=== PATIENT | male | born 1935 | race Caucasian/White ===

== ENCOUNTER 2017-02-05 04:51 | Day surgery (SDC) | payer OTHER, BC ==
[2017-02-04 15:01] VITALS: BMI 31.3
[2017-02-05] MEDS ORDERED: PROPOFOL 20 ML ONE ×2 (08:52)
[2017-02-05 09:59] VITALS: TEMP 98
[2017-02-05 10:57] VITALS: BP 119/70; PULSE 63
--- NOTE | 2017-02-10 11:20 | PATH ---
Surgical Pathology Report Patient Name: INDIGO FISHER [facility]. Rec. #: [id number] /Age/Gender: 1935 (Age: 81) / M Account: [id number] Location: U-ENDOSCOPY Taken: 02/05/2017 Received: 02/05/2017 Reported: 02/08/2017 Physicians: Margarita Burnett M.D. Specimen(s) Received A: BX ILEUM B: BX CECUM Clinical History Altered bowel habits, weight loss, diarrhea Diverticulosis Final Diagnosis A. ILEUM, BIOPSY: ILEAL MUCOSA WITH REACTIVE LYMPHOID AGGREGATE. NO EVIDENCE OF ACTIVE INFLAMMATION, SIGINIFICANT ARCHITECTURAL DISTORTION, GRANULOMATA OR DYSPLASIA; NO INCREASE IN INTRAEPITHELIAL LYMPHOCYTES. B. COLON, CECUM, BIOPSY: COLONIC MUCOSA WITH FOCAL INCREASE IN INTRAEPITHELIAL LYMPHOCYTES AND REACTIVE LYMPHOID AGGREGATE (SEE COMMENT). NO EVIDENCE OF ACTIVE INFLAMMATION, SIGNIFICANT ARCHITECTURAL DISTORTION, GRANULOMATA OR DYSPLASIA. Comment: The histologic findings, while not entirely specific, are suggestive of lymphocytic colitis and proper clinical settings. Trichrome stain does not show thickened collagen fibers that are characteristic of collagenous colitis. Clinical correlations and follow up are suggested. Electronically Signed Tyree Lobo M.D. Gross Description A. Received in formalin, labeled "biopsy ileum" are 2 hutchison, irregular portions of soft tissue measuring 0.4 and 0.6 cm. in greatest dimension. The specimens are submitted in toto in one cassette. B. Received in formalin, labeled "biopsy cecum" are 4 hutchison, irregular portions of soft tissue ranging from 0.1-0.2 cm. in greatest dimension. The specimens are submitted in toto in one cassette. 02/05/2017 saudi02/05/2017
== END 2017-02-05 10:57 | disposition home or self-care (01) ==
LOC: JASU-ENDO 04:51
PROVIDERS: ATTEND Internal Medicine Gastroenterology
PROC: 0DBB8ZX Excision of Ileum, Via Natural or Artificial Opening Endoscopic, Diagnostic (ICD-10-PCS; 2017-02-05)
PROC: 0DBH8ZX Excision of Cecum, Via Natural or Artificial Opening Endoscopic, Diagnostic (ICD-10-PCS; principal; 2017-02-05 09:00)
DX: K57.30 Diverticulosis of large intestine without perforation or abscess without bleeding (principal); K64.8 Other hemorrhoids
CPT/HCPCS: 87045; 87046; 87177; 87186; 87209; 87328; 87329; 88305-TC; 88313-TC

== ENCOUNTER 2019-03-02 19:00 | Inpatient (IN) | payer OTHER, BC ==
[2019-03-02] MEDS ORDERED: ALBUTEROL SO4 2.5/IPRATROPIUM 0.5 INH SOL 3 ML VIAL.NEB. NEB ONE ×2 (19:42→20:01)
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
[2019-03-02] MEDS ORDERED: SODIUM CHLORIDE 0.9% 500 ML INFUS.BAG IV ONE (19:57)
[2019-03-02] MEDS ORDERED: methylPREDNISolone NA SUCC 125 MG/2 ML VIAL IVPB ONE (19:58)
[2019-03-02] MEDS ORDERED: methylPREDNISolone NA SUCC 125 MG/2 ML VIAL ONE (20:02)
[2019-03-02] MEDS: ALBUTEROL SO4 2.5/IPRATROPIUM 0.5 INH SOL 3 ML VIAL.NEB. NEB SCH ×3 (20:13→21:01)
[2019-03-02 20:25] LABS: BASO % 0.1 % (0-2.0); EOS % 1.1 % (0-4.5); HEMATOCRIT 42.6 % (35.4-49); HEMOGLOBIN 13.9 GM/dL (11.7-16.9); LYMPH % 5.3 % (8-40); MCHC 32.7 g/dl (32.0-35.9); MEAN CELL VOLUME 97.9 fl (80-96); MONO % 8.7 % (3.8-10.2); NEUT % 84.8 % (42.8-82.8); PLATELET COUNT 326 K/MM3 (134-434); RBC 4.35 M/mm3 (4.00-5.60); RDW 14.7 % (11.9-15.9); WHITE BLOOD COUNT 12.6 K/mm3 (4.0-10.0)
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
[2019-03-02] MEDS ORDERED: dilTIAZem HCL 50 MG/10 ML - 10 ML VIAL IVPUSH ONE ×2 (20:52→21:16)
[2019-03-02] MEDS ORDERED: dilTIAZem HCL 125 MG/25 ML - 25 ML VIAL ONE ×2 (20:55→21:26)
[2019-03-02 20:57] LABS: ALBUMIN 2.1 g/dl (3.4-5.0); ALK PHOS 101 U/L (45-117); BILIRUBIN,TOTAL 1.9 mg/dL (0.2-1); BLOOD UREA NITROGEN 60.7 mg/dL (7-18); CALCIUM 9.1 mg/dL (8.5-10.1); CHLORIDE 103 mmol/L (98-107); CO2 24 mmol/L (21-32); CREATININE 1.7 mg/dL (0.55-1.3); SGPT/ALT 28 U/L (13-61); SODIUM 139 mmol/L (136-145)
[2019-03-02] MEDS ORDERED: FUROSEMIDE 40 MG/4 ML INJECTABLE VIAL IVPUSH ONE (21:06)
[2019-03-02 21:11] LABS: INR > 15.00 (0.83-1.09)
[2019-03-02] MEDS ORDERED: FUROSEMIDE 40 MG/4 ML INJECTABLE VIAL ONE (21:29)
[2019-03-02] MEDS ORDERED: dilTIAZem HCL 60 MG TABLET (FP) PO ONE (21:33)
[2019-03-02 21:49] LABS: ANION GAP 11 MMOL/L (8-16); POTASSIUM 4.2 mmol/L (3.5-5.1); SGOT/AST 56 U/L (15-37)
[2019-03-02] MEDS ORDERED: dilTIAZem HCL 60 MG TABLET (FP) ONE (22:00)
[2019-03-02 22:08] LABS: GLUCOSE,RANDOM 315 mg/dL (74-106)
[2019-03-02 22:09] LABS: MACROCYTOSIS 1+; PLATELET ESTIMATE ADEQUATE
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
[2019-03-02] MEDS ORDERED: PHYTONADIONE 5 MG TABLET PO ONE (22:11)
[2019-03-02] MEDS ORDERED: INSULIN (NOVOLOG) ASPART 100 UNITS/ML 10ML VIAL SQ ONE (22:14)
[2019-03-02] MEDS ORDERED: PHYTONADIONE 5 MG TABLET ONE (22:17)
[2019-03-03 00:22] LABS: ARTERIAL BLD GAS O2 SATURATION 91.9 % (95-98); ARTERIAL BLOOD GAS BASE EXCESS -0.3 meq/l (-2-2); ARTERIAL BLOOD GAS PCO2 36.4 mmHg (35-45); ARTERIAL BLOOD GAS PO2 66.6 mmHg (80-105); ARTERIAL BLOOD GAS pH 7.42 (7.35-7.45)
[2019-03-03 00:28] LABS: ALLENS TEST POSITIVE
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
[2019-03-03 00:38] LABS: BILIRUBIN,DIRECT 0.9 mg/dL (0.0-0.2)
[2019-03-03] MEDS ORDERED: dilTIAZem HCL 60 MG TABLET (FP) ONE ×2 (01:02→05:39)
[2019-03-03] MEDS: dilTIAZem HCL 60 MG TABLET (FP) PO SCH ×2 (01:09→09:02)
[2019-03-03 02:13] LABS: N-TERMINAL BNP 3756.4 pg/ml (5-450)
[2019-03-03] MEDS ORDERED: ACETAMINOPHEN 325 MG TABLET (FP) PO PRN ×2 (03:33→03:53)
[2019-03-03] MEDS ORDERED: INSULIN (NOVOLOG) ASPART 100 UNITS/ML 10ML VIAL SQ ONE (04:27)
[2019-03-03] MEDS ORDERED: LEVOTHYROXINE NA 25 MCG TABLET (FP) ONE (05:40)
[2019-03-03] MEDS ORDERED: LEVOTHYROXINE NA 25 MCG TABLET (FP) PO SCH (07:00)
[2019-03-03] MEDS ORDERED: INSULIN SLIDING SCALE (NOVOLOG) 1 VIAL SQ SCH (07:00)
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
[2019-03-03] MEDS: INSULIN SLIDING SCALE (NOVOLOG) 1 VIAL SQ SCH ×4 (09:00→21:32)
[2019-03-03] MEDS: ISOSORBIDE MONONITRATE 30 MG TAB.SR.24H (FP) PO SCH (09:49)
[2019-03-03] MEDS: DUTASTERIDE 0.5 MG CAP (FP) PO SCH (09:49)
[2019-03-03] MEDS ORDERED: [UNRECOGNIZED DRUG - OTHER] PO SCH (10:00)
[2019-03-03] MEDS ORDERED: VIT B12 PO SCH (10:00)
[2019-03-03] MEDS ORDERED: INTRINSIC FACT PO SCH (10:00)
[2019-03-03] MEDS ORDERED: FOLATE PO SCH (10:00)
[2019-03-03] MEDS ORDERED: FUROSEMIDE 40 MG/4 ML INJECTABLE VIAL IVPUSH SCH (10:00)
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
[2019-03-03 10:24] LABS: BASO % 0.1 % (0-2.0); HEMOGLOBIN 13.6 GM/dL (11.7-16.9); LYMPH % 6.7 % (8-40); MCH 32.4 pg (25.7-33.7); MCHC 33.2 g/dl (32.0-35.9); MEAN CELL VOLUME 97.6 fl (80-96); MONO % 5.6 % (3.8-10.2); NEUT % 87.6 % (42.8-82.8); PLATELET COUNT 265 K/MM3 (134-434); RDW 14.2 % (11.9-15.9); WHITE BLOOD COUNT 10.8 K/mm3 (4.0-10.0)
[2019-03-03 10:34] LABS: PROTHROMBIN TIME (PATIENT) 88.2 SEC (9.7-13.0)
[2019-03-03 10:57] LABS: INR 7.33 (0.83-1.09)
[2019-03-03 11:23] LABS: BILIRUBIN,TOTAL 1.6 mg/dL (0.2-1); BLOOD UREA NITROGEN 66.7 mg/dL (7-18); CREATININE 1.6 mg/dL (0.55-1.3); POTASSIUM 3.6 mmol/L (3.5-5.1); TOT PROT 5.7 g/dl (6.4-8.2)
[2019-03-03 11:27] LABS: MAGNESIUM 2.2 mg/dL (1.8-2.4); PHOSPHOROUS 2.6 mg/dL (2.5-4.9)
--- NOTE | 2019-03-03 11:45 | EKG ---
Test Reason : Blood Pressure : / mmHG Vent. Rate : 132 BPM Atrial Rate : 138 BPM P-R Int : 000 ms QRS Dur : 076 ms QT Int : 286 ms P-R-T Axes : 000 270 -39 degrees QTc Int : 423 ms ATRIAL FIBRILLATION WITH RAPID VENTRICULAR RESPONSE RIGHT SUPERIOR AXIS DEVIATION PULMONARY DISEASE PATTERN NONSPECIFIC ST AND T WAVE ABNORMALITY ABNORMAL ECG WHEN COMPARED WITH ECG OF 23-JAN-2003 11:54, SIGNIFICANT CHANGES HAVE OCCURRED Confirmed by FERNANDO GILLIAM MD ([id number]) on 03/03/2019 11:44:38 AM Referred By: Confirmed By:FERNANDO GILLIAM MD
--- NOTE | 2019-03-03 12:40 | PN ---
Teaching Attending Note Name of Resident: Fred Schafer ATTENDING PHYSICIAN STATEMENT I saw and evaluated the patient. I reviewed the resident's note and discussed the case with the resident. I agree with the resident's findings and plan as documented. SUBJECTIVE: denies any Cp, denies SOB, has no palpitations, feels better . reports being compliant with his meds OBJECTIVE: NAD, awake, alert. coopertive HEENT: MMM, no JVD, no facial droop CV: irreg irreg , no MRG , no JVD , neg hepatojugular reflux Lungs: course crackles b/l half way down on both lung ledesma Ext : No edema . some bruising . No fungal infection among toes. Abd: soft, NT, ND , NL BS . Neg hepatojugular reflux ASSESSMENT AND PLAN: 84 y/o man with h/o HTN, A fib on coumadin, HLP, DM, CAD, No stents, CKD, diverticulosis, GERD, and hypothyroidism, who presented with [facility] [place] [facility]. he was found to have acute hypoxic resp failure, CHf, and Afib with RVR 1- Acute hypoxic resp failure 2/2 Acute heart failure, type to be determined with Echo, but suspect some systolic dysfunction - on 15 L of O2 but sat O2 still barely 88 %. - will increase diuresis to BID ( 40 mg IV) - add BIPAP PRN and HS. - Echo pending 2- A fib with RVR: suspect due to induced hyperthyroidism. - decrease synthroid dose - hold coumadin - DC cardizem started last night due to heart failure, and dc atenolol and add lopressor 50 BID - tele 3- Coumadin coagulopathy : - hold coumadin . received Vit K - follow INR ( improved ) 4- Possible CKD: monitor Cr with diuresis 5- H/o Hypothyroidism: with low TSH - decrease dose of synthroid since in Afib with RVR 6- elevated indirect Bili, US with stones but no CBD dilation or cholecystitis. cold be due to some degree of liver congestin - monitor 7- H/o Dm withhyperglycemia: received steorids in ER. A1c 6.9. - cont SSI . resume sitagliptin at dc 8- Dispo : HLOC
--- NOTE | 2019-03-03 12:46 | ECHO ---
Name: INDIGO FISHER Exam:Adult Echocardiogram Study Date: 03/03/2019 11:03 AM Age: 84 yrs Reason For Study: R/O REDUCED EF, AF W/RVR AND OVERLOAD Height: 69 in Weight: 180 lb BSA: 2.0 m2 MMode/2D Measurements & Calculations IVSd: 0.78 cm Ao root diam: 2.9 cm LVIDd: 4.7 cm LA dimension: 5.3 cm LVIDs: 3.2 cm LVPWd: 0.69 cm EDV(Teich): 103.0 ml LVOT diam: 2.2 cm ESV(Teich): 41.2 ml Doppler Measurements & Calculations MV E max jie: 57.8 cm/sec Ao V2 max: 162.1 cm/sec MV A max jie: 29.6 cm/sec Ao max P.5 mmHg MV E/A: 2.0 Ao V2 mean: 102.1 cm/sec MV dec time: 0.25 sec Ao mean P.2 mmHg Ao V2 VTI: 25.9 cm SIMON(I,D): 1.8 cm2 SIMON(V,D): 2.3 cm2 LV V1 max P.8 mmHg MR max jie: 281.0 cm/sec LV V1 mean P.7 mmHg MR max P.6 mmHg LV V1 max: 97.7 cm/sec LV V1 mean: 60.5 cm/sec LV V1 VTI: 12.1 cm SV(LVOT): 46.6 ml TR max jie: 199.4 cm/sec TR max P.3 mmHg Left Ventricle Ejection Fraction = 50-55%. Right Ventricle The right ventricle is normal size. The right ventricular systolic function is grossly normal. Atria The left atrium is moderately dilated. The right atrium is moderately dilated. Mitral Valve The mitral valve is grossly normal. There is no mitral valve stenosis. There is mild mitral regurgita tion. Tricuspid Valve The tricuspid valve is normal in structure and function. There is mild tricuspid regurgitation. Right ventricular systolic pressure is normal. Aortic Valve The aortic valve is trileaflet. The aortic valve opens well. No hemodynamically significant valvular aortic stenosis. Pericardium/Pleura There is no pericardial effusion. Interpretation Summary The left atrium is moderately dilated. Ejection Fraction = 50-55%. The right atrium is moderately dilated. There is mild tricuspid regurgitation. Right ventricular systolic pressure is normal. The right ventricular systolic function is grossly normal. There is mild mitral regurgitation. There is no pericardial effusion. MD Zamudio *Lucía 03/03/2019 12:45 PM
[2019-03-03] MEDS: FUROSEMIDE 40 MG/4 ML INJECTABLE VIAL IVPUSH SCH (16:59)
[2019-03-03] MEDS: ROSUVASTATIN CA 5 MG TABLET (FP) PO SCH (21:28)
[2019-03-03] MEDS: METOPROLOL TARTRATE 50 MG TABLET (FP) PO SCH (21:29)
[2019-03-03] MEDS ORDERED: ATENOLOL 50 MG TABLET (FP) PO SCH (22:00)
[2019-03-03] MEDS ORDERED: METOPROLOL TARTRATE 50 MG TABLET (FP) PO SCH (22:00)
[2019-03-04] MEDS: LEVOTHYROXINE NA 25 MCG TABLET (FP) PO SCH (06:01)
[2019-03-04] MEDS: FUROSEMIDE 40 MG/4 ML INJECTABLE VIAL IVPUSH SCH ×2 (06:01→17:12)
[2019-03-04] MEDS: INSULIN SLIDING SCALE (NOVOLOG) 1 VIAL SQ SCH ×4 (06:02→21:29)
[2019-03-04 07:32] LABS: INR 3.3 (0.83-1.09); PROTHROMBIN TIME (PATIENT) 39.4 SEC (9.7-13.0)
[2019-03-04 07:38] LABS: ALBUMIN 1.9 g/dl (3.4-5.0); BILIRUBIN,TOTAL 1.2 mg/dL (0.2-1); BLOOD UREA NITROGEN 73.6 mg/dL (7-18); CALCIUM 8.8 mg/dL (8.5-10.1); CREATININE 1.8 mg/dL (0.55-1.3); PHOSPHOROUS 3.8 mg/dL (2.5-4.9); POTASSIUM 3.7 mmol/L (3.5-5.1); TOT PROT 5.5 g/dl (6.4-8.2)
[2019-03-04 08:06] LABS: BASO % 0.2 % (0-2.0); HEMATOCRIT 39.3 % (35.4-49); LYMPH % 5.7 % (8-40); MCH 32.3 pg (25.7-33.7); MCHC 33.1 g/dl (32.0-35.9); MEAN CELL VOLUME 97.6 fl (80-96); MEAN PLT VOLUME 10.2 fl (7.5-11.1); MONO % 4.3 % (3.8-10.2); NEUT % 89.8 % (42.8-82.8); PLATELET COUNT 274 K/MM3 (134-434); RBC 4.03 M/mm3 (4.00-5.60); RDW 14.4 % (11.9-15.9)
[2019-03-04] MEDS: ALBUTEROL SO4 2.5/IPRATROPIUM 0.5 INH SOL 3 ML VIAL.NEB. NEB PRN ×2 (08:10→13:57)
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
[2019-03-04] MEDS: METOPROLOL TARTRATE 50 MG TABLET (FP) PO SCH ×2 (10:07→21:28)
[2019-03-04] MEDS: DUTASTERIDE 0.5 MG CAP (FP) PO SCH (10:08)
[2019-03-04] MEDS: ISOSORBIDE MONONITRATE 30 MG TAB.SR.24H (FP) PO SCH (10:08)
[2019-03-04 12:13] LABS: ANISOCYTOSIS 0; MACROCYTOSIS 1+; PLATELET ESTIMATE NORMAL
--- NOTE | 2019-03-04 12:40 | PN ---
Teaching Attending Note Name of Resident: Viral Siegel ATTENDING PHYSICIAN STATEMENT I saw and evaluated the patient. I reviewed the resident's note and discussed the case with the resident. I agree with the resident's findings and plan as documented. SUBJECTIVE: no fever or chills. No ZULETA , did not sleep last night. used BIPAP al night , SOB is better . NO PC . OBJECTIVE: NAD, awake, alert. cooperative HEENT: MMM, no JVD, no facial droop CV: irreg irreg, no MRG , no JVD , neg hepatojugular reflux Lungs: course crackles b/l bases Ext: No edema. some bruising . No fungal infection among toes. ASSESSMENT AND PLAN: 84 y/o man with h/o HTN, A fib on coumadin, HLP, DM, CAD, No stents, CKD, diverticulosis, GERD, and hypothyroidism, [facility] he was found to have acute hypoxic resp failure, CHf, and Afib with RVR 1- Acute hypoxic resp failure 2/2 Acute diastolic heart failure - try venti mask instead of the BIPAP during the day - cont BID lasix, if renal function worsens further , then will decrease dose - add BIPAP PRN and HS. - Echo reviewed - leukocytosis is probably due to steroids received in ER. will repeat, and check cxray in am 2- A fib with RVR: suspect due to induced hyperthyroidism. - tele with improvement in heart rate - cont to hold coumadin - cont lopressor 50 BID - tele 3- Coumadin coagulopathy : - hold coumadin. received Vit K - follow INR 4- Possible CKD: monitor Cr with diuresis 5- H/o Hypothyroidism: with low TSH - cont decreaed dose of synthroid 6- Transaminitis : due to congestion . improved with diuresis 7- H/o Dm with hyperglycemia: received steorids in ER. A1c 6.9. - cont SSI. resume sitagliptin at dc 8- Dispo : OC
[2019-03-04 13:49] LABS: INR 3.27 (0.83-1.09); PROTHROMBIN TIME (PATIENT) 39.1 SEC (9.7-13.0)
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
[2019-03-04] MEDS: ROSUVASTATIN CA 5 MG TABLET (FP) PO SCH (21:28)
[2019-03-05] MEDS: LEVOTHYROXINE NA 25 MCG TABLET (FP) PO SCH (06:32)
[2019-03-05] MEDS: INSULIN SLIDING SCALE (NOVOLOG) 1 VIAL SQ SCH ×4 (06:32→21:39)
[2019-03-05] MEDS: FUROSEMIDE 40 MG/4 ML INJECTABLE VIAL IVPUSH SCH ×2 (06:32→17:02)
[2019-03-05 07:22] LABS: BLOOD UREA NITROGEN 66.8 mg/dL (7-18); CALCIUM 8.9 mg/dL (8.5-10.1); CREATININE 1.4 mg/dL (0.55-1.3); POTASSIUM 3.8 mmol/L (3.5-5.1)
[2019-03-05 07:43] LABS: BASO % 0.1 % (0-2.0); HEMOGLOBIN 14.5 GM/dL (11.7-16.9); LYMPH % 3.3 % (8-40); MCH 31.9 pg (25.7-33.7); MEAN CELL VOLUME 96.8 fl (80-96); MEAN PLT VOLUME 10.2 fl (7.5-11.1); NEUT % 94.6 % (42.8-82.8); RBC 4.55 M/mm3 (4.00-5.60); RDW 14.4 % (11.9-15.9); WHITE BLOOD COUNT 16.7 K/mm3 (4.0-10.0)
[2019-03-05 08:07] LABS: INR 3.57 (0.83-1.09); PROTHROMBIN TIME (PATIENT) 42.7 SEC (9.7-13.0)
[2019-03-05 08:43] LABS: PLATELET COUNT 274 K/MM3 (134-434)
[2019-03-05] MEDS: METOPROLOL TARTRATE 50 MG TABLET (FP) PO SCH ×2 (08:59→21:39)
[2019-03-05] MEDS: ISOSORBIDE MONONITRATE 30 MG TAB.SR.24H (FP) PO SCH (08:59)
[2019-03-05] MEDS: DUTASTERIDE 0.5 MG CAP (FP) PO SCH (08:59)
[2019-03-05] MEDS ORDERED: INSULIN (NOVOLOG) ASPART 100 UNITS/ML 10ML VIAL ONE ×4 (11:06→21:31)
[2019-03-05 12:37] LABS: MACROCYTOSIS 0; PLATELET ESTIMATE NORMAL
--- NOTE | 2019-03-05 13:27 | PN ---
Progress Note (short form) - Note Progress Note: Subjective: No fever or chills. feels his breathing is better. No ZULETA . no diarrhea. Objective: Vital Signs: Last Vital Signs Temp Pulse Resp BP Pulse Ox 97.6 F 92 H 24 H 127/71 90 L 03/05/19 08:48 03/05/19 08:48 03/05/19 08:50 03/05/19 08:48 03/05/19 09:33 Laboratory Results - last 24 hr 03/04/19 03/04/19 03/04/19 06:17 13:05 16:46 WBC RBC Hgb Hct MCV MCH MCHC RDW Plt Count MPV Absolute Neuts (auto) Neutrophils % Neutrophils % (Manual) 92.9 H Band Neutrophils % 2.0 Lymphocytes % Lymphocytes % (Manual) 3.1 L Monocytes % Monocytes % (Manual) 0 L D Eosinophils % Eosinophils % (Manual) 0.0 Basophils % Basophils % (Manual) 0.0 Myelocytes % (Man) 2 Promyelocytes % (Man) 0 Blast Cells % (Manual) 0 Nucleated RBC % Metamyelocytes 0 Hypochromia 0 Platelet Estimate Normal Polychromasia 0 Poikilocytosis 0 Anisocytosis 0 Microcytosis 0 Macrocytosis 1+ PT with INR 39.10 H INR 3.27 H Sodium Potassium Chloride Carbon Dioxide Anion Gap BUN Creatinine Est GFR (CKD-EPI)AfAm Est GFR (CKD-EPI)NonAf POC Glucometer 187 Random Glucose Calcium 03/04/19 03/05/19 03/05/19 21:26 05:52 06:15 WBC 16.7 H RBC 4.55 Hgb 14.5 Hct 44.0 MCV 96.8 H MCH 31.9 MCHC 33.0 RDW 14.4 Plt Count 274 MPV 10.2 Absolute Neuts (auto) 15.8 H Neutrophils % 94.6 H Neutrophils % (Manual) Band Neutrophils % Lymphocytes % 3.3 L D Lymphocytes % (Manual) Monocytes % 2.0 L Monocytes % (Manual) Eosinophils % 0.0 Eosinophils % (Manual) Basophils % 0.1 Basophils % (Manual) Myelocytes % (Man) Promyelocytes % (Man) Blast Cells % (Manual) Nucleated RBC % 0 Metamyelocytes Hypochromia Platelet Estimate Polychromasia Poikilocytosis Anisocytosis Microcytosis Macrocytosis PT with INR INR Sodium Potassium Chloride Carbon Dioxide Anion Gap BUN Creatinine Est GFR (CKD-EPI)AfAm Est GFR (CKD-EPI)NonAf POC Glucometer 220 221 Random Glucose Calcium 03/05/19 03/05/19 03/05/19 06:15 06:15 11:11 WBC RBC Hgb Hct MCV MCH MCHC RDW Plt Count MPV Absolute Neuts (auto) Neutrophils % Neutrophils % (Manual) Band Neutrophils % Lymphocytes % Lymphocytes % (Manual) Monocytes % Monocytes % (Manual) Eosinophils % Eosinophils % (Manual) Basophils % Basophils % (Manual) Myelocytes % (Man) Promyelocytes % (Man) Blast Cells % (Manual) Nucleated RBC % Metamyelocytes Hypochromia Platelet Estimate Polychromasia Poikilocytosis Anisocytosis Microcytosis Macrocytosis PT with INR 42.70 H INR 3.57 H Sodium 142 Potassium 3.8 Chloride 103 Carbon Dioxide 29 Anion Gap 10 BUN 66.8 H Creatinine 1.4 H Est GFR (CKD-EPI)AfAm 53.47 Est GFR (CKD-EPI)NonAf 46.13 POC Glucometer 338 Random Glucose 205 H Calcium 8.9 Physical Exam: NAD, awake, alert. cooperative. BIPPA ask on HEENT: MMM, no JVD, no facial droop CV: irreg irreg, no MRG, no JVD Lungs: course crackles b/l bases ( improved ) Ext: No edema. some bruising . ASSESSMENT AND PLAN: 84 y/o man with h/o HTN, A fib on coumadin, HLP, DM, CAD, No stents, CKD, diverticulosis, GERD, and hypothyroidism, who [facility]. he was found to have acute hypoxic resp failure, CHf, and Afib with RVR 1- Acute hypoxic resp failure 2/2 Acute diastolic heart failure - Cont BIPAP - cont lasix - will get CT of chest to r/o any infiltrates as hypoxia persists and white count is increasing. - if there is no PNA ot explain the hypoxia , will start steroids as he has h/o smoking - PE is not suspected as he is on coumadin 2- A fib with RVR: - tele reviewed - cont to hold coumadin . repeat INR - cont lopressor 50 BID - tele 3- Coumadin coagulopathy : - hold coumadin. received Vit K - follow INR 4- Possible CKD: monitor Cr with diuresis 5- H/o Hypothyroidism: with low TSH - cont decreased dose of synthroid 6- Transaminitis: due to congestion. improved with diuresis 7- H/o DM with hyperglycemia: - increase SSI. Resume sitagliptin at dc 8- Dispo : HLOC Visit type - Emergency Visit Emergency Visit: Yes ED Registration Date: 03/02/19 Care time: The patient presented to the Emergency Department on the above date and was hospitalized for further evaluation of their emergent condition. - New Patient This patient is new to me today: No - Critical Care Critical Care patient: No
[2019-03-05 13:49] LABS: ANISOCYTOSIS 1+
[2019-03-05] MEDS ORDERED: cefTRIAXone SODIUM 1 GM VIAL ONE (14:03)
[2019-03-05] MEDS ORDERED: DEXTROSE 5%-WATER - 50 ML IVPB ONE (14:03)
[2019-03-05] MEDS: methylPREDNISolone NA SUCC 40 MG/1 ML VIAL IVPB SCH ×2 (14:09→21:40)
[2019-03-05] MEDS: CEFTRIAXONE 1 GM in DEXTROSE 5%-WATER - 50 ML IVPB SCH (15:43)
[2019-03-05] MEDS: AZITHROMYCIN IVPB 500 MG/250 ML BAG IVPB SCH (15:43)
[2019-03-05] MEDS: ROSUVASTATIN CA 5 MG TABLET (FP) PO SCH (21:39)
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
[2019-03-06] MEDS: FUROSEMIDE 40 MG/4 ML INJECTABLE VIAL IVPUSH SCH ×2 (06:40→17:35)
[2019-03-06] MEDS: INSULIN SLIDING SCALE (NOVOLOG) 1 VIAL SQ SCH ×4 (06:40→23:32)
[2019-03-06] MEDS: LEVOTHYROXINE NA 25 MCG TABLET (FP) PO SCH (06:41)
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
[2019-03-06 08:00] LABS: BASO % 0.1 % (0-2.0); HEMATOCRIT 45.1 % (35.4-49); HEMOGLOBIN 15.1 GM/dL (11.7-16.9); MCH 32.3 pg (25.7-33.7); MCHC 33.4 g/dl (32.0-35.9); MEAN CELL VOLUME 96.7 fl (80-96); MEAN PLT VOLUME 10.6 fl (7.5-11.1); MONO % 2.4 % (3.8-10.2); NEUT % 93.5 % (42.8-82.8); RBC 4.66 M/mm3 (4.00-5.60); RDW 14.1 % (11.9-15.9); WHITE BLOOD COUNT 19.2 K/mm3 (4.0-10.0)
[2019-03-06 08:25] LABS: BLOOD UREA NITROGEN 66.7 mg/dL (7-18); CALCIUM 8.7 mg/dL (8.5-10.1); CREATININE 1.4 mg/dL (0.55-1.3); MAGNESIUM 2.3 mg/dL (1.8-2.4); PHOSPHOROUS 4.3 mg/dL (2.5-4.9); POTASSIUM 3.4 mmol/L (3.5-5.1)
[2019-03-06 09:06] LABS: INR 3.83 (0.83-1.09); PROTHROMBIN TIME (PATIENT) 45.8 SEC (9.7-13.0)
[2019-03-06 09:09] LABS: PLATELET COUNT 284 K/MM3 (134-434)
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
[2019-03-06] MEDS: DUTASTERIDE 0.5 MG CAP (FP) PO SCH (11:16)
[2019-03-06] MEDS: METOPROLOL TARTRATE 50 MG TABLET (FP) PO SCH ×2 (11:17→21:46)
[2019-03-06] MEDS: ISOSORBIDE MONONITRATE 30 MG TAB.SR.24H (FP) PO SCH (11:17)
[2019-03-06] MEDS ORDERED: POTASSIUM CHLORIDE TABS 20 MEQ TABLET.ER (FP) PO ONE (11:23)
--- NOTE | 2019-03-06 12:59 | PN ---
Teaching Attending Note Name of Resident: Fred Schafer ATTENDING PHYSICIAN STATEMENT I saw and evaluated the patient. I reviewed the resident's note and discussed the case with the resident. I agree with the resident's findings and plan as documented. SUBJECTIVE: No fever or chills. He denies SOB, no PC . no ocugh. has no abd pain or diarrhea OBJECTIVE: NAD, awake, alert. cooperative. BIPPA mask on. HEENT: MMM, no JVD, no facial droop. CV: irreg irreg, no MRG, no JVD. Lungs: bibasilar crackles have improved. Ext: No edema. ASSESSMENT AND PLAN: 84 y/o man with h/o HTN, A fib on coumadin, HLP, DM, CAD, No stents, CKD, diverticulosis, GERD, and hypothyroidism, who presented with [facility]oxia [facility]. He was found to have acute hypoxic resp failure, CHf, and Afib with RVR . 1- Acute hypoxic resp failure 2/2 Acute diastolic heart failure and b/l PNA - Cont BIPAP - cont lasix at current dose - day 2 of Ab, ceftriaxone and azithro. Legionella neg - No need for steroids at this point - Start standing nebs - Pulm eval pending 2- A fib with RVR: - tele reviewed . rate controlled - cont to hold coumadin . repeat INR - cont lopressor 50 BID 3- Coumadin coagulopathy: s/p Vit K - hold coumadin. - follow INR 4- Possible CKD: monitor Cr with diuresis. 5- H/o Hypothyroidism: with low TSH - cont decreased dose of synthroid. 6- Transaminitis: due to congestion. improved with diuresis 7- H/o DM with hyperglycemia: - SSI. can resume sitagliptin in house 8- Dispo : HLOC
[2019-03-06 13:01] LABS: ANISOCYTOSIS 0; MACROCYTOSIS 0; PLATELET ESTIMATE NORMAL
[2019-03-06] MEDS ORDERED: methylPREDNISolone NA SUCC 125 MG/2 ML VIAL ONE (13:10)
[2019-03-06] MEDS ORDERED: methylPREDNISolone NA SUCC 125 MG/2 ML VIAL IVPUSH ONE (13:12)
[2019-03-06] MEDS: CEFTRIAXONE 1 GM in DEXTROSE 5%-WATER - 50 ML IVPB SCH (13:12)
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
[2019-03-06] MEDS: AZITHROMYCIN IVPB 500 MG/250 ML BAG IVPB SCH (13:13)
[2019-03-06] MEDS ORDERED: ALBUTEROL SO4 0.083% IH SOL 2.5 MG/3 ML VIAL.NEB. NEB PRN (13:20)
[2019-03-06] MEDS ORDERED: ALBUTEROL SO4 2.5/IPRATROPIUM 0.5 INH SOL 3 ML VIAL.NEB. NEB ONE (13:39)
[2019-03-06] MEDS ORDERED: VANCOMYCIN HCL 1,250 MG in DEXTROSE 5%-WATER - 250 ML IVPB ONE ×2 (14:00→16:45)
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
[2019-03-06 14:56] LABS: ARTERIAL BLD GAS O2 SATURATION 95.1 % (95-98); ARTERIAL BLOOD GAS PCO2 36.3 mmHg (35-45); ARTERIAL BLOOD GAS PO2 76.3 mmHg (80-105)
[2019-03-06 14:58] LABS: ALLENS TEST POSITIVE
[2019-03-06] MEDS: ALBUTEROL SO4 2.5/IPRATROPIUM 0.5 INH SOL 3 ML VIAL.NEB. NEB SCH ×2 (15:33→21:15)
[2019-03-06] MEDS ORDERED: PIPERACILLIN/TAZOBACTAM 3.375 GM VIAL IVPB ONE ×2 (16:21→21:09)
[2019-03-06] MEDS ORDERED: PT OWN MED DRAWER 7, Y5N ONE ×2 (16:21→21:31)
[2019-03-06] MEDS ORDERED: DEXTROSE 5%-WATER - 50 ML IVPB ONE ×2 (16:21→21:10)
[2019-03-06] MEDS: PIPERACILLIN/TAZOB 3.375 GM 3.375 GM in DEXTROSE 5%-WATER - 50 ML IVPB SCH ×2 (16:24→21:44)
[2019-03-06] MEDS ORDERED: INSULIN (NOVOLOG) ASPART 100 UNITS/ML 10ML VIAL ONE ×2 (16:53→19:02)
[2019-03-06 16:57] LABS: EPI CELLS 1.5 /HPF (0-5/HPF); HYALINE CASTS 24 /lpf (0-8); URINE APPEARANCE CLOUDY; URINE BACTERIA 6.4 /hpf (NEGATIVE); URINE BILIRUBIN NEGATIVE (NEGATIVE); URINE COLOR YELLOW; URINE GLUCOSE (UA) NEGATIVE (NEGATIVE); URINE KETONE NEGATIVE (NEGATIVE); URINE LEUK ESTERASE NEGATIVE (NEGATIVE); URINE NITRITE NEGATIVE (NEGATIVE); URINE PROTEIN NEGATIVE (NEGATIVE); URINE UROBILINOGEN 0.2 mg/dL (0.2-1.0); URINE WBC 3 /hpf (0-5)
[2019-03-06] MEDS: methylPREDNISolone NA SUCC 40 MG/1 ML VIAL IVPUSH SCH (17:35)
[2019-03-06 18:00] LABS: URINE RBC 67.5 /hpf (0-4); YEAST NONE SEEN (NEGATIVE)
--- NOTE | 2019-03-06 20:17 | PN ---
Progress Note (short form) - Note Progress Note: Spoke with Nephew over the phone after getting consent from pt. Nephew reports pt's has memory deficits and that he has HCP forms. Updated nephew on pt's condition and instructed nephew to bring or fax over HCP forms so we can scan into our system.
[2019-03-06] MEDS: ROSUVASTATIN CA 5 MG TABLET (FP) PO SCH (22:24)
[2019-03-07] MEDS ORDERED: DEXTROSE 5%-WATER - 50 ML IVPB ONE ×4 (03:20→20:42)
[2019-03-07] MEDS ORDERED: PIPERACILLIN/TAZOBACTAM 3.375 GM VIAL IVPB ONE ×4 (03:20→20:42)
[2019-03-07] MEDS: methylPREDNISolone NA SUCC 40 MG/1 ML VIAL IVPUSH SCH ×3 (03:22→18:56)
[2019-03-07] MEDS: PIPERACILLIN/TAZOB 3.375 GM 3.375 GM in DEXTROSE 5%-WATER - 50 ML IVPB SCH ×4 (03:23→21:36)
[2019-03-07] MEDS: FUROSEMIDE 40 MG/4 ML INJECTABLE VIAL IVPUSH SCH (05:56)
[2019-03-07 06:14] LABS: EOS % 0.1 % (0-4.5); RDW 13.9 % (11.9-15.9); WHITE BLOOD COUNT 18.2 K/mm3 (4.0-10.0)
[2019-03-07] MEDS: sitaGLIPtin PHOSPHATE 50 MG TABLET PO SCH (06:17)
[2019-03-07] MEDS: LEVOTHYROXINE NA 25 MCG TABLET (FP) PO SCH (06:18)
[2019-03-07 06:25] LABS: BASO % 0.2 % (0-2.0); HEMATOCRIT 41.7 % (35.4-49); HEMOGLOBIN 13.9 GM/dL (11.7-16.9); LYMPH % 4.6 % (8-40); MCH 32.6 pg (25.7-33.7); MCHC 33.4 g/dl (32.0-35.9); MEAN CELL VOLUME 97.6 fl (80-96); MEAN PLT VOLUME 10.6 fl (7.5-11.1); MONO % 0.7 % (3.8-10.2); NEUT % 94.4 % (42.8-82.8); PLATELET COUNT 294 K/MM3 (134-434); RBC 4.28 M/mm3 (4.00-5.60)
[2019-03-07 06:26] LABS: ARTERIAL BLD GAS O2 SATURATION 85.2 % (95-98); ARTERIAL BLOOD GAS BASE EXCESS 8.7 meq/l (-2-2); ARTERIAL BLOOD GAS PO2 50.9 mmHg (80-105); ARTERIAL BLOOD GAS pH 7.52 (7.35-7.45)
[2019-03-07 06:26] LABS: INR 3.17 (0.83-1.09); PROTHROMBIN TIME (PATIENT) 37.9 SEC (9.7-13.0)
[2019-03-07 06:28] LABS: ALLENS TEST POSITIVE
[2019-03-07] MEDS: INSULIN SLIDING SCALE (NOVOLOG) 1 VIAL SQ SCH ×4 (06:31→22:22)
[2019-03-07 06:44] LABS: ALBUMIN 1.6 g/dl (3.4-5.0); BILIRUBIN,TOTAL 0.7 mg/dL (0.2-1); CALCIUM 8.6 mg/dL (8.5-10.1); CREATININE 1.8 mg/dL (0.55-1.3); MAGNESIUM 2.4 mg/dL (1.8-2.4); PHOSPHOROUS 5.4 mg/dL (2.5-4.9); POTASSIUM 3.8 mmol/L (3.5-5.1); TOT PROT 5.6 g/dl (6.4-8.2)
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
[2019-03-07] MEDS: ALBUTEROL SO4 2.5/IPRATROPIUM 0.5 INH SOL 3 ML VIAL.NEB. NEB SCH ×4 (08:10→19:50)
[2019-03-07] MEDS: METOPROLOL TARTRATE 50 MG TABLET (FP) PO SCH ×2 (09:07→21:37)
[2019-03-07] MEDS: ISOSORBIDE MONONITRATE 30 MG TAB.SR.24H (FP) PO SCH (09:07)
[2019-03-07] MEDS ORDERED: PT OWN MED DRAWER 7, Y5N ONE ×3 (09:13→20:42)
[2019-03-07] MEDS: DUTASTERIDE 0.5 MG CAP (FP) PO SCH (09:14)
--- NOTE | 2019-03-07 11:20 | PN ---
Teaching Attending Note Name of Resident: Jaiden Rogers ATTENDING PHYSICIAN STATEMENT I saw and evaluated the patient. I reviewed the resident's note and discussed the case with the resident. I agree with the resident's findings and plan as documented. SUBJECTIVE: Patient seen and examined in the ICU. Awake and alert. Currently on HFOT. WOB appears improved. Awake and responsive. ABG noted. No pressors. Denies CP and SOB is better. Intake & Output 03/04/19 03/05/19 03/06/19 03/07/19 23:59 23:59 23:59 23:59 Intake Total 1300 1430 570 170 Output Total 3400 3000 700 Balance -2100 -1570 -130 170 Weight 186 lb 182 lb 3.2 oz 179 lb 6 oz 183 lb 3.2 oz Last Vital Signs Temp Pulse Resp BP Pulse Ox 97.6 F 80 21 H 123/75 96 03/07/19 08:00 03/07/19 08:00 03/07/19 08:00 03/07/19 08:00 03/07/19 09:00 Active Medications Acetaminophen (Tylenol -) 650 mg PO Q6H PRN PRN Reason: PAIN OR FEVER Last Admin: 03/06/19 11:17 Dose: 650 mg Albuterol Sulfate (Ventolin 0.083% Nebulizer Soln -) 1 amp NEB Q4H PRN PRN Reason: SHORT OF BREATH/WHEEZING Last Admin: 03/06/19 23:51 Dose: 1 amp Albuterol/Ipratropium (Duoneb -) 1 amp NEB RQID [facility] Last Admin: 03/06/19 21:15 Dose: 1 amp Dutasteride (Avodart -) 0.5 mg PO DAILY [facility] Last Admin: 03/07/19 09:14 Dose: 0.5 mg Azithromycin (Zithromax 500mg Ivpb (Pre-Docked)) 500 mg in 250 mls @ 250 mls/ hr IVPB Q24H [facility] Last Admin: 03/06/19 13:13 Dose: 250 mls/hr Piperacillin Sod/Tazobactam (Sod 3.375 gm/ Dextrose) 50 mls @ 100 mls/hr IVPB Q6H-IV EDMUND; Protocol Last Admin: 03/07/19 09:06 Dose: 100 mls/hr Insulin Aspart (Novolog Vial Sliding Scale -) 1 vial SQ ACHS EDMUND; Protocol Last Admin: 03/07/19 06:31 Dose: 6 units Isosorbide Mononitrate (Imdur -) 30 mg PO DAILY [facility] Last Admin: 03/07/19 09:07 Dose: 30 mg Levothyroxine Sodium (Synthroid -) 12.5 mcg PO AM [facility] Last Admin: 03/07/19 06:18 Dose: 12.5 mcg Methylprednisolone Sodium Succinate (Solu-Medrol -) 60 mg IVPUSH Q8H-IV [facility] Last Admin: 03/07/19 09:06 Dose: 60 mg Metoprolol Tartrate (Lopressor -) 50 mg PO BID [facility] Last Admin: 03/07/19 09:07 Dose: 50 mg Rosuvastatin Calcium (Crestor -) 5 mg PO HS [facility] Last Admin: 03/06/19 22:24 Dose: 5 mg Sitagliptin Phosphate (Januvia -) 50 mg PO DAILY@0700 [facility] Last Admin: 03/07/19 06:17 Dose: 50 mg Constitutional: Yes: Awake and responsive on HFOT, mildly tachypneic at rest Eyes: Yes: Conjunctiva Clear, EOM Intact HENT: Yes: Atraumatic, Normocephalic Neck: Yes: Supple, Trachea Midline Cardiovascular: Yes: Irregular Respiratory: Yes: Bibasilar rhonchi and scattered minimal expiratory wheeze ...Clubbing: No Gastrointestinal: Yes: Normal Bowel Sounds, Soft. No: Tenderness Extremities: Yes: Improved cyanosis Edema: No Neurological: Yes: Alert, Oriented Labs: Laboratory Results - last 24 hr 03/06/19 03/06/19 03/06/19 06:59 12:18 14:35 WBC RBC Hgb Hct MCV MCH MCHC RDW Plt Count MPV Absolute Neuts (auto) Neutrophils % Neutrophils % (Manual) 91.0 H Band Neutrophils % 2.0 Lymphocytes % Lymphocytes % (Manual) 2.0 L D Monocytes % Monocytes % (Manual) 0 L D Eosinophils % Eosinophils % (Manual) 0.0 Basophils % Basophils % (Manual) 0.0 Myelocytes % (Man) 0 Promyelocytes % (Man) 0 Blast Cells % (Manual) 0 Nucleated RBC % Metamyelocytes 1 D Hypochromia 0 Platelet Estimate Normal Platelet Comment Present Polychromasia 0 Poikilocytosis 0 Anisocytosis 0 Microcytosis 0 Macrocytosis 0 PT with INR INR Anticoagulation Therapy Puncture Site ABG pH ABG pCO2 at Pt Temp ABG pO2 at Pt Temp ABG HCO3 ABG O2 Sat (Measured) ABG O2 Content ABG Base Excess [place]osta Test O2 Delivery Device Oxygen Flow Rate Vent Mode Vent Rate Mechanical Rate Pressure Support Vent Sodium Potassium Chloride Carbon Dioxide Anion Gap BUN Creatinine Est GFR (CKD-EPI)AfAm Est GFR (CKD-EPI)NonAf POC Glucometer 363 Random Glucose Calcium Phosphorus Magnesium Total Bilirubin AST ALT Alkaline Phosphatase Total Protein Albumin Urine Color Yellow Urine Appearance Cloudy Urine pH 5.0 Ur Specific [place] 1.014 Urine Protein Negative Urine Glucose (UA) Negative Urine Ketones Negative Urine Blood 2+ H Urine Nitrite Negative Urine Bilirubin Negative Urine Urobilinogen 0.2 Ur Leukocyte Esterase Negative Urine WBC (Auto) 3 Urine RBC (Auto) 67.5 Urine Casts (Auto) 24 U Pathogenic Cast Auto None seen U Epithel Cells (Auto) 1.5 U Sm Round Cell (Auto) None seen Urine Crystals (Auto) No Result Required. Urine Bacteria (Auto) 6.4 Urine Yeast (Auto) None seen Random Vancomycin 03/06/19 03/06/19 03/06/19 14:44 16:49 22:35 WBC RBC Hgb Hct MCV MCH MCHC RDW Plt Count MPV Absolute Neuts (auto) Neutrophils % Neutrophils % (Manual) Band Neutrophils % Lymphocytes % Lymphocytes % (Manual) Monocytes % Monocytes % (Manual) Eosinophils % Eosinophils % (Manual) Basophils % Basophils % (Manual) Myelocytes % (Man) Promyelocytes % (Man) Blast Cells % (Manual) Nucleated RBC % Metamyelocytes Hypochromia Platelet Estimate Platelet Comment Polychromasia Poikilocytosis Anisocytosis Microcytosis Macrocytosis PT with INR INR Anticoagulation Therapy No Result Required. Puncture Site Left radial ABG pH 7.50 H ABG pCO2 at Pt Temp 36.3 ABG pO2 at Pt Temp 76.3 L ABG HCO3 27.9 H ABG O2 Sat (Measured) 95.1 ABG O2 Content 19.8 ABG Base Excess 5.0 H Acosta Test Positive O2 Delivery Device No Result Required. Oxygen Flow Rate Yes Vent Mode No Result Required. Vent Rate No Result Required. Mechanical Rate No Result Required. Pressure Support Vent No Result Required. Sodium Potassium Chloride Carbon Dioxide Anion Gap BUN Creatinine Est GFR (CKD-EPI)AfAm Est GFR (CKD-EPI)NonAf POC Glucometer 248 390 Random Glucose Calcium Phosphorus Magnesium Total Bilirubin AST ALT Alkaline Phosphatase Total Protein Albumin Urine Color Urine Appearance Urine pH Ur Specific [place] Urine Protein Urine Glucose (UA) Urine Ketones Urine Blood Urine Nitrite Urine Bilirubin Urine Urobilinogen Ur Leukocyte Esterase Urine WBC (Auto) Urine RBC (Auto) Urine Casts (Auto) U Pathogenic Cast Auto U Epithel Cells (Auto) U Sm Round Cell (Auto) Urine Crystals (Auto) Urine Bacteria (Auto) Urine Yeast (Auto) Random Vancomycin 03/07/19 03/07/19 03/07/19 05:30 05:30 05:30 WBC 18.2 H RBC 4.28 Hgb 13.9 Hct 41.7 MCV 97.6 H MCH 32.6 MCHC 33.4 RDW 13.9 Plt Count 294 MPV 10.6 Absolute Neuts (auto) 17.1 H Neutrophils % 94.4 H Neutrophils % (Manual) Band Neutrophils % Lymphocytes % 4.6 L Lymphocytes % (Manual) Monocytes % 0.7 L Monocytes % (Manual) Eosinophils % 0.1 D Eosinophils % (Manual) Basophils % 0.2 Basophils % (Manual) Myelocytes % (Man) Promyelocytes % (Man) Blast Cells % (Manual) Nucleated RBC % 0 Metamyelocytes Hypochromia Platelet Estimate Platelet Comment Polychromasia Poikilocytosis Anisocytosis Microcytosis Macrocytosis PT with INR 37.90 H INR 3.17 H Anticoagulation Therapy Puncture Site ABG pH ABG pCO2 at Pt Temp ABG pO2 at Pt Temp ABG HCO3 ABG O2 Sat (Measured) ABG O2 Content ABG Base Excess Acosta Test O2 Delivery Device Oxygen Flow Rate Vent Mode Vent Rate Mechanical Rate Pressure Support Vent Sodium Potassium Chloride Carbon Dioxide Anion Gap BUN Creatinine Est GFR (CKD-EPI)AfAm Est GFR (CKD-EPI)NonAf POC Glucometer Random Glucose Calcium Phosphorus Magnesium Total Bilirubin AST ALT Alkaline Phosphatase Total Protein Albumin Urine Color Urine Appearance Urine pH Ur Specific [place] Urine Protein Urine Glucose (UA) Urine Ketones Urine Blood Urine Nitrite Urine Bilirubin Urine Urobilinogen Ur Leukocyte Esterase Urine WBC (Auto) Urine RBC (Auto) Urine Casts (Auto) U Pathogenic Cast Auto U Epithel Cells (Auto) U Sm Round Cell (Auto) Urine Crystals (Auto) Urine Bacteria (Auto) Urine Yeast (Auto) Random Vancomycin 14.0 L 0603/07/19 03/07/19 05:30 05:40 06:10 WBC RBC Hgb Hct MCV MCH MCHC RDW Plt Count MPV Absolute Neuts (auto) Neutrophils % Neutrophils % (Manual) Band Neutrophils % Lymphocytes % Lymphocytes % (Manual) Monocytes % Monocytes % (Manual) Eosinophils % Eosinophils % (Manual) Basophils % Basophils % (Manual) Myelocytes % (Man) Promyelocytes % (Man) Blast Cells % (Manual) Nucleated RBC % Metamyelocytes Hypochromia Platelet Estimate Platelet Comment Polychromasia Poikilocytosis Anisocytosis Microcytosis Macrocytosis PT with INR INR Anticoagulation Therapy Puncture Site Left radial ABG pH 7.52 H ABG pCO2 at Pt Temp 40.0 ABG pO2 at Pt Temp 50.9 L ABG HCO3 32.2 H ABG O2 Sat (Measured) 85.2 L ABG O2 Content 19.0 ABG Base Excess 8.7 H Acosta Test Positive O2 Delivery Device High flow Oxygen Flow Rate 60l/90% Vent Mode Vent Rate Mechanical Rate Pressure Support Vent Sodium 141 Potassium 3.8 Chloride 97 L Carbon Dioxide 35 H Anion Gap 9 BUN 82.0 H Creatinine 1.8 H Est GFR (CKD-EPI)AfAm 39.46 Est GFR (CKD-EPI)NonAf 34.05 POC Glucometer 276 Random Glucose 284 H Calcium 8.6 Phosphorus 5.4 H Magnesium 2.4 Total Bilirubin 0.7 AST 55 H ALT 38 Alkaline Phosphatase 150 H Total Protein 5.6 L Albumin 1.6 L Urine Color Urine Appearance Urine pH Ur Specific [place] Urine Protein Urine Glucose (UA) Urine Ketones Urine Blood Urine Nitrite Urine Bilirubin Urine Urobilinogen Ur Leukocyte Esterase Urine WBC (Auto) Urine RBC (Auto) Urine Casts (Auto) U Pathogenic Cast Auto U Epithel Cells (Auto) U Sm Round Cell (Auto) Urine Crystals (Auto) Urine Bacteria (Auto) Urine Yeast (Auto) Random Vancomycin Problem List - Problems (1) Acute respiratory failure with hypoxia Code(s): J96.01 - ACUTE RESPIRATORY FAILURE WITH HYPOXIA (2) Pneumonia Code(s): J18.9 - PNEUMONIA, UNSPECIFIED ORGANISM Qualifiers: Pneumonia type: due to unspecified organism Laterality: bilateral Lung location: lower lobe of lung Qualified Code(s): J18.1 - Lobar pneumonia, unspecified organism Assessment/Plan Acute Hypoxic Respiratory Failure Multilobar Pneumonia Sepsis Acute on Chronic Diastolic Heart Failure Atrial Fibrillation with RVR Supratherapeutic INR CAD HTN DM Hypercholesterolemia CKD h/o Primary Biliary Cirrhosis - Antibiotic coverage per ID - send cultures - Wean HFOT as tolerated to keep SpO2 88% to 92% - Wean medrol - inhaled bronchodilators - rate control - continue anticoagulation - monitor H/H - Hold further diuretics - Requires ICU monitoring for use of HFOT and tenuous respiratory status Dr Arellano Critical care time spent in reviewing chart, evaluating patient and formulating plan 36 min
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
--- NOTE | 2019-03-07 13:33 | PN ---
Teaching Attending Note Name of Resident: Fred Schafer ATTENDING PHYSICIAN STATEMENT I saw and evaluated the patient. I reviewed the resident's note and discussed the case with the resident. I agree with the resident's findings and plan as documented. SUBJECTIVE: No fever or chills. denies SOB. No ZULETA. N oAbd pain , no diarrhea OBJECTIVE: NAD, awake, alert. cooperative. high flow O [place] on HEENT: MMM, no JVD, no facial droop. CV: irreg irreg, no MRG, no JVD. Lungs: minimal bibasilar crackles. goo dair entry Ext: No edema. ASSESSMENT AND PLAN: 84 y/o man with h/o HTN, A fib on coumadin, HLP, DM, CAD, No stents, CKD, diverticulosis, GERD, and hypothyroidism, who presented with Hypoxia form [facility] facility. He was found to have acute hypoxic resp failure, CHf, and Afib with RVR . 1- Acute hypoxic resp failure 2/2 Acute diastolic heart failure and b/l PNA - on HFOT - hold lasix due to contraction alkalosis - day 3 of Abx : now on Azithro and zosyn - started on steroids per pulm. taper quickly if possible - Nebs 2- A fib with RVR: rate have improved - cont to hold coumadin . repeat INR in am . start coumadin when INR 2-3 - cont lopressor 50 BID 3- Coumadin coagulopathy: s/p Vit K . as above 4- Possible CKD: monitor Cr . hold lasix. 5- H/o Hypothyroidism: with low TSH - cont decreased dose of synthroid. 6- Transaminitis: improved 7- H/o DM with hyperglycemia: - SSI. -sitagliptin ICU monitoring Critical Care Total Critical Care Time (in minutes): 30 Critical Care Statement: The care of this patient involved high complexity decision making to prevent further life threatening deterioration of the patient 's condition and/or to evaluate & treat vital organ system(s) failure or risk of failure.
[2019-03-07] MEDS: AZITHROMYCIN IVPB 500 MG/250 ML BAG IVPB SCH (14:05)
[2019-03-07 14:38] LABS: ANISOCYTOSIS 0; MACROCYTOSIS 0; PLATELET ESTIMATE NORMAL
[2019-03-07] MEDS: ROSUVASTATIN CA 5 MG TABLET (FP) PO SCH (21:37)
[2019-03-08] MEDS ORDERED: DEXTROSE 5%-WATER - 50 ML IVPB ONE ×4 (03:09→21:28)
[2019-03-08] MEDS ORDERED: PIPERACILLIN/TAZOBACTAM 3.375 GM VIAL IVPB ONE ×4 (03:09→21:28)
[2019-03-08] MEDS: PIPERACILLIN/TAZOB 3.375 GM 3.375 GM in DEXTROSE 5%-WATER - 50 ML IVPB SCH ×4 (03:18→21:42)
[2019-03-08] MEDS: methylPREDNISolone NA SUCC 40 MG/1 ML VIAL IVPUSH SCH ×3 (03:19→17:22)
[2019-03-08] MEDS: INSULIN SLIDING SCALE (NOVOLOG) 1 VIAL SQ SCH ×4 (06:01→21:42)
[2019-03-08] MEDS: LEVOTHYROXINE NA 25 MCG TABLET (FP) PO SCH (06:02)
[2019-03-08] MEDS: sitaGLIPtin PHOSPHATE 50 MG TABLET PO SCH (06:03)
[2019-03-08 06:10] LABS: BASO % 0.2 % (0-2.0); EOS % 0.6 % (0-4.5); HEMATOCRIT 42.5 % (35.4-49); HEMOGLOBIN 14.2 GM/dL (11.7-16.9); LYMPH % 3.6 % (8-40); MCH 32.5 pg (25.7-33.7); MCHC 33.4 g/dl (32.0-35.9); MEAN CELL VOLUME 97.1 fl (80-96); MEAN PLT VOLUME 10.5 fl (7.5-11.1); MONO % 1.7 % (3.8-10.2); NEUT % 93.9 % (42.8-82.8); PLATELET COUNT 302 K/MM3 (134-434); RBC 4.37 M/mm3 (4.00-5.60); RDW 14.1 % (11.9-15.9)
[2019-03-08 06:18] LABS: INR 2.63 (0.83-1.09); PROTHROMBIN TIME (PATIENT) 31.3 SEC (9.7-13.0)
[2019-03-08 06:46] LABS: ALBUMIN 1.6 g/dl (3.4-5.0); BILIRUBIN,TOTAL 0.9 mg/dL (0.2-1); BLOOD UREA NITROGEN 84.4 mg/dL (7-18); CALCIUM 8.4 mg/dL (8.5-10.1); CREATININE 1.9 mg/dL (0.55-1.3); MAGNESIUM 2.4 mg/dL (1.8-2.4); PHOSPHOROUS 5.1 mg/dL (2.5-4.9); POTASSIUM 3.9 mmol/L (3.5-5.1); TOT PROT 5.8 g/dl (6.4-8.2)
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
[2019-03-08] MEDS: ALBUTEROL SO4 2.5/IPRATROPIUM 0.5 INH SOL 3 ML VIAL.NEB. NEB SCH ×4 (08:05→20:40)
--- NOTE | 2019-03-08 08:09 | PN ---
Teaching Attending Note Name of Resident: Fred Schafer ATTENDING PHYSICIAN STATEMENT I saw and evaluated the patient. I reviewed the resident's note and discussed the case with the resident. I agree with the resident's findings and plan as documented. SUBJECTIVE: Patient is comfortable, feels better OBJECTIVE: Vital Signs Temperature 97.2 F L 03/08/19 02:00 Pulse Rate 72 03/08/19 07:03 Respiratory Rate 18 03/08/19 06:00 Blood Pressure 104/73 03/08/19 06:00 O2 Sat by Pulse Oximetry (%) 93 L 03/08/19 07:03 Initial Vital Signs Temp Pulse Resp BP Pulse Ox 98.7 F 121 H 22 H 135/73 88 L 03/02/19 19:17 03/02/19 19:17 03/02/19 19:17 03/02/19 19:17 03/02/19 19:17 GENERAL: The patient is awake, alert, and fully oriented, in no acute distress. HEAD: Normal with no signs of trauma. EYES: PERRL, extraocular movements intact, sclera anicteric, conjunctiva clear. ENT: Ears normal, oropharynx clear without exudates, moist mucous membranes. NECK: Trachea midline, full range of motion, supple. LUNGS: Breath sounds equal, clear to auscultation bilaterally, no wheezes, no crackles, no accessory muscle use. HEART: afib with rate controlled , S1, S2 without murmur, rub or gallop. ABDOMEN: Soft, nontender, nondistended, normoactive bowel sounds, no guarding, no rebound, no hepatosplenomegaly, no masses. EXTREMITIES: 2+ pulses, warm, well-perfused, no edema. NEUROLOGICAL: Cranial nerves II through XII grossly intact. Normal speech, gait not observed. PSYCH: Normal mood, normal affect. SKIN: Warm, dry, normal turgor, no rashes or lesions noted CBCD WBC 19.0 K/mm3 (4.0-10.0) H 03/08/19 05:30 RBC 4.37 M/mm3 (4.00-5.60) 03/08/19 05:30 Hgb 14.2 GM/dL (11.7-16.9) 03/08/19 05:30 Hct 42.5 % (35.4-49) 03/08/19 05:30 MCV 97.1 fl (80-96) H 03/08/19 05:30 MCHC 33.4 g/dl (32.0-35.9) 03/08/19 05:30 RDW 14.1 % (11.9-15.9) 03/08/19 05:30 Plt Count 302 K/MM3 (134-434) 03/08/19 05:30 MPV 10.5 fl (7.5-11.1) 03/08/19 05:30 CMP Sodium 140 mmol/L (136-145) 03/08/19 05:30 Potassium 3.9 mmol/L (3.5-5.1) 03/08/19 05:30 Chloride 95 mmol/L (98-107) L 03/08/19 05:30 Carbon Dioxide 35 mmol/L (21-32) H 03/08/19 05:30 Anion Gap 10 MMOL/L (8-16) 03/08/19 05:30 BUN 84.4 mg/dL (7-18) H 03/08/19 05:30 Creatinine 1.9 mg/dL (0.55-1.3) H 03/08/19 05:30 Random Glucose 237 mg/dL (74-106) H 03/08/19 05:30 Calcium 8.4 mg/dL (8.5-10.1) L 03/08/19 05:30 Total Bilirubin 0.9 mg/dL (0.2-1) 03/08/19 05:30 AST 87 U/L (15-37) H 03/08/19 05:30 ALT 60 U/L (13-61) 03/08/19 05:30 Alkaline Phosphatase 162 U/L (45-117) H 03/08/19 05:30 Total Protein 5.8 g/dl (6.4-8.2) L 03/08/19 05:30 Albumin 1.6 g/dl (3.4-5.0) L 03/08/19 05:30 CARDIAC ENZYMES Troponin I < 0.02 ng/ml (0.00-0.05) 03/02/19 20:15 Home Medications Medication Instructions Recorded Isosorbide Mononitrate [Imdur] 30 mg PO DAILY 08/21/14 Levothyroxine [Synthroid -] 25 mcg PO DAILY 08/21/14 Sitagliptin Phosphate [Januvia] 50 mg PO DAILY 08/21/14 Acetaminophen [Tylenol] 650 mg PO PRN PRN 02/27/15 Atenolol [Tenormin -] 1 tab PO HS 02/27/15 Cholecalciferol (Vitamin D3) 1,000 unit PO DAILY 02/27/15 [Vitamin D3] Dutasteride [Avodart] 0.5 mg PO DAILY 02/04/17 Warfarin Sodium [Coumadin] 2.5 mg PO DAILY 02/04/17 Rosuvastatin [Crestor -] 5 mg PO HS 03/02/19 Vit B12/Intrinsic Fact/Folate 1 each PO DAILY 03/02/19 [Intrinsi [id number] Tablet] ASSESSMENT AND PLAN: Patient is a 84 y/o man with h/o HTN, A fib on coumadin, HLP, DM, CAD, No stents , CKD, diverticulosis, GERD, and hypothyroidism, who presented with Hypoxia from [place] facility. He was found to have acute hypoxic resp failure, CHf, and Afib with RVR . # BL PNA : day 3 of Abx : now on Azithro and zosyn , on steroids per pulm. taper when possible , continue Nebs # Acute hypoxic respiratory failure: on high flow oxygen # A fib with RVR: rate is controlled contine coumadin . repeat INR in am . start coumadin when INR 2-3, cont lopressor 50 BID # Acute diastolic heart failure : off lasix now # Coumadin coagulopathy: s/p Vit K . # Possible CKD: monitor Cr . hold lasix. # H/o Hypothyroidism: with low TSH : cont decreased dose of synthroid. # Transaminitis: improved # H/o DM with hyperglycemia: SSI, sitagliptin ICU monitoring
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
[2019-03-08] MEDS: DUTASTERIDE 0.5 MG CAP (FP) PO SCH (09:39)
[2019-03-08] MEDS: ISOSORBIDE MONONITRATE 30 MG TAB.SR.24H (FP) PO SCH (09:39)
[2019-03-08] MEDS: METOPROLOL TARTRATE 50 MG TABLET (FP) PO SCH ×2 (09:47→21:43)
[2019-03-08 11:04] LABS: ANISOCYTOSIS 0; MACROCYTOSIS 0; PLATELET ESTIMATE NORMAL
--- NOTE | 2019-03-08 12:02 | PN ---
Teaching Attending Note Name of Resident: Jaiden Rogers ATTENDING PHYSICIAN STATEMENT I saw and evaluated the patient. I reviewed the resident's note and discussed the case with the resident. I agree with the resident's findings and plan as documented. SUBJECTIVE: Pt seen and examined in the ICU. Remains on HFOT 50L/min, 80% FiO2. States breathing about the same. Minimal cough. No wheezing. OBJECTIVE: Vital Signs Period Temp Pulse Resp BP Sys/Braga Pulse Ox Last 24 Hr 97.2 F-97.8 F 61-117 14-27 86-118/54-87 92-96 Intake & Output 03/05/19 03/06/19 03/07/19 03/08/19 23:59 23:59 23:59 23:59 Intake Total 4159 611 7313 170 Output Total 3000 700 Balance -1570 -130 1330 170 Weight 82.645 kg 81.363 kg 83.098 kg 84.051 kg Gen: mildly tachypneic on HFOT Heart: RRR Lung: bibasilar rales Abd: soft, nontender Ext: no edema CBC, BMP 03/08/19 05:30 03/08/19 05:30 Active Medications Acetaminophen (Tylenol -) 650 mg PO Q6H PRN PRN Reason: PAIN OR FEVER Last Admin: 03/06/19 11:17 Dose: 650 mg Albuterol Sulfate (Ventolin 0.083% Nebulizer Soln -) 1 amp NEB Q4H PRN PRN Reason: SHORT OF BREATH/WHEEZING Last Admin: 03/06/19 23:51 Dose: 1 amp Albuterol/Ipratropium (Duoneb -) 1 amp NEB RQID EDMUND Last Admin: 03/08/19 08:05 Dose: 1 amp Dutasteride (Avodart -) 0.5 mg PO DAILY EDMUND Last Admin: 03/08/19 09:39 Dose: 0.5 mg Azithromycin (Zithromax 500mg Ivpb (Pre-Docked)) 500 mg in 250 mls @ 250 mls/ hr IVPB Q24H EDMUND Last Admin: 03/07/19 14:05 Dose: 250 mls/hr Piperacillin Sod/Tazobactam (Sod 3.375 gm/ Dextrose) 50 mls @ 100 mls/hr IVPB Q6H-IV [facility]; Protocol Last Admin: 03/08/19 09:38 Dose: 100 mls/hr Insulin Aspart (Novolog Vial Sliding Scale -) 1 vial SQ ACHS [facility]; Protocol Last Admin: 03/08/19 06:01 Dose: 6 units Isosorbide Mononitrate (Imdur -) 30 mg PO DAILY [facility] Last Admin: 03/08/19 09:39 Dose: 30 mg Levothyroxine Sodium (Synthroid -) 12.5 mcg PO AM [facility] Last Admin: 03/08/19 06:02 Dose: 25 mcg Methylprednisolone Sodium Succinate (Solu-Medrol -) 60 mg IVPUSH Q8H-IV [facility] Last Admin: 03/08/19 09:38 Dose: 60 mg Metoprolol Tartrate (Lopressor -) 50 mg PO BID [facility] Last Admin: 03/08/19 09:47 Dose: 50 mg Rosuvastatin Calcium (Crestor -) 5 mg PO HS [facility] Last Admin: 03/07/19 21:37 Dose: 5 mg Sitagliptin Phosphate (Januvia -) 50 mg PO DAILY@0700 [facility] Last Admin: 03/08/19 06:03 Dose: 50 mg Warfarin Sodium (Coumadin -) 2 mg PO DAILY@1800 [facility] ASSESSMENT AND PLAN: Acute Hypoxic Respiratory Failure Multilobar Pneumonia Sepsis Acute on Chronic Diastolic Heart Failure Atrial Fibrillation with RVR Supratherapeutic INR CAD HTN DM Hypercholesterolemia CKD h/o Primary Biliary Cirrhosis - continue antibiotics - f/u cultures - taper FiO2 to keep SpO2 >90% - continue medrol at current dose - inhaled bronchodilators - rate control - continue anticoagulation - monitor H/H - continue ICU monitoring critical care time spent in reviewing chart, evaluating patient and formulating plan 35 min Problem List - Problems (1) Acute respiratory failure with hypoxia Code(s): J96.01 - ACUTE RESPIRATORY FAILURE WITH HYPOXIA (2) Pneumonia Code(s): J18.9 - PNEUMONIA, UNSPECIFIED ORGANISM Qualifiers: Pneumonia type: due to unspecified organism Laterality: bilateral Lung location: lower lobe of lung Qualified Code(s): J18.1 - Lobar pneumonia, unspecified organism
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
[2019-03-08] MEDS: AZITHROMYCIN IVPB 500 MG/250 ML BAG IVPB SCH (13:06)
[2019-03-08 16:47] LABS: ARTERIAL BLD GAS O2 SATURATION 92.2 % (95-98); ARTERIAL BLOOD GAS BASE EXCESS 7.4 meq/l (-2-2); ARTERIAL BLOOD GAS PCO2 41.7 mmHg (35-45); ARTERIAL BLOOD GAS PO2 66.5 mmHg (80-105); ARTERIAL BLOOD GAS pH 7.49 (7.35-7.45)
[2019-03-08 16:52] LABS: ALLENS TEST POSITIVE
[2019-03-08] MEDS ORDERED: WARFARIN NA 2 MG TABLET (UD) PO SCH (18:00)
[2019-03-08] MEDS ORDERED: PT OWN MED DRAWER 7, Y5N ONE (21:28)
[2019-03-08] MEDS: ROSUVASTATIN CA 5 MG TABLET (FP) PO SCH (21:42)
[2019-03-09] MEDS ORDERED: PIPERACILLIN/TAZOBACTAM 3.375 GM VIAL IVPB ONE ×4 (02:38→20:01)
[2019-03-09] MEDS ORDERED: DEXTROSE 5%-WATER - 50 ML IVPB ONE ×4 (02:39→20:01)
[2019-03-09] MEDS: PIPERACILLIN/TAZOB 3.375 GM 3.375 GM in DEXTROSE 5%-WATER - 50 ML IVPB SCH ×4 (02:59→20:27)
[2019-03-09] MEDS: methylPREDNISolone NA SUCC 40 MG/1 ML VIAL IVPUSH SCH ×3 (02:59→17:09)
[2019-03-09 06:04] LABS: BASO % 0.3 % (0-2.0); EOS % 0.2 % (0-4.5); HEMATOCRIT 45.3 % (35.4-49); MCH 31.9 pg (25.7-33.7); MEAN CELL VOLUME 96.7 fl (80-96); MEAN PLT VOLUME 10.7 fl (7.5-11.1); MONO % 0.2 % (3.8-10.2); NEUT % 94.3 % (42.8-82.8); PLATELET COUNT 336 K/MM3 (134-434); RBC 4.68 M/mm3 (4.00-5.60); RDW 13.9 % (11.9-15.9)
[2019-03-09] MEDS: INSULIN SLIDING SCALE (NOVOLOG) 1 VIAL SQ SCH ×4 (06:11→21:46)
[2019-03-09 06:22] LABS: INR 2.22 (0.83-1.09); PROTHROMBIN TIME (PATIENT) 26.4 SEC (9.7-13.0)
[2019-03-09] MEDS: sitaGLIPtin PHOSPHATE 50 MG TABLET PO SCH (06:27)
[2019-03-09] MEDS: LEVOTHYROXINE NA 25 MCG TABLET (FP) PO SCH (06:27)
[2019-03-09 06:32] LABS: ALBUMIN 1.7 g/dl (3.4-5.0); BILIRUBIN,TOTAL 0.9 mg/dL (0.2-1); BLOOD UREA NITROGEN 97.1 mg/dL (7-18); CALCIUM 8.4 mg/dL (8.5-10.1); CREATININE 2.2 mg/dL (0.55-1.3); MAGNESIUM 2.7 mg/dL (1.8-2.4); PHOSPHOROUS 5.2 mg/dL (2.5-4.9); POTASSIUM 3.7 mmol/L (3.5-5.1); TOT PROT 5.8 g/dl (6.4-8.2)
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
[2019-03-09] MEDS: ALBUTEROL SO4 2.5/IPRATROPIUM 0.5 INH SOL 3 ML VIAL.NEB. NEB SCH ×4 (07:15→20:50)
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
[2019-03-09] MEDS: ISOSORBIDE MONONITRATE 30 MG TAB.SR.24H (FP) PO SCH (09:29)
[2019-03-09] MEDS ORDERED: PT OWN MED DRAWER 7, Y5N ONE ×2 (09:31→20:01)
[2019-03-09] MEDS: DUTASTERIDE 0.5 MG CAP (FP) PO SCH (09:32)
[2019-03-09] MEDS: METOPROLOL TARTRATE 50 MG TABLET (FP) PO SCH ×2 (09:36→22:04)
[2019-03-09 10:31] LABS: ANISOCYTOSIS 0; MACROCYTOSIS 0; PLATELET ESTIMATE NORMAL
[2019-03-09] MEDS ORDERED: SODIUM CHLORIDE 250 ML IV STA (11:09)
--- NOTE | 2019-03-09 11:21 | PN ---
Progress Note (short form) - Note Progress Note: ID CONSULT DICTATED BIBASILAR PNEUMONIA RESP FAILURE ? COPD EXACERBATION LEUKOCYTOSIS MULTIFACTORIAL AFIB ELEVATED LFTS + URINE C/S = CONTAMINANT CONTINUE EMPIRIC ZOSYN
--- NOTE | 2019-03-09 11:29 | PN ---
Teaching Attending Note Name of Resident: Jaiden Rogers ATTENDING PHYSICIAN STATEMENT I saw and evaluated the patient. I reviewed the resident's note and discussed the case with the resident. I agree with the resident's findings and plan as documented. SUBJECTIVE: Patient seen and examined in the ICU. Remains on HFOT 60L/min, 75% FiO2. States breathing is about the same. Some minimal dry cough. No wheezing. OBJECTIVE: Intake & Output 03/06/19 03/07/19 03/08/19 03/09/19 23:59 23:59 23:59 23:59 Intake Total 570 1330 960 100 Output Total 700 650 Balance -130 1330 310 100 Weight 179 lb 6 oz 183 lb 3.2 oz 185 lb 4.8 oz 190 lb 9.6 oz Last Vital Signs Temp Pulse Resp BP Pulse Ox 97.6 F 74 22 H 85/57 L 93 L 03/09/19 10:00 03/09/19 11:09 03/09/19 10:00 03/09/19 10:00 03/09/19 11:09 Active Medications Acetaminophen (Tylenol -) 650 mg PO Q6H PRN PRN Reason: PAIN OR FEVER Last Admin: 03/06/19 11:17 Dose: 650 mg Albuterol Sulfate (Ventolin 0.083% Nebulizer Soln -) 1 amp NEB Q4H PRN PRN Reason: SHORT OF BREATH/WHEEZING Last Admin: 03/06/19 23:51 Dose: 1 amp Albuterol/Ipratropium (Duoneb -) 1 amp NEB RQID [facility] Last Admin: 03/09/19 11:08 Dose: 1 amp Dutasteride (Avodart -) 0.5 mg PO DAILY [facility] Last Admin: 03/09/19 09:32 Dose: 0.5 mg Azithromycin (Zithromax 500mg Ivpb (Pre-Docked)) 500 mg in 250 mls @ 250 mls/ hr IVPB Q24H [facility] Last Admin: 03/08/19 13:06 Dose: 250 mls/hr Piperacillin Sod/Tazobactam (Sod 3.375 gm/ Dextrose) 50 mls @ 100 mls/hr IVPB Q6H-IV [facility]; Protocol Last Admin: 03/09/19 08:30 Dose: 100 mls/hr Sodium Chloride (Normal Saline -) 250 mls @ 250 mls/hr IV ASDIR STA Stop: 03/09/19 12:08 Last Admin: 03/09/19 11:17 Dose: 250 mls/hr Insulin Aspart (Novolog Vial Sliding Scale -) 1 vial SQ ACHS [facility]; Protocol Last Admin: 03/09/19 11:17 Dose: 6 units Isosorbide Mononitrate (Imdur -) 30 mg PO DAILY [facility] Last Admin: 03/09/19 09:29 Dose: 30 mg Levothyroxine Sodium (Synthroid -) 12.5 mcg PO AM [facility] Last Admin: 03/09/19 06:27 Dose: 12.5 mcg Methylprednisolone Sodium Succinate (Solu-Medrol -) 60 mg IVPUSH Q8H-IV [facility] Last Admin: 03/09/19 09:29 Dose: 60 mg Metoprolol Tartrate (Lopressor -) 50 mg PO BID [facility] Last Admin: 03/09/19 09:36 Dose: 50 mg Rosuvastatin Calcium (Crestor -) 5 mg PO HS [facility] Last Admin: 03/08/19 21:42 Dose: 5 mg Sitagliptin Phosphate (Januvia -) 50 mg PO DAILY@0700 [facility] Last Admin: 03/09/19 06:27 Dose: 50 mg Warfarin Sodium (Coumadin -) 2.5 mg PO DAILY@1800 [facility] Gen: mildly tachypneic on HFOT Heart: RRR Lung: bibasilar rales Abd: soft, nontender Ext: no edema Laboratory Results - last 24 hr 03/08/19 03/08/19 03/08/19 16:35 16:46 21:20 WBC RBC Hgb Hct MCV MCH MCHC RDW Plt Count MPV Absolute Neuts (auto) Neutrophils % Neutrophils % (Manual) Band Neutrophils % Lymphocytes % Lymphocytes % (Manual) Monocytes % Monocytes % (Manual) Eosinophils % Eosinophils % (Manual) Basophils % Basophils % (Manual) Myelocytes % (Man) Promyelocytes % (Man) Blast Cells % (Manual) Nucleated RBC % Metamyelocytes Hypochromia Platelet Estimate Polychromasia Poikilocytosis Anisocytosis Microcytosis Macrocytosis PT with INR INR Anticoagulation Therapy No Result Required. Puncture Site Right radial ABG pH 7.49 H ABG pCO2 at Pt Temp 41.7 ABG pO2 at Pt Temp 66.5 L ABG HCO3 31.3 H ABG O2 Sat (Measured) 92.2 L ABG O2 Content 18.8 ABG Base Excess 7.4 H Acosta Test Positive O2 Delivery Device Hf Oxygen Flow Rate 70% Vent Mode No Result Required. Vent Rate No Result Required. Mechanical Rate No Result Required. Pressure Support Vent No Result Required. Sodium Potassium Chloride Carbon Dioxide Anion Gap BUN Creatinine Est GFR (CKD-EPI)AfAm Est GFR (CKD-EPI)NonAf POC Glucometer 336 234 Random Glucose Calcium Phosphorus Magnesium Total Bilirubin AST ALT Alkaline Phosphatase Total Protein Albumin 03/09/19 03/09/19 03/09/19 05:25 05:25 05:25 WBC 21.0 H RBC 4.68 Hgb 15.0 Hct 45.3 MCV 96.7 H MCH 31.9 MCHC 33.0 RDW 13.9 Plt Count 336 MPV 10.7 Absolute Neuts (auto) 19.9 H Neutrophils % 94.3 H Neutrophils % (Manual) 89.3 H Band Neutrophils % 0.0 Lymphocytes % 5.0 L D Lymphocytes % (Manual) 3.9 L Monocytes % 0.2 L D Monocytes % (Manual) 5 D Eosinophils % 0.2 Eosinophils % (Manual) 0.0 Basophils % 0.3 Basophils % (Manual) 0.0 Myelocytes % (Man) 0 Promyelocytes % (Man) 1 D Blast Cells % (Manual) 0 Nucleated RBC % 0 Metamyelocytes 0 D Hypochromia 0 Platelet Estimate Normal Polychromasia 0 Poikilocytosis 0 Anisocytosis 0 Microcytosis 0 Macrocytosis 0 PT with INR 26.40 H INR 2.22 H Anticoagulation Therapy Puncture Site ABG pH ABG pCO2 at Pt Temp ABG pO2 at Pt Temp ABG HCO3 ABG O2 Sat (Measured) ABG O2 Content ABG Base Excess Acosta Test O2 Delivery Device Oxygen Flow Rate Vent Mode Vent Rate Mechanical Rate Pressure Support Vent Sodium 140 Potassium 3.7 Chloride 97 L Carbon Dioxide 36 H Anion Gap 8 BUN 97.1 H Creatinine 2.2 H Est GFR (CKD-EPI)AfAm 30.96 Est GFR (CKD-EPI)NonAf 26.71 POC Glucometer Random Glucose 103 Calcium 8.4 L Phosphorus 5.2 H Magnesium 2.7 H Total Bilirubin 0.9 AST 74 H ALT 68 H Alkaline Phosphatase 166 H Total Protein 5.8 L Albumin 1.7 L 03/09/19 03/09/19 05:29 11:03 WBC RBC Hgb Hct MCV MCH MCHC RDW Plt Count MPV Absolute Neuts (auto) Neutrophils % Neutrophils % (Manual) Band Neutrophils % Lymphocytes % Lymphocytes % (Manual) Monocytes % Monocytes % (Manual) Eosinophils % Eosinophils % (Manual) Basophils % Basophils % (Manual) Myelocytes % (Man) Promyelocytes % (Man) Blast Cells % (Manual) Nucleated RBC % Metamyelocytes Hypochromia Platelet Estimate Polychromasia Poikilocytosis Anisocytosis Microcytosis Macrocytosis PT with INR INR Anticoagulation Therapy Puncture Site ABG pH ABG pCO2 at Pt Temp ABG pO2 at Pt Temp ABG HCO3 ABG O2 Sat (Measured) ABG O2 Content ABG Base Excess Acosta Test O2 Delivery Device Oxygen Flow Rate Vent Mode Vent Rate Mechanical Rate Pressure Support Vent Sodium Potassium Chloride Carbon Dioxide Anion Gap BUN Creatinine Est GFR (CKD-EPI)AfAm Est GFR (CKD-EPI)NonAf POC Glucometer 99 274 Random Glucose Calcium Phosphorus Magnesium Total Bilirubin AST ALT Alkaline Phosphatase Total Protein Albumin Problem List - Problems (1) Acute respiratory failure with hypoxia Code(s): J96.01 - ACUTE RESPIRATORY FAILURE WITH HYPOXIA (2) Pneumonia Code(s): J18.9 - PNEUMONIA, UNSPECIFIED ORGANISM Qualifiers: Pneumonia type: due to unspecified organism Laterality: bilateral Lung location: lower lobe of lung Qualified Code(s): J18.1 - Lobar pneumonia, unspecified organism ASSESSMENT AND PLAN: Acute Hypoxic Respiratory Failure Multilobar Pneumonia Sepsis Acute on Chronic Diastolic Heart Failure Atrial Fibrillation with RVR Supratherapeutic INR CAD HTN DM Hypercholesterolemia CKD h/o Primary Biliary Cirrhosis - Wean HFOT support as tolerated - continue antibiotics - f/u cultures - Taper Medrol - inhaled bronchodilators - rate control - continue anticoagulation - monitor H/H - Requires ICU monitoring for HFOT anf tenuous respiratory status Dr Arellano Critical care time spent in reviewing chart, evaluating patient and formulating plan 36 min
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
[2019-03-09] MEDS: AZITHROMYCIN IVPB 500 MG/250 ML BAG IVPB SCH (13:31)
[2019-03-09] MEDS: SODIUM CHLORIDE 1,000 ML IV SCH (13:34)
[2019-03-09] MEDS: WARFARIN NA 2.5 MG TABLET (FP) PO SCH (17:09)
--- NOTE | 2019-03-09 19:03 | PN ---
Teaching Attending Note Name of Resident: Fred Schafer ATTENDING PHYSICIAN STATEMENT I saw and evaluated the patient. I reviewed the resident's note and discussed the case with the resident. I agree with the resident's findings and plan as documented. SUBJECTIVE: Patient is feeling better continues to be on high flow oxygen OBJECTIVE: Vital Signs Temperature 98.0 F 03/09/19 14:00 Pulse Rate 62 03/09/19 18:00 Respiratory Rate 17 03/09/19 18:00 Blood Pressure 102/61 03/09/19 18:00 O2 Sat by Pulse Oximetry (%) 93 L 03/09/19 11:09 GENERAL: The patient is awake, alert, and fully oriented, hard of hearing , in NAD. HEAD: Normal with no signs of trauma. EYES: PERRL, extraocular movements intact, sclera anicteric, conjunctiva clear. ENT: Ears normal, oropharynx clear without exudates, moist mucous membranes. On high flow oxygen NECK: Trachea midline, full range of motion, supple. LUNGS: decreased Breath sounds BL , bl crackles, on high flow oxygen, no accessory muscle use. HEART: afib with rate controlled , S1, S2 without murmur, rub or gallop. ABDOMEN: Soft, NT,ND, normoactive bowel sounds, no guarding, no rebound, no hepatosplenomegaly, no masses. EXTREMITIES: 2+ pulses, warm, well-perfused, no edema. NEUROLOGICAL: Cranial nerves II through XII grossly intact. Normal speech, gait not observed. PSYCH: Normal mood, normal affect. SKIN: Warm, dry, normal turgor, no rashes or lesions noted CBCD WBC 21.0 K/mm3 (4.0-10.0) H 03/09/19 05:25 RBC 4.68 M/mm3 (4.00-5.60) 03/09/19 05:25 Hgb 15.0 GM/dL (11.7-16.9) 03/09/19 05:25 Hct 45.3 % (35.4-49) 03/09/19 05:25 MCV 96.7 fl (80-96) H 03/09/19 05:25 MCHC 33.0 g/dl (32.0-35.9) 03/09/19 05:25 RDW 13.9 % (11.9-15.9) 03/09/19 05:25 Plt Count 336 K/MM3 (134-434) 03/09/19 05:25 MPV 10.7 fl (7.5-11.1) 03/09/19 05:25 CMP Sodium 140 mmol/L (136-145) 03/09/19 05:25 Potassium 3.7 mmol/L (3.5-5.1) 03/09/19 05:25 Chloride 97 mmol/L (98-107) L 03/09/19 05:25 Carbon Dioxide 36 mmol/L (21-32) H 03/09/19 05:25 Anion Gap 8 MMOL/L (8-16) 03/09/19 05:25 BUN 97.1 mg/dL (7-18) H 03/09/19 05:25 Creatinine 2.2 mg/dL (0.55-1.3) H 03/09/19 05:25 Random Glucose 103 mg/dL (74-106) 03/09/19 05:25 Calcium 8.4 mg/dL (8.5-10.1) L 03/09/19 05:25 Total Bilirubin 0.9 mg/dL (0.2-1) 03/09/19 05:25 AST 74 U/L (15-37) H 03/09/19 05:25 ALT 68 U/L (13-61) H 03/09/19 05:25 Alkaline Phosphatase 166 U/L (45-117) H 03/09/19 05:25 Total Protein 5.8 g/dl (6.4-8.2) L 03/09/19 05:25 Albumin 1.7 g/dl (3.4-5.0) L 03/09/19 05:25 CARDIAC ENZYMES Troponin I < 0.02 ng/ml (0.00-0.05) 03/02/19 20:15 Current Medications Generic Name Dose Route Start Last Admin Trade Name Freq PRN Reason Stop Dose Admin Acetaminophen 650 mg 03/03/19 03:53 03/06/19 11:17 Tylenol - PO 650 mg Q6H PRN Administration PAIN OR FEVER Albuterol Sulfate 1 amp 03/06/19 13:20 03/06/19 23:51 Ventolin 0.083% Nebulizer Soln - NEB 1 amp Q4H PRN Administration SHORT OF BREATH/WHEEZING Albuterol/Ipratropium 1 amp 03/06/19 16:00 03/09/19 16:02 Duoneb - NEB 1 amp RQID [facility] Administration Dutasteride 0.5 mg 03/03/19 10:00 03/09/19 09:32 Avodart - PO 0.5 mg DAILY [facility] Administration Piperacillin Sod/Tazobactam 50 mls @ 100 mls/hr 03/06/19 13:30 03/09/19 14:28 Sod 3.375 gm/ Dextrose IVPB 100 mls/hr Q6H-IV [facility] Administration Protocol Sodium Chloride 1,000 mls @ 42 mls/hr 03/09/19 12:45 03/09/19 13:34 Normal Saline - IV 42 mls/hr ASDIR [facility] Administration Insulin Aspart 1 vial 03/05/19 13:28 03/09/19 16:12 Novolog Vial Sliding Scale - SQ 4 units ACHS [facility] Administration Protocol Isosorbide Mononitrate 30 mg 03/03/19 10:00 03/09/19 09:29 Imdur - PO 30 mg DAILY [facility] Administration Levothyroxine Sodium 12.5 mcg 03/03/19 10:46 03/09/19 06:27 Synthroid - PO 12.5 mcg AM [facility] Administration Methylprednisolone Sodium Succinate 40 mg 03/09/19 18:00 03/09/19 17:09 Solu-Medrol - IVPUSH 40 mg Q8H-IV [facility] Administration Metoprolol Tartrate 50 mg 03/03/19 10:54 03/09/19 09:36 Lopressor - PO 50 mg BID [facility] Administration Rosuvastatin Calcium 5 mg 03/03/19 22:00 03/08/19 21:42 Crestor - PO 5 mg HS [facility] Administration Sitagliptin Phosphate 50 mg 03/07/19 07:00 03/09/19 06:27 Januvia - PO 50 mg DAILY@0700 [facility] Administration Warfarin Sodium 2.5 mg 03/09/19 18:00 03/09/19 17:09 Coumadin - PO 2.5 mg DAILY@1800 [facility] Administration Home Medications Medication Instructions Recorded Isosorbide Mononitrate [Imdur] 30 mg PO DAILY 08/21/14 Levothyroxine [Synthroid -] 25 mcg PO DAILY 08/21/14 Sitagliptin Phosphate [Januvia] 50 mg PO DAILY 08/21/14 Acetaminophen [Tylenol] 650 mg PO PRN PRN 02/27/15 Atenolol [Tenormin -] 1 tab PO HS 02/27/15 Cholecalciferol (Vitamin D3) 1,000 unit PO DAILY 02/27/15 [Vitamin D3] Dutasteride [Avodart] 0.5 mg PO DAILY 02/04/17 Warfarin Sodium [Coumadin] 2.5 mg PO DAILY 02/04/17 Rosuvastatin [Crestor -] 5 mg PO HS 03/02/19 Vit B12/Intrinsic Fact/Folate 1 each PO DAILY 03/02/19 [Intrinsi [id number] Tablet] Laboratory Tests 03/07/19 03/08/19 03/09/19 05:30 05:30 05:25 INR 3.17 H 2.63 H 2.22 H ASSESSMENT AND PLAN: Patient is a 84 y/o man with h/o HTN, A fib on coumadin, HLP, DM, CAD, No stents , CKD, diverticulosis, GERD, and hypothyroidism, who presented with Hypoxia from [place] [facility]. He was found to have acute hypoxic resp failure, CHf, and Afib with RVR . # BL PNA : day 4 of Abx : zosyn s/p zithromax , on steroids per pulm. taper when possible , continue Nebs # Acute hypoxic respiratory failure: on high flow oxygen continue further care per ICU team # A fib with RVR: rate is controlled continue coumadin . daily INR . continue coumadin 2.5mg today INR 2.2 today , cont lopressor 50 BID # Acute diastolic heart failure : off lasix now, on Imdur/metoprolol # Coumadin coagulopathy: s/p Vit K . # Possible CKD: monitor Cr . hold lasix. # H/o Hypothyroidism: with low TSH : cont decreased dose of synthroid. # Transaminitis: improved # H/o DM with hyperglycemia: SSI, sitagliptin ICU monitoring
[2019-03-09] MEDS: ROSUVASTATIN CA 5 MG TABLET (FP) PO SCH (21:46)
[2019-03-10] MEDS ORDERED: PIPERACILLIN/TAZOBACTAM 3.375 GM VIAL IVPB ONE ×3 (02:45→21:00)
[2019-03-10] MEDS ORDERED: DEXTROSE 5%-WATER - 50 ML IVPB ONE ×3 (02:46→21:00)
[2019-03-10] MEDS: methylPREDNISolone NA SUCC 40 MG/1 ML VIAL IVPUSH SCH ×3 (02:51→17:45)
[2019-03-10] MEDS: PIPERACILLIN/TAZOB 3.375 GM 3.375 GM in DEXTROSE 5%-WATER - 50 ML IVPB SCH ×4 (02:52→21:04)
[2019-03-10 06:27] LABS: EOS % 0.1 % (0-4.5); HEMATOCRIT 41.6 % (35.4-49); HEMOGLOBIN 13.7 GM/dL (11.7-16.9); LYMPH % 4.5 % (8-40); MCH 31.6 pg (25.7-33.7); MEAN CELL VOLUME 95.7 fl (80-96); MEAN PLT VOLUME 10.1 fl (7.5-11.1); MONO % 2.5 % (3.8-10.2); NEUT % 92.9 % (42.8-82.8); PLATELET COUNT 295 K/MM3 (134-434); RBC 4.35 M/mm3 (4.00-5.60); RDW 13.9 % (11.9-15.9); WHITE BLOOD COUNT 13.9 K/mm3 (4.0-10.0)
[2019-03-10] MEDS: INSULIN SLIDING SCALE (NOVOLOG) 1 VIAL SQ SCH ×4 (06:34→21:05)
[2019-03-10] MEDS: LEVOTHYROXINE NA 25 MCG TABLET (FP) PO SCH (06:34)
[2019-03-10] MEDS: sitaGLIPtin PHOSPHATE 50 MG TABLET PO SCH (06:34)
[2019-03-10 06:38] LABS: INR 2.24 (0.83-1.09); PROTHROMBIN TIME (PATIENT) 26.7 SEC (9.7-13.0)
[2019-03-10 06:57] LABS: ALBUMIN 1.7 g/dl (3.4-5.0); BILIRUBIN,TOTAL 1.3 mg/dL (0.2-1); BLOOD UREA NITROGEN 79.4 mg/dL (7-18); CALCIUM 8.2 mg/dL (8.5-10.1); CREATININE 1.8 mg/dL (0.55-1.3); MAGNESIUM 2.5 mg/dL (1.8-2.4); PHOSPHOROUS 4.7 mg/dL (2.5-4.9); POTASSIUM 4.1 mmol/L (3.5-5.1); TOT PROT 5.3 g/dl (6.4-8.2)
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
[2019-03-10] MEDS: ALBUTEROL SO4 2.5/IPRATROPIUM 0.5 INH SOL 3 ML VIAL.NEB. NEB SCH ×4 (07:40→20:55)
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
[2019-03-10] MEDS ORDERED: PT OWN MED DRAWER 7, Y5N ONE (08:50)
[2019-03-10] MEDS: DUTASTERIDE 0.5 MG CAP (FP) PO SCH (09:31)
[2019-03-10] MEDS: ISOSORBIDE MONONITRATE 30 MG TAB.SR.24H (FP) PO SCH (09:31)
[2019-03-10 10:20] LABS: ANISOCYTOSIS 0; MACROCYTOSIS 0; PLATELET ESTIMATE NORMAL
--- NOTE | 2019-03-10 10:53 | PN ---
Teaching Attending Note Name of Resident: Jaiden Rogers ATTENDING PHYSICIAN STATEMENT I saw and evaluated the patient. I reviewed the resident's note and discussed the case with the resident. I agree with the resident's findings and plan as documented. SUBJECTIVE: Patient seen and examined in the ICU. Remains on HFOT 50L/min, 60% FiO2. States breathing is a little. Some dry cough. No wheezing. OBJECTIVE: Intake & Output 03/07/19 03/08/19 03/09/19 03/10/19 23:59 23:59 23:59 23:59 Intake Total 5871 394 5494 520 Output Total 650 Balance 6950 292 5192 520 Weight 183 lb 3.2 oz 185 lb 4.8 oz 190 lb 9.6 oz 192 lb 11.2 oz Last Vital Signs Temp Pulse Resp BP Pulse Ox 98.1 F 64 17 108/74 94 L 03/10/19 06:00 03/10/19 08:23 03/10/19 08:23 03/10/19 08:23 03/10/19 08:23 Active Medications Acetaminophen (Tylenol -) 650 mg PO Q6H PRN PRN Reason: PAIN OR FEVER Last Admin: 03/06/19 11:17 Dose: 650 mg Albuterol Sulfate (Ventolin 0.083% Nebulizer Soln -) 1 amp NEB Q4H PRN PRN Reason: SHORT OF BREATH/WHEEZING Last Admin: 03/06/19 23:51 Dose: 1 amp Albuterol/Ipratropium (Duoneb -) 1 amp NEB RQID [facility] Last Admin: 03/09/19 20:50 Dose: 1 amp Dutasteride (Avodart -) 0.5 mg PO DAILY [facility] Last Admin: 03/10/19 09:31 Dose: 0.5 mg Piperacillin Sod/Tazobactam (Sod 3.375 gm/ Dextrose) 50 mls @ 100 mls/hr IVPB Q6H-IV [facility]; Protocol Last Admin: 03/10/19 08:51 Dose: 100 mls/hr Sodium Chloride (Normal Saline -) 1,000 mls @ 42 mls/hr IV ASDIR [facility] Last Admin: 03/09/19 13:34 Dose: 42 mls/hr Insulin Aspart (Novolog Vial Sliding Scale -) 1 vial SQ ACHS [facility]; Protocol Last Admin: 03/10/19 06:34 Dose: 2 units Isosorbide Mononitrate (Imdur -) 30 mg PO DAILY [facility] Last Admin: 03/10/19 09:31 Dose: 30 mg Levothyroxine Sodium (Synthroid -) 12.5 mcg PO AM [facility] Last Admin: 03/10/19 06:34 Dose: 12.5 mcg Methylprednisolone Sodium Succinate (Solu-Medrol -) 40 mg IVPUSH Q8H-IV [facility] Last Admin: 03/10/19 09:31 Dose: 40 mg Metoprolol Tartrate (Lopressor -) 50 mg PO BID [facility] Last Admin: 03/09/19 22:04 Dose: Not Given Rosuvastatin Calcium (Crestor -) 5 mg PO HS [facility] Last Admin: 03/09/19 21:46 Dose: 5 mg Sitagliptin Phosphate (Januvia -) 50 mg PO DAILY@0700 [facility] Last Admin: 03/10/19 06:34 Dose: 50 mg Warfarin Sodium (Coumadin -) 2.5 mg PO DAILY@1800 [facility] Last Admin: 03/09/19 17:09 Dose: 2.5 mg Gen: mildly tachypneic on HFOT Heart: RRR Lung: bibasilar rales Abd: soft, nontender Ext: no edema Laboratory Results - last 24 hr 03/09/19 03/09/19 03/09/19 05:25 11:03 16:11 WBC RBC Hgb Hct MCV MCH MCHC RDW Plt Count MPV Absolute Neuts (auto) Neutrophils % Neutrophils % (Manual) 89.3 H Band Neutrophils % 0.0 Lymphocytes % Lymphocytes % (Manual) 3.9 L Monocytes % Monocytes % (Manual) 5 D Eosinophils % Eosinophils % (Manual) 0.0 Basophils % Basophils % (Manual) 0.0 Myelocytes % (Man) 0 Promyelocytes % (Man) 1 D Blast Cells % (Manual) 0 Nucleated RBC % Metamyelocytes 0 D Hypochromia 0 Platelet Estimate Normal Polychromasia 0 Poikilocytosis 0 Anisocytosis 0 Microcytosis 0 Macrocytosis 0 PT with INR INR Sodium Potassium Chloride Carbon Dioxide Anion Gap BUN Creatinine Est GFR (CKD-EPI)AfAm Est GFR (CKD-EPI)NonAf POC Glucometer 274 237 Random Glucose Calcium Phosphorus Magnesium Total Bilirubin AST ALT Alkaline Phosphatase Total Protein Albumin 03/09/19 03/10/19 03/10/19 21:45 05:40 05:40 WBC 13.9 H RBC 4.35 Hgb 13.7 Hct 41.6 MCV 95.7 MCH 31.6 MCHC 33.0 RDW 13.9 Plt Count 295 MPV 10.1 Absolute Neuts (auto) 13.0 H Neutrophils % 92.9 H Neutrophils % (Manual) 91.8 H Band Neutrophils % 0.0 Lymphocytes % 4.5 L Lymphocytes % (Manual) 2.1 L D Monocytes % 2.5 L D Monocytes % (Manual) 5 Eosinophils % 0.1 Eosinophils % (Manual) 0.0 Basophils % 0.0 Basophils % (Manual) 1.0 D Myelocytes % (Man) 0 Promyelocytes % (Man) 0 D Blast Cells % (Manual) 0 Nucleated RBC % 0 Metamyelocytes 0 Hypochromia 0 Platelet Estimate Normal Polychromasia 0 Poikilocytosis 0 Anisocytosis 0 Microcytosis 0 Macrocytosis 0 PT with INR 26.70 H INR 2.24 H Sodium Potassium Chloride Carbon Dioxide Anion Gap BUN Creatinine Est GFR (CKD-EPI)AfAm Est GFR (CKD-EPI)NonAf POC Glucometer 282 Random Glucose Calcium Phosphorus Magnesium Total Bilirubin AST ALT Alkaline Phosphatase Total Protein Albumin 03/10/19 03/10/19 05:40 06:05 WBC RBC Hgb Hct MCV MCH MCHC RDW Plt Count MPV Absolute Neuts (auto) Neutrophils % Neutrophils % (Manual) Band Neutrophils % Lymphocytes % Lymphocytes % (Manual) Monocytes % Monocytes % (Manual) Eosinophils % Eosinophils % (Manual) Basophils % Basophils % (Manual) Myelocytes % (Man) Promyelocytes % (Man) Blast Cells % (Manual) Nucleated RBC % Metamyelocytes Hypochromia Platelet Estimate Polychromasia Poikilocytosis Anisocytosis Microcytosis Macrocytosis PT with INR INR Sodium 139 Potassium 4.1 Chloride 100 Carbon Dioxide 31 Anion Gap 9 BUN 79.4 H Creatinine 1.8 H Est GFR (CKD-EPI)AfAm 39.46 Est GFR (CKD-EPI)NonAf 34.05 POC Glucometer 157 Random Glucose 201 H Calcium 8.2 L Phosphorus 4.7 Magnesium 2.5 H Total Bilirubin 1.3 H AST 48 H ALT 56 Alkaline Phosphatase 143 H Total Protein 5.3 L Albumin 1.7 L Problem List - Problems (1) Acute respiratory failure with hypoxia Code(s): J96.01 - ACUTE RESPIRATORY FAILURE WITH HYPOXIA (2) Pneumonia Code(s): J18.9 - PNEUMONIA, UNSPECIFIED ORGANISM Qualifiers: Pneumonia type: due to unspecified organism Laterality: bilateral Lung location: lower lobe of lung Qualified Code(s): J18.1 - Lobar pneumonia, unspecified organism ASSESSMENT AND PLAN: Acute Hypoxic Respiratory Failure Multilobar Pneumonia Sepsis Acute on Chronic Diastolic Heart Failure Atrial Fibrillation with RVR Supratherapeutic INR CAD HTN DM Hypercholesterolemia CKD h/o Primary Biliary Cirrhosis - Wean HFOT support as tolerated - continue antibiotics - f/u cultures - Medrol - inhaled bronchodilators - rate control - continue anticoagulation - monitor H/H - Requires ICU monitoring for HFOT and tenuous respiratory status Dr Arellano Critical care time spent in reviewing chart, evaluating patient and formulating plan 36 min
[2019-03-10] MEDS: METOPROLOL TARTRATE 50 MG TABLET (FP) PO SCH ×2 (11:00→21:04)
--- NOTE | 2019-03-10 11:00 | PN ---
Progress Note, Physician History of Present Illness: AWAKE, ALERT BREATHING NON LABORED ON HIGH FLOW O2 + COUGH NOTED C/O LOOSE BM X 1 - Current Medication List Current Medications: Active Medications Acetaminophen (Tylenol -) 650 mg PO Q6H PRN PRN Reason: PAIN OR FEVER Last Admin: 03/06/19 11:17 Dose: 650 mg Albuterol Sulfate (Ventolin 0.083% Nebulizer Soln -) 1 amp NEB Q4H PRN PRN Reason: SHORT OF BREATH/WHEEZING Last Admin: 03/06/19 23:51 Dose: 1 amp Albuterol/Ipratropium (Duoneb -) 1 amp NEB RQID [facility] Last Admin: 03/09/19 20:50 Dose: 1 amp Dutasteride (Avodart -) 0.5 mg PO DAILY [facility] Last Admin: 03/10/19 09:31 Dose: 0.5 mg Piperacillin Sod/Tazobactam (Sod 3.375 gm/ Dextrose) 50 mls @ 100 mls/hr IVPB Q6H-IV [facility]; Protocol Last Admin: 03/10/19 08:51 Dose: 100 mls/hr Sodium Chloride (Normal Saline -) 1,000 mls @ 42 mls/hr IV ASDIR [facility] Last Admin: 03/09/19 13:34 Dose: 42 mls/hr Insulin Aspart (Novolog Vial Sliding Scale -) 1 vial SQ ACHS [facility]; Protocol Last Admin: 03/10/19 06:34 Dose: 2 units Isosorbide Mononitrate (Imdur -) 30 mg PO DAILY [facility] Last Admin: 03/10/19 09:31 Dose: 30 mg Levothyroxine Sodium (Synthroid -) 12.5 mcg PO AM [facility] Last Admin: 03/10/19 06:34 Dose: 12.5 mcg Methylprednisolone Sodium Succinate (Solu-Medrol -) 40 mg IVPUSH Q8H-IV [facility] Last Admin: 03/10/19 09:31 Dose: 40 mg Metoprolol Tartrate (Lopressor -) 50 mg PO BID [facility] Last Admin: 03/09/19 22:04 Dose: Not Given Rosuvastatin Calcium (Crestor -) 5 mg PO HS [facility] Last Admin: 03/09/19 21:46 Dose: 5 mg Sitagliptin Phosphate (Januvia -) 50 mg PO DAILY@0700 [facility] Last Admin: 03/10/19 06:34 Dose: 50 mg Warfarin Sodium (Coumadin -) 2.5 mg PO DAILY@1800 [facility] Last Admin: 03/09/19 17:09 Dose: 2.5 mg - Objective Vital Signs: Vital Signs Temperature 98.1 F 03/10/19 06:00 Pulse Rate 64 03/10/19 08:23 Respiratory Rate 17 03/10/19 08:23 Blood Pressure 108/74 03/10/19 08:23 O2 Sat by Pulse Oximetry (%) 94 L 03/10/19 08:23 Constitutional: Yes: No Distress Eyes: Yes: Conjunctiva Clear Cardiovascular: Yes: Regular Rate and Rhythm, S1, S2 Respiratory: Yes: Diminished Gastrointestinal: Yes: Normal Bowel Sounds, Soft. No: Tenderness Edema: No Labs: CBC, BMP 03/10/19 05:40 03/10/19 05:40 INR, PTT INR 2.24 (0.83-1.09) H 03/10/19 05:40 Assessment/Plan BIBASILAR PNEUMONIA RESP INSUFFICIENCY EXACERBATION COPD LEUKOCYTOSIS IMPROVED ELEVATED LFTS +URINE C/S= CONTAMINANT CONTINUE EMPIRIC ZOSYN
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
--- NOTE | 2019-03-10 14:59 | PN ---
Teaching Attending Note Name of Resident: Fred Schafer ATTENDING PHYSICIAN STATEMENT I saw and evaluated the patient. I reviewed the resident's note and discussed the case with the resident. I agree with the resident's findings and plan as documented. SUBJECTIVE: patient is comfortable with no acute distress. continues to be in ICU, on High flow oxygen. OBJECTIVE: Vital Signs Temperature 98.0 F 03/10/19 12:10 Pulse Rate 59 L 03/10/19 12:10 Respiratory Rate 18 03/10/19 12:10 Blood Pressure 106/68 03/10/19 12:10 O2 Sat by Pulse Oximetry (%) 88 L 03/10/19 14:00 GENERAL: The patient is awake, alert, and fully oriented, hard of hearing , in NAD. HEAD: Normal with no signs of trauma. EYES: PERRL, extraocular movements intact, sclera anicteric, conjunctiva clear. ENT: Ears normal, oropharynx clear without exudates, moist mucous membranes. On high flow oxygen NECK: Trachea midline, full range of motion, supple. LUNGS: decreased Breath sounds BL , no wheezing , on high flow oxygen, no accessory muscle use. HEART: afib with rate controlled , S1, S2 positive, no rub or gallop. ABDOMEN: Soft, NT,ND, normoactive bowel sounds, no guarding, no rebound, no hepatosplenomegaly, no masses. EXTREMITIES: 2+ pulses, warm, well-perfused, no edema. NEUROLOGICAL: Cranial nerves II through XII grossly intact. Normal speech, gait not observed. PSYCH: Normal mood, normal affect. SKIN: Warm, dry, normal turgor, no rashes or lesions noted CBCD WBC 13.9 K/mm3 (4.0-10.0) H 03/10/19 05:40 RBC 4.35 M/mm3 (4.00-5.60) 03/10/19 05:40 Hgb 13.7 GM/dL (11.7-16.9) 03/10/19 05:40 Hct 41.6 % (35.4-49) 03/10/19 05:40 MCV 95.7 fl (80-96) 03/10/19 05:40 MCHC 33.0 g/dl (32.0-35.9) 03/10/19 05:40 RDW 13.9 % (11.9-15.9) 03/10/19 05:40 Plt Count 295 K/MM3 (134-434) 03/10/19 05:40 MPV 10.1 fl (7.5-11.1) 03/10/19 05:40 CMP Sodium 139 mmol/L (136-145) 03/10/19 05:40 Potassium 4.1 mmol/L (3.5-5.1) 03/10/19 05:40 Chloride 100 mmol/L (98-107) 03/10/19 05:40 Carbon Dioxide 31 mmol/L (21-32) 03/10/19 05:40 Anion Gap 9 MMOL/L (8-16) 03/10/19 05:40 BUN 79.4 mg/dL (7-18) H 03/10/19 05:40 Creatinine 1.8 mg/dL (0.55-1.3) H 03/10/19 05:40 Random Glucose 201 mg/dL (74-106) H 03/10/19 05:40 Calcium 8.2 mg/dL (8.5-10.1) L 03/10/19 05:40 Total Bilirubin 1.3 mg/dL (0.2-1) H 03/10/19 05:40 AST 48 U/L (15-37) H 03/10/19 05:40 ALT 56 U/L (13-61) 03/10/19 05:40 Alkaline Phosphatase 143 U/L (45-117) H 03/10/19 05:40 Total Protein 5.3 g/dl (6.4-8.2) L 03/10/19 05:40 Albumin 1.7 g/dl (3.4-5.0) L 03/10/19 05:40 CARDIAC ENZYMES Troponin I < 0.02 ng/ml (0.00-0.05) 03/02/19 20:15 Current Medications Generic Name Dose Route Start Last Admin Trade Name Freq PRN Reason Stop Dose Admin Acetaminophen 650 mg 03/03/19 03:53 03/06/19 11:17 Tylenol - PO 650 mg Q6H PRN Administration PAIN OR FEVER Albuterol Sulfate 1 amp 03/06/19 13:20 03/06/19 23:51 Ventolin 0.083% Nebulizer Soln - NEB 1 amp Q4H PRN Administration SHORT OF BREATH/WHEEZING Albuterol/Ipratropium 1 amp 03/06/19 16:00 03/10/19 11:45 Duoneb - NEB 1 amp RQID [facility] Administration Dutasteride 0.5 mg 03/03/19 10:00 03/10/19 09:31 Avodart - PO 0.5 mg DAILY [facility] Administration Piperacillin Sod/Tazobactam 50 mls @ 100 mls/hr 03/06/19 13:30 03/10/19 08:51 Sod 3.375 gm/ Dextrose IVPB 100 mls/hr Q6H-IV [facility] Administration Protocol Sodium Chloride 1,000 mls @ 42 mls/hr 03/09/19 12:45 03/09/19 13:34 Normal Saline - IV 42 mls/hr ASDIR [facility] Administration Insulin Aspart 1 vial 03/05/19 13:28 03/10/19 11:14 Novolog Vial Sliding Scale - SQ 4 units ACHS [facility] Administration Protocol Isosorbide Mononitrate 30 mg 03/03/19 10:00 03/10/19 09:31 Imdur - PO 30 mg DAILY [facility] Administration Levothyroxine Sodium 12.5 mcg 03/03/19 10:46 03/10/19 06:34 Synthroid - PO 12.5 mcg AM [facility] Administration Methylprednisolone Sodium Succinate 40 mg 03/09/19 18:00 03/10/19 09:31 Solu-Medrol - IVPUSH 40 mg Q8H-IV [facility] Administration Metoprolol Tartrate 50 mg 03/03/19 10:54 03/10/19 11:00 Lopressor - PO 50 mg BID [facility] Administration Rosuvastatin Calcium 5 mg 03/03/19 22:00 03/09/19 21:46 Crestor - PO 5 mg HS [facility] Administration Sitagliptin Phosphate 50 mg 03/07/19 07:00 03/10/19 06:34 Januvia - PO 50 mg DAILY@0700 [facility] Administration Warfarin Sodium 2.5 mg 03/09/19 18:00 03/09/19 17:09 Coumadin - PO 2.5 mg DAILY@1800 [facility] Administration Home Medications Medication Instructions Recorded Isosorbide Mononitrate [Imdur] 30 mg PO DAILY 08/21/14 Levothyroxine [Synthroid -] 25 mcg PO DAILY 08/21/14 Sitagliptin Phosphate [Januvia] 50 mg PO DAILY 08/21/14 Acetaminophen [Tylenol] 650 mg PO PRN PRN 02/27/15 Atenolol [Tenormin -] 1 tab PO HS 02/27/15 Cholecalciferol (Vitamin D3) 1,000 unit PO DAILY 02/27/15 [Vitamin D3] Dutasteride [Avodart] 0.5 mg PO DAILY 02/04/17 Warfarin Sodium [Coumadin] 2.5 mg PO DAILY 02/04/17 Rosuvastatin [Crestor -] 5 mg PO HS 03/02/19 Vit B12/Intrinsic Fact/Folate 1 each PO DAILY 03/02/19 [Intrinsi [id number] Tablet] Laboratory Tests 03/07/19 03/08/19 03/09/19 05:30 05:30 05:25 INR 3.17 H 2.63 H 2.22 H 03/10/19 05:40 INR 2.24 H Laboratory Tests 03/05/19 03/06/19 03/07/19 06:15 06:59 05:30 INR 3.17 H Creatinine 1.4 H 1.4 H 03/07/19 03/08/19 03/08/19 05:30 05:30 05:30 INR 2.63 H Creatinine 1.8 H 1.9 H 03/09/19 03/09/19 03/10/19 05:25 05:25 05:40 INR 2.22 H 2.24 H Creatinine 2.2 H 03/10/19 05:40 INR Creatinine 1.8 H ASSESSMENT AND PLAN: Patient is a 84 y/o man with h/o HTN, A fib on coumadin, HLP, DM, CAD, No stents , CKD, diverticulosis, GERD, and hypothyroidism, who presented with Hypoxia from [place] [facility]. He was found to have acute hypoxic resp failure, CHf, and Afib with RVR . # BL PNA : day 5 of Abx : zosyn s/p zithromax , on steroids per pulm. taper when possible , continue Nebs # Acute hypoxic respiratory failure: on high flow oxygen continue further care per ICU team # A fib rate is controlled now, continue coumadin . daily INR . continue coumadin 2.5mg today INR 2.24 today , cont lopressor 50 BID # Acute diastolic heart failure : off lasix now, on Imdur/metoprolol # Coumadin coagulopathy: s/p Vit K . # ARF over CKD: will continue to monitor . hold lasix. # H/o Hypothyroidism: with low TSH : cont. synthroid. # Transaminitis: improved # H/o DM with hyperglycemia: SSI, sitagliptin ICU monitoring
[2019-03-10] MEDS: SODIUM CHLORIDE 1,000 ML IV SCH (15:39)
[2019-03-10] MEDS: WARFARIN NA 2.5 MG TABLET (FP) PO SCH (17:44)
[2019-03-10] MEDS: ROSUVASTATIN CA 5 MG TABLET (FP) PO SCH (22:31)
[2019-03-11] MEDS ORDERED: PIPERACILLIN/TAZOBACTAM 3.375 GM VIAL IVPB ONE ×4 (03:01→21:14)
[2019-03-11] MEDS ORDERED: DEXTROSE 5%-WATER - 50 ML IVPB ONE ×4 (03:01→21:15)
[2019-03-11] MEDS: PIPERACILLIN/TAZOB 3.375 GM 3.375 GM in DEXTROSE 5%-WATER - 50 ML IVPB SCH ×4 (03:06→21:37)
[2019-03-11] MEDS: methylPREDNISolone NA SUCC 40 MG/1 ML VIAL IVPUSH SCH ×3 (03:06→17:12)
[2019-03-11] MEDS: LEVOTHYROXINE NA 25 MCG TABLET (FP) PO SCH (06:27)
[2019-03-11] MEDS: INSULIN SLIDING SCALE (NOVOLOG) 1 VIAL SQ SCH ×4 (06:27→21:38)
[2019-03-11] MEDS: sitaGLIPtin PHOSPHATE 50 MG TABLET PO SCH (06:27)
[2019-03-11 06:32] LABS: BASO % 0.4 % (0-2.0); HEMATOCRIT 42.9 % (35.4-49); HEMOGLOBIN 14.3 GM/dL (11.7-16.9); LYMPH % 7.5 % (8-40); MCH 32.2 pg (25.7-33.7); MCHC 33.4 g/dl (32.0-35.9); MEAN CELL VOLUME 96.7 fl (80-96); MEAN PLT VOLUME 10.5 fl (7.5-11.1); MONO % 5.8 % (3.8-10.2); NEUT % 85.3 % (42.8-82.8); PLATELET COUNT 293 K/MM3 (134-434); RBC 4.43 M/mm3 (4.00-5.60); RDW 13.8 % (11.9-15.9); WHITE BLOOD COUNT 13.3 K/mm3 (4.0-10.0)
[2019-03-11 06:40] LABS: INR 2.78 (0.83-1.09); PROTHROMBIN TIME (PATIENT) 33.1 SEC (9.7-13.0)
[2019-03-11 06:57] LABS: ALBUMIN 1.7 g/dl (3.4-5.0); BILIRUBIN,TOTAL 1.2 mg/dL (0.2-1); BLOOD UREA NITROGEN 74.8 mg/dL (7-18); CALCIUM 8.5 mg/dL (8.5-10.1); CREATININE 1.8 mg/dL (0.55-1.3); MAGNESIUM 2.4 mg/dL (1.8-2.4); POTASSIUM 4.2 mmol/L (3.5-5.1); TOT PROT 5.4 g/dl (6.4-8.2)
--- NOTE | 2019-03-11 08:46 | PN ---
Progress Note, Physician History of Present Illness: AWAKE, ALERT SEATED IN BED EATING BREAKFAST BREATHING NON LABORED ON HIGH FLOW O2 OCCASIONAL COUGH AFEBRILE WBC IMPROVED BC (-) - Current Medication List Current Medications: Active Medications Acetaminophen (Tylenol -) 650 mg PO Q6H PRN PRN Reason: PAIN OR FEVER Last Admin: 03/06/19 11:17 Dose: 650 mg Albuterol Sulfate (Ventolin 0.083% Nebulizer Soln -) 1 amp NEB Q4H PRN PRN Reason: SHORT OF BREATH/WHEEZING Last Admin: 03/06/19 23:51 Dose: 1 amp Albuterol/Ipratropium (Duoneb -) 1 amp NEB RQID [facility] Last Admin: 03/10/19 20:55 Dose: 1 amp Dutasteride (Avodart -) 0.5 mg PO DAILY [facility] Last Admin: 03/10/19 09:31 Dose: 0.5 mg Piperacillin Sod/Tazobactam (Sod 3.375 gm/ Dextrose) 50 mls @ 100 mls/hr IVPB Q6H-IV [facility]; Protocol Last Admin: 03/11/19 03:06 Dose: 100 mls/hr Sodium Chloride (Normal Saline -) 1,000 mls @ 42 mls/hr IV ASDIR [facility] Last Admin: 03/10/19 15:39 Dose: 42 mls/hr Insulin Aspart (Novolog Vial Sliding Scale -) 1 vial SQ ACHS [facility]; Protocol Last Admin: 03/11/19 06:27 Dose: 2 units Isosorbide Mononitrate (Imdur -) 30 mg PO DAILY [facility] Last Admin: 03/10/19 09:31 Dose: 30 mg Levothyroxine Sodium (Synthroid -) 12.5 mcg PO AM [facility] Last Admin: 03/11/19 06:27 Dose: 12.5 mcg Methylprednisolone Sodium Succinate (Solu-Medrol -) 40 mg IVPUSH Q8H-IV [facility] Last Admin: 03/11/19 03:06 Dose: 40 mg Metoprolol Tartrate (Lopressor -) 50 mg PO BID [facility] Last Admin: 03/10/19 21:04 Dose: 50 mg Rosuvastatin Calcium (Crestor -) 5 mg PO HS [facility] Last Admin: 03/10/19 22:31 Dose: 5 mg Sitagliptin Phosphate (Januvia -) 50 mg PO DAILY@0700 [facility] Last Admin: 03/11/19 06:27 Dose: 50 mg Warfarin Sodium (Coumadin -) 2.5 mg PO DAILY@1800 [facility] Last Admin: 03/10/19 17:44 Dose: 2.5 mg - Objective Vital Signs: Vital Signs Temperature 99.0 F 03/11/19 06:00 Pulse Rate 71 03/11/19 06:00 Respiratory Rate 03/11/19 06:00 Blood Pressure 125/68 03/11/19 06:00 O2 Sat by Pulse Oximetry (%) 96 03/10/19 20:22 Constitutional: Yes: No Distress Eyes: Yes: Conjunctiva Clear Cardiovascular: Yes: Regular Rate and Rhythm, S1, S2 Respiratory: Yes: Diminished Gastrointestinal: Yes: Normal Bowel Sounds, Soft. No: Tenderness Labs: CBC, BMP 03/11/19 05:45 03/11/19 05:45 INR, PTT INR 2.78 (0.83-1.09) H 03/11/19 05:45 Assessment/Plan BIBASILAR PNEUMONIA RESP INSUFFICIENCY EXACERBATION COPD LEUKOCYTOSIS IMPROVING ELEVATED LFTS +URINE C/S= CONTAMINANT CONTINUE EMPIRIC ZOSYN
[2019-03-11] MEDS: ALBUTEROL SO4 2.5/IPRATROPIUM 0.5 INH SOL 3 ML VIAL.NEB. NEB SCH ×2 (09:00→12:22)
[2019-03-11] MEDS: ISOSORBIDE MONONITRATE 30 MG TAB.SR.24H (FP) PO SCH (09:40)
[2019-03-11] MEDS: METOPROLOL TARTRATE 50 MG TABLET (FP) PO SCH ×2 (09:40→21:37)
[2019-03-11] MEDS: DUTASTERIDE 0.5 MG CAP (FP) PO SCH (09:40)
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
--- NOTE | 2019-03-11 10:16 | PN ---
Teaching Attending Note Name of Resident: Steve Alberto ATTENDING PHYSICIAN STATEMENT I saw and evaluated the patient. I reviewed the resident's note and discussed the case with the resident. I agree with the resident's findings and plan as documented. SUBJECTIVE: Patient seen and examined in the ICU. Remains on HFOT 50L/min, 60% FiO2. States breathing is about the same. Some dry cough. No wheezing. OBJECTIVE: Intake & Output 03/08/19 03/09/19 03/10/19 03/11/19 23:59 23:59 23:59 23:59 Intake Total 960 1252 1081 754 Output Total 650 Balance 310 1252 1081 754 Weight 185 lb 4.8 oz 190 lb 9.6 oz 192 lb 11.2 oz 187 lb 8 oz Last Vital Signs Temp Pulse Resp BP Pulse Ox 97.3 F L 72 18 117/78 96 03/11/19 09:47 03/11/19 08:00 03/11/19 08:00 03/11/19 08:00 03/10/19 20:22 Active Medications Acetaminophen (Tylenol -) 650 mg PO Q6H PRN PRN Reason: PAIN OR FEVER Last Admin: 03/06/19 11:17 Dose: 650 mg Albuterol Sulfate (Ventolin 0.083% Nebulizer Soln -) 1 amp NEB Q4H PRN PRN Reason: SHORT OF BREATH/WHEEZING Last Admin: 03/06/19 23:51 Dose: 1 amp Albuterol/Ipratropium (Duoneb -) 1 amp NEB RQID EDMUND Last Admin: 03/11/19 09:00 Dose: 1 amp Dutasteride (Avodart -) 0.5 mg PO DAILY EDMUND Last Admin: 03/11/19 09:40 Dose: 0.5 mg Piperacillin Sod/Tazobactam (Sod 3.375 gm/ Dextrose) 50 mls @ 100 mls/hr IVPB Q6H-IV EDMUND; Protocol Last Admin: 03/11/19 09:40 Dose: 100 mls/hr Sodium Chloride (Normal Saline -) 1,000 mls @ 42 mls/hr IV ASDIR EDMUND Last Admin: 03/10/19 15:39 Dose: 42 mls/hr Insulin Aspart (Novolog Vial Sliding Scale -) 1 vial SQ ACHS EDMUND; Protocol Last Admin: 03/11/19 06:27 Dose: 2 units Isosorbide Mononitrate (Imdur -) 30 mg PO DAILY [facility] Last Admin: 03/11/19 09:40 Dose: 30 mg Levothyroxine Sodium (Synthroid -) 12.5 mcg PO AM [facility] Last Admin: 03/11/19 06:27 Dose: 12.5 mcg Methylprednisolone Sodium Succinate (Solu-Medrol -) 40 mg IVPUSH Q8H-IV [facility] Last Admin: 03/11/19 09:40 Dose: 40 mg Metoprolol Tartrate (Lopressor -) 50 mg PO BID [facility] Last Admin: 03/11/19 09:40 Dose: 50 mg Rosuvastatin Calcium (Crestor -) 5 mg PO HS [facility] Last Admin: 03/10/19 22:31 Dose: 5 mg Sitagliptin Phosphate (Januvia -) 50 mg PO DAILY@0700 [facility] Last Admin: 03/11/19 06:27 Dose: 50 mg Warfarin Sodium (Coumadin -) 2.5 mg PO DAILY@1800 [facility] Last Admin: 03/10/19 17:44 Dose: 2.5 mg Gen: mildly tachypneic on HFOT Heart: RRR Lung: bibasilar rales Abd: soft, nontender Ext: no edema Laboratory Results - last 24 hr 03/10/19 03/10/19 03/10/19 05:40 11:09 16:17 WBC RBC Hgb Hct MCV MCH MCHC RDW Plt Count MPV Absolute Neuts (auto) Neutrophils % Neutrophils % (Manual) 91.8 H Band Neutrophils % 0.0 Lymphocytes % Lymphocytes % (Manual) 2.1 L D Monocytes % Monocytes % (Manual) 5 Eosinophils % Eosinophils % (Manual) 0.0 Basophils % Basophils % (Manual) 1.0 D Myelocytes % (Man) 0 Promyelocytes % (Man) 0 D Blast Cells % (Manual) 0 Nucleated RBC % 0 Metamyelocytes 0 Hypochromia 0 Platelet Estimate Normal Polychromasia 0 Poikilocytosis 0 Anisocytosis 0 Microcytosis 0 Macrocytosis 0 PT with INR INR Sodium Potassium Chloride Carbon Dioxide Anion Gap BUN Creatinine Est GFR (CKD-EPI)AfAm Est GFR (CKD-EPI)NonAf POC Glucometer 218 324 Random Glucose Calcium Phosphorus Magnesium Total Bilirubin AST ALT Alkaline Phosphatase Total Protein Albumin 03/10/19 03/11/19 03/11/19 20:56 05:45 05:45 WBC 13.3 H RBC 4.43 Hgb 14.3 Hct 42.9 MCV 96.7 H MCH 32.2 MCHC 33.4 RDW 13.8 Plt Count 293 MPV 10.5 Absolute Neuts (auto) 11.4 H Neutrophils % 85.3 H Neutrophils % (Manual) Band Neutrophils % Lymphocytes % 7.5 L D Lymphocytes % (Manual) Monocytes % 5.8 D Monocytes % (Manual) Eosinophils % 1.0 D Eosinophils % (Manual) Basophils % 0.4 D Basophils % (Manual) Myelocytes % (Man) Promyelocytes % (Man) Blast Cells % (Manual) Nucleated RBC % 0 Metamyelocytes Hypochromia Platelet Estimate Polychromasia Poikilocytosis Anisocytosis Microcytosis Macrocytosis PT with INR 33.10 H INR 2.78 H Sodium Potassium Chloride Carbon Dioxide Anion Gap BUN Creatinine Est GFR (CKD-EPI)AfAm Est GFR (CKD-EPI)NonAf POC Glucometer 290 Random Glucose Calcium Phosphorus Magnesium Total Bilirubin AST ALT Alkaline Phosphatase Total Protein Albumin 03/11/19 03/11/19 05:45 05:48 WBC RBC Hgb Hct MCV MCH MCHC RDW Plt Count MPV Absolute Neuts (auto) Neutrophils % Neutrophils % (Manual) Band Neutrophils % Lymphocytes % Lymphocytes % (Manual) Monocytes % Monocytes % (Manual) Eosinophils % Eosinophils % (Manual) Basophils % Basophils % (Manual) Myelocytes % (Man) Promyelocytes % (Man) Blast Cells % (Manual) Nucleated RBC % Metamyelocytes Hypochromia Platelet Estimate Polychromasia Poikilocytosis Anisocytosis Microcytosis Macrocytosis PT with INR INR Sodium 142 Potassium 4.2 Chloride 104 Carbon Dioxide 32 Anion Gap 6 L BUN 74.8 H Creatinine 1.8 H Est GFR (CKD-EPI)AfAm 39.46 Est GFR (CKD-EPI)NonAf 34.05 POC Glucometer 181 Random Glucose 195 H Calcium 8.5 Phosphorus 4.0 Magnesium 2.4 Total Bilirubin 1.2 H AST 40 H ALT 52 Alkaline Phosphatase 155 H Total Protein 5.4 L Albumin 1.7 L Problem List - Problems (1) Acute respiratory failure with hypoxia Code(s): J96.01 - ACUTE RESPIRATORY FAILURE WITH HYPOXIA (2) Pneumonia Code(s): J18.9 - PNEUMONIA, UNSPECIFIED ORGANISM Qualifiers: Pneumonia type: due to unspecified organism Laterality: bilateral Lung location: lower lobe of lung Qualified Code(s): J18.1 - Lobar pneumonia, unspecified organism ASSESSMENT AND PLAN: Acute Hypoxic Respiratory Failure Multilobar Pneumonia Sepsis Acute on Chronic Diastolic Heart Failure Atrial Fibrillation with RVR Supratherapeutic INR CAD HTN DM Hypercholesterolemia CKD h/o Primary Biliary Cirrhosis - Wean HFOT support as tolerated - continue antibiotics - f/u cultures - Medrol - inhaled bronchodilators - rate control - continue anticoagulation - monitor H/H - Requires ICU monitoring for HFOT and tenuous respiratory status Dr Arellano Critical care time spent in reviewing chart, evaluating patient and formulating plan 36 min
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
--- NOTE | 2019-03-11 11:16 | PN ---
Physical Exam: SUBJECTIVE: Patient seen and examined OBJECTIVE: Vital Signs Period Temp Pulse Resp BP Sys/Braga Pulse Ox Last 24 Hr 97.3 F-99.0 F 59-73 14-24 96-147/61-78 88-96 GENERAL: The patient is awake, alert, and fully oriented, in no acute distress. HEAD: Normal with no signs of trauma. EYES: PERRL, extraocular movements intact, sclera anicteric, conjunctiva clear. No ptosis. ENT: Ears normal, nares patent, oropharynx clear without exudates, moist mucous membranes. NECK: Trachea midline, full range of motion, supple. LUNGS: Breath sounds equal, clear to auscultation bilaterally, no wheezes, no crackles, no accessory muscle use. HEART: Regular rate and rhythm, S1, S2 without murmur, rub or gallop. ABDOMEN: Soft, nontender, nondistended, normoactive bowel sounds, no guarding, no rebound, no hepatosplenomegaly, no masses. EXTREMITIES: 2+ pulses, warm, well-perfused, no edema. NEUROLOGICAL: Cranial nerves II through XII grossly intact. Normal speech, gait not observed. PSYCH: Normal mood, normal affect. SKIN: Warm, dry, normal turgor, no rashes or lesions noted Laboratory Results - last 24 hr 03/10/19 03/10/19 03/11/19 16:17 20:56 05:45 WBC 13.3 H RBC 4.43 Hgb 14.3 Hct 42.9 MCV 96.7 H MCH 32.2 MCHC 33.4 RDW 13.8 Plt Count 293 MPV 10.5 Absolute Neuts (auto) 11.4 H Neutrophils % 85.3 H Lymphocytes % 7.5 L D Monocytes % 5.8 D Eosinophils % 1.0 D Basophils % 0.4 D Nucleated RBC % 0 PT with INR INR Sodium Potassium Chloride Carbon Dioxide Anion Gap BUN Creatinine Est GFR (CKD-EPI)AfAm Est GFR (CKD-EPI)NonAf POC Glucometer 324 290 Random Glucose Calcium Phosphorus Magnesium Total Bilirubin AST ALT Alkaline Phosphatase Total Protein Albumin 03/11/19 03/11/19 03/11/19 05:45 05:45 05:48 WBC RBC Hgb Hct MCV MCH MCHC RDW Plt Count MPV Absolute Neuts (auto) Neutrophils % Lymphocytes % Monocytes % Eosinophils % Basophils % Nucleated RBC % PT with INR 33.10 H INR 2.78 H Sodium 142 Potassium 4.2 Chloride 104 Carbon Dioxide 32 Anion Gap 6 L BUN 74.8 H Creatinine 1.8 H Est GFR (CKD-EPI)AfAm 39.46 Est GFR (CKD-EPI)NonAf 34.05 POC Glucometer 181 Random Glucose 195 H Calcium 8.5 Phosphorus 4.0 Magnesium 2.4 Total Bilirubin 1.2 H AST 40 H ALT 52 Alkaline Phosphatase 155 H Total Protein 5.4 L Albumin 1.7 L Active Medications Generic Name Dose Route Start Last Admin Trade Name Freq PRN Reason Stop Dose Admin Acetaminophen 650 mg 03/03/19 03:53 03/06/19 11:17 Tylenol - PO 650 mg Q6H PRN Administration PAIN OR FEVER Albuterol Sulfate 1 amp 03/06/19 13:20 03/06/19 23:51 Ventolin 0.083% Nebulizer Soln - NEB 1 amp Q4H PRN Administration SHORT OF BREATH/WHEEZING Albuterol/Ipratropium 1 amp 03/06/19 16:00 03/11/19 09:00 Duoneb - NEB 1 amp RQID EDMUND Administration Dutasteride 0.5 mg 03/03/19 10:00 03/11/19 09:40 Avodart - PO 0.5 mg DAILY EDMUND Administration Piperacillin Sod/Tazobactam 50 mls @ 100 mls/hr 03/06/19 13:30 03/11/19 09:40 Sod 3.375 gm/ Dextrose IVPB 100 mls/hr Q6H-IV EDMUND Administration Protocol Sodium Chloride 1,000 mls @ 42 mls/hr 03/09/19 12:45 03/10/19 15:39 Normal Saline - IV 42 mls/hr ASDIR EDMUND Administration Insulin Aspart 1 vial 03/05/19 13:28 03/11/19 06:27 Novolog Vial Sliding Scale - SQ 2 units ACHS EDMUND Administration Protocol Isosorbide Mononitrate 30 mg 03/03/19 10:00 03/11/19 09:40 Imdur - PO 30 mg DAILY EDMUND Administration Levothyroxine Sodium 12.5 mcg 03/03/19 10:46 03/11/19 06:27 Synthroid - PO 12.5 mcg AM EDMUND Administration Methylprednisolone Sodium Succinate 40 mg 03/09/19 18:00 03/11/19 09:40 Solu-Medrol - IVPUSH 40 mg Q8H-IV EDMUND Administration Metoprolol Tartrate 50 mg 03/03/19 10:54 03/11/19 09:40 Lopressor - PO 50 mg BID EDMUND Administration Rosuvastatin Calcium 5 mg 03/03/19 22:00 03/10/19 22:31 Crestor - PO 5 mg HS EDMUND Administration Sitagliptin Phosphate 50 mg 03/07/19 07:00 03/11/19 06:27 Januvia - PO 50 mg DAILY@0700 EDMUND Administration Warfarin Sodium 2.5 mg 03/09/19 18:00 03/10/19 17:44 Coumadin - PO 2.5 mg DAILY@1800 EDMUND Administration ASSESSMENT/PLAN:
[2019-03-11] MEDS ORDERED: INSULIN (NOVOLOG) ASPART 100 UNITS/ML 10ML VIAL ONE (11:37)
[2019-03-11] MEDS: SODIUM CHLORIDE 1,000 ML IV SCH (14:31)
[2019-03-11 15:37] LABS: PLATELET ESTIMATE ADEQUATE
[2019-03-11] MEDS: WARFARIN NA 2.5 MG TABLET (FP) PO SCH (17:12)
--- NOTE | 2019-03-11 17:22 | PN ---
Progress Note (short form) - Note Progress Note: Patient seen and examined in the ICU. Remains on High flow oxygen on 50L/min, 60 % FiO2. positive for dry cough. No wheezing. Vital Signs Temperature 98.0 F 03/11/19 14:00 Pulse Rate 66 03/11/19 16:00 Respiratory Rate 18 03/11/19 16:00 Blood Pressure 101/66 03/11/19 16:00 O2 Sat by Pulse Oximetry (%) 90 L 03/11/19 09:00 GENERAL: The patient is awake, alert, and fully oriented, hard of hearing , in NAD. HEAD: Normal with no signs of trauma. EYES: PERRL, extraocular movements intact, sclera anicteric, conjunctiva clear. ENT: Ears normal, oropharynx clear without exudates, moist mucous membranes. On high flow oxygen NECK: Trachea midline, full range of motion, supple. LUNGS: decreased Breath sounds BL , no wheezing , on high flow oxygen . HEART: afib with rate controlled , S1, S2 positive, no rub or gallop. ABDOMEN: Soft, NT,ND, normoactive bowel sounds, no guarding, no rebound, no hepatosplenomegaly, no masses. EXTREMITIES: 2+ pulses, warm, well-perfused, no edema. NEUROLOGICAL: Cranial nerves II through XII grossly intact. Normal speech, gait not observed. PSYCH: Normal mood, normal affect. SKIN: Warm, dry, normal turgor, no rashes or lesions noted CBCD WBC 13.3 K/mm3 (4.0-10.0) H 03/11/19 05:45 RBC 4.43 M/mm3 (4.00-5.60) 03/11/19 05:45 Hgb 14.3 GM/dL (11.7-16.9) 03/11/19 05:45 Hct 42.9 % (35.4-49) 03/11/19 05:45 MCV 96.7 fl (80-96) H 03/11/19 05:45 MCHC 33.4 g/dl (32.0-35.9) 03/11/19 05:45 RDW 13.8 % (11.9-15.9) 03/11/19 05:45 Plt Count 293 K/MM3 (134-434) 03/11/19 05:45 MPV 10.5 fl (7.5-11.1) 03/11/19 05:45 CMP Sodium 142 mmol/L (136-145) 03/11/19 05:45 Potassium 4.2 mmol/L (3.5-5.1) 03/11/19 05:45 Chloride 104 mmol/L (98-107) 03/11/19 05:45 Carbon Dioxide 32 mmol/L (21-32) 03/11/19 05:45 Anion Gap 6 MMOL/L (8-16) L 03/11/19 05:45 BUN 74.8 mg/dL (7-18) H 03/11/19 05:45 Creatinine 1.8 mg/dL (0.55-1.3) H 03/11/19 05:45 Random Glucose 195 mg/dL (74-106) H 03/11/19 05:45 Calcium 8.5 mg/dL (8.5-10.1) 03/11/19 05:45 Total Bilirubin 1.2 mg/dL (0.2-1) H 03/11/19 05:45 AST 40 U/L (15-37) H 03/11/19 05:45 ALT 52 U/L (13-61) 03/11/19 05:45 Alkaline Phosphatase 155 U/L (45-117) H 03/11/19 05:45 Total Protein 5.4 g/dl (6.4-8.2) L 03/11/19 05:45 Albumin 1.7 g/dl (3.4-5.0) L 03/11/19 05:45 CARDIAC ENZYMES Troponin I < 0.02 ng/ml (0.00-0.05) 03/02/19 20:15 Current Medications Generic Name Dose Route Start Last Admin Trade Name Freq PRN Reason Stop Dose Admin Acetaminophen 650 mg 03/03/19 03:53 03/06/19 11:17 Tylenol - PO 650 mg Q6H PRN Administration PAIN OR FEVER Dutasteride 0.5 mg 03/03/19 10:00 03/11/19 09:40 Avodart - PO 0.5 mg DAILY EDMUND Administration Piperacillin Sod/Tazobactam 50 mls @ 100 mls/hr 03/06/19 13:30 03/11/19 14:31 Sod 3.375 gm/ Dextrose IVPB 100 mls/hr Q6H-IV EDMUND Administration Protocol Sodium Chloride 1,000 mls @ 42 mls/hr 03/09/19 12:45 03/11/19 14:31 Normal Saline - IV 42 mls/hr ASDIR EDMUND Administration Insulin Aspart 1 vial 03/05/19 13:28 03/11/19 16:36 Novolog Vial Sliding Scale - SQ 6 units ACHS EDMUND Administration Protocol Isosorbide Mononitrate 30 mg 03/03/19 10:00 03/11/19 09:40 Imdur - PO 30 mg DAILY EDMUND Administration Levothyroxine Sodium 12.5 mcg 03/03/19 10:46 03/11/19 06:27 Synthroid - PO 12.5 mcg AM EDMUND Administration Methylprednisolone Sodium Succinate 40 mg 03/09/19 18:00 03/11/19 17:12 Solu-Medrol - IVPUSH 40 mg Q8H-IV EDMUND Administration Metoprolol Tartrate 50 mg 03/03/19 10:54 03/11/19 09:40 Lopressor - PO 50 mg BID EDMUND Administration Rosuvastatin Calcium 5 mg 03/03/19 22:00 03/10/19 22:31 Crestor - PO 5 mg HS [facility] Administration Sitagliptin Phosphate 50 mg 03/07/19 07:00 03/11/19 06:27 Januvia - PO 50 mg DAILY@0700 [facility] Administration Warfarin Sodium 2.5 mg 03/09/19 18:00 03/11/19 17:12 Coumadin - PO 2.5 mg DAILY@1800 [facility] Administration Home Medications Medication Instructions Recorded Isosorbide Mononitrate [Imdur] 30 mg PO DAILY 08/21/14 Levothyroxine [Synthroid -] 25 mcg PO DAILY 08/21/14 Sitagliptin Phosphate [Januvia] 50 mg PO DAILY 08/21/14 Acetaminophen [Tylenol] 650 mg PO PRN PRN 02/27/15 Atenolol [Tenormin -] 1 tab PO HS 02/27/15 Cholecalciferol (Vitamin D3) 1,000 unit PO DAILY 02/27/15 [Vitamin D3] Dutasteride [Avodart] 0.5 mg PO DAILY 02/04/17 Warfarin Sodium [Coumadin] 2.5 mg PO DAILY 02/04/17 Rosuvastatin [Crestor -] 5 mg PO HS 03/02/19 Vit B12/Intrinsic Fact/Folate 1 each PO DAILY 03/02/19 [Intrinsi Z81-Cnwyde Tablet] Assessment and plan: Patient is a 84 y/o man with h/o HTN, A fib on coumadin, HLP, DM, CAD, No stents , CKD, diverticulosis, GERD, and hypothyroidism, who presented with Hypoxia from [facility]. He was found to have acute hypoxic resp failure, CHf, and Afib with RVR . # BL PNA : day 6 of Abx : zosyn s/p zithromax , on steroids per pulm. taper when possible , continue Nebs # Acute hypoxic respiratory failure: on high flow oxygen continue further care per ICU team # A fib rate is controlled now, continue coumadin . daily INR . continue coumadin 2.5mg today INR 2.78 today , cont lopressor 50 BID # Acute diastolic heart failure : off lasix now, on Imdur/metoprolol # Coumadin coagulopathy: s/p Vit K . # ARF over CKD: will continue to monitor . hold lasix. creatinine 1.8 # H/o Hypothyroidism: with low TSH : cont. synthroid. # Transaminitis: improved # H/o DM with hyperglycemia: SSI, sitagliptin ICU monitoring Visit type - Emergency Visit Emergency Visit: Yes ED Registration Date: 03/02/19 Care time: The patient presented to the Emergency Department on the above date and was hospitalized for further evaluation of their emergent condition. - New Patient This patient is new to me today: No - Critical Care Critical Care patient: No - Discharge Referral Referred to [facility] No
[2019-03-11] MEDS: ROSUVASTATIN CA 5 MG TABLET (FP) PO SCH (21:37)
[2019-03-12] MEDS ORDERED: PIPERACILLIN/TAZOBACTAM 3.375 GM VIAL IVPB ONE ×4 (02:14→21:09)
[2019-03-12] MEDS ORDERED: DEXTROSE 5%-WATER - 50 ML IVPB ONE ×4 (02:14→21:09)
[2019-03-12] MEDS: PIPERACILLIN/TAZOB 3.375 GM 3.375 GM in DEXTROSE 5%-WATER - 50 ML IVPB SCH ×4 (02:17→21:15)
[2019-03-12] MEDS: methylPREDNISolone NA SUCC 40 MG/1 ML VIAL IVPUSH SCH ×3 (02:17→17:43)
[2019-03-12] MEDS: sitaGLIPtin PHOSPHATE 50 MG TABLET PO SCH (06:17)
[2019-03-12] MEDS: LEVOTHYROXINE NA 25 MCG TABLET (FP) PO SCH (06:17)
[2019-03-12] MEDS: INSULIN SLIDING SCALE (NOVOLOG) 1 VIAL SQ SCH ×4 (06:19→21:29)
[2019-03-12 06:25] LABS: BASO % 0.2 % (0-2.0); EOS % 0.2 % (0-4.5); HEMATOCRIT 41.3 % (35.4-49); HEMOGLOBIN 13.5 GM/dL (11.7-16.9); LYMPH % 8.5 % (8-40); MCH 31.8 pg (25.7-33.7); MCHC 32.7 g/dl (32.0-35.9); MEAN CELL VOLUME 97.4 fl (80-96); MEAN PLT VOLUME 10.1 fl (7.5-11.1); MONO % 4.7 % (3.8-10.2); NEUT % 86.4 % (42.8-82.8); PLATELET COUNT 286 K/MM3 (134-434); RBC 4.24 M/mm3 (4.00-5.60); WHITE BLOOD COUNT 12.7 K/mm3 (4.0-10.0)
[2019-03-12 06:51] LABS: ALBUMIN 1.7 g/dl (3.4-5.0); BILIRUBIN,TOTAL 1.3 mg/dL (0.2-1); BLOOD UREA NITROGEN 64.3 mg/dL (7-18); CALCIUM 7.9 mg/dL (8.5-10.1); CREATININE 1.7 mg/dL (0.55-1.3); MAGNESIUM 2.3 mg/dL (1.8-2.4); POTASSIUM 4.4 mmol/L (3.5-5.1); TOT PROT 5.1 g/dl (6.4-8.2)
[2019-03-12 07:02] LABS: INR 2.79 (0.83-1.09); PROTHROMBIN TIME (PATIENT) 33.3 SEC (9.7-13.0)
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
[2019-03-12] MEDS ORDERED: PT OWN MED DRAWER 7, Y5N ONE ×4 (09:13→23:33)
[2019-03-12] MEDS: METOPROLOL TARTRATE 50 MG TABLET (FP) PO SCH ×2 (09:16→21:15)
[2019-03-12] MEDS: ISOSORBIDE MONONITRATE 30 MG TAB.SR.24H (FP) PO SCH (09:16)
[2019-03-12] MEDS: DUTASTERIDE 0.5 MG CAP (FP) PO SCH (09:17)
--- NOTE | 2019-03-12 09:50 | PN ---
Teaching Attending Note Name of Resident: Luis Alberto Gabriel ATTENDING PHYSICIAN STATEMENT I saw and evaluated the patient. I reviewed the resident's note and discussed the case with the resident. I agree with the resident's findings and plan as documented. SUBJECTIVE: Patient seen and examined in the ICU. Currently off HFOT and on NC O2. States breathing is improved. Some dry cough. OBJECTIVE: Intake & Output 03/09/19 03/10/19 03/11/19 03/12/19 23:59 23:59 23:59 23:59 Intake Total 1252 1081 2258 754 Balance 1252 1081 2258 754 Weight 190 lb 9.6 oz 192 lb 11.2 oz 187 lb 8 oz 188 lb 9 oz Last Vital Signs Temp Pulse Resp BP Pulse Ox 98.6 F 59 L 18 134/73 90 L 03/12/19 06:00 03/12/19 07:56 03/12/19 07:56 03/12/19 07:56 03/12/19 07:58 Active Medications Acetaminophen (Tylenol -) 650 mg PO Q6H PRN PRN Reason: PAIN OR FEVER Last Admin: 03/06/19 11:17 Dose: 650 mg Dutasteride (Avodart -) 0.5 mg PO DAILY [facility] Last Admin: 03/12/19 09:17 Dose: 0.5 mg Piperacillin Sod/Tazobactam (Sod 3.375 gm/ Dextrose) 50 mls @ 100 mls/hr IVPB Q6H-IV [facility]MUN[facility]; Protocol Last Admin: 03/12/19 08:06 Dose: 100 mls/hr Insulin Aspart (Novolog Vial Sliding Scale -) 1 vial SQ ACHS [facility]; Protocol Last Admin: 03/12/19 06:19 Dose: 4 units Isosorbide Mononitrate (Imdur -) 30 mg PO DAILY [facility]UN[facility] Last Admin: 03/12/19 09:16 Dose: 30 mg Levothyroxine Sodium (Synthroid -) 12.5 mcg PO AM [facility] Last Admin: 03/12/19 06:17 Dose: 12.5 mcg Methylprednisolone Sodium Succinate (Solu-Medrol -) 40 mg IVPUSH Q8H-IV [facility]UN[facility] Last Admin: 03/12/19 09:17 Dose: 40 mg Metoprolol Tartrate (Lopressor -) 50 mg PO BID [facility]UN[facility] Last Admin: 03/12/19 09:16 Dose: 50 mg Rosuvastatin Calcium (Crestor -) 5 mg PO HS [facility] Last Admin: 03/11/19 21:37 Dose: 5 mg Sitagliptin Phosphate (Januvia -) 50 mg PO DAILY@0700 [facility] Last Admin: 03/12/19 06:17 Dose: 50 mg Warfarin Sodium (Coumadin -) 2 mg PO DAILY@1800 [facility] Gen: Awake and alert, NAD on NC O2 Heart: RRR Lung: Scattered rhonchi, no wheeze Abd: soft, nontender Ext: no edema Laboratory Results - last 24 hr 03/11/19 03/11/19 03/11/19 05:45 11:33 16:33 WBC RBC Hgb Hct MCV MCH MCHC RDW Plt Count MPV Absolute Neuts (auto) Total Counted 100 Neutrophils % Neutrophils % (Manual) 86.0 H Lymphocytes % Lymphocytes % (Manual) 9.0 D Monocytes % Monocytes % (Manual) 5 Eosinophils % Basophils % Nucleated RBC % Platelet Estimate Adequate PT with INR INR Sodium Potassium Chloride Carbon Dioxide Anion Gap BUN Creatinine Est GFR (CKD-EPI)AfAm Est GFR (CKD-EPI)NonAf POC Glucometer 275 286 Random Glucose Calcium Magnesium Total Bilirubin AST ALT Alkaline Phosphatase Total Protein Albumin 03/11/19 03/12/19 03/12/19 21:03 05:30 05:30 WBC 12.7 H RBC 4.24 Hgb 13.5 Hct 41.3 MCV 97.4 H MCH 31.8 MCHC 32.7 RDW 14.0 Plt Count 286 MPV 10.1 Absolute Neuts (auto) 10.9 H Total Counted Neutrophils % 86.4 H Neutrophils % (Manual) Lymphocytes % 8.5 Lymphocytes % (Manual) Monocytes % 4.7 Monocytes % (Manual) Eosinophils % 0.2 Basophils % 0.2 Nucleated RBC % 0 Platelet Estimate PT with INR 33.30 H INR 2.79 H Sodium Potassium Chloride Carbon Dioxide Anion Gap BUN Creatinine Est GFR (CKD-EPI)AfAm Est GFR (CKD-EPI)NonAf POC Glucometer 250 Random Glucose Calcium Magnesium Total Bilirubin AST ALT Alkaline Phosphatase Total Protein Albumin 03/12/19 03/12/19 05:30 05:47 WBC RBC Hgb Hct MCV MCH MCHC RDW Plt Count MPV Absolute Neuts (auto) Total Counted Neutrophils % Neutrophils % (Manual) Lymphocytes % Lymphocytes % (Manual) Monocytes % Monocytes % (Manual) Eosinophils % Basophils % Nucleated RBC % Platelet Estimate PT with INR INR Sodium 142 Potassium 4.4 Chloride 105 Carbon Dioxide 30 Anion Gap 7 L BUN 64.3 H Creatinine 1.7 H Est GFR (CKD-EPI)AfAm 42.28 Est GFR (CKD-EPI)NonAf 36.48 POC Glucometer 215 Random Glucose 221 H Calcium 7.9 L Magnesium 2.3 Total Bilirubin 1.3 H AST 49 H ALT 62 H Alkaline Phosphatase 154 H Total Protein 5.1 L Albumin 1.7 L Problem List - Problems (1) Acute respiratory failure with hypoxia Code(s): J96.01 - ACUTE RESPIRATORY FAILURE WITH HYPOXIA (2) Pneumonia Code(s): J18.9 - PNEUMONIA, UNSPECIFIED ORGANISM Qualifiers: Pneumonia type: due to unspecified organism Laterality: bilateral Lung location: lower lobe of lung Qualified Code(s): J18.1 - Lobar pneumonia, unspecified organism ASSESSMENT AND PLAN: Acute Hypoxic Respiratory Failure Multilobar Pneumonia Sepsis Acute on Chronic Diastolic Heart Failure Atrial Fibrillation with RVR Supratherapeutic INR CAD HTN DM Hypercholesterolemia CKD h/o Primary Biliary Cirrhosis - NC O2 as tolerated - ABX per ID - Wean Medrol - inhaled bronchodilators - rate control - continue anticoagulation - monitor H/H - 4W / 4S monitoring Dr Arellano
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
--- NOTE | 2019-03-12 12:00 | PN ---
Progress Note, Physician History of Present Illness: AWAKE, ALERT SUPINE IN BED BREATHING NON LABORED ON NASAL CANNULA OCCASIONAL COUGH AFEBRILE WBC IMPROVED BC (-) - Current Medication List Current Medications: Active Medications Acetaminophen (Tylenol -) 650 mg PO Q6H PRN PRN Reason: PAIN OR FEVER Last Admin: 03/06/19 11:17 Dose: 650 mg Dutasteride (Avodart -) 0.5 mg PO DAILY [facility] Last Admin: 03/12/19 09:17 Dose: 0.5 mg Piperacillin Sod/Tazobactam (Sod 3.375 gm/ Dextrose) 50 mls @ 100 mls/hr IVPB Q6H-IV [facility]; Protocol Last Admin: 03/12/19 08:06 Dose: 100 mls/hr Insulin Aspart (Novolog Vial Sliding Scale -) 1 vial SQ ACHS [facility]; Protocol Last Admin: 03/12/19 06:19 Dose: 4 units Isosorbide Mononitrate (Imdur -) 30 mg PO DAILY [facility] Last Admin: 03/12/19 09:16 Dose: 30 mg Levothyroxine Sodium (Synthroid -) 12.5 mcg PO AM [facility] Last Admin: 03/12/19 06:17 Dose: 12.5 mcg Methylprednisolone Sodium Succinate (Solu-Medrol -) 40 mg IVPUSH Q8H-IV [facility] Last Admin: 03/12/19 09:17 Dose: 40 mg Metoprolol Tartrate (Lopressor -) 50 mg PO BID [facility] Last Admin: 03/12/19 09:16 Dose: 50 mg Rosuvastatin Calcium (Crestor -) 5 mg PO HS [facility] Last Admin: 03/11/19 21:37 Dose: 5 mg Sitagliptin Phosphate (Januvia -) 50 mg PO DAILY@0700 [facility] Last Admin: 03/12/19 06:17 Dose: 50 mg Warfarin Sodium (Coumadin -) 2 mg PO DAILY@1800 [facility] - Objective Vital Signs: Vital Signs Temperature 98.6 F 03/12/19 06:00 Pulse Rate 59 L 03/12/19 07:56 Respiratory Rate 18 03/12/19 07:56 Blood Pressure 134/73 03/12/19 07:56 O2 Sat by Pulse Oximetry (%) 90 L 03/12/19 07:58 Constitutional: Yes: No Distress Eyes: Yes: Conjunctiva Clear Cardiovascular: Yes: Regular Rate and Rhythm, S1, S2 Respiratory: Yes: Diminished Gastrointestinal: Yes: Normal Bowel Sounds, Soft. No: Tenderness Edema: No Labs: CBC, BMP 03/12/19 05:30 03/12/19 05:30 INR, PTT INR 2.79 (0.83-1.09) H 03/12/19 05:30 Assessment/Plan BIBASILAR PNEUMONIA RESP INSUFFICIENCY EXACERBATION COPD LEUKOCYTOSIS IMPROVING ELEVATED LFTS +URINE C/S= CONTAMINANT CONTINUE EMPIRIC ZOSYN
[2019-03-12] MEDS ORDERED: WARFARIN NA 2 MG TABLET (UD) PO SCH (18:00)
--- NOTE | 2019-03-12 19:52 | PN ---
Teaching Attending Note Name of Resident: Fred Schafer ATTENDING PHYSICIAN STATEMENT I saw and evaluated the patient. I reviewed the resident's note and discussed the case with the resident. I agree with the resident's findings and plan as documented. SUBJECTIVE: Patient is doing better with no acute distress, patient is off high flow oxygen on 2L NC now OBJECTIVE: Vital Signs Temperature 98 F 03/12/19 18:13 Pulse Rate 61 03/12/19 18:13 Respiratory Rate 18 03/12/19 18:13 Blood Pressure 128/70 03/12/19 18:13 O2 Sat by Pulse Oximetry (%) 90 L 03/12/19 07:58 GENERAL: The patient is awake, alert, and fully oriented, hard of hearing , in NAD. HEAD: Normal with no signs of trauma. EYES: PERRL, extraocular movements intact, sclera anicteric, conjunctiva clear. ENT: Ears normal, oropharynx clear without exudates, moist mucous membranes. On NC now NECK: Trachea midline, full range of motion, supple. LUNGS: decreased Breath sounds BL , no wheezing , on high flow oxygen, no accessory muscle use. HEART: afib with rate controlled , S1, S2 positive, no rub or gallop. ABDOMEN: Soft, NT,ND, normoactive bowel sounds, no guarding, no rebound, no hepatosplenomegaly, no masses. EXTREMITIES: 2+ pulses, warm, well-perfused, no edema. NEUROLOGICAL: Cranial nerves II through XII grossly intact. Normal speech, gait not observed. PSYCH: Normal mood, normal affect. SKIN: Warm, dry, normal turgor, no rashes or lesions noted CBCD WBC 12.7 K/mm3 (4.0-10.0) H 03/12/19 05:30 RBC 4.24 M/mm3 (4.00-5.60) 03/12/19 05:30 Hgb 13.5 GM/dL (11.7-16.9) 03/12/19 05:30 Hct 41.3 % (35.4-49) 03/12/19 05:30 MCV 97.4 fl (80-96) H 03/12/19 05:30 MCHC 32.7 g/dl (32.0-35.9) 03/12/19 05:30 RDW 14.0 % (11.9-15.9) 03/12/19 05:30 Plt Count 286 K/MM3 (134-434) 03/12/19 05:30 MPV 10.1 fl (7.5-11.1) 03/12/19 05:30 CMP Sodium 142 mmol/L (136-145) 03/12/19 05:30 Potassium 4.4 mmol/L (3.5-5.1) 03/12/19 05:30 Chloride 105 mmol/L (98-107) 03/12/19 05:30 Carbon Dioxide 30 mmol/L (21-32) 03/12/19 05:30 Anion Gap 7 MMOL/L (8-16) L 03/12/19 05:30 BUN 64.3 mg/dL (7-18) H 03/12/19 05:30 Creatinine 1.7 mg/dL (0.55-1.3) H 03/12/19 05:30 Random Glucose 221 mg/dL (74-106) H 03/12/19 05:30 Calcium 7.9 mg/dL (8.5-10.1) L 03/12/19 05:30 Total Bilirubin 1.3 mg/dL (0.2-1) H 03/12/19 05:30 AST 49 U/L (15-37) H 03/12/19 05:30 ALT 62 U/L (13-61) H 03/12/19 05:30 Alkaline Phosphatase 154 U/L (45-117) H 03/12/19 05:30 Total Protein 5.1 g/dl (6.4-8.2) L 03/12/19 05:30 Albumin 1.7 g/dl (3.4-5.0) L 03/12/19 05:30 CARDIAC ENZYMES Troponin I < 0.02 ng/ml (0.00-0.05) 03/02/19 20:15 Current Medications Generic Name Dose Route Start Last Admin Trade Name Freq PRN Reason Stop Dose Admin Acetaminophen 650 mg 03/03/19 03:53 03/06/19 11:17 Tylenol - PO 650 mg Q6H PRN Administration PAIN OR FEVER Dutasteride 0.5 mg 03/03/19 10:00 03/12/19 09:17 Avodart - PO 0.5 mg DAILY [facility] Administration Piperacillin Sod/Tazobactam 50 mls @ 100 mls/hr 03/06/19 13:30 03/12/19 14:09 Sod 3.375 gm/ Dextrose IVPB 100 mls/hr Q6H-IV ED[facility]UND Administration Protocol Insulin Aspart 1 vial 03/05/19 13:28 03/12/19 16:25 Novolog Vial Sliding Scale - SQ 2 units ACHS EDMUND Administration Protocol Isosorbide Mononitrate 30 mg 03/03/19 10:00 03/12/19 09:16 Imdur - PO 30 mg DAILY [facility]UND Administration Levothyroxine Sodium 12.5 mcg 03/03/19 10:46 03/12/19 06:17 Synthroid - PO 12.5 mcg AM [facility]UND Administration Methylprednisolone Sodium Succinate 40 mg 03/09/19 18:00 03/12/19 17:43 Solu-Medrol - IVPUSH 40 mg Q8H-IV EDMUND Administration Metoprolol Tartrate 50 mg 03/03/19 10:54 03/12/19 09:16 Lopressor - PO 50 mg BID EDMUND Administration Rosuvastatin Calcium 5 mg 03/03/19 22:00 03/11/19 21:37 Crestor - PO 5 mg HS [facility] Administration Sitagliptin Phosphate 50 mg 03/07/19 07:00 03/12/19 06:17 Januvia - PO 50 mg DAILY@0700 [facility] Administration Warfarin Sodium 2 mg 03/12/19 18:00 03/12/19 17:43 Coumadin - PO 2 mg DAILY@1800 [facility] Administration Home Medications Medication Instructions Recorded Isosorbide Mononitrate [Imdur] 30 mg PO DAILY 08/21/14 Levothyroxine [Synthroid -] 25 mcg PO DAILY 08/21/14 Sitagliptin Phosphate [Januvia] 50 mg PO DAILY 08/21/14 Acetaminophen [Tylenol] 650 mg PO PRN PRN 02/27/15 Atenolol [Tenormin -] 1 tab PO HS 02/27/15 Cholecalciferol (Vitamin D3) 1,000 unit PO DAILY 02/27/15 [Vitamin D3] Dutasteride [Avodart] 0.5 mg PO DAILY 02/04/17 Warfarin Sodium [Coumadin] 2.5 mg PO DAILY 02/04/17 Rosuvastatin [Crestor -] 5 mg PO HS 03/02/19 Vit B12/Intrinsic Fact/Folate 1 each PO DAILY 03/02/19 [Intrinsi O06-[id number] Tablet] ASSESSMENT AND PLAN: Patient is a 84 y/o man with h/o HTN, A fib on coumadin, HLP, DM, CAD, No stents , CKD, diverticulosis, GERD, and hypothyroidism, who presented with [facility]oxia from [facility]. He was found to have acute hypoxic resp failure, CHf, and Afib with RVR . Patient is a 84 y/o man with h/o HTN, A fib on coumadin, HLP, DM, CAD, No stents , CKD, diverticulosis, GERD, and hypothyroidism, who presented with Hypoxia from [facility] facility. He was found to have acute hypoxic resp failure, CHf, and Afib with RVR . # BL PNA : day 7 of Abx : zosyn s/p zithromax , on steroids per pulm. taper when possible , continue Nebs # Acute hypoxic respiratory failure: on high flow oxygen continue further care per ICU team # A fib rate is controlled now, continue coumadin . daily INR . continue coumadin 2.5mg today INR 2.78--2.79 today , cont lopressor 50 BID # Acute diastolic heart failure : off lasix now, on Imdur/metoprolol # Coumadin coagulopathy: s/p Vit K . # ARF over CKD: will continue to monitor . hold lasix. creatinine 1.8-->1.7 today # H/o Hypothyroidism: with low TSH : cont. synthroid. # Transaminitis: improved # H/o DM with hyperglycemia: SSI, sitagliptin ICU monitoring will tx to tele.
[2019-03-13] MEDS ORDERED: PIPERACILLIN/TAZOBACTAM 3.375 GM VIAL IVPB ONE ×4 (01:30→21:37)
[2019-03-13] MEDS ORDERED: DEXTROSE 5%-WATER - 50 ML IVPB ONE ×4 (01:31→21:37)
[2019-03-13] MEDS: PIPERACILLIN/TAZOB 3.375 GM 3.375 GM in DEXTROSE 5%-WATER - 50 ML IVPB SCH ×4 (02:16→22:23)
[2019-03-13] MEDS: ROSUVASTATIN CA 5 MG TABLET (FP) PO SCH (02:16)
[2019-03-13] MEDS: methylPREDNISolone NA SUCC 40 MG/1 ML VIAL IVPUSH SCH ×3 (02:16→18:58)
[2019-03-13] MEDS: LEVOTHYROXINE NA 25 MCG TABLET (FP) PO SCH (06:32)
[2019-03-13] MEDS: sitaGLIPtin PHOSPHATE 50 MG TABLET PO SCH (06:32)
[2019-03-13] MEDS: INSULIN SLIDING SCALE (NOVOLOG) 1 VIAL SQ SCH ×4 (06:33→22:23)
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
[2019-03-13 07:14] LABS: BASO % 0.1 % (0-2.0); HEMATOCRIT 43.6 % (35.4-49); HEMOGLOBIN 14.5 GM/dL (11.7-16.9); LYMPH % 4.5 % (8-40); MCH 32.1 pg (25.7-33.7); MCHC 33.2 g/dl (32.0-35.9); MEAN CELL VOLUME 96.6 fl (80-96); MONO % 2.2 % (3.8-10.2); NEUT % 93.2 % (42.8-82.8); PLATELET COUNT 292 K/MM3 (134-434); RBC 4.52 M/mm3 (4.00-5.60); RDW 14.1 % (11.9-15.9); WHITE BLOOD COUNT 13.9 K/mm3 (4.0-10.0)
[2019-03-13 07:18] LABS: INR 2.98 (0.83-1.09); PROTHROMBIN TIME (PATIENT) 35.5 SEC (9.7-13.0)
[2019-03-13 07:48] LABS: ALBUMIN 1.8 g/dl (3.4-5.0); BILIRUBIN,TOTAL 1.4 mg/dL (0.2-1); BLOOD UREA NITROGEN 55.4 mg/dL (7-18); CALCIUM 8.1 mg/dL (8.5-10.1); CREATININE 1.6 mg/dL (0.55-1.3); MAGNESIUM 2.2 mg/dL (1.8-2.4); PHOSPHOROUS 3.5 mg/dL (2.5-4.9); POTASSIUM 4.7 mmol/L (3.5-5.1); TOT PROT 5.3 g/dl (6.4-8.2)
[2019-03-13] MEDS ORDERED: ACETAMINOPHEN 325 MG TABLET (FP) PO PRN (08:19)
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
[2019-03-13 10:21] LABS: ANISOCYTOSIS 1+; MACROCYTOSIS 1+; PLATELET ESTIMATE NORMAL
--- NOTE | 2019-03-13 10:35 | PN ---
Progress Note, Physician History of Present Illness: pulmonary alert,feeling better,less dyspneic,min cough - Current Medication List Current Medications: Active Medications Acetaminophen (Tylenol -) 650 mg PO Q6H PRN PRN Reason: FEVER Dutasteride (Avodart -) 0.5 mg PO DAILY [facility] Piperacillin Sod/Tazobactam (Sod 3.375 gm/ Dextrose) 50 mls @ 100 mls/hr IVPB Q6H-IV EDMUND; Protocol Insulin Aspart (Novolog Vial Sliding Scale -) 1 vial SQ ACHS EDMUND; Protocol Isosorbide Mononitrate (Imdur -) 30 mg PO DAILY EDMUND Levothyroxine Sodium (Synthroid -) 12.5 mcg PO AM EDMUND Methylprednisolone Sodium Succinate (Solu-Medrol -) 40 mg IVPUSH Q8H-IV EDMUND Metoprolol Tartrate (Lopressor -) 50 mg PO BID EDMUND Rosuvastatin Calcium (Crestor -) 5 mg PO HS [facility] Sitagliptin Phosphate (Januvia -) 50 mg PO DAILY@0700 [facility] Warfarin Sodium (Coumadin -) 1.5 mg PO DAILY@1800 [facility] - Objective Vital Signs: Vital Signs Temperature 97.4 F L 03/13/19 06:00 Pulse Rate 62 03/13/19 06:00 Respiratory Rate 20 03/13/19 06:00 Blood Pressure 121/82 03/13/19 06:00 O2 Sat by Pulse Oximetry (%) 90 L 03/12/19 21:30 Constitutional: Yes: Well Nourished, Calm Eyes: Yes: WNL HENT: Yes: WNL Neck: Yes: WNL Cardiovascular: Yes: Pulse Irregular, S1, S2 Respiratory: Yes: Wheezes (bibasilar crackles) Gastrointestinal: Yes: Normal Bowel Sounds, Soft Extremities: Yes: WNL Edema: No Labs: CBC, BMP 03/13/19 06:20 03/13/19 06:20 INR, PTT INR 2.98 (0.83-1.09) H 03/13/19 06:20 Assessment/Plan Problem List - Problems (1) Acute respiratory failure with hypoxia Code(s): J96.01 - ACUTE RESPIRATORY FAILURE WITH HYPOXIA (2) Pneumonia Code(s): J18.9 - PNEUMONIA, UNSPECIFIED ORGANISM Qualifiers: Pneumonia type: due to unspecified organism Laterality: bilateral Lung location: lower lobe of lung Qualified Code(s): J18.1 - Lobar pneumonia, unspecified organism ASSESSMENT AND PLAN: Acute Hypoxic Respiratory Failure improving Multilobar Pneumonia Sepsis imroved Acute on Chronic Diastolic Heart Failure Atrial Fibrillation with RVR Supratherapeutic INR CAD HTN DM Hypercholesterolemia CKD h/o Primary Biliary Cirrhosis - nasal o2 as tolerated - continue antibiotics - Medrol - inhaled bronchodilators - rate control - continue anticoagulation - monitor H/H - f/u chest x-ray DR BAXTER
[2019-03-13] MEDS: METOPROLOL TARTRATE 50 MG TABLET (FP) PO SCH ×2 (10:53→22:23)
[2019-03-13] MEDS: DUTASTERIDE 0.5 MG CAP (FP) PO SCH (10:53)
[2019-03-13] MEDS: ISOSORBIDE MONONITRATE 30 MG TAB.SR.24H (FP) PO SCH (10:53)
[2019-03-13] MEDS ORDERED: WARFARIN NA 1 MG TABLET (FP) PO SCH (18:00)
[2019-03-13] MEDS ORDERED: WARFARIN NA 2 MG TABLET (UD) PO SCH (18:00)
[2019-03-13] MEDS ORDERED: ROSUVASTATIN CA 5 MG TABLET (FP) PO SCH (22:00)
--- NOTE | 2019-03-13 22:02 | PN ---
Teaching Attending Note Name of Resident: Fred Schafer ATTENDING PHYSICIAN STATEMENT I saw and evaluated the patient. I reviewed the resident's note and discussed the case with the resident. I agree with the resident's findings and plan as documented. SUBJECTIVE: Patient is feeling better , on NC now OBJECTIVE: Vital Signs Temperature 97.7 F 03/13/19 17:00 Pulse Rate 63 03/13/19 21:00 Respiratory Rate 20 03/13/19 21:00 Blood Pressure 103/69 03/13/19 21:00 O2 Sat by Pulse Oximetry (%) 91 L 03/13/19 21:00 GENERAL: The patient is awake, alert, and fully oriented, hard of hearing , in NAD. HEAD: Normal with no signs of trauma. EYES: PERRL, extraocular movements intact, sclera anicteric, conjunctiva clear. ENT: Ears normal, oropharynx clear without exudates, moist mucous membranes. On NC now NECK: Trachea midline, full range of motion, supple. LUNGS: decreased Breath sounds BL , no wheezing , on NC now , no accessory muscle use. HEART: afib with rate controlled , S1, S2 positive, no rub or gallop. ABDOMEN: Soft, NT,ND, normoactive bowel sounds, no guarding, no rebound, no hepatosplenomegaly, no masses. EXTREMITIES: 2+ pulses, warm, well-perfused, no edema. NEUROLOGICAL: Cranial nerves II through XII grossly intact. Normal speech, gait not observed. PSYCH: Normal mood, normal affect. SKIN: Warm, dry, normal turgor, no rashes or lesions noted CBCD WBC 13.9 K/mm3 (4.0-10.0) H 03/13/19 06:20 RBC 4.52 M/mm3 (4.00-5.60) 03/13/19 06:20 Hgb 14.5 GM/dL (11.7-16.9) 03/13/19 06:20 Hct 43.6 % (35.4-49) 03/13/19 06:20 MCV 96.6 fl (80-96) H 03/13/19 06:20 MCHC 33.2 g/dl (32.0-35.9) 03/13/19 06:20 RDW 14.1 % (11.9-15.9) 03/13/19 06:20 Plt Count 292 K/MM3 (134-434) 03/13/19 06:20 MPV 10.0 fl (7.5-11.1) 03/13/19 06:20 CMP Sodium 142 mmol/L (136-145) 03/13/19 06:20 Potassium 4.7 mmol/L (3.5-5.1) 03/13/19 06:20 Chloride 106 mmol/L (98-107) 03/13/19 06:20 Carbon Dioxide 30 mmol/L (21-32) 03/13/19 06:20 Anion Gap 6 MMOL/L (8-16) L 03/13/19 06:20 BUN 55.4 mg/dL (7-18) H 03/13/19 06:20 Creatinine 1.6 mg/dL (0.55-1.3) H 03/13/19 06:20 Random Glucose 172 mg/dL (74-106) H 03/13/19 06:20 Calcium 8.1 mg/dL (8.5-10.1) L 03/13/19 06:20 Total Bilirubin 1.4 mg/dL (0.2-1) H 03/13/19 06:20 AST 54 U/L (15-37) H 03/13/19 06:20 ALT 68 U/L (13-61) H 03/13/19 06:20 Alkaline Phosphatase 163 U/L (45-117) H 03/13/19 06:20 Total Protein 5.3 g/dl (6.4-8.2) L 03/13/19 06:20 Albumin 1.8 g/dl (3.4-5.0) L 03/13/19 06:20 CARDIAC ENZYMES Troponin I < 0.02 ng/ml (0.00-0.05) 03/02/19 20:15 Current Medications Generic Name Dose Route Start Last Admin Trade Name Freq PRN Reason Stop Dose Admin Acetaminophen 650 mg 03/13/19 08:19 Tylenol - PO Q6H PRN FEVER Dutasteride 0.5 mg 03/13/19 10:00 03/13/19 10:53 Avodart - PO 0.5 mg DAILY EDMUND Administration Piperacillin Sod/Tazobactam 50 mls @ 100 mls/hr 03/13/19 09:00 03/13/19 15:17 Sod 3.375 gm/ Dextrose IVPB 100 mls/hr Q6H-IV EDMUND Administration Protocol Insulin Aspart 1 vial 03/13/19 11:00 03/13/19 18:59 Novolog Vial Sliding Scale - SQ 4 units ACHS [facility] Administration Protocol Isosorbide Mononitrate 30 mg 03/13/19 10:00 03/13/19 10:53 Imdur - PO 30 mg DAILY EDMUND Administration Levothyroxine Sodium 12.5 mcg 03/14/19 07:00 Synthroid - PO AM EDMUND Methylprednisolone Sodium Succinate 40 mg 03/13/19 10:00 03/13/19 18:58 Solu-Medrol - IVPUSH 40 mg Q8H-IV EDMUND Administration Metoprolol Tartrate 50 mg 03/13/19 10:00 03/13/19 10:53 Lopressor - PO 50 mg BID [facility] Administration Rosuvastatin Calcium 5 mg 03/13/19 22:00 Crestor - PO HS [facility] Sitagliptin Phosphate 50 mg 03/14/19 07:00 Januvia - PO DAILY@0700 [facility] Warfarin Sodium 1.5 mg 03/13/19 18:00 03/13/19 18:59 Coumadin - PO 1.5 mg DAILY@1800 [facility] Administration Home Medications Medication Instructions Recorded Isosorbide Mononitrate [Imdur] 30 mg PO DAILY 08/21/14 Levothyroxine [Synthroid -] 25 mcg PO DAILY 08/21/14 Sitagliptin Phosphate [Januvia] 50 mg PO DAILY 08/21/14 Acetaminophen [Tylenol] 650 mg PO PRN PRN 02/27/15 Atenolol [Tenormin -] 1 tab PO HS 02/27/15 Cholecalciferol (Vitamin D3) 1,000 unit PO DAILY 02/27/15 [Vitamin D3] Dutasteride [Avodart] 0.5 mg PO DAILY 02/04/17 Warfarin Sodium [Coumadin] 2.5 mg PO DAILY 02/04/17 Rosuvastatin [Crestor -] 5 mg PO HS 03/02/19 Vit B12/Intrinsic Fact/Folate 1 each PO DAILY 03/02/19 [Intrinsi [id number] Tablet] ASSESSMENT AND PLAN: Patient is a 84 y/o man with h/o HTN, A fib on coumadin, HLP, DM, CAD, No stents , CKD, diverticulosis, GERD, and hypothyroidism, who presented with [facility] from [facility]. He was found to have acute hypoxic resp failure, CHf, and Afib with RVR . # BL PNA : day 8 of Abx : zosyn s/p zithromax , on steroids per pulm. taper when possible , continue Nebs # Acute hypoxic respiratory failure: on high flow oxygen continue further care per ICU team # A fib rate is controlled now, continue coumadin . daily INR . continue coumadin 2.5mg today INR 2.78--2.79--> 2.98 today reduced coumadin to 1.5mg , cont lopressor 50 BID # Acute diastolic heart failure : off lasix now, on Imdur/metoprolol # Coumadin coagulopathy: s/p Vit K . # ARF over CKD: will continue to monitor . hold lasix. creatinine 1.8-->1.7--> 1.6 today # H/o Hypothyroidism: with low TSH : cont. synthroid. # Transaminitis: improved # H/o DM with hyperglycemia: SSI, sitagliptin ICU monitoring will tx to tele.
[2019-03-14] MEDS ORDERED: DEXTROSE 5%-WATER - 50 ML IVPB ONE ×4 (02:02→21:25)
[2019-03-14] MEDS ORDERED: PIPERACILLIN/TAZOBACTAM 3.375 GM VIAL IVPB ONE ×4 (02:02→21:24)
[2019-03-14] MEDS: methylPREDNISolone NA SUCC 40 MG/1 ML VIAL IVPUSH SCH ×3 (03:25→21:49)
[2019-03-14] MEDS: PIPERACILLIN/TAZOB 3.375 GM 3.375 GM in DEXTROSE 5%-WATER - 50 ML IVPB SCH ×4 (03:30→21:48)
[2019-03-14] MEDS: sitaGLIPtin PHOSPHATE 50 MG TABLET PO SCH (06:45)
[2019-03-14] MEDS: LEVOTHYROXINE NA 25 MCG TABLET (FP) PO SCH (06:46)
[2019-03-14] MEDS: INSULIN SLIDING SCALE (NOVOLOG) 1 VIAL SQ SCH ×4 (06:46→21:49)
[2019-03-14 06:52] LABS: BASO % 0.1 % (0-2.0); EOS % 0.1 % (0-4.5); HEMATOCRIT 46.7 % (35.4-49); HEMOGLOBIN 15.5 GM/dL (11.7-16.9); LYMPH % 5.3 % (8-40); MCH 31.9 pg (25.7-33.7); MCHC 33.1 g/dl (32.0-35.9); MEAN CELL VOLUME 96.3 fl (80-96); MONO % 3.9 % (3.8-10.2); NEUT % 90.6 % (42.8-82.8); PLATELET COUNT 306 K/MM3 (134-434); RBC 4.85 M/mm3 (4.00-5.60); RDW 13.9 % (11.9-15.9); WHITE BLOOD COUNT 12.6 K/mm3 (4.0-10.0)
[2019-03-14 07:06] LABS: BILIRUBIN,TOTAL 1.6 mg/dL (0.2-1); BLOOD UREA NITROGEN 54.4 mg/dL (7-18); CALCIUM 8.7 mg/dL (8.5-10.1); CREATININE 1.6 mg/dL (0.55-1.3); MAGNESIUM 2.4 mg/dL (1.8-2.4); POTASSIUM 4.6 mmol/L (3.5-5.1); TOT PROT 5.7 g/dl (6.4-8.2)
[2019-03-14 07:07] LABS: INR 2.93 (0.83-1.09)
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
[2019-03-14] MEDS: ISOSORBIDE MONONITRATE 30 MG TAB.SR.24H (FP) PO SCH (09:53)
[2019-03-14] MEDS: METOPROLOL TARTRATE 50 MG TABLET (FP) PO SCH ×2 (09:53→21:48)
[2019-03-14] MEDS: DUTASTERIDE 0.5 MG CAP (FP) PO SCH (09:53)
--- NOTE | 2019-03-14 12:26 | PN ---
Progress Note, Physician History of Present Illness: pulmonary alert,feeling better,less dyspneic - Current Medication List Current Medications: Active Medications Acetaminophen (Tylenol -) 650 mg PO Q6H PRN PRN Reason: FEVER Dutasteride (Avodart -) 0.5 mg PO DAILY [facility] Last Admin: 03/14/19 09:53 Dose: 0.5 mg Piperacillin Sod/Tazobactam (Sod 3.375 gm/ Dextrose) 50 mls @ 100 mls/hr IVPB Q6H-IV [facility]; Protocol Last Admin: 03/14/19 09:52 Dose: 100 mls/hr Insulin Aspart (Novolog Vial Sliding Scale -) 1 vial SQ ACHS [facility]; Protocol Last Admin: 03/14/19 06:46 Dose: 4 units Isosorbide Mononitrate (Imdur -) 30 mg PO DAILY [facility] Last Admin: 03/14/19 09:53 Dose: 30 mg Levothyroxine Sodium (Synthroid -) 12.5 mcg PO AM [facility] Last Admin: 03/14/19 06:46 Dose: 12.5 mcg Methylprednisolone Sodium Succinate (Solu-Medrol -) 40 mg IVPUSH Q8H-IV [facility] Last Admin: 03/14/19 09:52 Dose: 40 mg Metoprolol Tartrate (Lopressor -) 50 mg PO BID [facility] Last Admin: 03/14/19 09:53 Dose: 50 mg Rosuvastatin Calcium (Crestor -) 5 mg PO HS [facility] Last Admin: 03/13/19 22:23 Dose: 5 mg Sitagliptin Phosphate (Januvia -) 50 mg PO DAILY@0700 [facility] Last Admin: 03/14/19 06:45 Dose: 50 mg Warfarin Sodium (Coumadin -) 1.5 mg PO DAILY@1800 [facility] Last Admin: 03/13/19 18:59 Dose: 1.5 mg - Objective Vital Signs: Vital Signs Temperature 97.3 F L 03/14/19 09:00 Pulse Rate 69 03/14/19 09:00 Respiratory Rate 20 03/14/19 09:00 Blood Pressure 100/69 03/14/19 09:00 O2 Sat by Pulse Oximetry (%) 91 L 03/14/19 09:00 Constitutional: Yes: Well Nourished, Calm Eyes: Yes: WNL HENT: Yes: WNL Neck: Yes: WNL Cardiovascular: Yes: Pulse Irregular, S1, S2 Respiratory: Yes: Rhonchi (few scattered rhonchi) Gastrointestinal: Yes: Normal Bowel Sounds, Soft Extremities: Yes: WNL Edema: No Labs: CBC, BMP 03/14/19 06:15 03/14/19 06:15 INR, PTT INR 2.93 (0.83-1.09) H 03/14/19 06:15 Assessment/Plan Problem List - Problems (1) Acute respiratory failure with hypoxia Code(s): J96.01 - ACUTE RESPIRATORY FAILURE WITH HYPOXIA (2) Pneumonia Code(s): J18.9 - PNEUMONIA, UNSPECIFIED ORGANISM Qualifiers: Pneumonia type: due to unspecified organism Laterality: bilateral Lung location: lower lobe of lung Qualified Code(s): J18.1 - Lobar pneumonia, unspecified organism ASSESSMENT AND PLAN: Acute Hypoxic Respiratory Failure improving Multilobar Pneumonia Sepsis imroved Acute on Chronic Diastolic Heart Failure Atrial Fibrillation with RVR Supratherapeutic INR CAD HTN DM Hypercholesterolemia CKD h/o Primary Biliary Cirrhosis - nasal o2 as tolerated - antibiotics - Medrol taper - inhaled bronchodilators - rate control - continue anticoagulation - monitor H/H - f/u chest x-ray DR BAXTER
--- NOTE | 2019-03-14 13:04 | PN ---
Teaching Attending Note Name of Resident: Demetrius Dapk ATTENDING PHYSICIAN STATEMENT I saw and evaluated the patient. I reviewed the resident's note and discussed the case with the resident. I agree with the resident's findings and plan as documented. SUBJECTIVE: Patient is lying in bed comfortably with no acute distress. OBJECTIVE: Vital Signs Temperature 97.3 F L 03/14/19 09:00 Pulse Rate 69 03/14/19 09:00 Respiratory Rate 20 03/14/19 09:00 Blood Pressure 100/69 03/14/19 09:00 O2 Sat by Pulse Oximetry (%) 91 L 03/14/19 09:00 GENERAL: The patient is awake, alert, and fully oriented, hard of hearing , in NAD. HEAD: Normal with no signs of trauma. EYES: PERRL, extraocular movements intact, sclera anicteric, conjunctiva clear. ENT: Ears normal, oropharynx clear without exudates, moist mucous membranes. On NC now NECK: Trachea midline, full range of motion, supple. LUNGS: decreased Breath sounds BL , no wheezing , on NC now , no accessory muscle use. HEART: afib with rate controlled , S1, S2 positive, no rub or gallop. ABDOMEN: Soft, NT,ND, normoactive bowel sounds, no guarding, no rebound, no hepatosplenomegaly, no masses. EXTREMITIES: 2+ pulses, warm, well-perfused, no edema. NEUROLOGICAL: Cranial nerves II through XII grossly intact. Normal speech, gait not observed. PSYCH: Normal mood, normal affect. SKIN: Warm, dry, normal turgor, no rashes or lesions noted CBCD WBC 12.6 K/mm3 (4.0-10.0) H 03/14/19 06:15 RBC 4.85 M/mm3 (4.00-5.60) 03/14/19 06:15 Hgb 15.5 GM/dL (11.7-16.9) 03/14/19 06:15 Hct 46.7 % (35.4-49) 03/14/19 06:15 MCV 96.3 fl (80-96) H 03/14/19 06:15 MCHC 33.1 g/dl (32.0-35.9) 03/14/19 06:15 RDW 13.9 % (11.9-15.9) 03/14/19 06:15 Plt Count 306 K/MM3 (134-434) 03/14/19 06:15 MPV 10.0 fl (7.5-11.1) 03/14/19 06:15 CMP Sodium 141 mmol/L (136-145) 03/14/19 06:15 Potassium 4.6 mmol/L (3.5-5.1) 03/14/19 06:15 Chloride 106 mmol/L (98-107) 03/14/19 06:15 Carbon Dioxide 31 mmol/L (21-32) 03/14/19 06:15 Anion Gap 5 MMOL/L (8-16) L 03/14/19 06:15 BUN 54.4 mg/dL (7-18) H 03/14/19 06:15 Creatinine 1.6 mg/dL (0.55-1.3) H 03/14/19 06:15 Random Glucose 191 mg/dL (74-106) H 03/14/19 06:15 Calcium 8.7 mg/dL (8.5-10.1) 03/14/19 06:15 Total Bilirubin 1.6 mg/dL (0.2-1) H 03/14/19 06:15 AST 42 U/L (15-37) H 03/14/19 06:15 ALT 69 U/L (13-61) H 03/14/19 06:15 Alkaline Phosphatase 179 U/L (45-117) H 03/14/19 06:15 Total Protein 5.7 g/dl (6.4-8.2) L 03/14/19 06:15 Albumin 2.0 g/dl (3.4-5.0) L 03/14/19 06:15 CARDIAC ENZYMES Troponin I < 0.02 ng/ml (0.00-0.05) 03/02/19 20:15 Current Medications Generic Name Dose Route Start Last Admin Trade Name Freq PRN Reason Stop Dose Admin Acetaminophen 650 mg 03/13/19 08:19 Tylenol - PO Q6H PRN FEVER Dutasteride 0.5 mg 03/13/19 10:00 03/14/19 09:53 Avodart - PO 0.5 mg DAILY [facility] Administration Piperacillin Sod/Tazobactam 50 mls @ 100 mls/hr 03/13/19 09:00 03/14/19 09:52 Sod 3.375 gm/ Dextrose IVPB 100 mls/hr Q6H-IV [facility] Administration Protocol Insulin Aspart 1 vial 03/13/19 11:00 03/14/19 06:46 Novolog Vial Sliding Scale - SQ 4 units ACHS [facility] Administration Protocol Isosorbide Mononitrate 30 mg 03/13/19 10:00 03/14/19 09:53 Imdur - PO 30 mg DAILY [facility] Administration Levothyroxine Sodium 12.5 mcg 03/14/19 07:00 03/14/19 06:46 Synthroid - PO 12.5 mcg AM [facility] Administration Methylprednisolone Sodium Succinate 40 mg 03/14/19 22:00 Solu-Medrol - IVPUSH Q12H [facility] Metoprolol Tartrate 50 mg 03/13/19 10:00 03/14/19 09:53 Lopressor - PO 50 mg BID [facility] Administration Rosuvastatin Calcium 5 mg 03/13/19 22:00 03/13/19 22:23 Crestor - PO 5 mg HS [facility] Administration Sitagliptin Phosphate 50 mg 03/14/19 07:00 03/14/19 06:45 Januvia - PO 50 mg DAILY@0700 [facility] Administration Warfarin Sodium 1.5 mg 03/13/19 18:00 03/13/19 18:59 Coumadin - PO 1.5 mg DAILY@1800 [facility] Administration Home Medications Medication Instructions Recorded Isosorbide Mononitrate [Imdur] 30 mg PO DAILY 08/21/14 Levothyroxine [Synthroid -] 25 mcg PO DAILY 08/21/14 Sitagliptin Phosphate [Januvia] 50 mg PO DAILY 08/21/14 Acetaminophen [Tylenol] 650 mg PO PRN PRN 02/27/15 Atenolol [Tenormin -] 1 tab PO HS 02/27/15 Cholecalciferol (Vitamin D3) 1,000 unit PO DAILY 02/27/15 [Vitamin D3] Dutasteride [Avodart] 0.5 mg PO DAILY 02/04/17 Warfarin Sodium [Coumadin] 2.5 mg PO DAILY 02/04/17 Rosuvastatin [Crestor -] 5 mg PO HS 03/02/19 Vit B12/Intrinsic Fact/Folate 1 each PO DAILY 03/02/19 [Intrinsi [id number] Tablet] ASSESSMENT AND PLAN: Patient is a 84 y/o man with h/o HTN, A fib on coumadin, HLP, DM, CAD, No stents , CKD, diverticulosis, GERD, and hypothyroidism, who presented with [facility]oxia from [facility]. He was found to have acute hypoxic resp failure, CHf, and Afib with RVR . # BL PNA : day 9 of Abx : zosyn s/p zithromax , on steroids per pulm. taper when possible , continue Nebs # Acute hypoxic respiratory failure: on high flow oxygen continue further care per ICU team # A fib rate is controlled now, continue coumadin . daily INR . continue coumadin 2.5mg today INR 2.78--2.79--> 2.98--> 2.93 today will reduce coumadin to 1.0mg today, cont lopressor 50 BID # Acute diastolic heart failure : off lasix now, on Imdur/metoprolol # Coumadin coagulopathy: s/p Vit K . # ARF over CKD: will continue to monitor . hold lasix. creatinine 1.8-->1.7--> 1.6 today # H/o Hypothyroidism: with low TSH : cont. synthroid. # Transaminitis: improved # H/o DM with hyperglycemia: SSI, sitagliptin in tele monitoring rehab evaluation
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
[2019-03-14] MEDS: URSODIOL 300 MG CAPSULE PO SCH ×2 (16:14→21:48)
--- NOTE | 2019-03-14 16:27 | PN ---
Progress Note, Physician History of Present Illness: AWAKE, ALERT SUPINE IN BED BREATHING NON LABORED ON NASAL CANNULA REPORTS LESS COUGH AFEBRILE WBC IMPROVED BC (-) - Current Medication List Current Medications: Active Medications Acetaminophen (Tylenol -) 650 mg PO Q6H PRN PRN Reason: FEVER Dutasteride (Avodart -) 0.5 mg PO DAILY [facility] Last Admin: 03/14/19 09:53 Dose: 0.5 mg Piperacillin Sod/Tazobactam (Sod 3.375 gm/ Dextrose) 50 mls @ 100 mls/hr IVPB Q6H-IV [facility]; Protocol Last Admin: 03/14/19 16:14 Dose: 100 mls/hr Insulin Aspart (Novolog Vial Sliding Scale -) 1 vial SQ ACHS [facility]; Protocol Last Admin: 03/14/19 15:23 Dose: Not Given Isosorbide Mononitrate (Imdur -) 30 mg PO DAILY [facility] Last Admin: 03/14/19 09:53 Dose: 30 mg Levothyroxine Sodium (Synthroid -) 12.5 mcg PO AM [facility] Last Admin: 03/14/19 06:46 Dose: 12.5 mcg Methylprednisolone Sodium Succinate (Solu-Medrol -) 40 mg IVPUSH Q12H [facility] Metoprolol Tartrate (Lopressor -) 50 mg PO BID [facility] Last Admin: 03/14/19 09:53 Dose: 50 mg Sitagliptin Phosphate (Januvia -) 50 mg PO DAILY@0700 [facility] Last Admin: 03/14/19 06:45 Dose: 50 mg Ursodiol (Actigal -) 300 mg PO BID [facility] Last Admin: 03/14/19 16:14 Dose: 300 mg Warfarin Sodium (Coumadin -) 1 mg PO DAILY@1800 [facility] - Objective Vital Signs: Vital Signs Temperature 97.6 F 03/14/19 14:00 Pulse Rate 61 03/14/19 14:00 Respiratory Rate 18 03/14/19 14:00 Blood Pressure 101/64 03/14/19 14:00 O2 Sat by Pulse Oximetry (%) 91 L 03/14/19 09:00 Constitutional: Yes: No Distress Cardiovascular: Yes: Regular Rate and Rhythm, S1, S2 Respiratory: Yes: Diminished Gastrointestinal: Yes: Normal Bowel Sounds, Soft. No: Tenderness Labs: CBC, BMP 03/14/19 06:15 03/14/19 06:15 INR, PTT INR 2.93 (0.83-1.09) H 03/14/19 06:15 Assessment/Plan BIBASILAR PNEUMONIA RESP INSUFFICIENCY EXACERBATION COPD LEUKOCYTOSIS IMPROVING ELEVATED LFTS +URINE C/S= CONTAMINANT CONTINUE EMPIRIC ZOSYN ADDITIONAL 24HR
[2019-03-14] MEDS: WARFARIN NA 1 MG TABLET (FP) PO SCH (17:58)
[2019-03-15] MEDS ORDERED: PIPERACILLIN/TAZOBACTAM 3.375 GM VIAL IVPB ONE ×3 (02:35→21:56)
[2019-03-15] MEDS ORDERED: DEXTROSE 5%-WATER - 50 ML IVPB ONE ×3 (02:36→21:56)
[2019-03-15] MEDS: PIPERACILLIN/TAZOB 3.375 GM 3.375 GM in DEXTROSE 5%-WATER - 50 ML IVPB SCH ×4 (03:15→21:59)
[2019-03-15] MEDS: LEVOTHYROXINE NA 25 MCG TABLET (FP) PO SCH (06:16)
[2019-03-15] MEDS: sitaGLIPtin PHOSPHATE 50 MG TABLET PO SCH (06:16)
[2019-03-15] MEDS: INSULIN SLIDING SCALE (NOVOLOG) 1 VIAL SQ SCH ×4 (06:16→21:50)
[2019-03-15] MEDS: URSODIOL 300 MG CAPSULE PO SCH ×2 (09:44→21:59)
[2019-03-15] MEDS: METOPROLOL TARTRATE 50 MG TABLET (FP) PO SCH ×2 (09:44→21:58)
[2019-03-15] MEDS: ISOSORBIDE MONONITRATE 30 MG TAB.SR.24H (FP) PO SCH (09:44)
[2019-03-15] MEDS: DUTASTERIDE 0.5 MG CAP (FP) PO SCH (09:44)
[2019-03-15] MEDS: methylPREDNISolone NA SUCC 40 MG/1 ML VIAL IVPUSH SCH (09:44)
[2019-03-15 10:04] LABS: BASO % 0.1 % (0-2.0); EOS % 0.2 % (0-4.5); HEMATOCRIT 44.8 % (35.4-49); HEMOGLOBIN 14.6 GM/dL (11.7-16.9); LYMPH % 8.2 % (8-40); MCH 31.9 pg (25.7-33.7); MCHC 32.7 g/dl (32.0-35.9); MEAN CELL VOLUME 97.6 fl (80-96); MEAN PLT VOLUME 9.3 fl (7.5-11.1); MONO % 6.6 % (3.8-10.2); NEUT % 84.9 % (42.8-82.8); PLATELET COUNT 307 K/MM3 (134-434); RBC 4.59 M/mm3 (4.00-5.60); WHITE BLOOD COUNT 11.3 K/mm3 (4.0-10.0)
[2019-03-15 10:13] LABS: INR 3.08 (0.83-1.09); PROTHROMBIN TIME (PATIENT) 36.7 SEC (9.7-13.0)
[2019-03-15 10:22] LABS: ALBUMIN 1.9 g/dl (3.4-5.0); BILIRUBIN,DIRECT 0.3 mg/dL (0.0-0.2); BILIRUBIN,TOTAL 1.1 mg/dL (0.2-1); BLOOD UREA NITROGEN 47.1 mg/dL (7-18); CALCIUM 8.3 mg/dL (8.5-10.1); CREATININE 1.6 mg/dL (0.55-1.3); POTASSIUM 4.2 mmol/L (3.5-5.1); TOT PROT 5.2 g/dl (6.4-8.2)
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
--- NOTE | 2019-03-15 11:05 | PN ---
Progress Note, Physician History of Present Illness: PULMONARY ALERT,LAYING IN BED,STILL CONGESTED ,MOIST COUGH - Current Medication List Current Medications: Active Medications Acetaminophen (Tylenol -) 650 mg PO Q6H PRN PRN Reason: FEVER Dutasteride (Avodart -) 0.5 mg PO DAILY [facility] Last Admin: 03/15/19 09:44 Dose: 0.5 mg Piperacillin Sod/Tazobactam (Sod 3.375 gm/ Dextrose) 50 mls @ 100 mls/hr IVPB Q6H-IV [facility]; Protocol Last Admin: 03/15/19 09:45 Dose: Not Given Insulin Aspart (Novolog Vial Sliding Scale -) 1 vial SQ ACHS [facility]; Protocol Last Admin: 03/15/19 06:16 Dose: 4 units Isosorbide Mononitrate (Imdur -) 30 mg PO DAILY [facility] Last Admin: 03/15/19 09:44 Dose: 30 mg Levothyroxine Sodium (Synthroid -) 12.5 mcg PO AM [facility] Last Admin: 03/15/19 06:16 Dose: 12.5 mcg Methylprednisolone Sodium Succinate (Solu-Medrol -) 40 mg IVPUSH Q12H [facility] Last Admin: 03/15/19 09:44 Dose: 40 mg Metoprolol Tartrate (Lopressor -) 50 mg PO BID [facility] Last Admin: 03/15/19 09:44 Dose: 50 mg Sitagliptin Phosphate (Januvia -) 50 mg PO DAILY@0700 [facility] Last Admin: 03/15/19 06:16 Dose: 50 mg Ursodiol (Actigal -) 300 mg PO BID [facility] Last Admin: 03/15/19 09:44 Dose: 300 mg Warfarin Sodium (Coumadin -) 1 mg PO DAILY@1800 [facility] Last Admin: 03/14/19 17:58 Dose: 1 mg - Objective Vital Signs: Vital Signs Temperature 98 F 03/15/19 05:00 Pulse Rate 68 03/15/19 08:38 Respiratory Rate 18 03/15/19 08:38 Blood Pressure 110/51 L 03/15/19 08:38 O2 Sat by Pulse Oximetry (%) 91 L 03/15/19 08:38 Constitutional: Yes: Well Nourished, Calm Eyes: Yes: WNL HENT: Yes: WNL Neck: Yes: WNL Cardiovascular: Yes: Pulse Irregular, S1, S2 Respiratory: Yes: Rhonchi (BILATERAL RHONCHI) Gastrointestinal: Yes: Normal Bowel Sounds, Soft Extremities: Yes: WNL Edema: No Labs: CBC, BMP 03/15/19 09:45 03/15/19 09:45 INR, PTT INR 3.08 (0.83-1.09) H 03/15/19 09:45 - ....Imaging Cat Scan: Report Reviewed, Image Reviewed (INCREASED RLL CONSOLIDATION, CONGESTION) Assessment/Plan Problem List - Problems (1) Acute respiratory failure with hypoxia Code(s): J96.01 - ACUTE RESPIRATORY FAILURE WITH HYPOXIA (2) Pneumonia Code(s): J18.9 - PNEUMONIA, UNSPECIFIED ORGANISM Qualifiers: Pneumonia type: due to unspecified organism Laterality: bilateral Lung location: lower lobe of lung Qualified Code(s): J18.1 - Lobar pneumonia, unspecified organism ASSESSMENT AND PLAN: Acute Hypoxic Respiratory Failure improving Multilobar Pneumonia Sepsis improved Acute on Chronic Diastolic Heart Failure Atrial Fibrillation with RVR Supratherapeutic INR CAD HTN DM Hypercholesterolemia CKD h/o Primary Biliary Cirrhosis - nasal o2 as tolerated - antibiotics as per ID - Medrol taper - inhaled bronchodilators - rate control - continue anticoagulation - monitor H/H - chest ct DR BAXTER
[2019-03-15] MEDS ORDERED: FUROSEMIDE 40 MG/4 ML INJECTABLE VIAL IVPUSH ONE (11:30)
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
--- NOTE | 2019-03-15 13:58 | PN ---
Physical Exam: SUBJECTIVE: Patient seen and examined at bedside. Reports no overnight events or complaints. Breathing on 50% venturi mask at time of encounter. OBJECTIVE: Vital Signs Period Temp Pulse Resp BP Sys/Braga Pulse Ox Last 24 Hr 97.6 F-98 F 61-68 18-20 101-128/51-77 91-91 GENERAL: A&Ox3, NAD HEENT: NC/AT, PERRLA, EOMI NECK: Trachea midline, full range of motion, supple. LUNGS: diffusely rhoncorous, scattered wheezes, scant bibasilar rales HEART: irregularly irregular, no m/r/g ABDOMEN: +bs, soft, NT, ND EXTREMITIES: 2+ pulses, warm, well-perfused, no edema. NEUROLOGICAL: manager contracting, motor, sensory systems w/o focal deficit PSYCH: Normal mood, normal affect. SKIN: Warm, dry, normal turgor, no rashes or lesions noted Laboratory Results - last 24 hr 03/14/19 03/14/19 03/15/19 18:01 21:04 05:37 WBC RBC Hgb Hct MCV MCH MCHC RDW Plt Count MPV Absolute Neuts (auto) Neutrophils % Lymphocytes % Monocytes % Eosinophils % Basophils % Nucleated RBC % PT with INR INR Sodium Potassium Chloride Carbon Dioxide Anion Gap BUN Creatinine Est GFR (CKD-EPI)AfAm Est GFR (CKD-EPI)NonAf POC Glucometer 239 228 202 Random Glucose Calcium Total Bilirubin Direct Bilirubin AST ALT Alkaline Phosphatase Total Protein Albumin 03/15/19 03/15/19 03/15/19 09:45 09:45 09:45 WBC 11.3 H RBC 4.59 Hgb 14.6 Hct 44.8 MCV 97.6 H MCH 31.9 MCHC 32.7 RDW 14.0 Plt Count 307 MPV 9.3 Absolute Neuts (auto) 9.6 H Neutrophils % 84.9 H Lymphocytes % 8.2 D Monocytes % 6.6 Eosinophils % 0.2 D Basophils % 0.1 Nucleated RBC % 0 PT with INR 36.70 H INR 3.08 H Sodium 141 Potassium 4.2 Chloride 106 Carbon Dioxide 29 Anion Gap 6 L BUN 47.1 H Creatinine 1.6 H Est GFR (CKD-EPI)AfAm 45.50 Est GFR (CKD-EPI)NonAf 39.26 POC Glucometer Random Glucose 187 H Calcium 8.3 L Total Bilirubin 1.1 H Direct Bilirubin 0.3 H AST 30 ALT 57 Alkaline Phosphatase 164 H Total Protein 5.2 L Albumin 1.9 L 03/15/19 12:41 WBC RBC Hgb Hct MCV MCH MCHC RDW Plt Count MPV Absolute Neuts (auto) Neutrophils % Lymphocytes % Monocytes % Eosinophils % Basophils % Nucleated RBC % PT with INR INR Sodium Potassium Chloride Carbon Dioxide Anion Gap BUN Creatinine Est GFR (CKD-EPI)AfAm Est GFR (CKD-EPI)NonAf POC Glucometer 228 Random Glucose Calcium Total Bilirubin Direct Bilirubin AST ALT Alkaline Phosphatase Total Protein Albumin Active Medications Generic Name Dose Route Start Last Admin Trade Name Freq PRN Reason Stop Dose Admin Acetaminophen 650 mg 03/13/19 08:19 Tylenol - PO Q6H PRN FEVER Dutasteride 0.5 mg 03/13/19 10:00 03/15/19 09:44 Avodart - PO 0.5 mg DAILY EDMUND Administration Piperacillin Sod/Tazobactam 50 mls @ 100 mls/hr 03/13/19 09:00 03/15/19 09:45 Sod 3.375 gm/ Dextrose IVPB Not Given Q6H-IV [facility]S INCLUDE 234 BEDS AT THE [facility] Protocol Insulin Aspart 1 vial 03/13/19 11:00 03/15/19 12:53 Novolog Vial Sliding Scale - SQ Not Given ACHS COUNTS INCLUDE 234 BEDS AT THE [facility] Protocol Isosorbide Mononitrate 30 mg 03/13/19 10:00 03/15/19 09:44 Imdur - PO 30 mg DAILY EDMUND Administration Levothyroxine Sodium 12.5 mcg 03/14/19 07:00 03/15/19 06:16 Synthroid - PO 12.5 mcg AM EDMUND Administration Methylprednisolone Sodium Succinate 40 mg 03/16/19 10:00 Solu-Medrol - IVPUSH DAILY COUNTS INCLUDE 234 BEDS AT THE [facility] Metoprolol Tartrate 50 mg 03/13/19 10:00 03/15/19 09:44 Lopressor - PO 50 mg BID EDMUND Administration Sitagliptin Phosphate 50 mg 03/14/19 07:00 03/15/19 06:16 Januvia - PO 50 mg DAILY@0700 EDMUND Administration Ursodiol 300 mg 03/14/19 13:45 03/15/19 09:44 Actigal - PO 300 mg BID EDMUND Administration Warfarin Sodium 1 mg 03/14/19 18:00 03/14/19 17:58 Coumadin - PO 1 mg DAILY@1800 EDMUND Administration ASSESSMENT/PLAN: 84 y/o M w/ PMHx of A Fib (on Coumadin), HTN, HLD, NIDDM, CAD(s/p angioplasty, no stents), diverticulosis, GERD, and hypothyroidism [place] in acute hypoxic respiratory failure, found to be in Afib/RVR and w/ supratherapeutic INR >15 #Acute Hypoxic Respiratory Failure 2/2 Multilobar Pneumonia, improving, o2 2l NC , solumedrol tapered to 40 daily, dry CT chest as per pulm #Sepsis imroved, cont abx zosyn Q6hr #Acute on Chronic Diastolic Heart Failure, daily weight , I&O, no further diuretics at this time #transaminitis 2/2 suspected PBC per PMD, cont ursodiol and monitor LFTs #Atrial Fibrillation with RVR cont Coumadin 1.5 po daily, DC crestor , lopressor 50 BID , #Supratherapeutic INR on coumadin , monitor INR daily #CAD cont home meds, dc crestor #HTN cont imdur 30 #DM on Sepuvia and ISS #no IVF # Full code # DVT PPx Visit type - Emergency Visit Emergency Visit: No - New Patient This patient is new to me today: Yes Date on this admission: 03/15/19 - Critical Care Critical Care patient: No
[2019-03-15] MEDS ORDERED: ALBUTEROL SO4 0.083% IH SOL 2.5 MG/3 ML VIAL.NEB. NEB PRN (15:44)
[2019-03-15] MEDS: WARFARIN NA 1 MG TABLET (FP) PO SCH (17:12)
[2019-03-16] MEDS ORDERED: PIPERACILLIN/TAZOBACTAM 3.375 GM VIAL IVPB ONE ×3 (02:28→14:10)
[2019-03-16] MEDS ORDERED: DEXTROSE 5%-WATER - 50 ML IVPB ONE ×3 (02:28→14:11)
[2019-03-16] MEDS: PIPERACILLIN/TAZOB 3.375 GM 3.375 GM in DEXTROSE 5%-WATER - 50 ML IVPB SCH ×3 (02:48→14:15)
[2019-03-16] MEDS: INSULIN SLIDING SCALE (NOVOLOG) 1 VIAL SQ SCH ×3 (06:28→17:16)
[2019-03-16] MEDS: LEVOTHYROXINE NA 25 MCG TABLET (FP) PO SCH (06:31)
[2019-03-16] MEDS: sitaGLIPtin PHOSPHATE 50 MG TABLET PO SCH (06:31)
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
[2019-03-16 07:59] LABS: BASO % 0.6 % (0-2.0); EOS % 0.8 % (0-4.5); HEMATOCRIT 44.4 % (35.4-49); HEMOGLOBIN 14.7 GM/dL (11.7-16.9); MCH 32.1 pg (25.7-33.7); MCHC 33.1 g/dl (32.0-35.9); MEAN CELL VOLUME 97.1 fl (80-96); MEAN PLT VOLUME 9.6 fl (7.5-11.1); MONO % 4.9 % (3.8-10.2); NEUT % 85.7 % (42.8-82.8); PLATELET COUNT 288 K/MM3 (134-434); RBC 4.57 M/mm3 (4.00-5.60); RDW 14.3 % (11.9-15.9); WHITE BLOOD COUNT 14.3 K/mm3 (4.0-10.0)
[2019-03-16 08:25] LABS: ALBUMIN 1.9 g/dl (3.4-5.0); BILIRUBIN,TOTAL 1.5 mg/dL (0.2-1); BLOOD UREA NITROGEN 41.7 mg/dL (7-18); CREATININE 1.4 mg/dL (0.55-1.3); MAGNESIUM 2.3 mg/dL (1.8-2.4); PHOSPHOROUS 3.2 mg/dL (2.5-4.9); POTASSIUM 4.3 mmol/L (3.5-5.1); TOT PROT 5.1 g/dl (6.4-8.2)
[2019-03-16 08:26] LABS: INR 2.64 (0.83-1.09); PROTHROMBIN TIME (PATIENT) 31.4 SEC (9.7-13.0)
[2019-03-16] MEDS: METOPROLOL TARTRATE 50 MG TABLET (FP) PO SCH (09:27)
[2019-03-16] MEDS: DUTASTERIDE 0.5 MG CAP (FP) PO SCH (09:28)
[2019-03-16] MEDS: ISOSORBIDE MONONITRATE 30 MG TAB.SR.24H (FP) PO SCH (09:28)
[2019-03-16] MEDS: URSODIOL 300 MG CAPSULE PO SCH (09:31)
[2019-03-16] MEDS ORDERED: methylPREDNISolone NA SUCC 40 MG/1 ML VIAL IVPUSH SCH (10:00)
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
--- NOTE | 2019-03-16 13:32 | PN ---
Progress Note (short form) - Note Progress Note: Overall better. Some residual cough. Intake & Output 03/13/19 03/14/19 03/15/19 03/16/19 23:59 23:59 23:59 23:59 Intake Total 210 700 600 360 Output Total 550 200 Balance 210 150 600 160 Weight 197 lb 12.8 oz 186 lb 6.4 oz 187 lb 9.6 oz Last Vital Signs Temp Pulse Resp BP Pulse Ox 98 F 60 20 111/76 95 03/16/19 09:00 03/16/19 09:00 03/16/19 09:00 03/16/19 09:00 03/16/19 09:00 Active Medications Acetaminophen (Tylenol -) 650 mg PO Q6H PRN PRN Reason: FEVER Albuterol Sulfate (Ventolin 0.083% Nebulizer Soln -) 1 amp NEB Q4H PRN PRN Reason: SHORT OF BREATH/WHEEZING Dutasteride (Avodart -) 0.5 mg PO DAILY [facility] Last Admin: 03/16/19 09:28 Dose: 0.5 mg Piperacillin Sod/Tazobactam (Sod 3.375 gm/ Dextrose) 50 mls @ 100 mls/hr IVPB Q6H-IV [facility]; Protocol Last Admin: 03/16/19 08:46 Dose: 100 mls/hr Insulin Aspart (Novolog Vial Sliding Scale -) 1 vial SQ ACHS [facility]; Protocol Last Admin: 03/16/19 12:11 Dose: 2 units Isosorbide Mononitrate (Imdur -) 30 mg PO DAILY [facility] Last Admin: 03/16/19 09:28 Dose: 30 mg Levothyroxine Sodium (Synthroid -) 12.5 mcg PO AM EDMUND Last Admin: 03/16/19 06:31 Dose: 12.5 mcg Methylprednisolone Sodium Succinate (Solu-Medrol -) 40 mg IVPUSH DAILY [facility] Last Admin: 03/16/19 09:29 Dose: 40 mg Metoprolol Tartrate (Lopressor -) 50 mg PO BID [facility] Last Admin: 03/16/19 09:27 Dose: 50 mg Sitagliptin Phosphate (Januvia -) 50 mg PO DAILY@0700 [facility] Last Admin: 03/16/19 06:31 Dose: 50 mg Ursodiol (Actigal -) 300 mg PO BID [facility] Last Admin: 03/16/19 09:31 Dose: 300 mg Warfarin Sodium (Coumadin -) 1 mg PO DAILY@1800 EDMUND Last Admin: 03/15/19 17:12 Dose: 1 mg Constitutional: Yes: NAD Eyes: Yes: WNL HENT: Yes: WNL Neck: Yes: WNL Cardiovascular: Yes: Pulse Irregular, S1, S2 Respiratory: Yes: Scattered Rhonchi, no wheeze Gastrointestinal: Yes: Normal Bowel Sounds, Soft Extremities: Yes: WNL Edema: No Labs: Laboratory Results - last 24 hr 03/15/19 03/15/19 03/16/19 16:53 21:50 05:46 WBC RBC Hgb Hct MCV MCH MCHC RDW Plt Count MPV Absolute Neuts (auto) Neutrophils % Lymphocytes % Monocytes % Eosinophils % Basophils % Nucleated RBC % PT with INR INR Sodium Potassium Chloride Carbon Dioxide Anion Gap BUN Creatinine Est GFR (CKD-EPI)AfAm Est GFR (CKD-EPI)NonAf POC Glucometer 285 211 159 Random Glucose Calcium Phosphorus Magnesium Total Bilirubin AST ALT Alkaline Phosphatase Total Protein Albumin 03/16/19 03/16/19 03/16/19 05:48 05:48 05:48 WBC 14.3 H RBC 4.57 Hgb 14.7 Hct 44.4 MCV 97.1 H MCH 32.1 MCHC 33.1 RDW 14.3 Plt Count 288 MPV 9.6 Absolute Neuts (auto) 12.2 H Neutrophils % 85.7 H Lymphocytes % 8.0 Monocytes % 4.9 Eosinophils % 0.8 D Basophils % 0.6 D Nucleated RBC % 0 PT with INR 31.40 H INR 2.64 H Sodium 143 Potassium 4.3 Chloride 109 H Carbon Dioxide 29 Anion Gap 5 L BUN 41.7 H Creatinine 1.4 H Est GFR (CKD-EPI)AfAm 53.47 Est GFR (CKD-EPI)NonAf 46.13 POC Glucometer Random Glucose 134 H Calcium 8.0 L Phosphorus 3.2 Magnesium 2.3 Total Bilirubin 1.5 H AST 25 ALT 48 Alkaline Phosphatase 151 H Total Protein 5.1 L Albumin 1.9 L 03/16/19 12:09 WBC RBC Hgb Hct MCV MCH MCHC RDW Plt Count MPV Absolute Neuts (auto) Neutrophils % Lymphocytes % Monocytes % Eosinophils % Basophils % Nucleated RBC % PT with INR INR Sodium Potassium Chloride Carbon Dioxide Anion Gap BUN Creatinine Est GFR (CKD-EPI)AfAm Est GFR (CKD-EPI)NonAf POC Glucometer 184 Random Glucose Calcium Phosphorus Magnesium Total Bilirubin AST ALT Alkaline Phosphatase Total Protein Albumin Assessment/Plan Problem List - Problems (1) Acute respiratory failure with hypoxia Code(s): J96.01 - ACUTE RESPIRATORY FAILURE WITH HYPOXIA (2) Pneumonia Code(s): J18.9 - PNEUMONIA, UNSPECIFIED ORGANISM Qualifiers: Pneumonia type: due to unspecified organism Laterality: bilateral Lung location: lower lobe of lung Qualified Code(s): J18.1 - Lobar pneumonia, unspecified organism ASSESSMENT AND PLAN: Acute Hypoxic Respiratory Failure improving Multilobar Pneumonia Sepsis improved Acute on Chronic Diastolic Heart Failure Atrial Fibrillation with RVR Supratherapeutic INR CAD HTN DM Hypercholesterolemia CKD h/o Primary Biliary Cirrhosis - Prednisone taper - O2 as needed - Completed ABX - inhaled bronchodilators PRN - D/C to SNF Dr Arellano
[2019-03-16 14:48] VITALS: BP 108/74; PULSE 90; TEMP 98.6
[2019-03-19 13:13] VITALS: BMI 27.6
== END 2019-03-16 17:05 | DRG 871 ==
LOC: JER 19:00 → JERBED 21:05 → J4W 03-03 07:40 → JICU 03-06 13:57 → J4W 03-12 23:07
PROVIDERS: ADMIT Internal Medicine; ATTEND Internal Medicine
PROC: 3E0F7GC Introduction of Other Therapeutic Substance into Respiratory Tract, Via Natural or Artificial Opening (ICD-10-PCS; 2019-03-02)
PROC: 5A09457 Assistance with Respiratory Ventilation, 24-96 Consecutive Hours, Continuous Positive Airway Pressure (ICD-10-PCS; principal; 2019-03-03)
DX: A41.9 Sepsis, unspecified organism (principal); J18.1 Lobar pneumonia, unspecified organism; J96.01 Acute respiratory failure with hypoxia; I50.33 Acute on chronic diastolic (congestive) heart failure; N17.9 Acute kidney failure, unspecified; D68.9 Coagulation defect, unspecified; I48.1 Persistent atrial fibrillation; D68.32 Hemorrhagic disorder due to extrinsic circulating anticoagulants; E87.3 Alkalosis; J44.1 Chronic obstructive pulmonary disease with (acute) exacerbation; E11.22 Type 2 diabetes mellitus with diabetic chronic kidney disease; I13.10 Hypertensive heart and chronic kidney disease without heart failure, with stage 1 through stage 4 chronic kidney disease, or unspecified chronic kidney disease; N18.9 Chronic kidney disease, unspecified; K74.3 Primary biliary cirrhosis; V89.2XXA Person injured in unspecified motor-vehicle accident, traffic, initial encounter; E78.5 Hyperlipidemia, unspecified; Z79.84 Long term (current) use of oral hypoglycemic drugs; I25.10 Atherosclerotic heart disease of native coronary artery without angina pectoris; I48.2 Chronic atrial fibrillation; K21.9 Gastro-esophageal reflux disease without esophagitis; Z86.010 Personal history of colon polyps; K57.30 Diverticulosis of large intestine without perforation or abscess without bleeding; K76.0 Fatty (change of) liver, not elsewhere classified; Z98.61 Coronary angioplasty status; Z85.828 Personal history of other malignant neoplasm of skin; E11.65 Type 2 diabetes mellitus with hyperglycemia; Z87.891 Personal history of nicotine dependence; D22.22 Melanocytic nevi of left ear and external auricular canal; G89.29 Other chronic pain; M54.5 Low back pain; M51.37 Other intervertebral disc degeneration, lumbosacral region; Z79.01 Long term (current) use of anticoagulants; I36.1 Nonrheumatic tricuspid (valve) insufficiency; I34.0 Nonrheumatic mitral (valve) insufficiency; E66.9 Obesity, unspecified; T45.515A Adverse effect of anticoagulants, initial encounter; Y92.89 Other specified places as the place of occurrence of the external cause; R74.0 Nonspecific elevation of levels of transaminase and lactic acid dehydrogenase [LDH]; Z79.4 Long term (current) use of insulin
CPT/HCPCS: 36415; 36600; 70450-TC; 71045-TC-FY; 71250-TC; 72125-TC; 76705-TC; 80048; 80053; 80061; 80076; 81003; 82248; 82607; 82803; 82962; 83036; 83721; 83735; 83880; 84100; 84439; 84443; 84484; 85025; 85027; 85610; 87040; 87070; 87086; 87186; 87205; 87899; 93005; 93010; 93306-TC; 94640; 94660; 97116-GP; 97162-GP; 99285-25; G0480; J7030

== ENCOUNTER 2019-07-10 12:46 | Inpatient (IN) | payer OTHER, BC ==
--- NOTE | 2019-07-10 13:42 | PDOC ---
History of Present Illness - General Chief Complaint: Shortness of Breath Stated Complaint: SOB Time Seen by Provider: 07/10/19 13:15 - History of Present Illness Initial Comments: 07/10/19 20:27 Pt appears to be poor historian. Information obtained from Dr Marquez (pts PCP ) and previous medical records. Pt is an 84 y/o M (resident of [facility]) with a significant past medical history of a-fib (on coumadin), HTN, HLD, NIDDM, CAD, Diverticulosis who presented to [facility] at the behest of his PCP due to signs/symptoms of CHF exacerbation. Per phone conversation w/ Dr Marquez, pt has been rather altered for the past 1 week duration and not behaving as himself. Urine was sent by [address] [place] [address] which was negative. Furthermore, pt has been more dyspneic on exertion and not able to carry out his usual daily activities. Pt was treated in our ICU in February of this year for acute hypoxic respiratory failure likely 2/2 acute Diastolic HF 2/2 Afib w/ RVR. Past History - Past Medical History Allergies/Adverse Reactions: Allergies Allergy/AdvReac Type Severity Reaction Status Date / Time No Known Drug Allergies Allergy Verified 08/22/14 08:49 Home Medications: Ambulatory Orders Isosorbide Mononitrate [Imdur] 30 mg PO DAILY 08/21/14 Sitagliptin Phosphate [Januvia] 50 mg PO DAILY 08/21/14 Acetaminophen [Tylenol] 650 mg PO PRN PRN 02/27/15 Cholecalciferol (Vitamin D3) [Vitamin D3] 1,000 unit PO DAILY 02/27/15 Dutasteride [Avodart] 0.5 mg PO DAILY 02/04/17 Vit B12/Intrinsic Fact/Folate [Intrinsi S12-Rlqpvl Tablet] 1 each PO DAILY 03/02 Levothyroxine [Synthroid -] 12.5 mcg PO AM tablet 03/16/19 Metoprolol Tartrate [Lopressor -] 50 mg PO BID tablet 03/16/19 Prednisone See Taper PO DAILY 8 Days #20 tablet 03/16/19 Ursodiol [Actigal -] 300 mg PO BID capsule 03/16/19 Warfarin Na [Coumadin -] 2 mg PO DAILY@1800 30 Days #30 tablet 03/16/19 Albuterol 2.5/Ipratropium 0.5 [Duoneb -] 1 amp NEB QID PRN 07/11/19 Famotidine 20 mg PO DAILY 07/11/19 Fluticasone/Vilanterol [Breo Ellipta 100-25 Mcg INH] 1 each IH DAILY 07/11/19 Folic Acid 1 mg PO DAILY 07/11/19 Furosemide [Lasix] 20 mg PO ASDIR 07/11/19 Anemia: No Asthma: No Cancer: Yes (SKIN CANCERS) Cardiac Disorders: Yes (CHRONIC ATRIAL FIB,ASHD) CVA: No COPD: No CHF: No Dementia: No Diabetes: Yes (NIDDM) GI Disorders: Yes (GERD,HIATAL HERNIA,COLON POLYP,DIVERTICULOSIS, GASTRITIS) Disorders: Yes HTN: Yes Hypercholesterolemia: Yes Liver Disease: Yes (NAFLD) Seizures: No Thyroid Disease: Yes - Surgical History Abdominal Surgery: Yes (RIH,LIH,UMBICAL HERNIORRHAPHIES) Appendectomy: No Cardiac Surgery: Yes (ANGIOPLASTY) Cholecystectomy: No Lung Surgery: No Neurologic Surgery: No Orthopedic Surgery: Yes (LEFT KNEE ARTHROSCOPY) - Immunization History Td Vaccination: Yes TDAP Vaccination: Yes Immunization Up to Date: Yes - Psycho Social/Smoking Cessation Hx Smoking History: Never smoked Have you smoked in the past 12 months: No Number of Cigarettes Smoked Daily: 1 Cigars Per Day: 1 Information on smoking cessation initiated: No 'Breaking Loose' booklet given: 02/27/15 Hx Alcohol Use: No Drug/Substance Use Hx: No Substance Use Type: None Hx Substance Use Treatment: No Review of Systems - Review of Systems Constitutional: No: Chills, Fever, Unintentional Wgt. Loss Respiratory: Yes: Cough, Shortness of Breath, SOB with Exertion, Wheezing Cardiac (ROS): No: Chest Pain *Physical Exam - Vital Signs Last Vital Signs Temp Pulse Resp BP Pulse Ox 98.8 F 52 L 22 H 125/79 100 07/10/19 12:54 07/10/19 12:54 07/10/19 12:54 07/10/19 12:54 07/10/19 12:54 - Physical Exam Comments: 07/10/19 14:14 NAD, AAOx3 Irregular S1S2, no JVD appreciated Expiratory wheezes at bases Obese, NDNT 1+ lower extremity edema b/l Heart Score/ECG Review - History History: Slightly suspicious - Electrocardiogram EKG: Normal - Age Age: >/= 65 - Risk Factors Risk Factors Heart Score: Yes Hx Hypertension, Yes Hx Diabetes Based on the list above the patient has:: 1-2 risk factors - Troponin Troponin: </= normal limit - Score Heart Score - Total: 3 - ECG Intrepretation Comment:: 07/10/19 14:18 Left anterior fascicular block, small QRS pattern(may be 2/2 possible pericardial effusion) Rate 53 bpm , QTc 418 ED Treatment Course - LABORATORY CBC & Chemistry Diagram: 07/11/19 08:25 07/11/19 08:25 - RADIOLOGY Radiology Studies Ordered: Category Date Time Status CHEST X-RAY PORTABLE* [RAD] Stat Radiology 07/10/19 13:35 Ordered Medical Decision Making - Medical Decision Making 07/10/19 13:59 CBC w/ diff, CMP, BNP, Cardiac profile, CXR DDX includes but not limited to CHF exacerbation. Less likely pneumonia given absence of fever, WBC pending. 07/10/19 14:12 Bedside Echo performed by Dr Greenberg. Unofficial read reveals b/l pleural effusions. No pericardial effusions appreciated. Official Echo pending. 07/10/19 14:17 WBC 7.0, CMP pending 07/10/19 15:14 CXR reveals large effusion R lung. Admit for further workup. 07/10/19 15:19 07/10/19 20:26 Discharge - Discharge Information Problems reviewed: Yes Clinical Impression/Diagnosis: Pleural effusion, Acute on chronic diastolic (congestive) heart failure - Follow up/Referral - Patient Discharge Instructions - Post Discharge Activity
--- NOTE | 2019-07-10 13:50 | PDOC ---
Attending Attestation - Resident Resident Name: Luis Alberto Dowd - ED Attending Attestation I have performed the following: I have examined & evaluated the patient, The case was reviewed & discussed with the resident, I agree w/resident's findings & plan, Exceptions are as noted - HPI HPI: 07/10/19 13:48 84y M hx of afib, cad, htn, hl, diverticulitis, presents for complaint of SOB - for the past week, pt has been having increased CHAUDHARI, and incrreased confusion. Dr. Marquez had referred pt to the ER for evaluation. Pt notes he has had some sob and cough for 'a few months'. pt denies any fever/chills, n/v, cp, abd pain, back pain, headche, dizziness, leg swelling. ROS Constitutional - no reported Fever, Chills, HEENT: no reported vision changes, sore throat Respiratory: +sob, cough, no reported hemoptysis Cardiac: no reported chest pain, palpitations, light headedness, leg swelling Abd/GI: no reported abd pain, nausea, vomiting, blood per rectum, melena, diarrhea : no reported dysuria, frequency, discharge Musculskelatal - no reported back pain, joint swelling skin - no reported bruising, erythema, rash neurological: no reported headache, numbness, focal weakness, tingling, ataxia, hematologic: no reported easy bruising, easy bleeding exam: GENERAL: The patient is awake, alert, and oriented x 2, mildly tachypneic HEAD: Normocephalic, atraumatic. EYES: extraocular movements intact, sclera anicteric, conjunctiva clear. ENT: Normal voice, Moist mucous membranes. NECK: Normal range of motion, supple LUNGS: rhonchi on R upper lung, deminished breath sounds at r base, mildly tachpneic HEART: irregularly irregular ABDOMEN: Soft, nontender, No guarding, no rebound. No CVA tenderness EXTREMITIES: Normal range of motion, trace edema. NEUROLOGICAL: No facial assymetry, Normal speech, moving all 4 extremities spontaneously and symmetrically PSYCH: Normal mood, normal affect. SKIN: Warm, Dry, normal turgor, ddx = chf, pericardial effusion, pna, anemia, acs will obtain cxr, labs, bnp, will obtain bedsid echo to eval for effusion as pt has small qrs - Physicial Exam PE: 07/18/19 07:26 see above - Medical Decision Making 07/10/19 14:48 Patient chest x-ray noted for effusion in the right lung No signs of large pericardial effusion on bedside echocardiography Anticipate admission for further management Heart Score/ECG Review - ECG Impressions Comment:: 07/10/19 14:06 Twelve-lead EKG was performed and reviewed by me. Irregularly irregular Rate of 65 Left axis deviation low voltage qrs noted
[2019-07-10] MEDS ORDERED: ALBUTEROL SO4 2.5/IPRATROPIUM 0.5 INH SOL 3 ML VIAL.NEB. NEB ONE ×2 (13:55→20:01)
[2019-07-10 13:58] LABS: BASO % 0.8 % (0-2.0); EOS % 1.5 % (0-4.5); HEMATOCRIT 41.4 % (35.4-49); HEMOGLOBIN 13.5 GM/dL (11.7-16.9); LYMPH % 18.9 % (8-40); MCH 32.6 pg (25.7-33.7); MCHC 32.6 g/dl (32.0-35.9); MEAN CELL VOLUME 100.1 fl (80-96); MEAN PLT VOLUME 9.6 fl (7.5-11.1); MONO % 16.2 % (3.8-10.2); NEUT % 62.6 % (42.8-82.8); PLATELET COUNT 177 K/MM3 (134-434); RBC 4.14 M/mm3 (4.00-5.60); RDW 16.5 % (11.9-15.9)
[2019-07-10 14:23] LABS: ALBUMIN 3.1 g/dl (3.4-5.0); BILIRUBIN,TOTAL 1.7 mg/dL (0.2-1); BLOOD UREA NITROGEN 28.6 mg/dL (7-18); CALCIUM 8.8 mg/dL (8.5-10.1); CREATININE 1.7 mg/dL (0.55-1.3); N-TERMINAL BNP 5340.5 pg/ml (5-450); POTASSIUM 4.4 mmol/L (3.5-5.1); TOT PROT 6.6 g/dl (6.4-8.2)
--- NOTE | 2019-07-10 15:17 | ECHO ---
Name: INDIGO FISHER Exam:Adult Echocardiogram Study Date: 07/10/2019 02:13 PM Age: 84 yrs Reason For Study: CHF Height: 70 in Weight: 164 lb BSA: 1.9 m2 Procedure A complete two-dimensional transthoracic echocardiogram was performed (2D, M-mode, Doppler and color flow Doppler). Technically limited study. Left Ventricle The left ventricle is normal in size. Left ventricular systolic function is low normal. Ejection Frac tion = 50-55%. Right Ventricle The right ventricle is not well visualized. The right ventricular systolic function is grossly normal . Atria The left atrium is severely dilated. The right atrium is severely dilated. Mitral Valve The mitral valve is normal in structure and function. There is moderate mitral regurgitation. Tricuspid Valve The tricuspid valve is normal in structure and function. There is moderate to severe tricuspid regurg itation. Pulmonary artery systolic pressure is at least 45 mmHg if RA pressure is assumed 3 mmHg. Aortic Valve There is mild aortic sclerosis.;. No aortic regurgitation is present. Pulmonic Valve The pulmonic valve is not well visualized. Great Vessels The aortic root is normal size. Pericardium/Pleura There is no pericardial effusion. Interpretation Summary Technically limited study The left ventricle is normal in size. Left ventricular systolic function is low normal. The right ventricle is not well visualized. The right ventricular systolic function is grossly normal. The left atrium is severely dilated. The right atrium is severely dilated. There is moderate mitral regurgitation. There is moderate to severe tricuspid regurgitation. Pulmonary artery systolic pressure is at least 45 mmHg if RA pressure is assumed 3 mmHg There is mild aortic sclerosis. There is no pericardial effusion. Michael Crawford MD 07/10/2019 03:17 PM
[2019-07-10] MEDS ORDERED: ACETAMINOPHEN 325 MG TABLET (FP) PO PRN (19:32)
--- NOTE | 2019-07-10 19:58 | HP ---
Admitting History and Physical - Admission Chief Complaint: SOB History of Present Illness: Pt is an 84 y/o M (resident of [facility]) with a significant past medical history of a-fib (on coumadin), HTN, HLD, NIDDM, CAD, Diverticulosis who presented to [facility] at the behest of his PCP due to signs/symptoms of CHF exacerbation. Per phone conversation w/ Dr Marquez, pt has been rather altered for the past 1 week duration at not behaving as himself. Urine was sent by [address] [place] [address] which was negative. Furthermore, pt has been more dyspneic on exertion and not able to carry out his usual daily activities. Pt was treated in our ICU in February of this year for acute hypoxic respiratory failure likely 2/2 acute Diastolic HF 2/2 Afib w/ RVR. History Source: Patient, Medical Record Limitations to Obtaining History: Poor Historian - Past Medical History Cardiovascular: Yes: AFIB, HTN, Hyperlipdemia Endocrine: Yes: Hypothyroidism - Smoking History Smoking history: Never smoked Have you smoked in the past 12 months: No Aproximately how many cigarettes per day: 1 - Alcohol/Substance Use Hx Alcohol Use: No Home Medications - Allergies Allergies/Adverse Reactions: Allergies Allergy/AdvReac Type Severity Reaction Status Date / Time No Known Drug Allergies Allergy Verified 08/22/14 08:49 - Home Medications Home Medications: Ambulatory Orders Isosorbide Mononitrate [Imdur] 30 mg PO DAILY 08/21/14 Sitagliptin Phosphate [Januvia] 50 mg PO DAILY 08/21/14 Acetaminophen [Tylenol] 650 mg PO PRN PRN 02/27/15 Cholecalciferol (Vitamin D3) [Vitamin D3] 1,000 unit PO DAILY 02/27/15 Dutasteride [Avodart] 0.5 mg PO DAILY 02/04/17 Vit B12/Intrinsic Fact/Folate [Intrinsi D80-Oalxgi Tablet] 1 each PO DAILY 03/02 Levothyroxine [Synthroid -] 12.5 mcg PO AM tablet 03/16/19 Metoprolol Tartrate [Lopressor -] 50 mg PO BID tablet 03/16/19 Prednisone See Taper PO DAILY 8 Days #20 tablet 03/16/19 Ursodiol [Actigal -] 300 mg PO BID capsule 03/16/19 Warfarin Na [Coumadin -] 2 mg PO DAILY@1800 30 Days #30 tablet 03/16/19 Albuterol 2.5/Ipratropium 0.5 [Duoneb -] 1 amp NEB QID PRN 07/11/19 Famotidine 20 mg PO DAILY 07/11/19 Fluticasone/Vilanterol [Breo Ellipta 100-25 Mcg INH] 1 each IH DAILY 07/11/19 Folic Acid 1 mg PO DAILY 07/11/19 Furosemide [Lasix] 20 mg PO ASDIR 07/11/19 Physical Examination Vital Signs: Vital Signs Temperature 98.8 F 07/10/19 12:54 Pulse Rate 52 L 07/10/19 12:54 Respiratory Rate 22 H 07/10/19 12:54 Blood Pressure 125/79 07/10/19 12:54 O2 Sat by Pulse Oximetry (%) 100 07/10/19 12:54 Constitutional: Yes: Well Nourished, Moderate Distress, Obese Eyes: Yes: Conjunctiva Clear, EOM Intact HENT: Yes: Atraumatic, Normocephalic Cardiovascular: Yes: Bradycardia, Pulse Irregular Respiratory: Yes: Diminished, On Nasal O2, Rhonchi Gastrointestinal: Yes: Soft, Abdomen, Obese ...Rectal Exam: Yes: Deferred Renal/: Yes: WNL Breast(s): Yes: WNL Musculoskeletal: Yes: Joint Stiffness, Muscle Weakness Extremities: No: Deformity Edema: No Peripheral Pulses WNL: Yes Integumentary: Yes: WNL Neurological: Yes: Alert (x2), Oriented (X2), Confusion, Pre-Existing Deficit Psychiatric: Yes: Alert Labs: CBC, BMP 07/10/19 13:39 07/10/19 13:39 Problem List - Problems (1) Acute on chronic diastolic (congestive) heart failure Code(s): I50.33 - ACUTE ON CHRONIC DIASTOLIC (CONGESTIVE) HEART FAILURE (2) Pleural effusion Code(s): J90 - PLEURAL EFFUSION, NOT ELSEWHERE CLASSIFIED (3) Acute respiratory failure with hypoxia Code(s): J96.01 - ACUTE RESPIRATORY FAILURE WITH HYPOXIA (4) Atrial fibrillation Code(s): I48.91 - UNSPECIFIED ATRIAL FIBRILLATION (5) Chronic kidney disease (CKD) Code(s): N18.9 - CHRONIC KIDNEY DISEASE, UNSPECIFIED Qualifiers: Chronic kidney disease stage: stage 3 (moderate) Qualified Code(s): N18.3 - Chronic kidney disease, stage 3 (moderate) (6) HTN (hypertension) Code(s): I10 - ESSENTIAL (PRIMARY) HYPERTENSION Qualifiers: Hypertension type: essential hypertension Qualified Code(s): I10 - Essential (primary) hypertension (7) Hyperlipidemia Code(s): E78.5 - HYPERLIPIDEMIA, UNSPECIFIED Qualifiers: Hyperlipidemia type: pure hypercholesterolemia Qualified Code(s): E78.00 - Pure hypercholesterolemia, unspecified; E78.0 - Pure hypercholesterolemia (8) Hypertensive heart disease with acute on chronic diastolic congestive heart failure Code(s): I11.0 - HYPERTENSIVE HEART DISEASE WITH HEART FAILURE; I50.33 - ACUTE ON CHRONIC DIASTOLIC (CONGESTIVE) HEART FAILURE (9) Hypothyroid Code(s): E03.9 - HYPOTHYROIDISM, UNSPECIFIED Qualifiers: Hypothyroidism type: unspecified Qualified Code(s): E03.9 - Hypothyroidism , unspecified Assessment/Plan Assmt / Plan # acute on chronic dHF Iv lasix / daily weights / I&Os / follow CXR trend renal function Followed by Cardio Dr Isaac consult ordered # atrial Fib on coumadin with therapeutic INR continue 2 mg q day discusss change to NOAC with cardio rate control -- continue telemetry # pleural effusion likely all HF no inc in wbc / no fever or chills - less likey PNA continue lasix / consider pleural tap if unsuccessful with diuretics Pulm consult - # Hypothyroid check TSH / T4 continue synthroid # CKD close to baseline Cr will trend with inc in lasix # HTN continue meds - currently well controlled # DM continue Januvia A1C -- # HLD fasting lipids
[2019-07-10] MEDS: ALBUTEROL SO4 2.5/IPRATROPIUM 0.5 INH SOL 3 ML VIAL.NEB. NEB SCH (20:00)
[2019-07-10] MEDS ORDERED: METOPROLOL TARTRATE 50 MG TABLET (FP) ONE (21:27)
[2019-07-10] MEDS: METOPROLOL TARTRATE 50 MG TABLET (FP) PO SCH (21:28)
[2019-07-10] MEDS: URSODIOL 300 MG CAPSULE PO SCH (22:10)
[2019-07-11] MEDS ORDERED: FUROSEMIDE 40 MG/4 ML INJECTABLE VIAL ONE (06:21)
[2019-07-11] MEDS ORDERED: sitaGLIPtin PHOSPHATE 50 MG TABLET ONE (06:21)
[2019-07-11] MEDS: FUROSEMIDE 40 MG/4 ML INJECTABLE VIAL IVPUSH SCH ×2 (07:03→14:54)
[2019-07-11] MEDS: sitaGLIPtin PHOSPHATE 50 MG TABLET PO SCH (07:03)
[2019-07-11] MEDS: LEVOTHYROXINE NA 25 MCG TABLET (FP) PO SCH (07:03)
[2019-07-11] MEDS ORDERED: ALBUTEROL SO4 2.5/IPRATROPIUM 0.5 INH SOL 3 ML VIAL.NEB. NEB ONE ×2 (08:24→12:22)
[2019-07-11] MEDS: ALBUTEROL SO4 2.5/IPRATROPIUM 0.5 INH SOL 3 ML VIAL.NEB. NEB SCH ×3 (08:25→20:05)
[2019-07-11 09:07] LABS: BASO % 0.7 % (0-2.0); EOS % 1.8 % (0-4.5); HEMATOCRIT 43.8 % (35.4-49); LYMPH % 21.6 % (8-40); MCH 32.4 pg (25.7-33.7); MCHC 31.9 g/dl (32.0-35.9); MEAN CELL VOLUME 101.4 fl (80-96); MONO % 15.5 % (3.8-10.2); NEUT % 60.4 % (42.8-82.8); PLATELET COUNT 154 K/MM3 (134-434); RBC 4.32 M/mm3 (4.00-5.60); RDW 16.1 % (11.9-15.9); WHITE BLOOD COUNT 6.4 K/mm3 (4.0-10.0)
[2019-07-11] MEDS: URSODIOL 300 MG CAPSULE PO SCH ×2 (09:10→22:26)
[2019-07-11] MEDS: DUTASTERIDE 0.5 MG CAP (FP) PO SCH (09:10)
[2019-07-11] MEDS: ISOSORBIDE MONONITRATE 30 MG TAB.SR.24H (FP) PO SCH (09:10)
[2019-07-11] MEDS: CHOLECALCIFEROL (VIT D3) 1,000 UNIT (25 MCG) TABLET PO SCH (09:10)
[2019-07-11] MEDS: METOPROLOL TARTRATE 50 MG TABLET (FP) PO SCH ×2 (09:10→22:26)
[2019-07-11] MEDS ORDERED: INTRINSIC FACT PO SCH (10:00)
[2019-07-11] MEDS ORDERED: VIT B12 PO SCH (10:00)
[2019-07-11] MEDS ORDERED: FOLATE PO SCH (10:00)
[2019-07-11] MEDS ORDERED: [UNRECOGNIZED DRUG - OTHER] PO SCH (10:00)
[2019-07-11 10:16] LABS: BLOOD UREA NITROGEN 30.1 mg/dL (7-18); CREATININE 1.7 mg/dL (0.55-1.3); MAGNESIUM 2.2 mg/dL (1.8-2.4); POTASSIUM 4.4 mmol/L (3.5-5.1)
[2019-07-11 10:24] LABS: INR 1.89 (0.83-1.09); PROTHROMBIN TIME (PATIENT) 22.4 SEC (9.7-13.0)
--- NOTE | 2019-07-11 12:09 | EKG ---
Test Reason : Blood Pressure : / mmHG Vent. Rate : 062 BPM Atrial Rate : 060 BPM P-R Int : 000 ms QRS Dur : 092 ms QT Int : 444 ms P-R-T Axes : 000 -76 -58 degrees QTc Int : 450 ms ATRIAL FIBRILLATION WITH PREMATURE VENTRICULAR OR ABERRANTLY CONDUCTED COMPLEXES LEFT AXIS DEVIATION PULMONARY DISEASE PATTERN INFERIOR-POSTERIOR INFARCT , AGE UNDETERMINED ABNORMAL ECG WHEN COMPARED WITH ECG OF 10-JUL-2019 13:12, NO SIGNIFICANT CHANGE WAS FOUND Confirmed by Dejan Rinaldi MD ([id number]) on 07/11/2019 12:08:49 PM Referred By: Confirmed By:Dejan Rinaldi MD
--- NOTE | 2019-07-11 12:57 | CON.PULM ---
Consult Consult Specialty:: PULMONARY Referred by:: Dr Friedman Reason for Consultation:: shortness of breath - History of Present Illness Chief Complaint: altered mental status History of Present Illness: 84yo male with h/o HTN, DM, hyperlipidemia, CAD, atrial fibrillation, LV diastolic dysfunction, diverticulosis who was sent from his PMD at his assisted living center for altered mental status and shortness of breath. Denies chest pain or discomfort. Reports a nonproductive cough without wheezing. No fevers, chills or sweats. States that he has not been able to sleep for the past 3 days. - History Source History Provided By: Patient, Medical Record Limitations to Obtaining History: Poor Historian - Past Medical History Cardio/Vascular: Yes: AFIB, HTN, Hyperlipdemia Endocrine: Yes: Hypothyroidism - Alcohol/Substance Use Hx Alcohol Use: No - Smoking History Smoking history: Never smoked Have you smoked in the past 12 months: No Aproximately how many cigarettes per day: 1 Home Medications - Allergies Allergies/Adverse Reactions: Allergies Allergy/AdvReac Type Severity Reaction Status Date / Time No Known Drug Allergies Allergy Verified 08/22/14 08:49 - Home Medications Home Medications: Ambulatory Orders Isosorbide Mononitrate [Imdur] 30 mg PO DAILY 08/21/14 Sitagliptin Phosphate [Januvia] 50 mg PO DAILY 08/21/14 Acetaminophen [Tylenol] 650 mg PO PRN PRN 02/27/15 Cholecalciferol (Vitamin D3) [Vitamin D3] 1,000 unit PO DAILY 02/27/15 Dutasteride [Avodart] 0.5 mg PO DAILY 02/04/17 Vit B12/Intrinsic Fact/Folate [Intrinsi F34-Dzxwvy Tablet] 1 each PO DAILY 03/02 Levothyroxine [Synthroid -] 12.5 mcg PO AM tablet 03/16/19 Metoprolol Tartrate [Lopressor -] 50 mg PO BID tablet 03/16/19 Prednisone See Taper PO DAILY 8 Days #20 tablet 03/16/19 Ursodiol [Actigal -] 300 mg PO BID capsule 03/16/19 Warfarin Na [Coumadin -] 2 mg PO DAILY@1800 30 Days #30 tablet 03/16/19 Albuterol 2.5/Ipratropium 0.5 [Duoneb -] 1 amp NEB QID PRN 07/11/19 Famotidine 20 mg PO DAILY 07/11/19 Fluticasone/Vilanterol [Breo Ellipta 100-25 Mcg INH] 1 each IH DAILY 07/11/19 Folic Acid 1 mg PO DAILY 07/11/19 Furosemide [Lasix] 20 mg PO ASDIR 07/11/19 Review of Systems - Review of Systems Constitutional: reports: Weakness. denies: Chills, Fever Eyes: denies: Recent Change in Vision HENT: denies: Nasal Congestion, Throat Pain Neck: denies: Stiffness, Tenderness Cardiovascular: reports: Edema, Shortness of Breath. denies: Chest Pain, Palpitations Respiratory: reports: Cough, SOB on Exertion. denies: Hemoptysis, Wheezing Gastrointestinal: denies: Abdominal Pain, Nausea, Vomiting Genitourinary: denies: Dysuria, Hematuria Neurological: denies: Dizziness, Headache Endocrine: denies: Unexplained Weight Loss Physical Exam Vital Sings: Vital Signs Temperature 97.4 F L 07/11/19 11:24 Pulse Rate 64 07/11/19 11:24 Respiratory Rate 22 H 07/11/19 11:24 Blood Pressure 110/67 07/11/19 11:24 O2 Sat by Pulse Oximetry (%) 96 07/11/19 11:24 Constitutional: Yes: Calm Eyes: Yes: Conjunctiva Clear, EOM Intact HENT: Yes: Atraumatic, Normocephalic Neck: Yes: Supple, Trachea Midline Cardiovascular: Yes: Pulse Irregular Respiratory: Yes: Diminished (decreased breath sounds at the bases) ...Clubbing: No Gastrointestinal: Yes: Normal Bowel Sounds, Soft. No: Tenderness Edema: Yes Neurological: Yes: Alert Labs: CBC, BMP 07/11/19 08:25 07/11/19 08:25 Imaging - Results Chest X-ray: Report Reviewed, Image Reviewed Cat Scan: Report Reviewed, Image Reviewed (bilateral effusions R>L with compressive atelectasis) Problem List - Problems (1) Acute on chronic diastolic (congestive) heart failure Code(s): I50.33 - ACUTE ON CHRONIC DIASTOLIC (CONGESTIVE) HEART FAILURE (2) Pleural effusion Code(s): J90 - PLEURAL EFFUSION, NOT ELSEWHERE CLASSIFIED (3) Atrial fibrillation Code(s): I48.91 - UNSPECIFIED ATRIAL FIBRILLATION Assessment/Plan Acute on Chronic Diastolic Heart Failure Atrial Fibrillation Pleural Effusions from above CAD CKD HTN DM Hyperlipidemia - IV lasix - monitor urine output, creatinine - daily weights - O2 to keep SpO2 >90% - rate control - continue anticoagulation - monitor CXR with diuresis - can consider thoracentesis if not responding to diuresis or if pt with worsening symptoms Thank you for this consult Julien Van MD
[2019-07-11] MEDS ORDERED: FLU VACCINE QUAD 60 MCG/0.5 ML (MDV 19-20) IM ONE (13:45)
[2019-07-11] MEDS ORDERED: HALOPERIDOL LACTATE 5 MG/ML IM PRN (23:39)
--- NOTE | 2019-07-11 23:47 | PN ---
Progress Note (short form) - Note Progress Note: patient seen and examined in room sitting up in chair + sob rosacea O2 in place Vital Signs Period Temp Pulse Resp BP Sys/Braga Pulse Ox Last 24 Hr 97.4 F-98.2 F 62-84 19-24 110-136/65-88 96-100 Intake & Output 07/08/19 07/09/19 07/10/19 07/11/19 23:59 23:59 23:59 23:59 Intake Total 620 Output Total 900 Balance -280 Weight 164 lb 164 lb telemetry a fib 64-78 speaks in short sentences / Short of breath heart S1/S2 irreg kristina lungs decreased at bases and laterally rhonchi to left base > right abd obese ext no edema CBC, BMP 07/11/19 08:25 07/11/19 08:25 INR, PTT INR 1.89 (0.83-1.09) H 07/11/19 08:25 Active Medications Acetaminophen (Tylenol -) 650 mg PO Q4H PRN PRN Reason: PAIN LEVEL 1-5 Albuterol/Ipratropium (Duoneb -) 1 amp NEB RQID [facility] Last Admin: 07/11/19 20:05 Dose: 1 amp Cholecalciferol (Vitamin D3 -) 1,000 unit PO DAILY [facility] Last Admin: 07/11/19 09:10 Dose: 1,000 unit Dutasteride (Avodart -) 0.5 mg PO DAILY [facility] Last Admin: 07/11/19 09:10 Dose: 0.5 mg Furosemide (Lasix Injection -) 40 mg IVPUSH BID@0600,1400 [facility] Last Admin: 07/11/19 14:54 Dose: 40 mg Haloperidol (Haldol Injection (Fast Acting) -) 2 mg IM Q6H PRN PRN Reason: AGITATION Isosorbide Mononitrate (Imdur -) 30 mg PO DAILY [facility] Last Admin: 07/11/19 09:10 Dose: 30 mg Levothyroxine Sodium (Synthroid -) 12.5 mcg PO AM [facility] Last Admin: 07/11/19 07:03 Dose: 12.5 mcg Metoprolol Tartrate (Lopressor -) 50 mg PO BID [facility] Last Admin: 07/11/19 22:26 Dose: 50 mg Non-Formulary Medication (Vit B12/Intrinsic Fact/Folate [Intrinsi G71-Hbnctd Tablet]) 1 each PO DAILY [facility] Sitagliptin Phosphate (Januvia -) 50 mg PO DAILY@0700 [facility] Last Admin: 07/11/19 07:03 Dose: 50 mg Ursodiol (Actigal -) 300 mg PO BID [facility] Last Admin: 07/11/19 22:26 Dose: 300 mg Warfarin Sodium (Coumadin -) 2 mg PO DAILY@1800 [facility] Assmt / Plan # acute on chronic dHF Iv lasix / daily weights / I&Os / follow CXR trend renal function Followed by Cardio Dr Isaac consult ordered # atrial Fib on coumadin with therapeutic INR continue 2 mg q day discusss change to NOAC with cardio rate control -- continue telemetry # pleural effusion likely all HF no inc in wbc / no fever or chills - less likey PNA continue lasix appreciate Pulm consult - agree with Tap if unsuccessful with diuretic # CKD close to baseline Cr will trend with inc in lasix # HTN continue meds - currently well controlled # DM continue Januvia A1C 6.9 -- well controlled # HLD fasting lipids reviewed
[2019-07-12] MEDS: FUROSEMIDE 40 MG/4 ML INJECTABLE VIAL IVPUSH SCH ×2 (05:57→13:46)
[2019-07-12] MEDS: sitaGLIPtin PHOSPHATE 50 MG TABLET PO SCH (05:59)
[2019-07-12] MEDS: LEVOTHYROXINE NA 25 MCG TABLET (FP) PO SCH (05:59)
[2019-07-12 07:01] LABS: BASO % 0.7 % (0-2.0); EOS % 1.8 % (0-4.5); HEMATOCRIT 41.4 % (35.4-49); HEMOGLOBIN 13.3 GM/dL (11.7-16.9); LYMPH % 19.6 % (8-40); MCH 31.7 pg (25.7-33.7); MEAN CELL VOLUME 99.2 fl (80-96); MEAN PLT VOLUME 8.5 fl (7.5-11.1); MONO % 15.3 % (3.8-10.2); NEUT % 62.6 % (42.8-82.8); PLATELET COUNT 155 K/MM3 (134-434); RBC 4.18 M/mm3 (4.00-5.60); RDW 15.8 % (11.9-15.9); WHITE BLOOD COUNT 7.4 K/mm3 (4.0-10.0)
[2019-07-12 07:11] LABS: BLOOD UREA NITROGEN 30.7 mg/dL (7-18); CREATININE 1.7 mg/dL (0.55-1.3); MAGNESIUM 2.1 mg/dL (1.8-2.4); POTASSIUM 3.8 mmol/L (3.5-5.1)
[2019-07-12] MEDS: ALBUTEROL SO4 2.5/IPRATROPIUM 0.5 INH SOL 3 ML VIAL.NEB. NEB SCH ×4 (07:45→20:00)
[2019-07-12 08:01] LABS: INR 1.79 (0.83-1.09); PROTHROMBIN TIME (PATIENT) 21.2 SEC (9.7-13.0)
[2019-07-12] MEDS ORDERED: PT OWN MED DRAWER 7, Y5N ONE (10:20)
[2019-07-12] MEDS: ISOSORBIDE MONONITRATE 30 MG TAB.SR.24H (FP) PO SCH (10:37)
[2019-07-12] MEDS: METOPROLOL TARTRATE 50 MG TABLET (FP) PO SCH ×2 (10:37→21:41)
[2019-07-12] MEDS: DUTASTERIDE 0.5 MG CAP (FP) PO SCH (10:37)
[2019-07-12] MEDS: URSODIOL 300 MG CAPSULE PO SCH ×2 (10:37→21:41)
[2019-07-12] MEDS: CHOLECALCIFEROL (VIT D3) 1,000 UNIT (25 MCG) TABLET PO SCH (10:37)
--- NOTE | 2019-07-12 10:52 | PN ---
Progress Note, Physician History of Present Illness: PULMONARY AWAKE,LESS DYSPNEIC,LESS CONGESTED - Current Medication List Current Medications: Active Medications Acetaminophen (Tylenol -) 650 mg PO Q4H PRN PRN Reason: PAIN LEVEL 1-5 Albuterol/Ipratropium (Duoneb -) 1 amp NEB RQID [facility] Last Admin: 07/12/19 07:45 Dose: 1 amp Cholecalciferol (Vitamin D3 -) 1,000 unit PO DAILY [facility] Last Admin: 07/12/19 10:37 Dose: 1,000 unit Dutasteride (Avodart -) 0.5 mg PO DAILY [facility] Last Admin: 07/12/19 10:37 Dose: 0.5 mg Furosemide (Lasix Injection -) 40 mg IVPUSH BID@0600,1400 [facility] Last Admin: 07/12/19 05:57 Dose: 40 mg Haloperidol (Haldol Injection (Fast Acting) -) 2 mg IM Q6H PRN PRN Reason: AGITATION Last Admin: 07/12/19 01:20 Dose: 2 mg Isosorbide Mononitrate (Imdur -) 30 mg PO DAILY [facility] Last Admin: 07/12/19 10:37 Dose: 30 mg Levothyroxine Sodium (Synthroid -) 12.5 mcg PO AM [facility] Last Admin: 07/12/19 05:59 Dose: 12.5 mcg Metoprolol Tartrate (Lopressor -) 50 mg PO BID [facility] Last Admin: 07/12/19 10:37 Dose: 50 mg Non-Formulary Medication (Vit B12/Intrinsic Fact/Folate [Intrinsi Z92-Yixyzl Tablet]) 1 each PO DAILY [facility] Sitagliptin Phosphate (Januvia -) 50 mg PO DAILY@0700 [facility] Last Admin: 07/12/19 05:59 Dose: 50 mg Ursodiol (Actigal -) 300 mg PO BID [facility] Last Admin: 07/12/19 10:37 Dose: 300 mg Warfarin Sodium (Coumadin -) 2 mg PO DAILY@1800 [facility] - Objective Vital Signs: Vital Signs Temperature 97.8 F 07/12/19 06:00 Pulse Rate 92 H 07/12/19 09:00 Respiratory Rate 24 H 07/12/19 09:00 Blood Pressure 149/82 07/12/19 09:00 O2 Sat by Pulse Oximetry (%) 96 07/11/19 21:00 Constitutional: Yes: Well Nourished, Calm Eyes: Yes: WNL HENT: Yes: WNL Neck: Yes: WNL Cardiovascular: Yes: Pulse Irregular, S1, S2 Respiratory: Yes: Rales (DURGA RALES) Gastrointestinal: Yes: Normal Bowel Sounds, Soft Extremities: Yes: WNL Edema: Yes Labs: CBC, BMP 07/12/19 06:05 07/12/19 06:05 INR, PTT INR 1.79 (0.83-1.09) H 07/12/19 06:05 Assessment/Plan Problem List - Problems (1) Acute on chronic diastolic (congestive) heart failure Code(s): I50.33 - ACUTE ON CHRONIC DIASTOLIC (CONGESTIVE) HEART FAILURE (2) Pleural effusion Code(s): J90 - PLEURAL EFFUSION, NOT ELSEWHERE CLASSIFIED (3) Atrial fibrillation Code(s): I48.91 - UNSPECIFIED ATRIAL FIBRILLATION Assessment/Plan Acute on Chronic Diastolic Heart Failure Atrial Fibrillation Pleural Effusions from above CAD CKD HTN DM Hyperlipidemia - IV lasix - monitor urine output, creatinine - daily weights - O2 to keep SpO2 >90% - rate control - anticoagulation - monitor CXR with diuresis - consider thoracentesis if not responding to diuresis or if pt with worsening symptoms DR BAXTER
--- NOTE | 2019-07-12 12:21 | PN ---
Progress Note (short form) - Note Progress Note: patient seen and examined in room appears more comfortable rosacea O2 in place Vital Signs Period Temp Pulse Resp BP Sys/Braga Pulse Ox Last 24 Hr 97.5 F-98.2 F 65-92 20-24 125-149/65-88 96-98 Intake & Output 07/09/19 07/10/19 07/11/19 07/12/19 23:59 23:59 23:59 23:59 Intake Total 1030 460 Output Total 2700 300 Balance -1670 160 Weight 164 lb 164 lb telemetry a fib 64-78 alert / no distress / moist cough heart S1/S2 irreg kristina lungs decreased at bases and laterally rhonchi to left base > right dullness to right base abd obese ext no edema CBC, BMP 07/12/19 06:05 07/12/19 06:05 CBC, BMP 07/11/19 08:25 07/11/19 08:25 INR, PTT INR 1.79 (0.83-1.09) H 07/12/19 06:05 CXR --ordered Active Medications Acetaminophen (Tylenol -) 650 mg PO Q4H PRN PRN Reason: PAIN LEVEL 1-5 Albuterol/Ipratropium (Duoneb -) 1 amp NEB RQID [facility] Last Admin: 07/12/19 11:50 Dose: 1 amp Cholecalciferol (Vitamin D3 -) 1,000 unit PO DAILY [facility] Last Admin: 07/12/19 10:37 Dose: 1,000 unit Dutasteride (Avodart -) 0.5 mg PO DAILY [facility] Last Admin: 07/12/19 10:37 Dose: 0.5 mg Furosemide (Lasix Injection -) 40 mg IVPUSH BID@0600,1400 [facility] Last Admin: 07/12/19 05:57 Dose: 40 mg Haloperidol (Haldol Injection (Fast Acting) -) 2 mg IM Q6H PRN PRN Reason: AGITATION Last Admin: 07/12/19 01:20 Dose: 2 mg Isosorbide Mononitrate (Imdur -) 30 mg PO DAILY [facility] Last Admin: 07/12/19 10:37 Dose: 30 mg Levothyroxine Sodium (Synthroid -) 12.5 mcg PO AM [facility] Last Admin: 07/12/19 05:59 Dose: 12.5 mcg Metoprolol Tartrate (Lopressor -) 50 mg PO BID [facility] Last Admin: 07/12/19 10:37 Dose: 50 mg Non-Formulary Medication (Vit B12/Intrinsic Fact/Folate [Intrinsi L91-Aczxcp Tablet]) 1 each PO DAILY [facility] Sitagliptin Phosphate (Januvia -) 50 mg PO DAILY@0700 [facility] Last Admin: 07/12/19 05:59 Dose: 50 mg Ursodiol (Actigal -) 300 mg PO BID [facility] Last Admin: 07/12/19 10:37 Dose: 300 mg Warfarin Sodium (Coumadin -) 2 mg PO DAILY@1800 [facility] Assmt / Plan # acute on chronic dHF Iv lasix / daily weights / I&Os / follow CXR trend renal function Followed by Cardio Dr Isaac consult ordered # atrial Fib on coumadin with therapeutic INR continue 2 mg q day discusss change to NOAC with cardio rate control -- continue telemetry # pleural effusion likely all HF no inc in wbc / no fever or chills - less likey PNA continue lasix appreciate Pulm consult - agree with Tap if unsuccessful with diuretic # CKD close to baseline Cr will trend with inc in lasix # HTN continue meds - currently well controlled # DM continue Januvia A1C 6.9 -- well controlled # HLD fasting lipids reviewed
--- NOTE | 2019-07-12 14:25 | CON.CARD ---
Consult Consult Specialty:: Cardiology Referred by:: Dr. Friedman Reason for Consultation:: Cardiac evaluation - History of Present Illness Chief Complaint: Shortness of breath History of Present Illness: Patient is an 84 year old male (known to Dr. Terell Welsh) with underlying history of persistent AF [id number] score of 6, HTN, hypercholesterolemia, type 2 DM, CKD, hypothyroidism and CAD s/p WI and PCI (balloon angioplasty to RCA) who presented to [facility] with altered mental status and increased shortness of breath. Earlier this year, he was admitted with acute hypoxic respiratory failure related to heart failure and with AF with RVR. He is currently a poor historian. History was obtained from prior medical record. - History Source History Provided By: Medical Record Limitations to Obtaining History: Clinical Condition - Past Medical History Cardio/Vascular: Yes: AFIB, CAD, HTN, Hyperlipdemia Renal/: Yes: Renal Inusuff Endocrine: Yes: Diabetes Mellitus, Hypothyroidism - Alcohol/Substance Use Hx Alcohol Use: No - Smoking History Smoking history: Never smoked Have you smoked in the past 12 months: No Aproximately how many cigarettes per day: 1 Home Medications - Allergies Allergies/Adverse Reactions: Allergies Allergy/AdvReac Type Severity Reaction Status Date / Time No Known Drug Allergies Allergy Verified 08/22/14 08:49 - Home Medications Home Medications: Ambulatory Orders Isosorbide Mononitrate [Imdur] 30 mg PO DAILY 08/21/14 Sitagliptin Phosphate [Januvia] 50 mg PO DAILY 08/21/14 Acetaminophen [Tylenol] 650 mg PO PRN PRN 02/27/15 Cholecalciferol (Vitamin D3) [Vitamin D3] 1,000 unit PO DAILY 02/27/15 Dutasteride [Avodart] 0.5 mg PO DAILY 02/04/17 Vit B12/Intrinsic Fact/Folate [Intrinsi B06-Lvfciw Tablet] 1 each PO DAILY 03/02 Levothyroxine [Synthroid -] 12.5 mcg PO AM tablet 03/16/19 Metoprolol Tartrate [Lopressor -] 50 mg PO BID tablet 03/16/19 Prednisone See Taper PO DAILY 8 Days #20 tablet 03/16/19 Ursodiol [Actigal -] 300 mg PO BID capsule 03/16/19 Warfarin Na [Coumadin -] 2 mg PO DAILY@1800 30 Days #30 tablet 03/16/19 Albuterol 2.5/Ipratropium 0.5 [Duoneb -] 1 amp NEB QID PRN 07/11/19 Famotidine 20 mg PO DAILY 07/11/19 Fluticasone/Vilanterol [Breo Ellipta 100-25 Mcg INH] 1 each IH DAILY 07/11/19 Folic Acid 1 mg PO DAILY 07/11/19 Furosemide [Lasix] 20 mg PO ASDIR 07/11/19 Family Medical History Family History: Unable to Obtain Review of Systems Unable to obtain ROS, reason: Difficult to obtain Vital Signs: Vital Signs Temperature 97.8 F 07/12/19 06:00 Pulse Rate 92 H 07/12/19 09:00 Respiratory Rate 24 H 07/12/19 09:00 Blood Pressure 149/82 07/12/19 09:00 O2 Sat by Pulse Oximetry (%) 96 07/11/19 21:00 HENT: Yes: Atraumatic Neck: Yes: Supple Respiratory: Yes: Diminished Gastrointestinal: Yes: Normal Bowel Sounds, Soft. No: Tenderness Cardiovascular: Yes: Pulse Irregular JVD: No PMI: Non-Displaced Heart Sounds: Yes: S1, S2. No: Gallop Edema: No - Other Data Labs, Other Data: CBC, BMP 07/12/19 06:05 07/12/19 06:05 INR, PTT INR 1.79 (0.83-1.09) H 07/12/19 06:05 Atrial fibrillation, inferior-posterior infarct Echo: Report Reviewed Imaging - Results Chest X-ray: Report Reviewed (Cardiomegaly, pleural effusion) Cat Scan: Report Reviewed (Chest CT noted result) EKG: Report Reviewed Problem List - Problems (1) Acute on chronic diastolic (congestive) heart failure Code(s): I50.33 - ACUTE ON CHRONIC DIASTOLIC (CONGESTIVE) HEART FAILURE (2) Pleural effusion Code(s): J90 - PLEURAL EFFUSION, NOT ELSEWHERE CLASSIFIED (3) Acute respiratory failure with hypoxia Code(s): J96.01 - ACUTE RESPIRATORY FAILURE WITH HYPOXIA (4) Atrial fibrillation Code(s): I48.91 - UNSPECIFIED ATRIAL FIBRILLATION (5) Chronic kidney disease (CKD) Code(s): N18.9 - CHRONIC KIDNEY DISEASE, UNSPECIFIED Qualifiers: Chronic kidney disease stage: stage 3 (moderate) Qualified Code(s): N18.3 - Chronic kidney disease, stage 3 (moderate) (6) HTN (hypertension) Code(s): I10 - ESSENTIAL (PRIMARY) HYPERTENSION Qualifiers: Hypertension type: essential hypertension Qualified Code(s): I10 - Essential (primary) hypertension (7) Hyperlipidemia Code(s): E78.5 - HYPERLIPIDEMIA, UNSPECIFIED Qualifiers: Hyperlipidemia type: pure hypercholesterolemia Qualified Code(s): E78.00 - Pure hypercholesterolemia, unspecified; E78.0 - Pure hypercholesterolemia (8) Hypothyroid Code(s): E03.9 - HYPOTHYROIDISM, UNSPECIFIED Qualifiers: Hypothyroidism type: unspecified Qualified Code(s): E03.9 - Hypothyroidism , unspecified Assessment/Plan 1. Shortness of breath with pleural effusion c/w acute on chronic LV diastolic failure 2. HTN/HCVD 3. Hypercholesterolemia 4. Type 2 DM 5. Persistent AF with [id number] score of 6 6. Hypothyroidism 7. CAD s/p PCI (balloon angioplasty) 8. Altered mental status 9. CKD PLAN: 1. Continue Metoprolol as tolerated 2. Diuretics - Lasix IV and monitor renal function and electrolytes 3. Echocardiography noted 4. Monitor mental status 5. Continue Imdur as tolerated 6. Warfarin with close follow up of INR Further plans are to follow Michael Crawford MD
[2019-07-12] MEDS: WARFARIN NA 2 MG TABLET (UD) PO SCH (21:40)
[2019-07-13] MEDS: sitaGLIPtin PHOSPHATE 50 MG TABLET PO SCH (06:47)
[2019-07-13] MEDS: FUROSEMIDE 40 MG/4 ML INJECTABLE VIAL IVPUSH SCH ×2 (06:47→16:23)
[2019-07-13] MEDS: LEVOTHYROXINE NA 25 MCG TABLET (FP) PO SCH (06:47)
[2019-07-13 07:07] LABS: BASO % 0.8 % (0-2.0); EOS % 1.8 % (0-4.5); HEMATOCRIT 41.1 % (35.4-49); HEMOGLOBIN 13.3 GM/dL (11.7-16.9); MCH 32.5 pg (25.7-33.7); MCHC 32.5 g/dl (32.0-35.9); MEAN PLT VOLUME 8.5 fl (7.5-11.1); MONO % 18.1 % (3.8-10.2); NEUT % 58.3 % (42.8-82.8); PLATELET COUNT 149 K/MM3 (134-434); RBC 4.11 M/mm3 (4.00-5.60); WHITE BLOOD COUNT 6.5 K/mm3 (4.0-10.0)
[2019-07-13] MEDS: ALBUTEROL SO4 2.5/IPRATROPIUM 0.5 INH SOL 3 ML VIAL.NEB. NEB SCH ×4 (07:15→20:50)
[2019-07-13 07:48] LABS: BLOOD UREA NITROGEN 26.5 mg/dL (7-18); CALCIUM 8.8 mg/dL (8.5-10.1); CREATININE 1.6 mg/dL (0.55-1.3); MAGNESIUM 2.2 mg/dL (1.8-2.4); POTASSIUM 3.5 mmol/L (3.5-5.1)
[2019-07-13 08:00] LABS: INR 1.59 (0.83-1.09); PROTHROMBIN TIME (PATIENT) 18.8 SEC (9.7-13.0)
--- NOTE | 2019-07-13 11:11 | PN ---
Progress Note (short form) - Note Progress Note: patient seen and examined in room appears more comfortable rosacea O2 in place hacking moist cough -yet non productive Vital Signs Period Temp Pulse Resp BP Sys/Braga Pulse Ox Last 24 Hr 97.7 F-98.2 F 76-104 20-20 102-134/65-82 96 Intake & Output 07/10/19 07/11/19 07/12/19 07/13/19 23:59 23:59 23:59 23:59 Intake Total 1030 1210 260 Output Total 2700 1600 Balance -1670 -390 260 Weight 164 lb 164 lb daily weights NOT DONE telemetry a fib 64-78 alert / no distress / moist cough heart S1/S2 irreg kristina lungs decreased at bases and laterally rhonchi to left base > right dullness to right base abd obese ext no edema await am CXR CBC, BMP 07/13/19 06:00 07/13/19 06:00 CBC, BMP 07/12/19 06:05 07/12/19 06:05 INR, PTT INR 1.59 (0.83-1.09) H 07/13/19 06:00 INR, PTT INR 1.79 (0.83-1.09) H 07/12/19 06:05 CXR --ordered Active Medications Acetaminophen (Tylenol -) 650 mg PO Q4H PRN PRN Reason: PAIN LEVEL 1-5 Albuterol/Ipratropium (Duoneb -) 1 amp NEB RQID [facility] Last Admin: 07/13/19 07:15 Dose: 1 amp Cholecalciferol (Vitamin D3 -) 1,000 unit PO DAILY [facility] Last Admin: 07/12/19 10:37 Dose: 1,000 unit Dutasteride (Avodart -) 0.5 mg PO DAILY [facility] Last Admin: 07/12/19 10:37 Dose: 0.5 mg Furosemide (Lasix Injection -) 40 mg IVPUSH BID@0600,1400 [facility] Last Admin: 07/13/19 06:47 Dose: 40 mg Haloperidol (Haldol Injection (Fast Acting) -) 2 mg IM Q6H PRN PRN Reason: AGITATION Last Admin: 07/12/19 01:20 Dose: 2 mg Isosorbide Mononitrate (Imdur -) 30 mg PO DAILY [facility] Last Admin: 07/12/19 10:37 Dose: 30 mg Levothyroxine Sodium (Synthroid -) 12.5 mcg PO AM [facility] Last Admin: 07/13/19 06:47 Dose: 12.5 mcg Metoprolol Tartrate (Lopressor -) 50 mg PO BID [facility] Last Admin: 07/12/19 21:41 Dose: 50 mg Sitagliptin Phosphate (Januvia -) 50 mg PO DAILY@0700 [facility] Last Admin: 07/13/19 06:47 Dose: 50 mg Ursodiol (Actigal -) 300 mg PO BID [facility] Last Admin: 07/12/19 21:41 Dose: 300 mg Warfarin Sodium (Coumadin -) 2 mg PO DAILY@1800 [facility] Last Admin: 07/12/19 21:40 Dose: 2 mg Assmt / Plan # acute on chronic dHF Iv lasix / daily weights / I&Os / follow CXR trend renal function Followed by Cardio Dr Isaac consult appreciated # atrial Fib on coumadin with therapeutic INR continue 2 mg q day discusss change to NOAC with cardio rate control -- continue telemetry # pleural effusion likely all HF no inc in wbc / no fever or chills - less likey PNA continue lasix appreciate Pulm consult - agree with Tap if unsuccessful with diuretic # CKD close to baseline Cr will trend with inc in lasix # HTN continue meds - currently well controlled # DM continue Januvia A1C 6.9 -- well controlled # HLD fasting lipids reviewed
[2019-07-13] MEDS: ISOSORBIDE MONONITRATE 30 MG TAB.SR.24H (FP) PO SCH (11:52)
[2019-07-13] MEDS: CHOLECALCIFEROL (VIT D3) 1,000 UNIT (25 MCG) TABLET PO SCH (11:52)
[2019-07-13] MEDS ORDERED: PT OWN MED DRAWER 7, Y5N ONE (11:52)
[2019-07-13] MEDS: METOPROLOL TARTRATE 50 MG TABLET (FP) PO SCH ×2 (11:52→22:11)
[2019-07-13] MEDS: URSODIOL 300 MG CAPSULE PO SCH ×2 (11:52→22:11)
[2019-07-13] MEDS: DUTASTERIDE 0.5 MG CAP (FP) PO SCH (11:53)
--- NOTE | 2019-07-13 12:24 | PN ---
Progress Note (short form) - Note Progress Note: PULMONARY States breathing better. No cough or wheezing. Vital Signs Period Temp Pulse Resp BP Sys/Braga Pulse Ox Last 24 Hr 97.7 F-98.2 F 76-104 20-20 102-134/65-82 96 Intake & Output 07/10/19 07/11/19 07/12/19 07/13/19 23:59 23:59 23:59 23:59 Intake Total 1030 1210 260 Output Total 2700 1600 Balance -1670 -390 260 Weight 74.389 kg 74.389 kg Gen: more alert, awake Heart: RRR Lung: decreased breath sounds right base Abd: soft, nontender Ext: no edema CBC, BMP 07/13/19 06:00 07/13/19 06:00 Active Medications Acetaminophen (Tylenol -) 650 mg PO Q4H PRN PRN Reason: PAIN LEVEL 1-5 Albuterol/Ipratropium (Duoneb -) 1 amp NEB RQID [facility] Last Admin: 07/13/19 11:23 Dose: 1 amp Cholecalciferol (Vitamin D3 -) 1,000 unit PO DAILY [facility] Last Admin: 07/13/19 11:52 Dose: 1,000 unit Dutasteride (Avodart -) 0.5 mg PO DAILY [facility] Last Admin: 07/13/19 11:53 Dose: 0.5 mg Furosemide (Lasix Injection -) 40 mg IVPUSH BID@0600,1400 [facility] Last Admin: 07/13/19 06:47 Dose: 40 mg Haloperidol (Haldol Injection (Fast Acting) -) 2 mg IM Q6H PRN PRN Reason: AGITATION Last Admin: 07/12/19 01:20 Dose: 2 mg Isosorbide Mononitrate (Imdur -) 30 mg PO DAILY [facility] Last Admin: 07/13/19 11:52 Dose: 30 mg Levothyroxine Sodium (Synthroid -) 12.5 mcg PO AM [facility] Last Admin: 07/13/19 06:47 Dose: 12.5 mcg Metoprolol Tartrate (Lopressor -) 50 mg PO BID [facility] Last Admin: 07/13/19 11:52 Dose: 50 mg Sitagliptin Phosphate (Januvia -) 50 mg PO DAILY@0700 [facility] Last Admin: 07/13/19 06:47 Dose: 50 mg Ursodiol (Actigal -) 300 mg PO BID [facility] Last Admin: 07/13/19 11:52 Dose: 300 mg Warfarin Sodium (Coumadin -) 2 mg PO DAILY@1800 [facility] Last Admin: 07/12/19 21:40 Dose: 2 mg A/P Acute on Chronic Diastolic Heart Failure Atrial Fibrillation Pleural Effusions from above CAD CKD HTN DM Hyperlipidemia - continue lasix - monitor urine output, creatinine - daily weights - O2 to keep SpO2 >90% - rate control - continue anticoagulation - monitor CXR with diuresis Problem List - Problems (1) Acute on chronic diastolic (congestive) heart failure Code(s): I50.33 - ACUTE ON CHRONIC DIASTOLIC (CONGESTIVE) HEART FAILURE (2) Pleural effusion Code(s): J90 - PLEURAL EFFUSION, NOT ELSEWHERE CLASSIFIED (3) Atrial fibrillation Code(s): I48.91 - UNSPECIFIED ATRIAL FIBRILLATION
--- NOTE | 2019-07-13 12:30 | PN ---
Progress Note, Physician Chief Complaint: Awake and denies chest pain or shortness of breath History of Present Illness: Patient was seen and examined. Awake and alert. Chart was reviewed - Current Medication List Current Medications: Active Medications Acetaminophen (Tylenol -) 650 mg PO Q4H PRN PRN Reason: PAIN LEVEL 1-5 Albuterol/Ipratropium (Duoneb -) 1 amp NEB RQID [facility] Last Admin: 07/13/19 11:23 Dose: 1 amp Cholecalciferol (Vitamin D3 -) 1,000 unit PO DAILY [facility] Last Admin: 07/13/19 11:52 Dose: 1,000 unit Dutasteride (Avodart -) 0.5 mg PO DAILY [facility] Last Admin: 07/13/19 11:53 Dose: 0.5 mg Furosemide (Lasix Injection -) 40 mg IVPUSH BID@0600,1400 [facility] Last Admin: 07/13/19 06:47 Dose: 40 mg Haloperidol (Haldol Injection (Fast Acting) -) 2 mg IM Q6H PRN PRN Reason: AGITATION Last Admin: 07/12/19 01:20 Dose: 2 mg Isosorbide Mononitrate (Imdur -) 30 mg PO DAILY [facility] Last Admin: 07/13/19 11:52 Dose: 30 mg Levothyroxine Sodium (Synthroid -) 12.5 mcg PO AM [facility] Last Admin: 07/13/19 06:47 Dose: 12.5 mcg Metoprolol Tartrate (Lopressor -) 50 mg PO BID [facility] Last Admin: 07/13/19 11:52 Dose: 50 mg Sitagliptin Phosphate (Januvia -) 50 mg PO DAILY@0700 [facility] Last Admin: 07/13/19 06:47 Dose: 50 mg Ursodiol (Actigal -) 300 mg PO BID [facility] Last Admin: 07/13/19 11:52 Dose: 300 mg Warfarin Sodium (Coumadin -) 2 mg PO DAILY@1800 [facility] Last Admin: 07/12/19 21:40 Dose: 2 mg - Objective Vital Signs: Vital Signs Temperature 98.2 F 07/13/19 06:00 Pulse Rate 76 07/13/19 06:00 Respiratory Rate 20 07/13/19 06:00 Blood Pressure 132/80 07/13/19 06:00 O2 Sat by Pulse Oximetry (%) 96 07/12/19 21:00 Eyes: Yes: PERRL HENT: Yes: Atraumatic Neck: Yes: Supple Cardiovascular: Yes: Pulse Irregular, Murmur (Soft SM), S1, S2 Respiratory: Yes: Diminished Gastrointestinal: Yes: Normal Bowel Sounds, Soft. No: Tenderness Edema: No Labs: CBC, BMP 07/13/19 06:00 07/13/19 06:00 INR, PTT INR 1.59 (0.83-1.09) H 07/13/19 06:00 Problem List - Problems (1) Acute on chronic diastolic (congestive) heart failure Code(s): I50.33 - ACUTE ON CHRONIC DIASTOLIC (CONGESTIVE) HEART FAILURE (2) Pleural effusion Code(s): J90 - PLEURAL EFFUSION, NOT ELSEWHERE CLASSIFIED (3) Acute respiratory failure with hypoxia Code(s): J96.01 - ACUTE RESPIRATORY FAILURE WITH HYPOXIA (4) Atrial fibrillation Code(s): I48.91 - UNSPECIFIED ATRIAL FIBRILLATION (5) Chronic kidney disease (CKD) Code(s): N18.9 - CHRONIC KIDNEY DISEASE, UNSPECIFIED Qualifiers: Chronic kidney disease stage: stage 3 (moderate) Qualified Code(s): N18.3 - Chronic kidney disease, stage 3 (moderate) (6) HTN (hypertension) Code(s): I10 - ESSENTIAL (PRIMARY) HYPERTENSION Qualifiers: Hypertension type: essential hypertension Qualified Code(s): I10 - Essential (primary) hypertension (7) Hyperlipidemia Code(s): E78.5 - HYPERLIPIDEMIA, UNSPECIFIED Qualifiers: Hyperlipidemia type: pure hypercholesterolemia Qualified Code(s): E78.00 - Pure hypercholesterolemia, unspecified; E78.0 - Pure hypercholesterolemia (8) Hypothyroid Code(s): E03.9 - HYPOTHYROIDISM, UNSPECIFIED Qualifiers: Hypothyroidism type: unspecified Qualified Code(s): E03.9 - Hypothyroidism , unspecified Assessment/Plan 1. Shortness of breath with pleural effusion c/w acute on chronic LV diastolic failure 2. HTN/HCVD 3. Hypercholesterolemia 4. Type 2 DM 5. Persistent AF with [id number] score of 6 6. Hypothyroidism 7. CAD s/p PCI (balloon angioplasty) 8. Altered mental status 9. CKD PLAN: 1. Continue Metoprolol as tolerated 2. Diuretics - Lasix IV and monitor renal function and electrolytes 3. Continue Imdur as tolerated 4. Warfarin with close follow up of INR 5. DM management Further plans are to follow Michael Crawford MD
[2019-07-13 15:36] LABS: INR 1.5 (0.83-1.09); PROTHROMBIN TIME (PATIENT) 17.8 SEC (9.7-13.0)
[2019-07-13] MEDS: WARFARIN NA 2 MG TABLET (UD) PO SCH (17:21)
[2019-07-14] MEDS: sitaGLIPtin PHOSPHATE 50 MG TABLET PO SCH (06:06)
[2019-07-14] MEDS: LEVOTHYROXINE NA 25 MCG TABLET (FP) PO SCH (06:06)
[2019-07-14] MEDS: FUROSEMIDE 40 MG/4 ML INJECTABLE VIAL IVPUSH SCH ×2 (06:06→14:29)
[2019-07-14 06:47] LABS: BASO % 0.9 % (0-2.0); EOS % 2.4 % (0-4.5); HEMATOCRIT 40.2 % (35.4-49); HEMOGLOBIN 13.1 GM/dL (11.7-16.9); LYMPH % 21.9 % (8-40); MCH 32.2 pg (25.7-33.7); MCHC 32.6 g/dl (32.0-35.9); MEAN CELL VOLUME 98.6 fl (80-96); MEAN PLT VOLUME 8.5 fl (7.5-11.1); MONO % 16.1 % (3.8-10.2); NEUT % 58.7 % (42.8-82.8); PLATELET COUNT 153 K/MM3 (134-434); RBC 4.07 M/mm3 (4.00-5.60); RDW 15.5 % (11.9-15.9); WHITE BLOOD COUNT 7.3 K/mm3 (4.0-10.0)
[2019-07-14 07:27] LABS: BLOOD UREA NITROGEN 24.2 mg/dL (7-18); CALCIUM 8.7 mg/dL (8.5-10.1); CREATININE 1.4 mg/dL (0.55-1.3); POTASSIUM 3.4 mmol/L (3.5-5.1)
[2019-07-14] MEDS: ALBUTEROL SO4 2.5/IPRATROPIUM 0.5 INH SOL 3 ML VIAL.NEB. NEB SCH ×4 (07:50→20:15)
[2019-07-14] MEDS: CHOLECALCIFEROL (VIT D3) 1,000 UNIT (25 MCG) TABLET PO SCH (10:18)
[2019-07-14] MEDS: METOPROLOL TARTRATE 50 MG TABLET (FP) PO SCH ×2 (10:18→21:45)
[2019-07-14] MEDS: ISOSORBIDE MONONITRATE 30 MG TAB.SR.24H (FP) PO SCH (10:18)
[2019-07-14] MEDS: DUTASTERIDE 0.5 MG CAP (FP) PO SCH (10:18)
[2019-07-14] MEDS: URSODIOL 300 MG CAPSULE PO SCH ×2 (10:18→21:45)
--- NOTE | 2019-07-14 11:11 | PN ---
Progress Note, Physician Chief Complaint: pulmoonary alert,oob-chair,less congested,less cough - Current Medication List Current Medications: Active Medications Acetaminophen (Tylenol -) 650 mg PO Q4H PRN PRN Reason: PAIN LEVEL 1-5 Albuterol/Ipratropium (Duoneb -) 1 amp NEB RQID [facility] Last Admin: 07/14/19 07:50 Dose: 1 amp Cholecalciferol (Vitamin D3 -) 1,000 unit PO DAILY [facility] Last Admin: 07/14/19 10:18 Dose: 1,000 unit Dutasteride (Avodart -) 0.5 mg PO DAILY [facility] Last Admin: 07/14/19 10:18 Dose: 0.5 mg Furosemide (Lasix Injection -) 40 mg IVPUSH BID@0600,1400 [facility] Last Admin: 07/14/19 06:06 Dose: 40 mg Haloperidol (Haldol Injection (Fast Acting) -) 2 mg IM Q6H PRN PRN Reason: AGITATION Last Admin: 07/12/19 01:20 Dose: 2 mg Isosorbide Mononitrate (Imdur -) 30 mg PO DAILY [facility] Last Admin: 07/14/19 10:18 Dose: 30 mg Levothyroxine Sodium (Synthroid -) 12.5 mcg PO AM [facility] Last Admin: 07/14/19 06:06 Dose: 12.5 mcg Metoprolol Tartrate (Lopressor -) 50 mg PO BID [facility] Last Admin: 07/14/19 10:18 Dose: 50 mg Sitagliptin Phosphate (Januvia -) 50 mg PO DAILY@0700 [facility] Last Admin: 07/14/19 06:06 Dose: 50 mg Ursodiol (Actigal -) 300 mg PO BID [facility] Last Admin: 07/14/19 10:18 Dose: 300 mg Warfarin Sodium (Coumadin -) 2 mg PO DAILY@1800 [facility] Last Admin: 07/13/19 17:21 Dose: 2 mg - Objective Vital Signs: Vital Signs Temperature 97.4 F L 07/14/19 06:00 Pulse Rate 62 07/14/19 06:00 Respiratory Rate 18 07/14/19 06:00 Blood Pressure 115/64 07/14/19 06:00 O2 Sat by Pulse Oximetry (%) 98 07/13/19 22:00 Constitutional: Yes: Well Nourished, Calm Eyes: Yes: WNL HENT: Yes: WNL Neck: Yes: WNL Cardiovascular: Yes: Pulse Irregular, S1, S2 Respiratory: Yes: Diminished, Rales (few bibasilar rales) Gastrointestinal: Yes: Normal Bowel Sounds, Soft Extremities: Yes: WNL Edema: No Labs: CBC, BMP 07/14/19 05:24 07/14/19 05:24 INR, PTT INR 1.50 (0.83-1.09) H 07/13/19 14:32 - ....Imaging Chest X-ray: Report Reviewed, Image Reviewed (increased congestion) Assessment/Plan Problem List - Problems (1) Acute on chronic diastolic (congestive) heart failure Code(s): I50.33 - ACUTE ON CHRONIC DIASTOLIC (CONGESTIVE) HEART FAILURE (2) Pleural effusion Code(s): J90 - PLEURAL EFFUSION, NOT ELSEWHERE CLASSIFIED (3) Atrial fibrillation Code(s): I48.91 - UNSPECIFIED ATRIAL FIBRILLATION Assessment/Plan Acute on Chronic Diastolic Heart Failure Atrial Fibrillation Pleural Effusions from above CAD CKD HTN DM Hyperlipidemia - continue IV lasix - monitor urine output, creatinine - daily weights - O2 to keep SpO2 >90% - rate control - anticoagulation - monitor CXR with diuresis - consider thoracentesis if not responding to diuresis or if pt with worsening symptoms DR BAXTER
--- NOTE | 2019-07-14 12:18 | PN ---
Progress Note, Physician Chief Complaint: Awake and denies chest pain or shortness of breath Feels better today History of Present Illness: Patient was seen and examined. Awake and alert. Chart was reviewed Tolerating medical therapy - Current Medication List Current Medications: Active Medications Acetaminophen (Tylenol -) 650 mg PO Q4H PRN PRN Reason: PAIN LEVEL 1-5 Albuterol/Ipratropium (Duoneb -) 1 amp NEB RQID [facility] Last Admin: 07/14/19 07:50 Dose: 1 amp Cholecalciferol (Vitamin D3 -) 1,000 unit PO DAILY [facility] Last Admin: 07/14/19 10:18 Dose: 1,000 unit Dutasteride (Avodart -) 0.5 mg PO DAILY [facility] Last Admin: 07/14/19 10:18 Dose: 0.5 mg Furosemide (Lasix Injection -) 40 mg IVPUSH BID@0600,1400 [facility] Last Admin: 07/14/19 06:06 Dose: 40 mg Haloperidol (Haldol Injection (Fast Acting) -) 2 mg IM Q6H PRN PRN Reason: AGITATION Last Admin: 07/12/19 01:20 Dose: 2 mg Isosorbide Mononitrate (Imdur -) 30 mg PO DAILY [facility] Last Admin: 07/14/19 10:18 Dose: 30 mg Levothyroxine Sodium (Synthroid -) 12.5 mcg PO AM [facility] Last Admin: 07/14/19 06:06 Dose: 12.5 mcg Metoprolol Tartrate (Lopressor -) 50 mg PO BID [facility] Last Admin: 07/14/19 10:18 Dose: 50 mg Sitagliptin Phosphate (Januvia -) 50 mg PO DAILY@0700 [facility] Last Admin: 07/14/19 06:06 Dose: 50 mg Ursodiol (Actigal -) 300 mg PO BID [facility] Last Admin: 07/14/19 10:18 Dose: 300 mg Warfarin Sodium (Coumadin -) 2 mg PO DAILY@1800 [facility] Last Admin: 07/13/19 17:21 Dose: 2 mg - Objective Vital Signs: Vital Signs Temperature 97.4 F L 07/14/19 10:00 Pulse Rate 67 07/14/19 10:00 Respiratory Rate 18 07/14/19 10:00 Blood Pressure 115/64 07/14/19 10:00 O2 Sat by Pulse Oximetry (%) 98 07/14/19 09:00 Eyes: Yes: PERRL HENT: Yes: Atraumatic Neck: Yes: Supple Cardiovascular: Yes: Pulse Irregular, Murmur (Soft SM), S1, S2 Respiratory: Yes: Diminished Gastrointestinal: Yes: Normal Bowel Sounds, Soft. No: Tenderness Edema: Yes Additional Findings/Remarks: - Review of Systems Constitutional: denies: Chills, Fever Cardiovascular: denies Chest Pain. denies: Palpitations, (+) Shortness of Breath Respiratory: denies: Cough, Hemoptysis, Orthopnea, PND, (+) SOB, SOB on Exertion Gastrointestinal: denies: Abdominal Pain, Constipation, Diarrhea, Melena, Nausea , Rectal Bleeding, Vomiting Genitourinary: denies: Dysuria, Hematuria Musculoskeletal: denies: Back Pain, Joint Pain Neurological: denies: Dizziness, Headache, Seizure, Syncope Labs: CBC, BMP 07/14/19 05:24 07/14/19 05:24 INR, PTT INR 1.50 (0.83-1.09) H 07/13/19 14:32 - ....Imaging Chest X-ray: Report Reviewed (Right pleural fluid and congestive changes) Problem List - Problems (1) Acute on chronic diastolic (congestive) heart failure Code(s): I50.33 - ACUTE ON CHRONIC DIASTOLIC (CONGESTIVE) HEART FAILURE (2) Pleural effusion Code(s): J90 - PLEURAL EFFUSION, NOT ELSEWHERE CLASSIFIED (3) Acute respiratory failure with hypoxia Code(s): J96.01 - ACUTE RESPIRATORY FAILURE WITH HYPOXIA (4) Atrial fibrillation Code(s): I48.91 - UNSPECIFIED ATRIAL FIBRILLATION (5) Chronic kidney disease (CKD) Code(s): N18.9 - CHRONIC KIDNEY DISEASE, UNSPECIFIED Qualifiers: Chronic kidney disease stage: stage 3 (moderate) Qualified Code(s): N18.3 - Chronic kidney disease, stage 3 (moderate) (6) HTN (hypertension) Code(s): I10 - ESSENTIAL (PRIMARY) HYPERTENSION Qualifiers: Hypertension type: essential hypertension Qualified Code(s): I10 - Essential (primary) hypertension (7) Hyperlipidemia Code(s): E78.5 - HYPERLIPIDEMIA, UNSPECIFIED Qualifiers: Hyperlipidemia type: pure hypercholesterolemia Qualified Code(s): E78.00 - Pure hypercholesterolemia, unspecified; E78.0 - Pure hypercholesterolemia (8) Hypothyroid Code(s): E03.9 - HYPOTHYROIDISM, UNSPECIFIED Qualifiers: Hypothyroidism type: unspecified Qualified Code(s): E03.9 - Hypothyroidism , unspecified Assessment/Plan 1. Shortness of breath with pleural effusion c/w acute on chronic LV diastolic failure 2. HTN/HCVD 3. Hypercholesterolemia 4. Type 2 DM 5. Persistent AF with [id number] score of 6 6. Hypothyroidism 7. CAD s/p PCI (balloon angioplasty) 8. Altered mental status 9. CKD PLAN: 1. Continue Metoprolol as tolerated 2. Diuretics - Lasix IV and monitor renal function and electrolytes 3. Continue Imdur as tolerated 4. Warfarin with close follow up of INR 5. DM management 6. Pulmonary input noted regarding possible thoracentesis if clinically he does not improve and right pleural effusion persists Further plans are to follow Michael Crawford MD
[2019-07-14 13:32] LABS: INR 1.52 (0.83-1.09)
[2019-07-14] MEDS: WARFARIN NA 2 MG TABLET (UD) PO SCH (17:54)
[2019-07-14] MEDS ORDERED: PT OWN MED DRAWER 7, Y5N ONE (21:43)
[2019-07-14] MEDS ORDERED: POTASSIUM CHLORIDE TABS 20 MEQ TABLET.ER (FP) PO ONE (22:40)
--- NOTE | 2019-07-14 22:47 | PN ---
Progress Note (short form) - Note Progress Note: patient seen and examined in room appears more comfortable rosacea O2 in place moist cough - Vital Signs Period Temp Pulse Resp BP Sys/Braga Pulse Ox Last 24 Hr 97.4 F-98.2 F 62-82 18-20 115-127/45-73 98 Intake & Output 07/11/19 07/12/19 07/13/19 07/14/19 23:59 23:59 23:59 23:59 Intake Total 1030 1210 520 40 Output Total 2700 1600 1100 500 Balance -1670 -390 -580 -460 Weight 164 lb 205 lb 9.6 oz incorrect weights telemetry a fib 64-78 alert / no distress / moist cough heart S1/S2 irreg kristina lungs decreased at bases and laterally rhonchi to left base > right dullness to right base abd obese ext no edema CXR daily CBC, BMP 07/14/19 05:24 07/14/19 05:24 INR, PTT INR 1.52 (0.83-1.09) H 07/14/19 12:21 CBC, BMP 07/13/19 06:00 07/13/19 06:00 Active Medications Acetaminophen (Tylenol -) 650 mg PO Q4H PRN PRN Reason: PAIN LEVEL 1-5 Albuterol/Ipratropium (Duoneb -) 1 amp NEB RQID [facility] Last Admin: 07/14/19 20:15 Dose: 1 amp Cholecalciferol (Vitamin D3 -) 1,000 unit PO DAILY [facility] Last Admin: 07/14/19 10:18 Dose: 1,000 unit Dutasteride (Avodart -) 0.5 mg PO DAILY [facility] Last Admin: 07/14/19 10:18 Dose: 0.5 mg Furosemide (Lasix Injection -) 40 mg IVPUSH BID@0600,1400 [facility] Last Admin: 07/14/19 14:29 Dose: 40 mg Haloperidol (Haldol Injection (Fast Acting) -) 2 mg IM Q6H PRN PRN Reason: AGITATION Last Admin: 07/12/19 01:20 Dose: 2 mg Isosorbide Mononitrate (Imdur -) 30 mg PO DAILY [facility] Last Admin: 07/14/19 10:18 Dose: 30 mg Levothyroxine Sodium (Synthroid -) 12.5 mcg PO AM [facility] Last Admin: 07/14/19 06:06 Dose: 12.5 mcg Metoprolol Tartrate (Lopressor -) 50 mg PO BID [facility] Last Admin: 07/14/19 21:45 Dose: 50 mg Potassium Chloride (K-Dur -) 40 meq PO DAILY [facility] Potassium Chloride (K-Dur -) 40 meq PO ONCE ONE Stop: 07/14/19 22:41 Sitagliptin Phosphate (Januvia -) 50 mg PO DAILY@0700 [facility] Last Admin: 07/14/19 06:06 Dose: 50 mg Ursodiol (Actigal -) 300 mg PO BID [facility] Last Admin: 07/14/19 21:45 Dose: 300 mg Warfarin Sodium (Coumadin -) 2 mg PO DAILY@1800 [facility] Last Admin: 07/14/19 17:54 Dose: 2 mg Assmt / Plan # acute on chronic dHF Iv lasix / daily weights / I&Os / follow CXR trend renal function --improving Followed by Cardio Dr Isaac consult appreciated # atrial Fib on coumadin had therapeutic INR may need inc coumadin 2 mg q day discusss change to NOAC with cardio rate control -- continue telemetry # pleural effusion likely all HF no inc in wbc / no fever or chills - less likey PNA continue lasix appreciate Pulm consult - agree with Tap if unsuccessful with diuretic # hypokalemia replace lytes ck mag # CKD Cr improving with improvement in HF will trend with inc in lasix # HTN continue meds - currently well controlled # DM continue Januvia A1C 6.9 -- well controlled # HLD fasting lipids reviewed
[2019-07-15] MEDS: sitaGLIPtin PHOSPHATE 50 MG TABLET PO SCH (06:10)
[2019-07-15] MEDS: FUROSEMIDE 40 MG/4 ML INJECTABLE VIAL IVPUSH SCH ×2 (06:13→13:59)
[2019-07-15] MEDS: LEVOTHYROXINE NA 25 MCG TABLET (FP) PO SCH (06:14)
[2019-07-15 08:16] LABS: BLOOD UREA NITROGEN 26.6 mg/dL (7-18); CALCIUM 8.6 mg/dL (8.5-10.1); CREATININE 1.5 mg/dL (0.55-1.3); MAGNESIUM 2.1 mg/dL (1.8-2.4); POTASSIUM 3.5 mmol/L (3.5-5.1)
[2019-07-15] MEDS: ALBUTEROL SO4 2.5/IPRATROPIUM 0.5 INH SOL 3 ML VIAL.NEB. NEB SCH ×4 (08:37→21:00)
--- NOTE | 2019-07-15 09:14 | PN ---
Progress Note, Physician History of Present Illness: Patient is an 84 year old male (known to Dr. Terell Welsh) with underlying history of persistent AF [id number] score of 6, HTN, hypercholesterolemia, type 2 DM, CKD, hypothyroidism and CAD s/p TN and PCI (balloon angioplasty to RCA) who presented to [facility] with altered mental status and increased shortness of breath. Earlier this year, he was admitted with acute hypoxic respiratory failure related to heart failure and with AF with RVR. He is currently a poor historian. History was obtained from prior medical record. - Current Medication List Current Medications: Active Medications Acetaminophen (Tylenol -) 650 mg PO Q4H PRN PRN Reason: PAIN LEVEL 1-5 Albuterol/Ipratropium (Duoneb -) 1 amp NEB RQID [facility] Last Admin: 07/15/19 08:37 Dose: 1 amp Cholecalciferol (Vitamin D3 -) 1,000 unit PO DAILY [facility] Last Admin: 07/14/19 10:18 Dose: 1,000 unit Dutasteride (Avodart -) 0.5 mg PO DAILY [facility] Last Admin: 07/14/19 10:18 Dose: 0.5 mg Furosemide (Lasix Injection -) 40 mg IVPUSH BID@0600,1400 [facility] Last Admin: 07/15/19 06:13 Dose: 40 mg Haloperidol (Haldol Injection (Fast Acting) -) 2 mg IM Q6H PRN PRN Reason: AGITATION Last Admin: 07/12/19 01:20 Dose: 2 mg Isosorbide Mononitrate (Imdur -) 30 mg PO DAILY [facility] Last Admin: 07/14/19 10:18 Dose: 30 mg Levothyroxine Sodium (Synthroid -) 12.5 mcg PO AM [facility] Last Admin: 07/15/19 06:14 Dose: 12.5 mcg Metoprolol Tartrate (Lopressor -) 50 mg PO BID [facility] Last Admin: 07/14/19 21:45 Dose: 50 mg Potassium Chloride (K-Dur -) 40 meq PO DAILY [facility] Sitagliptin Phosphate (Januvia -) 50 mg PO DAILY@0700 [facility] Last Admin: 07/15/19 06:10 Dose: Not Given Ursodiol (Actigal -) 300 mg PO BID [facility] Last Admin: 07/14/19 21:45 Dose: 300 mg Warfarin Sodium (Coumadin -) 2 mg PO DAILY@1800 [facility] Last Admin: 07/14/19 17:54 Dose: 2 mg - Objective Vital Signs: Vital Signs Temperature 97.9 F 07/15/19 06:00 Pulse Rate 71 07/15/19 06:00 Respiratory Rate 18 07/15/19 06:00 Blood Pressure 145/91 07/15/19 06:00 O2 Sat by Pulse Oximetry (%) 96 07/14/19 21:00 Eyes: Yes: WNL, Conjunctiva Clear, EOM Intact HENT: Yes: WNL, Atraumatic, Normocephalic Neck: Yes: WNL, Supple, Trachea Midline Cardiovascular: Yes: Pulse Irregular, Murmur, S1, S2 Respiratory: Yes: Rhonchi Gastrointestinal: Yes: WNL, Normal Bowel Sounds Genitourinary: Yes: WNL Musculoskeletal: Yes: WNL Extremities: Yes: WNL Edema: Yes Integumentary: Yes: WNL Neurological: Yes: WNL, Alert, Oriented ...Motor Strength: WNL Psychiatric: Yes: WNL Labs: CBC, BMP 07/14/19 05:24 07/15/19 06:30 INR, PTT INR 1.52 (0.83-1.09) H 07/14/19 12:21 Assessment/Plan 1. Shortness of breath with pleural effusion c/w acute on chronic LV diastolic failure 2. HTN/HCVD 3. Hypercholesterolemia 4. Type 2 DM 5. Persistent AF with [id number] score of 6 6. Hypothyroidism 7. CAD s/p PCI (balloon angioplasty) 8. Altered mental status 9. CKD PLAN: 1. Continue Metoprolol as tolerated 2. Diuretics - Lasix IV and monitor renal function and electrolytes 3. Continue Imdur as tolerated 4. Warfarin with close follow up of INR 5. DM management 6. Pulmonary input noted regarding possible thoracentesis if clinically he does not improve and right pleural effusion persists Coverage for dr. Crawford
[2019-07-15] MEDS: URSODIOL 300 MG CAPSULE PO SCH ×2 (09:18→21:28)
[2019-07-15] MEDS: METOPROLOL TARTRATE 50 MG TABLET (FP) PO SCH ×2 (09:18→21:28)
[2019-07-15] MEDS: ISOSORBIDE MONONITRATE 30 MG TAB.SR.24H (FP) PO SCH (09:18)
[2019-07-15] MEDS: CHOLECALCIFEROL (VIT D3) 1,000 UNIT (25 MCG) TABLET PO SCH (09:18)
[2019-07-15] MEDS: DUTASTERIDE 0.5 MG CAP (FP) PO SCH (09:18)
[2019-07-15] MEDS: POTASSIUM CHLORIDE TABS 20 MEQ TABLET.ER (FP) PO SCH (09:58)
[2019-07-15 11:26] LABS: INR 1.44 (0.83-1.09); PROTHROMBIN TIME (PATIENT) 17.1 SEC (9.7-13.0)
--- NOTE | 2019-07-15 12:17 | PN ---
Progress Note (short form) - Note Progress Note: PULMONARY States breathing better. No cough or wheezing. CXR this AM showing decreased pleural effusion. Vital Signs Period Temp Pulse Resp BP Sys/Braga Pulse Ox Last 24 Hr 97.5 F-98 F 63-94 18-20 99-145/45-91 96 Intake & Output 07/12/19 07/13/19 07/14/19 07/15/19 23:59 23:59 23:59 23:59 Intake Total 1210 520 300 260 Output Total 1600 1100 1400 600 Balance -390 -580 -1100 -340 Weight 93.259 kg 90.718 kg Gen: NAD in chair Heart: RRR Lung: decreased breath sounds right base Abd: soft, nontender Ext: no edema CBC, BMP 07/14/19 05:24 07/15/19 06:30 Active Medications Acetaminophen (Tylenol -) 650 mg PO Q4H PRN PRN Reason: PAIN LEVEL 1-5 Albuterol/Ipratropium (Duoneb -) 1 amp NEB RQID [facility] Last Admin: 07/15/19 12:11 Dose: 1 amp Cholecalciferol (Vitamin D3 -) 1,000 unit PO DAILY [facility] Last Admin: 07/15/19 09:18 Dose: 1,000 unit Dutasteride (Avodart -) 0.5 mg PO DAILY [facility] Last Admin: 07/15/19 09:18 Dose: 0.5 mg Furosemide (Lasix Injection -) 40 mg IVPUSH BID@0600,1400 [facility] Last Admin: 07/15/19 06:13 Dose: 40 mg Haloperidol (Haldol Injection (Fast Acting) -) 2 mg IM Q6H PRN PRN Reason: AGITATION Last Admin: 07/12/19 01:20 Dose: 2 mg Isosorbide Mononitrate (Imdur -) 30 mg PO DAILY [facility] Last Admin: 07/15/19 09:18 Dose: 30 mg Levothyroxine Sodium (Synthroid -) 12.5 mcg PO AM [facility] Last Admin: 07/15/19 06:14 Dose: 12.5 mcg Metoprolol Tartrate (Lopressor -) 50 mg PO BID [facility] Last Admin: 07/15/19 09:18 Dose: 50 mg Potassium Chloride (K-Dur -) 40 meq PO DAILY [facility] Sitagliptin Phosphate (Januvia -) 50 mg PO DAILY@0700 [facility] Last Admin: 07/15/19 06:10 Dose: Not Given Ursodiol (Actigal -) 300 mg PO BID [facility] Last Admin: 07/15/19 09:18 Dose: 300 mg Warfarin Sodium (Coumadin -) 2 mg PO DAILY@1800 [facility] Last Admin: 07/14/19 17:54 Dose: 2 mg A/P Acute on Chronic Diastolic Heart Failure Atrial Fibrillation Pleural Effusions from above CAD CKD HTN DM Hyperlipidemia - continue lasix - monitor urine output, creatinine - daily weights - O2 to keep SpO2 >90% - rate control - continue anticoagulation - monitor CXR with diuresis Problem List - Problems (1) Acute on chronic diastolic (congestive) heart failure Code(s): I50.33 - ACUTE ON CHRONIC DIASTOLIC (CONGESTIVE) HEART FAILURE (2) Pleural effusion Code(s): J90 - PLEURAL EFFUSION, NOT ELSEWHERE CLASSIFIED (3) Atrial fibrillation Code(s): I48.91 - UNSPECIFIED ATRIAL FIBRILLATION
[2019-07-15] MEDS: WARFARIN NA 2 MG TABLET (UD) PO SCH (17:17)
--- NOTE | 2019-07-15 21:10 | PN ---
Progress Note (short form) - Note Progress Note: patient seen and examined in room sitting in chair having lunch breathing much improved Vital Signs Period Temp Pulse Resp BP Sys/Braga Pulse Ox Last 24 Hr 97.9 F-98.1 F 68-94 18-22 99-145/63-91 96-96 Intake & Output 07/12/19 07/13/19 07/14/19 07/15/19 23:59 23:59 23:59 23:59 Intake Total 1210 520 300 280 Output Total 1600 1100 1400 600 Balance -390 -580 -1100 -320 Weight 205 lb 9.6 oz 200 lb incorrect weights telemetry a fib 64-78 alert / no distress / moist cough heart S1/S2 irreg kristina lungs decreased at bases and laterally rales at bases abd obese ext no edema CXR daily CBC, BMP 07/14/19 05:24 07/15/19 06:30 INR, PTT INR 1.44 (0.83-1.09) H 07/15/19 10:25 INR 1.52 (0.83-1.09) H 07/14/19 12:21 CBC, BMP 07/13/19 06:00 07/13/19 06:00 Active Medications Acetaminophen (Tylenol -) 650 mg PO Q4H PRN PRN Reason: PAIN LEVEL 1-5 Albuterol/Ipratropium (Duoneb -) 1 amp NEB RQID [facility] Last Admin: 07/15/19 16:00 Dose: 1 amp Cholecalciferol (Vitamin D3 -) 1,000 unit PO DAILY [facility] Last Admin: 07/15/19 09:18 Dose: 1,000 unit Dutasteride (Avodart -) 0.5 mg PO DAILY [facility] Last Admin: 07/15/19 09:18 Dose: 0.5 mg Furosemide (Lasix Injection -) 40 mg IVPUSH BID@0600,1400 [facility] Last Admin: 07/15/19 13:59 Dose: 40 mg Haloperidol (Haldol Injection (Fast Acting) -) 2 mg IM Q6H PRN PRN Reason: AGITATION Last Admin: 07/12/19 01:20 Dose: 2 mg Isosorbide Mononitrate (Imdur -) 30 mg PO DAILY [facility] Last Admin: 07/15/19 09:18 Dose: 30 mg Levothyroxine Sodium (Synthroid -) 12.5 mcg PO AM [facility] Last Admin: 07/15/19 06:14 Dose: 12.5 mcg Metoprolol Tartrate (Lopressor -) 50 mg PO BID [facility] Last Admin: 07/15/19 09:18 Dose: 50 mg Potassium Chloride (K-Dur -) 40 meq PO DAILY [facility] Last Admin: 07/15/19 09:58 Dose: 40 meq Sitagliptin Phosphate (Januvia -) 50 mg PO DAILY@0700 [facility] Last Admin: 07/15/19 06:10 Dose: Not Given Ursodiol (Actigal -) 300 mg PO BID [facility] Last Admin: 07/15/19 09:18 Dose: 300 mg Warfarin Sodium (Coumadin -) 2 mg PO DAILY@1800 [facility] Last Admin: 07/15/19 17:17 Dose: 2 mg Assmt / Plan # acute on chronic dHF Iv lasix / daily weights / I&Os / follow CXR trend renal function --improving Followed by Cardio Dr Isaac consult appreciated # atrial Fib on coumadin had therapeutic INR may need inc coumadin 2 mg q day discusss change to NOAC with cardio rate control -- continue telemetry # pleural effusion likely all HF no inc in wbc / no fever or chills - less likey PNA continue lasix / follow CXR appreciate Pulm consult - agree with Tap if unsuccessful with diuretic # hypokalemia replace lytes ck mag # CKD Cr improving with improvement in HF will trend with inc in lasix # HTN continue meds - currently well controlled # DM continue Januvia A1C 6.9 -- well controlled # HLD fasting lipids reviewed
[2019-07-15] MEDS ORDERED: WARFARIN NA 2 MG TABLET (UD) PO ONE (21:11)
[2019-07-16] MEDS: sitaGLIPtin PHOSPHATE 50 MG TABLET PO SCH (06:20)
[2019-07-16] MEDS: LEVOTHYROXINE NA 25 MCG TABLET (FP) PO SCH (06:20)
[2019-07-16] MEDS: FUROSEMIDE 40 MG/4 ML INJECTABLE VIAL IVPUSH SCH ×2 (06:20→13:42)
[2019-07-16 07:10] LABS: INR 1.42 (0.83-1.09); PROTHROMBIN TIME (PATIENT) 16.8 SEC (9.7-13.0)
[2019-07-16 07:11] LABS: BLOOD UREA NITROGEN 30.4 mg/dL (7-18); CREATININE 1.5 mg/dL (0.55-1.3); POTASSIUM 3.9 mmol/L (3.5-5.1)
[2019-07-16] MEDS ORDERED: PT OWN MED DRAWER 7, Y5N ONE (08:40)
[2019-07-16] MEDS: ALBUTEROL SO4 2.5/IPRATROPIUM 0.5 INH SOL 3 ML VIAL.NEB. NEB SCH ×4 (09:26→19:39)
[2019-07-16] MEDS: URSODIOL 300 MG CAPSULE PO SCH ×2 (09:29→21:40)
[2019-07-16] MEDS: CHOLECALCIFEROL (VIT D3) 1,000 UNIT (25 MCG) TABLET PO SCH (09:29)
[2019-07-16] MEDS: ISOSORBIDE MONONITRATE 30 MG TAB.SR.24H (FP) PO SCH (09:29)
[2019-07-16] MEDS: METOPROLOL TARTRATE 50 MG TABLET (FP) PO SCH ×2 (09:29→21:34)
[2019-07-16] MEDS: POTASSIUM CHLORIDE TABS 20 MEQ TABLET.ER (FP) PO SCH (09:29)
[2019-07-16] MEDS: DUTASTERIDE 0.5 MG CAP (FP) PO SCH (09:29)
--- NOTE | 2019-07-16 11:37 | PN ---
Progress Note, Physician History of Present Illness: Patient is an 84 year old male (known to Dr. Terell Welsh) with underlying history of persistent AF [id number] score of 6, HTN, hypercholesterolemia, type 2 DM, CKD, hypothyroidism and CAD s/p UT and PCI (balloon angioplasty to RCA) who presented to [facility] with altered mental status and increased shortness of breath. Earlier this year, he was admitted with acute hypoxic respiratory failure related to heart failure and with AF with RVR. He is currently a poor historian. History was obtained from prior medical record. - Current Medication List Current Medications: Active Medications Acetaminophen (Tylenol -) 650 mg PO Q4H PRN PRN Reason: PAIN LEVEL 1-5 Albuterol/Ipratropium (Duoneb -) 1 amp NEB RQID [facility] Last Admin: 07/16/19 09:26 Dose: 1 amp Cholecalciferol (Vitamin D3 -) 1,000 unit PO DAILY [facility] Last Admin: 07/16/19 09:29 Dose: 1,000 unit Dutasteride (Avodart -) 0.5 mg PO DAILY [facility] Last Admin: 07/16/19 09:29 Dose: 0.5 mg Furosemide (Lasix Injection -) 40 mg IVPUSH BID@0600,1400 [facility] Last Admin: 07/16/19 06:20 Dose: 40 mg Haloperidol (Haldol Injection (Fast Acting) -) 2 mg IM Q6H PRN PRN Reason: AGITATION Last Admin: 07/12/19 01:20 Dose: 2 mg Isosorbide Mononitrate (Imdur -) 30 mg PO DAILY [facility] Last Admin: 07/16/19 09:29 Dose: 30 mg Levothyroxine Sodium (Synthroid -) 12.5 mcg PO AM [facility] Last Admin: 07/16/19 06:20 Dose: 12.5 mcg Metoprolol Tartrate (Lopressor -) 50 mg PO BID [facility] Last Admin: 07/16/19 09:29 Dose: 50 mg Potassium Chloride (K-Dur -) 40 meq PO DAILY [facility] Last Admin: 07/16/19 09:29 Dose: 40 meq Sitagliptin Phosphate (Januvia -) 50 mg PO DAILY@0700 [facility] Last Admin: 07/16/19 06:20 Dose: 50 mg Ursodiol (Actigal -) 300 mg PO BID [facility] Last Admin: 07/16/19 09:29 Dose: 300 mg Warfarin Sodium (Coumadin -) 2 mg PO DAILY@1800 [facility] Last Admin: 07/15/19 17:17 Dose: 2 mg - Objective Vital Signs: Vital Signs Temperature 98 F 07/16/19 08:10 Pulse Rate 67 07/16/19 08:10 Respiratory Rate 19 07/16/19 08:15 Blood Pressure 104/56 L 07/16/19 08:10 O2 Sat by Pulse Oximetry (%) 93 L 07/16/19 08:15 Eyes: Yes: WNL, Conjunctiva Clear, EOM Intact HENT: Yes: WNL, Atraumatic, Normocephalic Neck: Yes: WNL, Supple, Trachea Midline Cardiovascular: Yes: WNL, Pulse Irregular, S1, S2 Respiratory: Yes: WNL, Regular, CTA Bilaterally Gastrointestinal: Yes: WNL, Normal Bowel Sounds Genitourinary: Yes: WNL Musculoskeletal: Yes: WNL Extremities: Yes: WNL Edema: No Integumentary: Yes: WNL Neurological: Yes: WNL, Alert, Oriented ...Motor Strength: WNL Psychiatric: Yes: WNL Labs: CBC, BMP 07/14/19 05:24 07/16/19 06:23 INR, PTT INR 1.42 (0.83-1.09) H 07/16/19 06:23 Assessment/Plan 1. Shortness of breath with pleural effusion c/w acute on chronic LV diastolic failure 2. HTN/HCVD 3. Hypercholesterolemia 4. Type 2 DM 5. Persistent AF with [id number] score of 6 6. Hypothyroidism 7. CAD s/p PCI (balloon angioplasty) 8. Altered mental status 9. CKD PLAN: 1. Continue Metoprolol as tolerated 2. Diuretics - Lasix IV and monitor renal function and electrolytes 3. Continue Imdur as tolerated 4. Warfarin with close follow up of INR today 1.42 trending down. May consider increase dose of Warfarin and bridging with heparin ggt 5. DM management 6. Pulmonary input noted regarding possible thoracentesis if clinically he does not improve and right pleural effusion persists Coverage for dr. Crawford
--- NOTE | 2019-07-16 12:31 | PN ---
Progress Note (short form) - Note Progress Note: PULMONARY States breathing better. No cough or wheezing. Vital Signs Period Temp Pulse Resp BP Sys/Braga Pulse Ox Last 24 Hr 97.5 F-98.1 F 60-79 18-22 99-136/56-70 93-93 Intake & Output 07/13/19 07/14/19 07/15/19 07/16/19 23:59 23:59 23:59 23:59 Intake Total 520 300 310 250 Output Total 1100 1400 1025 500 Balance -580 -1100 -715 -250 Weight 93.259 kg 90.718 kg 88.167 kg Gen: NAD in chair Heart: RRR Lung: decreased breath sounds right base Abd: soft, nontender Ext: no edema CBC, BMP 07/14/19 05:24 07/16/19 06:23 Active Medications Acetaminophen (Tylenol -) 650 mg PO Q4H PRN PRN Reason: PAIN LEVEL 1-5 Albuterol/Ipratropium (Duoneb -) 1 amp NEB RQID [facility] Last Admin: 07/16/19 12:04 Dose: 1 amp Cholecalciferol (Vitamin D3 -) 1,000 unit PO DAILY [facility] Last Admin: 07/16/19 09:29 Dose: 1,000 unit Dutasteride (Avodart -) 0.5 mg PO DAILY [facility] Last Admin: 07/16/19 09:29 Dose: 0.5 mg Furosemide (Lasix Injection -) 40 mg IVPUSH BID@0600,1400 [facility] Last Admin: 07/16/19 06:20 Dose: 40 mg Haloperidol (Haldol Injection (Fast Acting) -) 2 mg IM Q6H PRN PRN Reason: AGITATION Last Admin: 07/12/19 01:20 Dose: 2 mg Isosorbide Mononitrate (Imdur -) 30 mg PO DAILY [facility] Last Admin: 07/16/19 09:29 Dose: 30 mg Levothyroxine Sodium (Synthroid -) 12.5 mcg PO AM [facility] Last Admin: 07/16/19 06:20 Dose: 12.5 mcg Metoprolol Tartrate (Lopressor -) 50 mg PO BID [facility] Last Admin: 07/16/19 09:29 Dose: 50 mg Potassium Chloride (K-Dur -) 40 meq PO DAILY [facility] Last Admin: 07/16/19 09:29 Dose: 40 meq Sitagliptin Phosphate (Januvia -) 50 mg PO DAILY@0700 [facility] Last Admin: 07/16/19 06:20 Dose: 50 mg Ursodiol (Actigal -) 300 mg PO BID [facility] Last Admin: 07/16/19 09:29 Dose: 300 mg Warfarin Sodium (Coumadin -) 2 mg PO DAILY@1800 [facility] Last Admin: 07/15/19 17:17 Dose: 2 mg A/P Acute on Chronic Diastolic Heart Failure Atrial Fibrillation Pleural Effusions from above CAD CKD HTN DM Hyperlipidemia - continue lasix - monitor urine output, creatinine - daily weights - O2 to keep SpO2 >90% - rate control - continue anticoagulation - monitor CXR with diuresis - can defer thoracentesis as pt improving clinically with medical tx Problem List - Problems (1) Acute on chronic diastolic (congestive) heart failure Code(s): I50.33 - ACUTE ON CHRONIC DIASTOLIC (CONGESTIVE) HEART FAILURE (2) Pleural effusion Code(s): J90 - PLEURAL EFFUSION, NOT ELSEWHERE CLASSIFIED (3) Atrial fibrillation Code(s): I48.91 - UNSPECIFIED ATRIAL FIBRILLATION
[2019-07-16] MEDS: WARFARIN NA 2 MG TABLET (UD) PO SCH (17:17)
[2019-07-16] MEDS ORDERED: WARFARIN NA 2 MG TABLET (UD) PO ONE (20:32)
--- NOTE | 2019-07-16 20:43 | PN ---
Progress Note (short form) - Note Progress Note: patient seen and examined in room sitting in chair having lunch breathing much improved Intake & Output 07/13/19 07/14/19 07/15/19 07/16/19 23:59 23:59 23:59 23:59 Intake Total 520 300 310 260 Output Total 1100 1400 1025 500 Balance -580 -1100 -715 -240 Weight 164 lb 205 lb 9.6 oz 200 lb 194 lb 6 oz Vital Signs Period Temp Pulse Resp BP Sys/Braga Pulse Ox Last 24 Hr 97.5 F-98.2 F 60-85 18-22 92-136/51-70 93-93 alert / no distress / moist cough heart S1/S2 irreg kristina lungs decreased at right bases rales at bases abd obese ext no edema CXR daily -- improving but right effusion persist CBC, BMP 07/14/19 05:24 07/16/19 06:23 INR, PTT INR 1.42 (0.83-1.09) H 07/16/19 06:23 CBC, BMP 07/14/19 05:24 07/15/19 06:30 INR, PTT INR 1.44 (0.83-1.09) H 07/15/19 10:25 Active Medications Acetaminophen (Tylenol -) 650 mg PO Q4H PRN PRN Reason: PAIN LEVEL 1-5 Albuterol/Ipratropium (Duoneb -) 1 amp NEB RQID [facility] Last Admin: 07/16/19 19:39 Dose: 1 amp Cholecalciferol (Vitamin D3 -) 1,000 unit PO DAILY [facility] Last Admin: 07/16/19 09:29 Dose: 1,000 unit Dutasteride (Avodart -) 0.5 mg PO DAILY [facility] Last Admin: 07/16/19 09:29 Dose: 0.5 mg Furosemide (Lasix Injection -) 40 mg IVPUSH BID@0600,1400 [facility] Last Admin: 07/16/19 13:42 Dose: 40 mg Haloperidol (Haldol Injection (Fast Acting) -) 2 mg IM Q6H PRN PRN Reason: AGITATION Last Admin: 07/12/19 01:20 Dose: 2 mg Isosorbide Mononitrate (Imdur -) 30 mg PO DAILY [facility] Last Admin: 07/16/19 09:29 Dose: 30 mg Levothyroxine Sodium (Synthroid -) 12.5 mcg PO AM [facility] Last Admin: 07/16/19 06:20 Dose: 12.5 mcg Metoprolol Tartrate (Lopressor -) 50 mg PO BID [facility] Last Admin: 07/16/19 09:29 Dose: 50 mg Potassium Chloride (K-Dur -) 40 meq PO DAILY [facility] Last Admin: 07/16/19 09:29 Dose: 40 meq Sitagliptin Phosphate (Januvia -) 50 mg PO DAILY@0700 [facility] Last Admin: 07/16/19 06:20 Dose: 50 mg Ursodiol (Actigal -) 300 mg PO BID [facility] Last Admin: 07/16/19 09:29 Dose: 300 mg Warfarin Sodium (Coumadin -) 2 mg PO DAILY@1800 [facility] Last Admin: 07/16/19 17:17 Dose: 2 mg Assmt / Plan # acute on chronic dHF Iv lasix / daily weights / I&Os / follow CXR trend renal function --stable # atrial Fib on coumadin had therapeutic INR may need inc coumadin to 4 mg q day discusss change to NOAC with cardio rate control -- continue telemetry # pleural effusion likely all HF --improving responding well to conservative treatment no inc in wbc / no fever or chills - less likey PNA continue lasix / follow CXR appreciate Pulm consult # hypokalemia replace lytes ck mag # CKD Cr improving with improvement in HF will trend with inc in lasix # HTN continue meds - currently well controlled # DM continue Januvia A1C 6.9 -- well controlled # HLD fasting lipids reviewed
[2019-07-17] MEDS: LEVOTHYROXINE NA 25 MCG TABLET (FP) PO SCH (06:51)
[2019-07-17] MEDS: sitaGLIPtin PHOSPHATE 50 MG TABLET PO SCH (06:51)
[2019-07-17] MEDS: FUROSEMIDE 40 MG/4 ML INJECTABLE VIAL IVPUSH SCH ×2 (06:51→14:05)
[2019-07-17 07:12] LABS: BASO % 0.9 % (0-2.0); EOS % 2.9 % (0-4.5); HEMATOCRIT 42.7 % (35.4-49); HEMOGLOBIN 13.9 GM/dL (11.7-16.9); LYMPH % 26.1 % (8-40); MCH 32.1 pg (25.7-33.7); MCHC 32.5 g/dl (32.0-35.9); MEAN CELL VOLUME 98.8 fl (80-96); MEAN PLT VOLUME 8.8 fl (7.5-11.1); MONO % 16.6 % (3.8-10.2); NEUT % 53.5 % (42.8-82.8); PLATELET COUNT 190 K/MM3 (134-434); RBC 4.32 M/mm3 (4.00-5.60); RDW 15.3 % (11.9-15.9)
[2019-07-17] MEDS: ALBUTEROL SO4 2.5/IPRATROPIUM 0.5 INH SOL 3 ML VIAL.NEB. NEB SCH ×4 (07:35→20:50)
[2019-07-17 08:11] LABS: BLOOD UREA NITROGEN 33.6 mg/dL (7-18); CALCIUM 8.4 mg/dL (8.5-10.1); CREATININE 1.6 mg/dL (0.55-1.3); POTASSIUM 3.9 mmol/L (3.5-5.1)
[2019-07-17] MEDS: POTASSIUM CHLORIDE TABS 20 MEQ TABLET.ER (FP) PO SCH (09:35)
[2019-07-17] MEDS: URSODIOL 300 MG CAPSULE PO SCH ×2 (09:35→22:56)
[2019-07-17] MEDS: DUTASTERIDE 0.5 MG CAP (FP) PO SCH (09:35)
[2019-07-17] MEDS: ISOSORBIDE MONONITRATE 30 MG TAB.SR.24H (FP) PO SCH (09:36)
[2019-07-17] MEDS: METOPROLOL TARTRATE 50 MG TABLET (FP) PO SCH ×2 (09:36→22:56)
[2019-07-17] MEDS: CHOLECALCIFEROL (VIT D3) 1,000 UNIT (25 MCG) TABLET PO SCH (09:36)
[2019-07-17 10:28] LABS: INR 2.14 (0.83-1.09); PROTHROMBIN TIME (PATIENT) 25.4 SEC (9.7-13.0)
--- NOTE | 2019-07-17 10:53 | PN ---
Progress Note (short form) - Note Progress Note: patient seen and examined in room sitting in chair breathing much improved Vital Signs Period Temp Pulse Resp BP Sys/Braga Pulse Ox Last 24 Hr 97 F-98.2 F 63-85 18-20 92-117/51-73 94-94 Intake & Output 07/14/19 07/15/19 07/16/19 07/17/19 23:59 23:59 23:59 23:59 Intake Total 300 310 260 500 Output Total 1400 1025 900 400 Balance -1100 -437 -398 100 Weight 205 lb 9.6 oz 200 lb 194 lb 6 oz 193 lb alert / no distress / moist cough heart S1/S2 irreg kristina lungs decreased at right bases rales at bases abd obese ext no edema CXR daily today AP & LAT-- improving but right effusion persist CBC, BMP 07/17/19 06:05 07/17/19 06:05 INR, PTT INR 2.14 (0.83-1.09) H 07/17/19 06:05 CBC, BMP 07/14/19 05:24 07/16/19 06:23 INR, PTT INR 1.42 (0.83-1.09) H 07/16/19 06:23 Active Medications Acetaminophen (Tylenol -) 650 mg PO Q4H PRN PRN Reason: PAIN LEVEL 1-5 Albuterol/Ipratropium (Duoneb -) 1 amp NEB RQID [facility] Last Admin: 07/17/19 07:35 Dose: 1 amp Cholecalciferol (Vitamin D3 -) 1,000 unit PO DAILY [facility] Last Admin: 07/17/19 09:36 Dose: 1,000 unit Dutasteride (Avodart -) 0.5 mg PO DAILY [facility] Last Admin: 07/17/19 09:35 Dose: 0.5 mg Furosemide (Lasix Injection -) 40 mg IVPUSH BID@0600,1400 [facility] Last Admin: 07/17/19 06:51 Dose: 40 mg Haloperidol (Haldol Injection (Fast Acting) -) 2 mg IM Q6H PRN PRN Reason: AGITATION Last Admin: 07/12/19 01:20 Dose: 2 mg Isosorbide Mononitrate (Imdur -) 30 mg PO DAILY [facility] Last Admin: 07/17/19 09:36 Dose: 30 mg Levothyroxine Sodium (Synthroid -) 12.5 mcg PO AM [facility] Last Admin: 07/17/19 06:51 Dose: 12.5 mcg Metoprolol Tartrate (Lopressor -) 50 mg PO BID [facility] Last Admin: 07/17/19 09:36 Dose: 50 mg Potassium Chloride (K-Dur -) 40 meq PO DAILY [facility] Last Admin: 07/17/19 09:35 Dose: 40 meq Sitagliptin Phosphate (Januvia -) 50 mg PO DAILY@0700 [facility] Last Admin: 07/17/19 06:51 Dose: 50 mg Ursodiol (Actigal -) 300 mg PO BID [facility] Last Admin: 07/17/19 09:35 Dose: 300 mg Warfarin Sodium (Coumadin -) 2 mg PO DAILY@1800 [facility] Last Admin: 07/16/19 17:17 Dose: 2 mg Assmt / Plan # acute on chronic dHF Iv lasix / daily weights / I&Os / follow CXR trend renal function --stable need to maximize nutritional status # Severe protein calorie malnutrition moderate depletion of sc fat and muscle mass albumin 3.1 # atrial Fib on coumadin had therapeutic INR may need inc coumadin discusss change to NOAC with cardio rate control -- continue telemetry # pleural effusion likely all HF --improving responding well to conservative treatment no inc in wbc / no fever or chills - less likey PNA continue lasix / follow CXR appreciate Pulm consult # hypokalemia replace lytes ck mag # CKD Cr improving with improvement in HF will trend with inc in lasix # HTN continue meds - currently well controlled # DM continue Januvia A1C 6.9 -- well controlled # HLD fasting lipids reviewed
--- NOTE | 2019-07-17 12:40 | PN ---
Progress Note, Physician Chief Complaint: Awake and denies chest pain or shortness of breath History of Present Illness: Patient was seen and examined. Awake and alert. Chart was reviewed Tolerating medical therapy - Current Medication List Current Medications: Active Medications Acetaminophen (Tylenol -) 650 mg PO Q4H PRN PRN Reason: PAIN LEVEL 1-5 Albuterol/Ipratropium (Duoneb -) 1 amp NEB RQID [facility] Last Admin: 07/17/19 07:35 Dose: 1 amp Cholecalciferol (Vitamin D3 -) 1,000 unit PO DAILY [facility] Last Admin: 07/17/19 09:36 Dose: 1,000 unit Dutasteride (Avodart -) 0.5 mg PO DAILY [facility] Last Admin: 07/17/19 09:35 Dose: 0.5 mg Furosemide (Lasix Injection -) 40 mg IVPUSH BID@0600,1400 [facility] Last Admin: 07/17/19 06:51 Dose: 40 mg Haloperidol (Haldol Injection (Fast Acting) -) 2 mg IM Q6H PRN PRN Reason: AGITATION Last Admin: 07/12/19 01:20 Dose: 2 mg Isosorbide Mononitrate (Imdur -) 30 mg PO DAILY [facility] Last Admin: 07/17/19 09:36 Dose: 30 mg Levothyroxine Sodium (Synthroid -) 12.5 mcg PO AM [facility] Last Admin: 07/17/19 06:51 Dose: 12.5 mcg Metoprolol Tartrate (Lopressor -) 50 mg PO BID [facility] Last Admin: 07/17/19 09:36 Dose: 50 mg Potassium Chloride (K-Dur -) 40 meq PO DAILY [facility] Last Admin: 07/17/19 09:35 Dose: 40 meq Sitagliptin Phosphate (Januvia -) 50 mg PO DAILY@0700 [facility] Last Admin: 07/17/19 06:51 Dose: 50 mg Ursodiol (Actigal -) 300 mg PO BID [facility] Last Admin: 07/17/19 09:35 Dose: 300 mg Warfarin Sodium (Coumadin -) 2 mg PO DAILY@1800 [facility] Last Admin: 07/16/19 17:17 Dose: 2 mg - Objective Vital Signs: Vital Signs Temperature 97.7 F 07/17/19 09:03 Pulse Rate 70 07/17/19 09:03 Respiratory Rate 20 07/17/19 09:03 Blood Pressure 113/71 10/28/19 09:03 O2 Sat by Pulse Oximetry (%) 94 L 07/17/19 09:00 Eyes: Yes: PERRL HENT: Yes: Atraumatic Neck: Yes: Supple Cardiovascular: Yes: Pulse Irregular, Murmur (SM), S1, S2 Respiratory: Yes: Diminished Gastrointestinal: Yes: Normal Bowel Sounds, Soft. No: Tenderness Edema: No Additional Findings/Remarks: - Review of Systems Constitutional: denies: Chills, Fever Cardiovascular: denies Chest Pain. denies: Palpitations, (+) Shortness of Breath Respiratory: denies: Cough, Hemoptysis, Orthopnea, PND, (+) SOB, SOB on Exertion Gastrointestinal: denies: Abdominal Pain, Constipation, Diarrhea, Melena, Nausea , Rectal Bleeding, Vomiting Genitourinary: denies: Dysuria, Hematuria Musculoskeletal: denies: Back Pain, Joint Pain Neurological: denies: Dizziness, Headache, Seizure, Syncope Labs: CBC, BMP 07/17/19 06:05 07/17/19 06:05 INR, PTT INR 2.14 (0.83-1.09) H 07/17/19 06:05 Problem List - Problems (1) Acute on chronic diastolic (congestive) heart failure Code(s): I50.33 - ACUTE ON CHRONIC DIASTOLIC (CONGESTIVE) HEART FAILURE (2) Pleural effusion Code(s): J90 - PLEURAL EFFUSION, NOT ELSEWHERE CLASSIFIED (3) Acute respiratory failure with hypoxia Code(s): J96.01 - ACUTE RESPIRATORY FAILURE WITH HYPOXIA (4) Atrial fibrillation Code(s): I48.91 - UNSPECIFIED ATRIAL FIBRILLATION (5) Chronic kidney disease (CKD) Code(s): N18.9 - CHRONIC KIDNEY DISEASE, UNSPECIFIED Qualifiers: Chronic kidney disease stage: stage 3 (moderate) Qualified Code(s): N18.3 - Chronic kidney disease, stage 3 (moderate) (6) HTN (hypertension) Code(s): I10 - ESSENTIAL (PRIMARY) HYPERTENSION Qualifiers: Hypertension type: essential hypertension Qualified Code(s): I10 - Essential (primary) hypertension (7) Hyperlipidemia Code(s): E78.5 - HYPERLIPIDEMIA, UNSPECIFIED Qualifiers: Hyperlipidemia type: pure hypercholesterolemia Qualified Code(s): E78.00 - Pure hypercholesterolemia, unspecified; E78.0 - Pure hypercholesterolemia (8) Hypothyroid Code(s): E03.9 - HYPOTHYROIDISM, UNSPECIFIED Qualifiers: Hypothyroidism type: unspecified Qualified Code(s): E03.9 - Hypothyroidism , unspecified Assessment/Plan 1. Shortness of breath with pleural effusion c/w acute on chronic LV diastolic failure 2. HTN/HCVD 3. Hypercholesterolemia 4. Type 2 DM 5. Persistent AF with [id number] score of 6 6. Hypothyroidism 7. CAD s/p PCI (balloon angioplasty) 8. Altered mental status 9. CKD PLAN: 1. Continue Metoprolol as tolerated 2. Diuretics - Lasix IV and monitor renal function and electrolytes 3. Continue Imdur as tolerated 4. Warfarin with close follow up of INR 5. Pulmonary input noted to defer thoracentesis as patient clinically improving Further plans are to follow Michael Crawford MD
--- NOTE | 2019-07-17 12:58 | PN ---
Progress Note (short form) - Note Progress Note: Breathing continues to improve. No cough or wheezing. No acute events overnight. Intake & Output 07/14/19 07/15/19 07/16/19 07/17/19 23:59 23:59 23:59 23:59 Intake Total 300 310 260 500 Output Total 1400 1025 900 400 Balance -1100 -715 -640 100 Weight 205 lb 9.6 oz 200 lb 194 lb 6 oz 193 lb Last Vital Signs Temp Pulse Resp BP Pulse Ox 97.7 F 70 20 113/71 94 L 07/17/19 09:03 07/17/19 09:03 07/17/19 09:03 07/17/19 09:03 07/17/19 09:00 Active Medications Acetaminophen (Tylenol -) 650 mg PO Q4H PRN PRN Reason: PAIN LEVEL 1-5 Albuterol/Ipratropium (Duoneb -) 1 amp NEB RQID [facility] Last Admin: 07/17/19 07:35 Dose: 1 amp Cholecalciferol (Vitamin D3 -) 1,000 unit PO DAILY [facility] Last Admin: 07/17/19 09:36 Dose: 1,000 unit Dutasteride (Avodart -) 0.5 mg PO DAILY [facility] Last Admin: 07/17/19 09:35 Dose: 0.5 mg Furosemide (Lasix Injection -) 40 mg IVPUSH BID@0600,1400 [facility] Last Admin: 07/17/19 06:51 Dose: 40 mg Haloperidol (Haldol Injection (Fast Acting) -) 2 mg IM Q6H PRN PRN Reason: AGITATION Last Admin: 07/12/19 01:20 Dose: 2 mg Isosorbide Mononitrate (Imdur -) 30 mg PO DAILY [facility] Last Admin: 07/17/19 09:36 Dose: 30 mg Levothyroxine Sodium (Synthroid -) 12.5 mcg PO AM [facility] Last Admin: 07/17/19 06:51 Dose: 12.5 mcg Metoprolol Tartrate (Lopressor -) 50 mg PO BID [facility] Last Admin: 07/17/19 09:36 Dose: 50 mg Potassium Chloride (K-Dur -) 40 meq PO DAILY [facility] Last Admin: 07/17/19 09:35 Dose: 40 meq Sitagliptin Phosphate (Januvia -) 50 mg PO DAILY@0700 [facility] Last Admin: 07/17/19 06:51 Dose: 50 mg Ursodiol (Actigal -) 300 mg PO BID [facility] Last Admin: 07/17/19 09:35 Dose: 300 mg Warfarin Sodium (Coumadin -) 2 mg PO DAILY@1800 [facility] Last Admin: 07/16/19 17:17 Dose: 2 mg Gen: NAD Heart: RRR Lung: decreased breath sounds at the bases, no wheeze Abd: soft, nontender Ext: no edema Laboratory Results - last 24 hr 07/17/19 07/17/19 07/17/19 06:01 06:05 06:05 WBC 7.0 RBC 4.32 Hgb 13.9 Hct 42.7 MCV 98.8 H MCH 32.1 MCHC 32.5 RDW 15.3 Plt Count 190 D MPV 8.8 Absolute Neuts (auto) 3.7 Neutrophils % 53.5 Lymphocytes % 26.1 Monocytes % 16.6 H Eosinophils % 2.9 Basophils % 0.9 Nucleated RBC % 0 PT with INR 25.40 H INR 2.14 H Sodium Potassium Chloride Carbon Dioxide Anion Gap BUN Creatinine Est GFR (CKD-EPI)AfAm Est GFR (CKD-EPI)NonAf POC Glucometer 128 Random Glucose Calcium 07/17/19 06:05 WBC RBC Hgb Hct MCV MCH MCHC RDW Plt Count MPV Absolute Neuts (auto) Neutrophils % Lymphocytes % Monocytes % Eosinophils % Basophils % Nucleated RBC % PT with INR INR Sodium 140 Potassium 3.9 Chloride 102 Carbon Dioxide 32 Anion Gap 6 L BUN 33.6 H Creatinine 1.6 H Est GFR (CKD-EPI)AfAm 45.50 Est GFR (CKD-EPI)NonAf 39.26 POC Glucometer Random Glucose 121 H Calcium 8.4 L Problem List - Problems (1) Acute on chronic diastolic (congestive) heart failure Code(s): I50.33 - ACUTE ON CHRONIC DIASTOLIC (CONGESTIVE) HEART FAILURE (2) Pleural effusion Code(s): J90 - PLEURAL EFFUSION, NOT ELSEWHERE CLASSIFIED (3) Atrial fibrillation Code(s): I48.91 - UNSPECIFIED ATRIAL FIBRILLATION A/P Acute on Chronic Diastolic Heart Failure Atrial Fibrillation Pleural Effusions from above CAD CKD HTN DM Hyperlipidemia - Lasix - monitor urine output, creatinine - daily weights - O2 to keep SpO2 >90% - rate control - continue anticoagulation - Defer thoracentesis as pt improving clinically with medical tx Dr Arellano
[2019-07-17] MEDS ORDERED: PT OWN MED DRAWER 7, Y5N ONE (14:16)
[2019-07-17] MEDS: WARFARIN NA 2 MG TABLET (UD) PO SCH (17:32)
[2019-07-18] MEDS: FUROSEMIDE 40 MG/4 ML INJECTABLE VIAL IVPUSH SCH ×2 (06:25→13:47)
[2019-07-18] MEDS: sitaGLIPtin PHOSPHATE 50 MG TABLET PO SCH (06:25)
[2019-07-18] MEDS: LEVOTHYROXINE NA 25 MCG TABLET (FP) PO SCH (06:25)
--- NOTE | 2019-07-18 06:49 | PN ---
Progress Note (short form) - Note Progress Note: Chief Complaint: Events noted, notes reviewed, dyspnea clinically improving, denies any chest pain History of Present Illness: See and examined on telemetry. Events noted, notes reviewed, dyspnea clinically improving, denies any chest pain Medications: Current Medications Acetaminophen (Tylenol -) 650 mg PO Q4H PRN PRN Reason: PAIN LEVEL 1-5 Albuterol/Ipratropium (Duoneb -) 1 amp NEB RQID [facility] Last Admin: 07/17/19 20:50 Dose: Not Given Cholecalciferol (Vitamin D3 -) 1,000 unit PO DAILY [facility] Last Admin: 07/17/19 09:36 Dose: 1,000 unit Dutasteride (Avodart -) 0.5 mg PO DAILY [facility] Last Admin: 07/17/19 09:35 Dose: 0.5 mg Furosemide (Lasix Injection -) 40 mg IVPUSH BID@0600,1400 [facility] Last Admin: 07/18/19 06:25 Dose: 40 mg Haloperidol (Haldol Injection (Fast Acting) -) 2 mg IM Q6H PRN PRN Reason: AGITATION Last Admin: 07/12/19 01:20 Dose: 2 mg Isosorbide Mononitrate (Imdur -) 30 mg PO DAILY [facility] Last Admin: 07/17/19 09:36 Dose: 30 mg Levothyroxine Sodium (Synthroid -) 12.5 mcg PO AM [facility] Last Admin: 07/18/19 06:25 Dose: 12.5 mcg Metoprolol Tartrate (Lopressor -) 50 mg PO BID [facility] Last Admin: 07/17/19 22:56 Dose: 50 mg Potassium Chloride (K-Dur -) 40 meq PO DAILY [facility] Last Admin: 07/17/19 09:35 Dose: 40 meq Sitagliptin Phosphate (Januvia -) 50 mg PO DAILY@0700 [facility] Last Admin: 07/18/19 06:25 Dose: 50 mg Ursodiol (Actigal -) 300 mg PO BID [facility] Last Admin: 07/17/19 22:56 Dose: 300 mg Warfarin Sodium (Coumadin -) 2 mg PO DAILY@1800 [facility] Last Admin: 07/17/19 17:32 Dose: 2 mg Review of Systems Cardiovascular: As noted above Respiratory: denies: denies: Cough or Sputum Production Gastrointestinal: denies: Nausea, Vomiting, Diarrhea, Constipation or Abdominal Discomfort Musculoskeletal: No Symptoms Reported Endocrine: No Symptoms Reported Vital Signs: Last Vital Signs Temp Pulse Resp BP Pulse Ox 97.8 F 60 20 108/55 L 95 07/18/19 06:00 07/18/19 06:00 07/18/19 06:00 07/18/19 06:00 07/17/19 21:00 Intake & Output 07/15/19 07/16/19 07/17/19 07/18/19 23:59 23:59 23:59 23:59 Intake Total 310 260 970 120 Output Total 1963 266 2077 200 Balance -715 -640 -230 -80 Weight 200 lb 194 lb 6 oz 193 lb Neck: Supple Negative JVD Respiratory: Diminished Breath Sounds at the Bases Cardiovascular: S! S2 Irregularly Irregular Gastrointestinal: Soft Benign Normal Bowel Sounds Ext: Negative Edema Labs: CBC, BMP 07/17/19 06:05 07/17/19 06:05 Hepatic Panel Total Bilirubin 1.7 mg/dL (0.2-1) H 07/10/19 13:39 AST 23 U/L (15-37) 07/10/19 13:39 ALT 12 U/L (13-61) L 07/10/19 13:39 Alkaline Phosphatase 92 U/L (45-117) 07/10/19 13:39 Albumin 3.1 g/dl (3.4-5.0) L 07/10/19 13:39 INR, PTT INR 2.14 (0.83-1.09) H 07/17/19 06:05 Assessment/Plan ASSESSMENT: 1. Acute on chronic class I-II NYHA classification diastolic heart failure with pleural effusion, clinically resolving 2. Coronary artery disease post myocardial infarction status post PCI/balloon angioplasty- POBA angina pectoris 3. Persistent atrial fibrillation on chronic anticoagulation therapy with Coumadin- therapeutic INR, [id number] score of 6. 4. Hypertensive cardiovascular disease 5. [id number] diabetes mellitus 6. Hypercholesterolemia 7. Altered mental status, clinically resolved 8. Hypothyroidism 9. Acute on chronic kidney disease 10. History of primary biliary cirrhosis 11. History of shingles with post herpetic neuralgia 12. 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 Continue Lopressor 2. Continue Imdur 3. If Coumadin therapy is continued would recommend maintaining INR between 2-3 , patient questioned utilization of DOAC's as an alternative to Coumadin therapy specifically that he is residing at an assisted living facility and is difficult to obtain blood test, alternative would be Eliquis at 2.5 mg twice daily age greater than 80 and creatinine greater than 1.5 4. Continue Lasix therapy intravenously for an additional 24-48 hours and subsequently to be switched to oral Lasix therapy Terell Welsh MD
[2019-07-18] MEDS: ALBUTEROL SO4 2.5/IPRATROPIUM 0.5 INH SOL 3 ML VIAL.NEB. NEB SCH ×4 (07:25→21:30)
[2019-07-18] MEDS: DUTASTERIDE 0.5 MG CAP (FP) PO SCH (09:39)
[2019-07-18] MEDS: URSODIOL 300 MG CAPSULE PO SCH ×2 (09:39→21:59)
[2019-07-18] MEDS: ISOSORBIDE MONONITRATE 30 MG TAB.SR.24H (FP) PO SCH (09:40)
[2019-07-18] MEDS: CHOLECALCIFEROL (VIT D3) 1,000 UNIT (25 MCG) TABLET PO SCH (09:40)
[2019-07-18] MEDS: POTASSIUM CHLORIDE TABS 20 MEQ TABLET.ER (FP) PO SCH (09:40)
[2019-07-18] MEDS: METOPROLOL TARTRATE 50 MG TABLET (FP) PO SCH ×3 (09:40→22:05)
[2019-07-18] MEDS ORDERED: PT OWN MED DRAWER 7, Y5N ONE ×2 (09:43→21:54)
--- NOTE | 2019-07-18 11:24 | PN ---
Progress Note, Physician History of Present Illness: pulmonary alert,no distress,dyspnea improvng ,-cp - Current Medication List Current Medications: Active Medications Acetaminophen (Tylenol -) 650 mg PO Q4H PRN PRN Reason: PAIN LEVEL 1-5 Albuterol/Ipratropium (Duoneb -) 1 amp NEB RQID [facility] Last Admin: 07/18/19 07:25 Dose: 1 amp Cholecalciferol (Vitamin D3 -) 1,000 unit PO DAILY [facility] Last Admin: 07/18/19 09:40 Dose: 1,000 unit Dutasteride (Avodart -) 0.5 mg PO DAILY [facility] Last Admin: 07/18/19 09:39 Dose: 0.5 mg Furosemide (Lasix Injection -) 40 mg IVPUSH BID@0600,1400 [facility] Last Admin: 07/18/19 06:25 Dose: 40 mg Haloperidol (Haldol Injection (Fast Acting) -) 2 mg IM Q6H PRN PRN Reason: AGITATION Last Admin: 07/12/19 01:20 Dose: 2 mg Isosorbide Mononitrate (Imdur -) 30 mg PO DAILY [facility] Last Admin: 07/18/19 09:40 Dose: 30 mg Levothyroxine Sodium (Synthroid -) 12.5 mcg PO AM [facility] Last Admin: 07/18/19 06:25 Dose: 12.5 mcg Metoprolol Tartrate (Lopressor -) 50 mg PO BID [facility] Last Admin: 07/18/19 09:40 Dose: 50 mg Potassium Chloride (K-Dur -) 40 meq PO DAILY [facility] Last Admin: 07/18/19 09:40 Dose: 40 meq Sitagliptin Phosphate (Januvia -) 50 mg PO DAILY@0700 [facility] Last Admin: 07/18/19 06:25 Dose: 50 mg Ursodiol (Actigal -) 300 mg PO BID [facility] Last Admin: 07/18/19 09:39 Dose: 300 mg Warfarin Sodium (Coumadin -) 2 mg PO DAILY@1800 [facility] Last Admin: 07/17/19 17:32 Dose: 2 mg - Objective Vital Signs: Vital Signs Temperature 97.8 F 07/18/19 08:26 Pulse Rate 65 07/18/19 08:26 Respiratory Rate 20 07/18/19 08:34 Blood Pressure 102/54 L 07/18/19 08:26 O2 Sat by Pulse Oximetry (%) 95 07/18/19 08:34 Constitutional: Yes: Well Nourished, Calm Eyes: Yes: WNL HENT: Yes: WNL Neck: Yes: WNL Cardiovascular: Yes: Pulse Irregular, S1, S2 Gastrointestinal: Yes: Normal Bowel Sounds, Soft Extremities: Yes: WNL Edema: No Labs: CBC, BMP 07/17/19 06:05 07/17/19 06:05 INR, PTT INR 2.14 (0.83-1.09) H 07/17/19 06:05 Assessment/Plan Problem List - Problems (1) Acute on chronic diastolic (congestive) heart failure Code(s): I50.33 - ACUTE ON CHRONIC DIASTOLIC (CONGESTIVE) HEART FAILURE (2) Pleural effusion Code(s): J90 - PLEURAL EFFUSION, NOT ELSEWHERE CLASSIFIED (3) Atrial fibrillation Code(s): I48.91 - UNSPECIFIED ATRIAL FIBRILLATION Assessment/Plan Acute on Chronic Diastolic Heart Failure clinically improving Atrial Fibrillation Pleural Effusions from above CAD CKD HTN DM Hyperlipidemia - continue lasix - monitor urine output, creatinine - daily weights - O2 to keep SpO2 >90% - rate control - anticoagulation DR BAXTER
[2019-07-18 12:53] LABS: INR 2.95 (0.83-1.09); PROTHROMBIN TIME (PATIENT) 35.2 SEC (9.7-13.0)
[2019-07-18] MEDS: WARFARIN NA 2 MG TABLET (UD) PO SCH (18:24)
--- NOTE | 2019-07-18 21:48 | PN ---
Progress Note (short form) - Note Progress Note: patient seen and examined in room sitting in chair breathing much improved Vital Signs Period Temp Pulse Resp BP Sys/Braga Pulse Ox Last 24 Hr 97.8 F-98.3 F 60-72 20-20 98-115/54-75 95 Intake & Output 07/15/19 07/16/19 07/17/19 07/18/19 23:59 23:59 23:59 23:59 Intake Total 310 260 970 140 Output Total 4633 318 2774 200 Balance -715 -640 -230 -60 Weight 200 lb 194 lb 6 oz 193 lb 192 lb alert / no distress / moist cough heart S1/S2 irreg kristina lungs decreased at right bases rales at bases abd obese ext no edema CXR daily today AP & LAT-- improving but right effusion persist INR, PTT INR 2.95 (0.83-1.09) H 07/18/19 11:10 CBC, BMP 07/17/19 06:05 07/17/19 06:05 INR, PTT INR 2.14 (0.83-1.09) H 07/17/19 06:05 CBC, BMP 07/14/19 05:24 07/16/19 06:23 INR, PTT INR 1.42 (0.83-1.09) H 07/16/19 06:23 Active Medications Acetaminophen (Tylenol -) 650 mg PO Q4H PRN PRN Reason: PAIN LEVEL 1-5 Albuterol/Ipratropium (Duoneb -) 1 amp NEB RQID [facility] Last Admin: 07/18/19 15:38 Dose: 1 amp Cholecalciferol (Vitamin D3 -) 1,000 unit PO DAILY [facility] Last Admin: 07/18/19 09:40 Dose: 1,000 unit Dutasteride (Avodart -) 0.5 mg PO DAILY [facility] Last Admin: 07/18/19 09:39 Dose: 0.5 mg Furosemide (Lasix Injection -) 40 mg IVPUSH BID@0600,1400 [facility] Last Admin: 07/18/19 13:47 Dose: 40 mg Haloperidol (Haldol Injection (Fast Acting) -) 2 mg IM Q6H PRN PRN Reason: AGITATION Last Admin: 07/12/19 01:20 Dose: 2 mg Isosorbide Mononitrate (Imdur -) 30 mg PO DAILY [facility] Last Admin: 07/18/19 09:40 Dose: 30 mg Levothyroxine Sodium (Synthroid -) 12.5 mcg PO AM [facility] Last Admin: 07/18/19 06:25 Dose: 12.5 mcg Metoprolol Tartrate (Lopressor -) 50 mg PO BID [facility] Last Admin: 07/18/19 09:40 Dose: 50 mg Potassium Chloride (K-Dur -) 40 meq PO DAILY [facility] Last Admin: 07/18/19 09:40 Dose: 40 meq Sitagliptin Phosphate (Januvia -) 50 mg PO DAILY@0700 [facility] Last Admin: 07/18/19 06:25 Dose: 50 mg Ursodiol (Actigal -) 300 mg PO BID [facility] Last Admin: 07/18/19 09:39 Dose: 300 mg Warfarin Sodium (Coumadin -) 2 mg PO DAILY@1800 [facility] Last Admin: 07/18/19 18:24 Dose: 2 mg Assmt / Plan # acute on chronic dHF Iv lasix / daily weights / I&Os / follow CXR trend renal function --stable # atrial Fib on coumadin had therapeutic INR coumadin down to 2 mg - INR daily rate control -- continue telemetry follow up appreciate cardio # pleural effusion likely all HF --improving responding well to conservative treatment no inc in wbc / no fever or chills - less likey PNA continue lasix / follow CXR appreciate Pulm consult # hypokalemia replace lytes ck mag # CKD Cr improving with improvement in HF will trend with inc in lasix # HTN continue meds - currently well controlled # DM continue Januvia A1C 6.9 -- well controlled # HLD fasting lipids reviewed
[2019-07-19 06:45] LABS: BASO % 0.6 % (0-2.0); EOS % 2.5 % (0-4.5); HEMATOCRIT 42.9 % (35.4-49); HEMOGLOBIN 14.1 GM/dL (11.7-16.9); LYMPH % 25.7 % (8-40); MCH 32.1 pg (25.7-33.7); MCHC 32.9 g/dl (32.0-35.9); MEAN CELL VOLUME 97.8 fl (80-96); MEAN PLT VOLUME 8.3 fl (7.5-11.1); MONO % 15.6 % (3.8-10.2); NEUT % 55.6 % (42.8-82.8); PLATELET COUNT 213 K/MM3 (134-434); RBC 4.38 M/mm3 (4.00-5.60); RDW 15.5 % (11.9-15.9); WHITE BLOOD COUNT 7.4 K/mm3 (4.0-10.0)
[2019-07-19] MEDS: LEVOTHYROXINE NA 25 MCG TABLET (FP) PO SCH (06:49)
[2019-07-19] MEDS: sitaGLIPtin PHOSPHATE 50 MG TABLET PO SCH (06:49)
[2019-07-19 07:00] LABS: INR 2.83 (0.83-1.09); PROTHROMBIN TIME (PATIENT) 33.7 SEC (9.7-13.0)
[2019-07-19 07:43] LABS: BLOOD UREA NITROGEN 39.4 mg/dL (7-18); CALCIUM 8.8 mg/dL (8.5-10.1); CREATININE 1.5 mg/dL (0.55-1.3)
[2019-07-19] MEDS: FUROSEMIDE 40 MG/4 ML INJECTABLE VIAL IVPUSH SCH (07:51)
[2019-07-19] MEDS: ALBUTEROL SO4 2.5/IPRATROPIUM 0.5 INH SOL 3 ML VIAL.NEB. NEB SCH ×4 (08:13→20:28)
--- NOTE | 2019-07-19 10:16 | PN ---
Progress Note, Physician History of Present Illness: pulmonary alert,comfortable,-sob,-cp - Current Medication List Current Medications: Active Medications Acetaminophen (Tylenol -) 650 mg PO Q4H PRN PRN Reason: PAIN LEVEL 1-5 Albuterol/Ipratropium (Duoneb -) 1 amp NEB RQID [facility] Last Admin: 07/19/19 08:13 Dose: 1 amp Cholecalciferol (Vitamin D3 -) 1,000 unit PO DAILY [facility] Last Admin: 07/18/19 09:40 Dose: 1,000 unit Dutasteride (Avodart -) 0.5 mg PO DAILY [facility] Last Admin: 07/18/19 09:39 Dose: 0.5 mg Furosemide (Lasix Injection -) 40 mg IVPUSH BID@0600,1400 [facility] Last Admin: 07/19/19 07:51 Dose: Not Given Haloperidol (Haldol Injection (Fast Acting) -) 2 mg IM Q6H PRN PRN Reason: AGITATION Last Admin: 07/12/19 01:20 Dose: 2 mg Isosorbide Mononitrate (Imdur -) 30 mg PO DAILY [facility] Last Admin: 07/18/19 09:40 Dose: 30 mg Levothyroxine Sodium (Synthroid -) 12.5 mcg PO AM [facility] Last Admin: 07/19/19 06:49 Dose: 12.5 mcg Metoprolol Tartrate (Lopressor -) 50 mg PO BID [facility] Last Admin: 07/18/19 22:05 Dose: Not Given Potassium Chloride (K-Dur -) 40 meq PO DAILY [facility] Last Admin: 07/18/19 09:40 Dose: 40 meq Sitagliptin Phosphate (Januvia -) 50 mg PO DAILY@0700 [facility] Last Admin: 07/19/19 06:49 Dose: 50 mg Ursodiol (Actigal -) 300 mg PO BID [facility] Last Admin: 07/18/19 21:59 Dose: 300 mg Warfarin Sodium (Coumadin -) 2 mg PO DAILY@1800 [facility] Last Admin: 07/18/19 18:24 Dose: 2 mg - Objective Vital Signs: Vital Signs Temperature 98.8 F 07/19/19 02:00 Pulse Rate 60 07/19/19 02:00 Respiratory Rate 20 07/19/19 02:00 Blood Pressure 102/72 07/19/19 02:00 O2 Sat by Pulse Oximetry (%) 99 07/18/19 21:00 Constitutional: Yes: Well Nourished, Calm Eyes: Yes: WNL HENT: Yes: WNL Neck: Yes: WNL Cardiovascular: Yes: Pulse Irregular, S1, S2 Respiratory: Yes: Diminished Gastrointestinal: Yes: Normal Bowel Sounds, Soft Extremities: Yes: WNL Edema: No Labs: CBC, BMP 07/19/19 05:55 07/19/19 05:55 INR, PTT INR 2.83 (0.83-1.09) H 07/19/19 05:55 Assessment/Plan Problem List - Problems (1) Acute on chronic diastolic (congestive) heart failure Code(s): I50.33 - ACUTE ON CHRONIC DIASTOLIC (CONGESTIVE) HEART FAILURE (2) Pleural effusion Code(s): J90 - PLEURAL EFFUSION, NOT ELSEWHERE CLASSIFIED (3) Atrial fibrillation Code(s): I48.91 - UNSPECIFIED ATRIAL FIBRILLATION Assessment/Plan Acute on Chronic Diastolic Heart Failure clinically improving Atrial Fibrillation Pleural Effusions from above CAD CKD HTN DM Hyperlipidemia - lasix - monitor urine output, creatinine - daily weights - O2 to keep SpO2 >90% - rate control - anticoagulation DR BAXTER
--- NOTE | 2019-07-19 12:01 | PN ---
Progress Note, Physician History of Present Illness: Denies CHAUDHARI or chest pain, feels back at baseline exercise capacity, currently OOB to chair. - Current Medication List Current Medications: Active Medications Acetaminophen (Tylenol -) 650 mg PO Q4H PRN PRN Reason: PAIN LEVEL 1-5 Albuterol/Ipratropium (Duoneb -) 1 amp NEB RQID [facility] Last Admin: 07/19/19 11:25 Dose: 1 amp Cholecalciferol (Vitamin D3 -) 1,000 unit PO DAILY [facility] Last Admin: 07/18/19 09:40 Dose: 1,000 unit Dutasteride (Avodart -) 0.5 mg PO DAILY [facility] Last Admin: 07/18/19 09:39 Dose: 0.5 mg Furosemide (Lasix Injection -) 40 mg IVPUSH BID@0600,1400 [facility] Last Admin: 07/19/19 07:51 Dose: Not Given Haloperidol (Haldol Injection (Fast Acting) -) 2 mg IM Q6H PRN PRN Reason: AGITATION Last Admin: 07/12/19 01:20 Dose: 2 mg Isosorbide Mononitrate (Imdur -) 30 mg PO DAILY [facility] Last Admin: 07/18/19 09:40 Dose: 30 mg Levothyroxine Sodium (Synthroid -) 12.5 mcg PO AM [facility] Last Admin: 07/19/19 06:49 Dose: 12.5 mcg Metoprolol Tartrate (Lopressor -) 50 mg PO BID [facility] Last Admin: 07/18/19 22:05 Dose: Not Given Potassium Chloride (K-Dur -) 40 meq PO DAILY [facility] Last Admin: 07/18/19 09:40 Dose: 40 meq Sitagliptin Phosphate (Januvia -) 50 mg PO DAILY@0700 [facility] Last Admin: 07/19/19 06:49 Dose: 50 mg Ursodiol (Actigal -) 300 mg PO BID [facility] Last Admin: 07/18/19 21:59 Dose: 300 mg Warfarin Sodium (Coumadin -) 2 mg PO DAILY@1800 [facility] Last Admin: 07/18/19 18:24 Dose: 2 mg - Objective Vital Signs: Vital Signs Temperature 98.8 F 07/19/19 02:00 Pulse Rate 60 07/19/19 02:00 Respiratory Rate 20 07/19/19 02:00 Blood Pressure 102/72 07/19/19 02:00 O2 Sat by Pulse Oximetry (%) 99 07/18/19 21:00 Constitutional: Yes: No Distress, Calm, Thin Neck: Yes: Supple Cardiovascular: Yes: Pulse Irregular Respiratory: Yes: Regular, Diminished, On Nasal O2 Gastrointestinal: Yes: Normal Bowel Sounds Edema: No Labs: CBC, BMP 07/19/19 05:55 07/19/19 05:55 INR, PTT INR 2.83 (0.83-1.09) H 07/19/19 05:55 - ....Imaging EKG: Report Reviewed (Tele: Afib) Problem List - Problems (1) Acute on chronic diastolic (congestive) heart failure Code(s): I50.33 - ACUTE ON CHRONIC DIASTOLIC (CONGESTIVE) HEART FAILURE (2) Pleural effusion Code(s): J90 - PLEURAL EFFUSION, NOT ELSEWHERE CLASSIFIED (3) Acute respiratory failure with hypoxia Code(s): J96.01 - ACUTE RESPIRATORY FAILURE WITH HYPOXIA (4) Atrial fibrillation Code(s): I48.91 - UNSPECIFIED ATRIAL FIBRILLATION Qualifiers: Atrial fibrillation type: unspecified persistent Qualified Code(s): I48.19 - Other persistent atrial fibrillation; I48.1 - Persistent atrial fibrillation (5) Chronic kidney disease (CKD) Code(s): N18.9 - CHRONIC KIDNEY DISEASE, UNSPECIFIED Qualifiers: Chronic kidney disease stage: stage 3 (moderate) Qualified Code(s): N18.3 - Chronic kidney disease, stage 3 (moderate) (6) Hyperlipidemia Code(s): E78.5 - HYPERLIPIDEMIA, UNSPECIFIED Qualifiers: Hyperlipidemia type: pure hypercholesterolemia Qualified Code(s): E78.00 - Pure hypercholesterolemia, unspecified; E78.0 - Pure hypercholesterolemia (7) Hypertensive heart disease with acute on chronic diastolic congestive heart failure Code(s): I11.0 - HYPERTENSIVE HEART DISEASE WITH HEART FAILURE; I50.33 - ACUTE ON CHRONIC DIASTOLIC (CONGESTIVE) HEART FAILURE (8) Hypothyroid Code(s): E03.9 - HYPOTHYROIDISM, UNSPECIFIED Qualifiers: Hypothyroidism type: unspecified Qualified Code(s): E03.9 - Hypothyroidism , unspecified Assessment/Plan 07/18/2019 Echo: Normal LV size with low normal LV fxn, normal RV size and fxn, severe CHRISTIANO, mod MR, mod-severe TR RVSP 45 mmHg 1. Acute on chronic class I-II NYHA classification diastolic heart failure with pleural effusion, clinically resolving 2. Coronary artery disease post myocardial infarction status post PCI/balloon angioplasty- POBA angina pectoris 3. Persistent atrial fibrillation on chronic anticoagulation therapy with Coumadin- therapeutic INR, [id number] score of 6. 4. Hypertensive cardiovascular disease 5. Uag-gbnwgku-rbhllerza diabetes mellitus 6. Hypercholesterolemia 7. Altered mental status, clinically resolved 8. Hypothyroidism 9. Acute on chronic kidney disease improving 10. History of primary biliary cirrhosis 11. History of shingles with post herpetic neuralgia 12. 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 Continue Lopressor 50 bid 2. Continue Imdur 30 qd 3. If Coumadin therapy is continued would recommend maintaining INR between 2-3 , patient questioned utilization of DOAC's as an alternative to Coumadin therapy specifically that he is residing at an assisted living facility and is difficult to obtain blood test, alternative would be Eliquis at 2.5 mg twice daily age greater than 80 and creatinine greater than 1.5 4. Resume oral Lasix 20 bid therapy given euvolemia 5. D/c planning with f/u in office
[2019-07-19] MEDS ORDERED: PT OWN MED DRAWER 7, Y5N ONE (12:04)
[2019-07-19] MEDS: CHOLECALCIFEROL (VIT D3) 1,000 UNIT (25 MCG) TABLET PO SCH (12:05)
[2019-07-19] MEDS: METOPROLOL TARTRATE 50 MG TABLET (FP) PO SCH ×2 (12:05→22:26)
[2019-07-19] MEDS: ISOSORBIDE MONONITRATE 30 MG TAB.SR.24H (FP) PO SCH (12:06)
[2019-07-19] MEDS: POTASSIUM CHLORIDE TABS 20 MEQ TABLET.ER (FP) PO SCH (12:06)
[2019-07-19] MEDS: DUTASTERIDE 0.5 MG CAP (FP) PO SCH (12:45)
[2019-07-19] MEDS: URSODIOL 300 MG CAPSULE PO SCH ×2 (12:45→22:26)
[2019-07-19] MEDS: FUROSEMIDE 20 MG TABLET (FP) PO SCH (13:09)
[2019-07-19] MEDS: WARFARIN NA 2 MG TABLET (UD) PO SCH (17:16)
--- NOTE | 2019-07-19 17:17 | PN ---
Progress Note (short form) - Note Progress Note: patient seen and examined in room sitting in chair breathing much improved Vital Signs Period Temp Pulse Resp BP Sys/Braga Pulse Ox Last 24 Hr 97 F-98.2 F 63-85 18-20 92-117/51-73 94-94 Intake & Output 07/14/19 07/15/19 07/16/19 07/17/19 23:59 23:59 23:59 23:59 Intake Total 300 310 260 500 Output Total 1400 1025 900 400 Balance -1100 711 -640 100 Weight 205 lb 9.6 oz 200 lb 194 lb 6 oz 193 lb alert / no distress / moist cough heart S1/S2 irreg kristina lungs decreased at right bases rales at bases abd obese ext no edema CXR daily today AP & LAT-- improving but right effusion persist CBC, BMP 07/19/19 05:55 07/19/19 05:55 INR, PTT INR 2.83 (0.83-1.09) H 07/19/19 05:55 CBC, BMP 07/17/19 06:05 07/17/19 06:05 Active Medications Acetaminophen (Tylenol -) 650 mg PO Q4H PRN PRN Reason: PAIN LEVEL 1-5 Albuterol/Ipratropium (Duoneb -) 1 amp NEB RQID [facility] Last Admin: 07/19/19 11:25 Dose: 1 amp Cholecalciferol (Vitamin D3 -) 1,000 unit PO DAILY [facility] Last Admin: 07/19/19 12:05 Dose: 1,000 unit Dutasteride (Avodart -) 0.5 mg PO DAILY [facility] Last Admin: 07/19/19 12:45 Dose: 0.5 mg Furosemide (Lasix -) 20 mg PO BID@0600,1400 [facility] Last Admin: 07/19/19 13:09 Dose: 20 mg Haloperidol (Haldol Injection (Fast Acting) -) 2 mg IM Q6H PRN PRN Reason: AGITATION Last Admin: 07/12/19 01:20 Dose: 2 mg Isosorbide Mononitrate (Imdur -) 30 mg PO DAILY [facility] Last Admin: 07/19/19 12:06 Dose: 30 mg Levothyroxine Sodium (Synthroid -) 12.5 mcg PO AM [facility] Last Admin: 07/19/19 06:49 Dose: 12.5 mcg Metoprolol Tartrate (Lopressor -) 50 mg PO BID [facility] Last Admin: 07/19/19 12:05 Dose: 50 mg Potassium Chloride (K-Dur -) 40 meq PO DAILY [facility] Last Admin: 07/19/19 12:06 Dose: 40 meq Sitagliptin Phosphate (Januvia -) 50 mg PO DAILY@0700 [facility] Last Admin: 07/19/19 06:49 Dose: 50 mg Ursodiol (Actigal -) 300 mg PO BID [facility] Last Admin: 07/19/19 12:45 Dose: 300 mg Warfarin Sodium (Coumadin -) 2 mg PO DAILY@1800 [facility] Last Admin: 07/18/19 18:24 Dose: 2 mg Assmt / Plan # acute on chronic dHF Iv lasix / daily weights / I&Os / follow CXR trend renal function --stable need to maximize nutritional status # Severe protein calorie malnutrition moderate depletion of sc fat and muscle mass albumin 3.1 # atrial Fib on coumadin goal INR 2-3 rate control -- continue telemetry # pleural effusion -- significant improvement likely all HF -- responding well to conservative treatment change to PO lasix appreciate Pulm consult # hypokalemia replace lytes ck mag # CKD Cr improving with improvement in HF will trend with inc in lasix # HTN continue meds - currently well controlled # DM continue Januvia A1C 6.9 -- well controlled # HLD fasting lipids reviewed
[2019-07-20 03:32] VITALS: BMI 27.6
[2019-07-20] MEDS: sitaGLIPtin PHOSPHATE 50 MG TABLET PO SCH (06:34)
[2019-07-20] MEDS: FUROSEMIDE 20 MG TABLET (FP) PO SCH (06:34)
[2019-07-20] MEDS: LEVOTHYROXINE NA 25 MCG TABLET (FP) PO SCH (06:34)
[2019-07-20] MEDS: ALBUTEROL SO4 2.5/IPRATROPIUM 0.5 INH SOL 3 ML VIAL.NEB. NEB SCH ×2 (07:30→11:30)
--- NOTE | 2019-07-20 09:10 | PN ---
Progress Note, Physician History of Present Illness: Denies CHAUDHARI or chest pain, feels back at baseline exercise capacity, currently OOB to chair. - Current Medication List Current Medications: Active Medications Acetaminophen (Tylenol -) 650 mg PO Q4H PRN PRN Reason: PAIN LEVEL 1-5 Albuterol/Ipratropium (Duoneb -) 1 amp NEB RQID [facility] Last Admin: 07/20/19 07:30 Dose: 1 amp Cholecalciferol (Vitamin D3 -) 1,000 unit PO DAILY [facility] Last Admin: 07/19/19 12:05 Dose: 1,000 unit Dutasteride (Avodart -) 0.5 mg PO DAILY [facility] Last Admin: 07/19/19 12:45 Dose: 0.5 mg Furosemide (Lasix -) 20 mg PO BID@0600,1400 [facility] Last Admin: 07/20/19 06:34 Dose: 20 mg Haloperidol (Haldol Injection (Fast Acting) -) 2 mg IM Q6H PRN PRN Reason: AGITATION Last Admin: 07/12/19 01:20 Dose: 2 mg Isosorbide Mononitrate (Imdur -) 30 mg PO DAILY [facility] Last Admin: 07/19/19 12:06 Dose: 30 mg Levothyroxine Sodium (Synthroid -) 12.5 mcg PO AM [facility] Last Admin: 07/20/19 06:34 Dose: 12.5 mcg Metoprolol Tartrate (Lopressor -) 50 mg PO BID [facility] Last Admin: 07/19/19 22:26 Dose: Not Given Potassium Chloride (K-Dur -) 40 meq PO DAILY [facility] Last Admin: 07/19/19 12:06 Dose: 40 meq Sitagliptin Phosphate (Januvia -) 50 mg PO DAILY@0700 [facility] Last Admin: 07/20/19 06:34 Dose: 50 mg Ursodiol (Actigal -) 300 mg PO BID [facility] Last Admin: 07/19/19 22:26 Dose: 300 mg Warfarin Sodium (Coumadin -) 2 mg PO DAILY@1800 [facility] Last Admin: 07/19/19 17:16 Dose: 2 mg - Objective Vital Signs: Vital Signs Temperature 98.4 F 07/20/19 06:00 Pulse Rate 78 07/20/19 06:00 Respiratory Rate 20 07/20/19 07:48 Blood Pressure 110/66 07/20/19 06:00 O2 Sat by Pulse Oximetry (%) 97 07/20/19 07:48 Constitutional: Yes: No Distress, Calm, Thin Neck: Yes: Supple Cardiovascular: Yes: Pulse Irregular Respiratory: Yes: Regular, Diminished Gastrointestinal: Yes: Normal Bowel Sounds, Soft Edema: No Labs: CBC, BMP 07/19/19 05:55 07/19/19 05:55 INR, PTT INR 2.83 (0.83-1.09) H 07/19/19 05:55 Problem List - Problems (1) Acute on chronic diastolic (congestive) heart failure Code(s): I50.33 - ACUTE ON CHRONIC DIASTOLIC (CONGESTIVE) HEART FAILURE (2) Pleural effusion Code(s): J90 - PLEURAL EFFUSION, NOT ELSEWHERE CLASSIFIED (3) Acute respiratory failure with hypoxia Code(s): J96.01 - ACUTE RESPIRATORY FAILURE WITH HYPOXIA (4) Atrial fibrillation Code(s): I48.91 - UNSPECIFIED ATRIAL FIBRILLATION Qualifiers: Atrial fibrillation type: unspecified persistent Qualified Code(s): I48.19 - Other persistent atrial fibrillation; I48.1 - Persistent atrial fibrillation (5) Chronic kidney disease (CKD) Code(s): N18.9 - CHRONIC KIDNEY DISEASE, UNSPECIFIED Qualifiers: Chronic kidney disease stage: stage 3 (moderate) Qualified Code(s): N18.3 - Chronic kidney disease, stage 3 (moderate) (6) Hyperlipidemia Code(s): E78.5 - HYPERLIPIDEMIA, UNSPECIFIED Qualifiers: Hyperlipidemia type: pure hypercholesterolemia Qualified Code(s): E78.00 - Pure hypercholesterolemia, unspecified; E78.0 - Pure hypercholesterolemia (7) Hypertensive heart disease with acute on chronic diastolic congestive heart failure Code(s): I11.0 - HYPERTENSIVE HEART DISEASE WITH HEART FAILURE; I50.33 - ACUTE ON CHRONIC DIASTOLIC (CONGESTIVE) HEART FAILURE (8) Hypothyroid Code(s): E03.9 - HYPOTHYROIDISM, UNSPECIFIED Qualifiers: Hypothyroidism type: unspecified Qualified Code(s): E03.9 - Hypothyroidism , unspecified Assessment/Plan 07/18/2019 Echo: Normal LV size with low normal LV fxn, normal RV size and fxn, severe CHRISTIANO, mod MR, mod-severe TR RVSP 45 mmHg 1. Acute on chronic class I-II NYHA classification diastolic heart failure with pleural effusion, clinically resolving 2. Coronary artery disease post myocardial infarction status post PCI/balloon angioplasty- POBA angina pectoris 3. Persistent atrial fibrillation on chronic anticoagulation therapy with Coumadin- therapeutic INR, [id number] score of 6. 4. Hypertensive cardiovascular disease 5. Ega-lxcfzec-kdwfzjave diabetes mellitus 6. Hypercholesterolemia 7. Altered mental status, clinically resolved 8. Hypothyroidism 9. Acute on chronic kidney disease improving 10. History of primary biliary cirrhosis 11. History of shingles with post herpetic neuralgia 12. 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 Continue Lopressor 50 bid 2. Continue Imdur 30 qd 3. If Coumadin therapy is continued would recommend maintaining INR between 2-3 , patient questioned utilization of DOAC's as an alternative to Coumadin therapy specifically that he is residing at an assisted living facility and is difficult to obtain blood test, alternative would be Eliquis at 2.5 mg twice daily age greater than 80 and creatinine greater than 1.5 4. Continue oral Lasix 20 bid therapy given euvolemia 5. D/c planning with f/u in office
--- NOTE | 2019-07-20 09:41 | DS ---
Physical Examination Vital Signs: Vital Signs Temperature 98.4 F 07/20/19 06:00 Pulse Rate 78 07/20/19 06:00 Respiratory Rate 20 07/20/19 07:48 Blood Pressure 110/66 07/20/19 06:00 O2 Sat by Pulse Oximetry (%) 97 07/20/19 07:48 Constitutional: Yes: Well Nourished, No Distress, Calm Eyes: Yes: Conjunctiva Clear, EOM Intact HENT: Yes: Atraumatic, Normocephalic Neck: Yes: Supple, Trachea Midline Cardiovascular: Yes: Regular Rate and Rhythm Respiratory: Yes: CTA Bilaterally Gastrointestinal: Yes: Normal Bowel Sounds, Soft ...Rectal Exam: Yes: Deferred Renal/: Yes: WNL Breast(s): Yes: WNL Extremities: Yes: WNL Edema: No Peripheral Pulses WNL: Yes Integumentary: Yes: WNL Neurological: Yes: Alert, Oriented ...Motor Strength: WNL Psychiatric: Yes: Alert Labs: CBC, BMP 07/19/19 05:55 07/19/19 05:55 Discharge Summary Problems reviewed: Yes Reason For Visit: ATRIAL FIBRILLATION, ACUTE ON CRONIC DIASTOLIC Current Active Problems Acute on chronic diastolic (congestive) heart failure (Acute) Pleural effusion (Acute) Hospital Course: 84 y/o male with PMHx of HTN, Hypothyroidism, CKD, DM, HLD, AFib, Diverticulosis and CHF. Admitted for AMS, dHF and pleural effusion. Followed by Pulmonary and Cardiology. AMS resolved. CHAUDHARI improved. Plan to DC back to assisted living facility with . F/U with Cardiology as outpatient. Condition: Good - Instructions Referrals: Vivien Marquez [Primary Care Provider] - Disposition: HOME - Home Medications Comprehensive Discharge Medication List: Ambulatory Orders Isosorbide Mononitrate [Imdur] 30 mg PO DAILY 08/21/14 Sitagliptin Phosphate [Januvia] 50 mg PO DAILY 08/21/14 Acetaminophen [Tylenol] 650 mg PO PRN PRN 02/27/15 Cholecalciferol (Vitamin D3) [Vitamin D3] 1,000 unit PO DAILY 02/27/15 Dutasteride [Avodart] 0.5 mg PO DAILY 02/04/17 Vit B12/Intrinsic Fact/Folate [Intrinsi T20-Uydcqw Tablet] 1 each PO DAILY 03/02 Levothyroxine [Synthroid -] 12.5 mcg PO AM tablet 03/16/19 Metoprolol Tartrate [Lopressor -] 50 mg PO BID tablet 03/16/19 Prednisone See Taper PO DAILY 8 Days #20 tablet 03/16/19 Ursodiol [Actigal -] 300 mg PO BID capsule 03/16/19 Warfarin Na [Coumadin -] 2 mg PO DAILY@1800 30 Days #30 tablet 03/16/19 Albuterol 2.5/Ipratropium 0.5 [Duoneb -] 1 amp NEB QID PRN 07/11/19 Famotidine 20 mg PO DAILY 07/11/19 Fluticasone/Vilanterol [Breo Ellipta 100-25 Mcg INH] 1 each IH DAILY 07/11/19 Folic Acid 1 mg PO DAILY 07/11/19 Furosemide [Lasix] 20 mg PO ASDIR 07/11/19
[2019-07-20] MEDS ORDERED: PT OWN MED DRAWER 7, Y5N ONE (09:55)
[2019-07-20] MEDS: METOPROLOL TARTRATE 50 MG TABLET (FP) PO SCH (09:56)
[2019-07-20] MEDS: URSODIOL 300 MG CAPSULE PO SCH (09:56)
[2019-07-20] MEDS: DUTASTERIDE 0.5 MG CAP (FP) PO SCH (09:56)
[2019-07-20] MEDS: POTASSIUM CHLORIDE TABS 20 MEQ TABLET.ER (FP) PO SCH (09:57)
[2019-07-20] MEDS: CHOLECALCIFEROL (VIT D3) 1,000 UNIT (25 MCG) TABLET PO SCH (09:57)
[2019-07-20] MEDS: ISOSORBIDE MONONITRATE 30 MG TAB.SR.24H (FP) PO SCH (09:57)
--- NOTE | 2019-07-20 10:39 | DS ---
Physical Examination Vital Signs: Vital Signs Temperature 98.4 F 07/20/19 06:00 Pulse Rate 78 07/20/19 06:00 Respiratory Rate 20 07/20/19 07:48 Blood Pressure 110/66 07/20/19 06:00 O2 Sat by Pulse Oximetry (%) 97 07/20/19 07:48 Constitutional: Yes: Calm Eyes: Yes: Conjunctiva Clear HENT: Yes: Atraumatic Labs: CBC, BMP 07/19/19 05:55 07/19/19 05:55 Discharge Summary Problems reviewed: Yes Reason For Visit: ATRIAL FIBRILLATION, ACUTE ON CRONIC DIASTOLIC Current Active Problems Acute on chronic diastolic (congestive) heart failure (Acute) Pleural effusion (Acute) - Instructions Referrals: Vivien Marquez [Primary Care Provider] - - Home Medications Comprehensive Discharge Medication List: Ambulatory Orders Isosorbide Mononitrate [Imdur] 30 mg PO DAILY 08/21/14 Sitagliptin Phosphate [Januvia] 50 mg PO DAILY 08/21/14 Acetaminophen [Tylenol] 650 mg PO PRN PRN 02/27/15 Cholecalciferol (Vitamin D3) [Vitamin D3] 1,000 unit PO DAILY 02/27/15 Dutasteride [Avodart] 0.5 mg PO DAILY 02/04/17 Vit B12/Intrinsic Fact/Folate [Intrinsi Y90-Qlwncy Tablet] 1 each PO DAILY 03/02 Levothyroxine [Synthroid -] 12.5 mcg PO AM tablet 03/16/19 Metoprolol Tartrate [Lopressor -] 50 mg PO BID tablet 03/16/19 Prednisone See Taper PO DAILY 8 Days #20 tablet 03/16/19 Ursodiol [Actigal -] 300 mg PO BID capsule 03/16/19 Warfarin Na [Coumadin -] 2 mg PO DAILY@1800 30 Days #30 tablet 03/16/19 Albuterol 2.5/Ipratropium 0.5 [Duoneb -] 1 amp NEB QID PRN 07/11/19 Famotidine 20 mg PO DAILY 07/11/19 Fluticasone/Vilanterol [Breo Ellipta 100-25 Mcg INH] 1 each IH DAILY 07/11/19 Folic Acid 1 mg PO DAILY 07/11/19 Furosemide [Lasix] 20 mg PO ASDIR 07/11/19
--- NOTE | 2019-07-20 12:59 | PN ---
Progress Note (short form) - Note Progress Note: Overall improved. Qualified for home O2 which is being arranged. Intake & Output 07/17/19 07/18/19 07/19/19 07/20/19 23:59 23:59 23:59 23:59 Intake Total 970 140 670 Output Total 1200 200 600 Balance -230 -60 70 Weight 193 lb 192 lb 193 lb 2 oz 192 lb 9.6 oz Last Vital Signs Temp Pulse Resp BP Pulse Ox 98.3 F 68 22 H 101/72 86 L 07/20/19 10:00 07/20/19 10:00 07/20/19 10:00 07/20/19 10:00 07/20/19 09:53 Active Medications Acetaminophen (Tylenol -) 650 mg PO Q4H PRN PRN Reason: PAIN LEVEL 1-5 Albuterol/Ipratropium (Duoneb -) 1 amp NEB RQID [facility] Last Admin: 07/20/19 07:30 Dose: 1 amp Cholecalciferol (Vitamin D3 -) 1,000 unit PO DAILY [facility] Last Admin: 07/20/19 09:57 Dose: 1,000 unit Dutasteride (Avodart -) 0.5 mg PO DAILY [facility] Last Admin: 07/20/19 09:56 Dose: 0.5 mg Furosemide (Lasix -) 20 mg PO BID@0600,1400 [facility] Last Admin: 07/20/19 06:34 Dose: 20 mg Haloperidol (Haldol Injection (Fast Acting) -) 2 mg IM Q6H PRN PRN Reason: AGITATION Last Admin: 07/12/19 01:20 Dose: 2 mg Isosorbide Mononitrate (Imdur -) 30 mg PO DAILY [facility] Last Admin: 07/20/19 09:57 Dose: 30 mg Levothyroxine Sodium (Synthroid -) 12.5 mcg PO AM [facility] Last Admin: 07/20/19 06:34 Dose: 12.5 mcg Metoprolol Tartrate (Lopressor -) 50 mg PO BID [facility] Last Admin: 07/20/19 09:56 Dose: Not Given Potassium Chloride (K-Dur -) 40 meq PO DAILY [facility] Last Admin: 07/20/19 09:57 Dose: 40 meq Sitagliptin Phosphate (Januvia -) 50 mg PO DAILY@0700 [facility] Last Admin: 07/20/19 06:34 Dose: 50 mg Ursodiol (Actigal -) 300 mg PO BID [facility] Last Admin: 07/20/19 09:56 Dose: 300 mg Warfarin Sodium (Coumadin -) 2 mg PO DAILY@1800 [facility] Last Admin: 07/19/19 17:16 Dose: 2 mg Gen: NAD Heart: RRR Lung: decreased breath sounds at the bases, no wheeze Abd: soft, nontender Ext: no edema Laboratory Results - last 24 hr 07/20/19 06:33 POC Glucometer 141 Problem List - Problems (1) Acute on chronic diastolic (congestive) heart failure Code(s): I50.33 - ACUTE ON CHRONIC DIASTOLIC (CONGESTIVE) HEART FAILURE (2) Pleural effusion Code(s): J90 - PLEURAL EFFUSION, NOT ELSEWHERE CLASSIFIED (3) Atrial fibrillation Code(s): I48.91 - UNSPECIFIED ATRIAL FIBRILLATION A/P Acute on Chronic Diastolic Heart Failure Atrial Fibrillation Pleural Effusions from above CAD CKD HTN DM Hyperlipidemia - Lasix - continue anticoagulation - Has qualified for home which is being arranged Dr Arellano
[2019-07-20 14:10] VITALS: BP 100/78; PULSE 87; TEMP 98.5
--- NOTE | 2019-07-26 14:14 | EKG ---
Test Reason : Blood Pressure : / mmHG Vent. Rate : 053 BPM Atrial Rate : 058 BPM P-R Int : 000 ms QRS Dur : 080 ms QT Int : 446 ms P-R-T Axes : 000 -69 -52 degrees QTc Int : 418 ms ATRIAL FIBRILLATION WITH SLOW VENTRICULAR RESPONSE and PVC's. PULMONARY DISEASE PATTERN LEFT ANTERIOR FASCICULAR BLOCK CANNOT RULE OUT INFERIOR INFARCT (MASKED BY FASCICULAR BLOCK?) , AGE UNDETERMINED ABNORMAL ECG Confirmed by Dejan Rinaldi MD ([id number]) on 07/11/2019 12:11:13 PM Also confirmed by Dejan Rinaldi MD [id number]), video editor [facility]DIGO [facility]ERRAT[facility] ([id number]) on 07/26/2019 2:14:39 PM Referred By: Confirmed By:Dejan Rinaldi MD
== END 2019-07-20 14:15 | disposition home or self-care (01) | DRG 291 ==
LOC: SUPCPDRO 12:46 → JER 12:46 → JERBED 16:24 → J4W 07-11 12:40
PROVIDERS: ADMIT Family Medicine; ATTEND Family Medicine
DX: I13.0 Hypertensive heart and chronic kidney disease with heart failure and stage 1 through stage 4 chronic kidney disease, or unspecified chronic kidney disease (principal); I50.33 Acute on chronic diastolic (congestive) heart failure; J98.11 Atelectasis; I48.19 Other persistent atrial fibrillation; B02.29 Other postherpetic nervous system involvement; E46 Unspecified protein-calorie malnutrition; E78.5 Hyperlipidemia, unspecified; I25.10 Atherosclerotic heart disease of native coronary artery without angina pectoris; K57.90 Diverticulosis of intestine, part unspecified, without perforation or abscess without bleeding; K21.9 Gastro-esophageal reflux disease without esophagitis; K44.9 Diaphragmatic hernia without obstruction or gangrene; E87.6 Hypokalemia; K29.70 Gastritis, unspecified, without bleeding; K63.5 Polyp of colon; R41.82 Altered mental status, unspecified; I10 Essential (primary) hypertension; M51.27 Other intervertebral disc displacement, lumbosacral region; I44.4 Left anterior fascicular block; E66.9 Obesity, unspecified; Z68.27 Body mass index [BMI] 27.0-27.9, adult; E03.9 Hypothyroidism, unspecified; E11.22 Type 2 diabetes mellitus with diabetic chronic kidney disease; N18.3 Chronic kidney disease, stage 3 (moderate); Z85.828 Personal history of other malignant neoplasm of skin; Z79.01 Long term (current) use of anticoagulants; Z95.5 Presence of coronary angioplasty implant and graft
CPT/HCPCS: 36415; 71045-TC-FY; 71046-TC-FY; 71250-TC; 80048; 80053; 80061; 82550; 82962; 83036; 83721; 83735; 83880; 84443; 84484; 85025; 85610; 93005; 93010; 93306-TC; 94640; 94761; 97116-GP; 97161-GP; 99285-25; G0008; Q2036

== ENCOUNTER 2020-12-04 11:45 | Inpatient (IN) | payer OTHER, BC ==
[2020-12-04] MEDS ORDERED: LACTATED RINGERS SOLUTION 1000 ML INFUS.BAG IV ONE (14:00)
[2020-12-04 14:53] LABS: BASO % 0.8 % (0-2.0); EOS % 2.5 % (0-4.5); HEMATOCRIT 33.3 % (35.4-49); HEMOGLOBIN 10.8 GM/dL (11.7-16.9); LYMPH % 16.9 % (8-40); MCH 32.8 pg (25.7-33.7); MCHC 32.5 g/dl (32.0-35.9); MEAN PLT VOLUME 8.3 fl (7.5-11.1); NEUT % 64.8 % (42.8-82.8); PLATELET COUNT 297 K/MM3 (134-434); RDW 15.9 % (11.9-15.9); WHITE BLOOD COUNT 9.2 K/mm3 (4.0-10.0)
[2020-12-04 14:58] LABS: URINE APPEARANCE CLEAR; URINE BILIRUBIN NEGATIVE (NEGATIVE); URINE COLOR YELLOW; URINE GLUCOSE (UA) NEGATIVE (NEGATIVE); URINE KETONE NEGATIVE (NEGATIVE); URINE LEUK ESTERASE NEGATIVE (NEGATIVE); URINE NITRITE NEGATIVE (NEGATIVE); URINE PROTEIN NEGATIVE (NEGATIVE); URINE UROBILINOGEN 0.2 mg/dL (0.2-1.0)
[2020-12-04 15:13] LABS: POTASSIUM 4.3 mmol/L (3.5-5.1)
[2020-12-04 15:15] LABS: CALCIUM 9.3 mg/dL (8.5-10.1)
[2020-12-04 15:16] LABS: BLOOD UREA NITROGEN 23.1 mg/dL (7-18); MAGNESIUM 2.1 mg/dL (1.8-2.4)
[2020-12-04 15:18] LABS: CREATININE 1.1 mg/dL (0.55-1.3)
[2020-12-04 15:20] LABS: BILIRUBIN,TOTAL 1.5 mg/dL (0.2-1); TOT PROT 6.9 g/dl (6.4-8.2)
[2020-12-04] MEDS ORDERED: PIPERACILLIN/TAZOB 4.5 GM 4.5 GM in DEXTROSE 5%-WATER 100 ML IVPB ONE (18:34)
[2020-12-04] MEDS ORDERED: VANCOMYCIN 2,000 MG in DEXTROSE 5%-WATER - 250 ML IVPB ONE (18:55)
[2020-12-04] MEDS ORDERED: PIPERACILLIN/TAZOB 4.5 GM 4.5 GM/100 ML BAG IVPB ONE (19:13)
[2020-12-04] MEDS ORDERED: LOPERAMIDE HCL 2 MG CAPSULE PO PRN (19:55)
[2020-12-04] MEDS ORDERED: VANCOMYCIN 2,000 MG in DEXTROSE 5%-WATER - 500 ML IVPB ONE (19:56)
[2020-12-04] MEDS ORDERED: DEXTROSE 5%-0.45% SALINE 1,000 ML IV SCH (20:00)
[2020-12-04] MEDS ORDERED: ENOXAPARIN NA (PORCINE) 40 MG/0.4 ML DISP.SYRIN SQ ONE (20:14)
[2020-12-04] MEDS ORDERED: PANTOPRAZOLE SODIUM 40 MG VIAL ONE (20:15)
[2020-12-04] MEDS: ENOXAPARIN NA (PORCINE) 40 MG/0.4 ML DISP.SYRIN SQ SCH (20:28)
[2020-12-04] MEDS: PANTOPRAZOLE SODIUM 40 MG VIAL IVPUSH SCH (20:29)
[2020-12-04] MEDS ORDERED: D5-1/2NS+20 MEQ KCL - 20 MEQ/1,000 ML INFUS.BAG IV SCH (20:45)
[2020-12-04] MEDS: METOPROLOL TARTRATE 50 MG TABLET (FP) PO SCH (23:15)
[2020-12-05 01:13] VITALS: BMI 27.3
[2020-12-05] MEDS: LEVOTHYROXINE NA 25 MCG TABLET (FP) PO SCH (06:12)
[2020-12-05] MEDS: sitaGLIPtin PHOSPHATE 50 MG TABLET PO SCH (06:12)
[2020-12-05] MEDS: FUROSEMIDE 20 MG TABLET (FP) PO SCH ×3 (06:12→13:26)
[2020-12-05 08:01] LABS: BASO % 1.1 % (0-2.0); EOS % 3.2 % (0-4.5); HEMATOCRIT 30.3 % (35.4-49); HEMOGLOBIN 10.1 GM/dL (11.7-16.9); LYMPH % 17.3 % (8-40); MCH 33.4 pg (25.7-33.7); MCHC 33.3 g/dl (32.0-35.9); MEAN CELL VOLUME 100.2 fl (80-96); MEAN PLT VOLUME 8.2 fl (7.5-11.1); MONO % 16.2 % (3.8-10.2); NEUT % 62.2 % (42.8-82.8); PLATELET COUNT 253 K/MM3 (134-434); RBC 3.02 M/mm3 (4.00-5.60); RDW 15.7 % (11.9-15.9); WHITE BLOOD COUNT 7.8 K/mm3 (4.0-10.0)
[2020-12-05 08:14] LABS: POTASSIUM 4.2 mmol/L (3.5-5.1)
[2020-12-05 08:44] LABS: CALCIUM 8.5 mg/dL (8.5-10.1)
[2020-12-05 08:45] LABS: ALBUMIN 2.4 g/dl (3.4-5.0); BLOOD UREA NITROGEN 21.6 mg/dL (7-18)
[2020-12-05 08:48] LABS: CREATININE 1.3 mg/dL (0.55-1.3)
[2020-12-05 08:49] LABS: BILIRUBIN,TOTAL 1.4 mg/dL (0.2-1); TOT PROT 5.9 g/dl (6.4-8.2)
[2020-12-05] MEDS ORDERED: POTASSIUM CHLORIDE TABS 20 MEQ TABLET.ER (FP) PO SCH (10:00)
[2020-12-05] MEDS ORDERED: FLUTICASONE/UMECLIDIN/VILANTER (TRELEGY ELLIPTA 100-62.5-25) INAHLER IH SCH (10:00)
[2020-12-05] MEDS: PANTOPRAZOLE SODIUM 40 MG VIAL IVPUSH SCH (10:51)
[2020-12-05] MEDS: CHOLECALCIFEROL (VIT D3) 1,000 UNIT (25 MCG) TABLET PO SCH (10:51)
[2020-12-05] MEDS: METOPROLOL TARTRATE 50 MG TABLET (FP) PO SCH ×2 (10:51→21:26)
[2020-12-05] MEDS: ENOXAPARIN NA (PORCINE) 40 MG/0.4 ML DISP.SYRIN SQ SCH (10:51)
[2020-12-05] MEDS: FOLIC ACID 1 MG TABLET (FP) PO SCH (10:51)
[2020-12-05] MEDS ORDERED: IRON SUCROSE INJECTION 200 MG in SODIUM CHLORIDE 90 ML IVPB ONE (11:30)
[2020-12-05] MEDS: CYANOCOBALAMIN (VITAMIN B-12) 100 MCG TABLET PO SCH (12:54)
[2020-12-05] MEDS ORDERED: D5-1/2NS+20 MEQ KCL - 20 MEQ/1,000 ML INFUS.BAG IV SCH (13:27)
[2020-12-06] MEDS: LEVOTHYROXINE NA 25 MCG TABLET (FP) PO SCH (06:23)
[2020-12-06] MEDS: sitaGLIPtin PHOSPHATE 50 MG TABLET PO SCH (06:27)
[2020-12-06] MEDS: FUROSEMIDE 20 MG TABLET (FP) PO SCH ×2 (06:29→14:37)
[2020-12-06 08:10] LABS: BASO % 1.2 % (0-2.0); EOS % 6.3 % (0-4.5); HEMATOCRIT 31.2 % (35.4-49); HEMOGLOBIN 10.2 GM/dL (11.7-16.9); LYMPH % 20.8 % (8-40); MCH 32.8 pg (25.7-33.7); MCHC 32.8 g/dl (32.0-35.9); MEAN PLT VOLUME 8.4 fl (7.5-11.1); MONO % 17.3 % (3.8-10.2); NEUT % 54.4 % (42.8-82.8); PLATELET COUNT 243 K/MM3 (134-434); RBC 3.12 M/mm3 (4.00-5.60); RDW 15.1 % (11.9-15.9)
[2020-12-06 08:33] LABS: POTASSIUM 4.1 mmol/L (3.5-5.1)
[2020-12-06 08:35] LABS: CALCIUM 8.4 mg/dL (8.5-10.1)
[2020-12-06 08:36] LABS: ALBUMIN 2.5 g/dl (3.4-5.0); BLOOD UREA NITROGEN 22.4 mg/dL (7-18)
[2020-12-06 08:39] LABS: CREATININE 1.4 mg/dL (0.55-1.3)
[2020-12-06 08:41] LABS: BILIRUBIN,TOTAL 0.9 mg/dL (0.2-1)
[2020-12-06] MEDS: CHOLECALCIFEROL (VIT D3) 1,000 UNIT (25 MCG) TABLET PO SCH (09:41)
[2020-12-06] MEDS: FOLIC ACID 1 MG TABLET (FP) PO SCH (09:41)
[2020-12-06] MEDS: CYANOCOBALAMIN (VITAMIN B-12) 100 MCG TABLET PO SCH (09:41)
[2020-12-06] MEDS: METOPROLOL TARTRATE 50 MG TABLET (FP) PO SCH ×4 (09:41→23:10)
[2020-12-06] MEDS: ENOXAPARIN NA (PORCINE) 40 MG/0.4 ML DISP.SYRIN SQ SCH (09:41)
[2020-12-06] MEDS: PANTOPRAZOLE SODIUM 40 MG VIAL IVPUSH SCH (09:41)
[2020-12-06] MEDS ORDERED: D5-1/2NS+20 MEQ KCL - 20 MEQ/1,000 ML INFUS.BAG IV SCH (10:39)
[2020-12-07] MEDS: sitaGLIPtin PHOSPHATE 50 MG TABLET PO SCH (06:53)
[2020-12-07] MEDS: FUROSEMIDE 20 MG TABLET (FP) PO SCH ×2 (06:53→15:03)
[2020-12-07] MEDS: LEVOTHYROXINE NA 25 MCG TABLET (FP) PO SCH (06:55)
[2020-12-07 07:19] LABS: BASO % 0.2 % (0-2.0); HEMOGLOBIN 10.1 GM/dL (11.7-16.9); LYMPH % 17.4 % (8-40); MCH 32.9 pg (25.7-33.7); MCHC 32.6 g/dl (32.0-35.9); MEAN CELL VOLUME 100.8 fl (80-96); MEAN PLT VOLUME 8.5 fl (7.5-11.1); MONO % 15.3 % (3.8-10.2); NEUT % 62.1 % (42.8-82.8); PLATELET COUNT 234 K/MM3 (134-434); RBC 3.07 M/mm3 (4.00-5.60); RDW 15.2 % (11.9-15.9); WHITE BLOOD COUNT 7.4 K/mm3 (4.0-10.0)
[2020-12-07 07:38] LABS: POTASSIUM 4.1 mmol/L (3.5-5.1)
[2020-12-07 07:44] LABS: ALBUMIN 2.6 g/dl (3.4-5.0); CALCIUM 8.4 mg/dL (8.5-10.1)
[2020-12-07 07:47] LABS: CREATININE 1.6 mg/dL (0.55-1.3)
[2020-12-07 07:49] LABS: TOT PROT 6.3 g/dl (6.4-8.2)
[2020-12-07] MEDS: CHOLECALCIFEROL (VIT D3) 1,000 UNIT (25 MCG) TABLET PO SCH (09:06)
[2020-12-07] MEDS: FOLIC ACID 1 MG TABLET (FP) PO SCH (09:06)
[2020-12-07] MEDS: PANTOPRAZOLE SODIUM 40 MG VIAL IVPUSH SCH (09:06)
[2020-12-07] MEDS: CYANOCOBALAMIN (VITAMIN B-12) 100 MCG TABLET PO SCH (09:07)
[2020-12-07] MEDS: METOPROLOL TARTRATE 50 MG TABLET (FP) PO SCH (09:09)
[2020-12-07] MEDS: ENOXAPARIN NA (PORCINE) 40 MG/0.4 ML DISP.SYRIN SQ SCH (09:09)
[2020-12-07] MEDS ORDERED: ALBUTEROL SO4 2.5/IPRATROPIUM 0.5 INH SOL 3 ML VIAL.NEB. NEB PRN (10:44)
[2020-12-07] MEDS ORDERED: MULTIVITAMINS THER W-MINERALS COMBO TABLET (FP) PO SCH (11:00)
[2020-12-07] MEDS ORDERED: POTASSIUM CHLORIDE TABS 20 MEQ TABLET.ER (FP) PO SCH (11:00)
[2020-12-07] MEDS ORDERED: ISOSORBIDE MONONITRATE 30 MG TAB.SR.24H (FP) PO SCH (11:00)
[2020-12-07] MEDS ORDERED: DUTASTERIDE 0.5 MG CAP (FP) PO SCH (11:00)
[2020-12-07] MEDS ORDERED: COLLAGENASE CLOSTRIDIUM HIST. 30 GRAMS TUBE TP SCH (11:00)
[2020-12-07] MEDS ORDERED: CHOLECALCIFEROL (VIT D3) 5000 UNITS (125 MCG) CAP PO SCH (11:00)
[2020-12-07] MEDS ORDERED: MINERAL OIL/PETROLAT/WATER TOPICAL CREAM 113 GM JAR TP SCH (11:00)
[2020-12-07] MEDS ORDERED: APIXABAN 2.5 MG TABLET PO SCH (11:00)
[2020-12-07] MEDS ORDERED: CHOLECALCIFEROL (VIT D3) 1,000 UNIT (25 MCG) TABLET PO SCH (11:17)
[2020-12-07] MEDS ORDERED: DOCUSATE SODIUM 100 MG CAPSULE (FP) PO SCH (14:00)
[2020-12-07] MEDS ORDERED: AMINO ACIDS/PROTEIN HYDROLYS 30 ML LIQUID.PKT PO SCH (17:30)
[2020-12-07 20:31] VITALS: BP 92/70; PULSE 66; TEMP 98.1
[2020-12-07] MEDS ORDERED: URSODIOL 300 MG CAPSULE PO SCH ×2 (22:00)
[2020-12-08] MEDS ORDERED: TAMSULOSIN HCL 0.4 MG CAP PO SCH (08:30)
[2020-12-08] MEDS ORDERED: PANTOPRAZOLE 40 MG TABLET PO SCH (10:00)
[2020-12-08] MEDS ORDERED: DUTASTERIDE 0.5 MG CAP (FP) PO SCH (10:00)
== END 2020-12-07 21:00 | disposition home health service (06) | DRG 391 ==
LOC: JER 11:45 → JERBED 19:02 → J6WEST-2 21:32
PROVIDERS: ADMIT Internal Medicine; ATTEND Internal Medicine
DX: K52.9 Noninfective gastroenteritis and colitis, unspecified (principal); J18.9 Pneumonia, unspecified organism; I50.32 Chronic diastolic (congestive) heart failure; I10 Essential (primary) hypertension; E78.5 Hyperlipidemia, unspecified; E11.9 Type 2 diabetes mellitus without complications; I25.10 Atherosclerotic heart disease of native coronary artery without angina pectoris; I48.91 Unspecified atrial fibrillation; J44.9 Chronic obstructive pulmonary disease, unspecified; K21.9 Gastro-esophageal reflux disease without esophagitis; D50.9 Iron deficiency anemia, unspecified; E88.09 Other disorders of plasma-protein metabolism, not elsewhere classified; E80.6 Other disorders of bilirubin metabolism; K74.60 Unspecified cirrhosis of liver; E77.8 Other disorders of glycoprotein metabolism; E11.622 Type 2 diabetes mellitus with other skin ulcer
CPT/HCPCS: 36415; 74177-TC; 80053; 81003; 82728; 82962; 83540; 83550; 83735; 85025; 87045; 87046; 87086; 87205; 87324; 87449; 87798; 93005; 93010; 97116-GP; 97162-GP; 99285-25; C9803; J1756; Q9967; U0003

== ENCOUNTER 2023-07-17 12:02 | Inpatient (IN) | payer OTHER, BC ==
[2023-07-17] MEDS ORDERED: ALBUTEROL SO4 2.5/IPRATROPIUM 0.5 INH SOL 3 ML VIAL.NEB. NEB ONE ×2 (12:22→13:19)
[2023-07-17] MEDS: ALBUTEROL SO4 2.5/IPRATROPIUM 0.5 INH SOL 3 ML VIAL.NEB. NEB SCH ×3 (12:47→13:20)
[2023-07-17 13:02] LABS: BASO % 0.5 % (0-2.0); EOS % 0.2 % (0-4.5); HEMATOCRIT 33.1 % (35.4-49); HEMOGLOBIN 10.8 GM/dL (11.7-16.9); LYMPH % 8.3 % (8-40); MCH 31.9 pg (25.7-33.7); MCHC 32.5 g/dl (32.0-35.9); MEAN CELL VOLUME 98.1 fl (80-96); MEAN PLT VOLUME 8.7 fl (7.5-11.1); MONO % 13.2 % (3.8-10.2); NEUT % 77.8 % (42.8-82.8); PLATELET COUNT 146 10^3/uL (134-434); RBC 3.38 M/mm3 (4.00-5.60); RDW 15.8 % (11.9-15.9); WHITE BLOOD COUNT 7.1 K/mm3 (4.0-10.0)
[2023-07-17] MEDS ORDERED: methylPREDNISolone NA SUCC 125 MG/2 ML VIAL IVPUSH ONE (13:10)
[2023-07-17 13:11] LABS: INR 2.22 (0.83-1.09); PROTHROMBIN TIME (PATIENT) 25.5 SEC (9.7-13.0)
[2023-07-17] MEDS ORDERED: VANCOMYCIN 1,000 MG in DEXTROSE 5%-WATER - 250 ML IVPB ONE (13:11)
[2023-07-17] MEDS ORDERED: PIPERACILLIN/TAZOB 4.5 GM 4.5 GM in DEXTROSE 5%-WATER 100 ML IVPB ONE (13:13)
[2023-07-17 13:14] LABS: ACTIVATED PTT 39.6 SECONDS (25.2-36.5)
[2023-07-17 13:17] LABS: POTASSIUM 4.2 mmol/L (3.5-5.1)
[2023-07-17 13:21] LABS: CALCIUM 8.1 mg/dL (8.5-10.1)
[2023-07-17] MEDS ORDERED: methylPREDNISolone NA SUCC 125 MG/2 ML VIAL ONE (13:21)
[2023-07-17] MEDS ORDERED: PIPERACILLIN/TAZOB 4.5 GM 4.5 GM/100 ML BAG IVPB ONE (13:21)
[2023-07-17] MEDS ORDERED: VANCOMYCIN 1 GRAM (PRE-DOCKED) 1,000 MG/250 ML BAG IVPB ONE (13:21)
[2023-07-17 13:22] LABS: ALBUMIN 3.1 g/dl (3.4-5.0); BLOOD UREA NITROGEN 34.4 mg/dL (7-18)
[2023-07-17 13:24] LABS: VENOUS BASE EXCESS -5.5 mmol/L (-2-2); VENOUS O2 SATURATION 37.6 % (70-80); VENOUS PCO2 51.7 mmHg (38-52); VENOUS PH 7.253 (7.310-7.410)
[2023-07-17 13:27] LABS: BILIRUBIN,TOTAL 1.4 mg/dL (0.2-1)
[2023-07-17 13:30] LABS: EPI CELLS 10 /uL (0-25.1); HYALINE CASTS 1 /uL (0-3.1); URINE APPEARANCE CLEAR; URINE BACTERIA 12 /uL (0-1359); URINE BILIRUBIN NEGATIVE (NEGATIVE); URINE COLOR YELLOW; URINE GLUCOSE (UA) NEGATIVE (NEGATIVE); URINE KETONE NEGATIVE (NEGATIVE); URINE LEUK ESTERASE 1+ (NEGATIVE); URINE NITRITE NEGATIVE (NEGATIVE); URINE PROTEIN 1+ (NEGATIVE); URINE RBC 56 /uL (0-23.9); URINE UROBILINOGEN 0.2 mg/dL (0.2-1.0); URINE WBC 48 /uL (0-25.8)
[2023-07-17 13:55] LABS: LACTIC ACID 2.2 mmol/L (0.4-2.0)
[2023-07-17 13:58] LABS: YEAST NONE SEEN (NEGATIVE)
[2023-07-17] MEDS ORDERED: SODIUM CHLORIDE 0.9% 500 ML INFUS.BAG IV ONE (14:02)
[2023-07-17] MEDS ORDERED: ALBUTEROL SO4 2.5/IPRATROPIUM 0.5 INH SOL 3 ML VIAL.NEB. NEB PRN (17:40)
[2023-07-17] MEDS ORDERED: DEXTROSE 5%-0.45% SALINE 1,000 ML IV SCH (18:15)
[2023-07-17] MEDS ORDERED: PANTOPRAZOLE 40 MG TABLET PO ONE (18:54)
[2023-07-17] MEDS: PANTOPRAZOLE 40 MG TABLET PO SCH (18:54)
[2023-07-17 19:12] LABS: HEMATOCRIT 34.2 % (35.4-49); HEMOGLOBIN 10.6 GM/dL (11.7-16.9); MCH 31.3 pg (25.7-33.7); MEAN CELL VOLUME 100.8 fl (80-96); MEAN PLT VOLUME 8.3 fl (7.5-11.1); PLATELET COUNT 145 10^3/uL (134-434); RBC 3.39 M/mm3 (4.00-5.60); WHITE BLOOD COUNT 7.3 K/mm3 (4.0-10.0)
[2023-07-17 19:56] LABS: ANISOCYTOSIS 1+; MACROCYTOSIS 1+
[2023-07-17 20:13] LABS: POTASSIUM 4.2 mmol/L (3.5-5.1)
[2023-07-17 20:15] LABS: CALCIUM 8.7 mg/dL (8.5-10.1)
[2023-07-17 20:16] LABS: ALBUMIN 3.2 g/dl (3.4-5.0); BLOOD UREA NITROGEN 29.6 mg/dL (7-18); MAGNESIUM 2.1 mg/dL (1.8-2.4)
[2023-07-17 20:20] LABS: BILIRUBIN,TOTAL 1.3 mg/dL (0.2-1); TOT PROT 7.2 g/dl (6.4-8.2)
[2023-07-17] MEDS: APIXABAN 2.5 MG TABLET PO SCH (22:56)
[2023-07-17] MEDS: URSODIOL 300 MG CAPSULE PO SCH (22:56)
[2023-07-18] MEDS ORDERED: INSULIN (NOVOLOG) ASPART 100 UNITS/ML 10ML VIAL ONE ×2 (06:06→17:01)
[2023-07-18] MEDS ORDERED: IRON SUCROSE INJECTION 300 MG in SODIUM CHLORIDE 235 ML IVPB ONE (06:30)
[2023-07-18] MEDS: INSULIN SLIDING SCALE (NOVOLOG) 1 VIAL SQ SCH ×2 (06:52→17:03)
[2023-07-18] MEDS: LEVOTHYROXINE NA 25 MCG TABLET (FP) PO SCH (06:53)
[2023-07-18] MEDS: TAMSULOSIN HCL 0.4 MG CAP PO SCH (07:47)
[2023-07-18 08:12] LABS: HEMATOCRIT 33.3 % (35.4-49); MCH 32.8 pg (25.7-33.7); MCHC 33.1 g/dl (32.0-35.9); MEAN PLT VOLUME 9.1 fl (7.5-11.1); PLATELET COUNT 139 10^3/uL (134-434); RBC 3.36 M/mm3 (4.00-5.60); RDW 15.8 % (11.9-15.9); WHITE BLOOD COUNT 8.9 K/mm3 (4.0-10.0)
[2023-07-18 08:35] LABS: POTASSIUM 4.7 mmol/L (3.5-5.1)
[2023-07-18 08:37] LABS: BLOOD UREA NITROGEN 35.8 mg/dL (7-18)
[2023-07-18 08:40] LABS: CALCIUM 8.3 mg/dL (8.5-10.1)
[2023-07-18 08:41] LABS: ALBUMIN 3.1 g/dl (3.4-5.0)
[2023-07-18 08:42] LABS: BILIRUBIN,TOTAL 1.3 mg/dL (0.2-1); TOT PROT 7.4 g/dl (6.4-8.2)
[2023-07-18 09:13] LABS: ANISOCYTOSIS 0; HELMET CELLS 0; HOWELL-JOLLY BODIES 0; MACROCYTOSIS 0; OVALOCYTE 0; ROULEAU 0; SICKELED CELLS 0; TARGET CELLS 0; TEAR DROP CELLS 0; TOXIC GRANULATION 0
[2023-07-18] MEDS: CHOLECALCIFEROL (VIT D3) 1,000 UNIT (25 MCG) TABLET PO SCH (09:23)
[2023-07-18] MEDS: FOLIC ACID 1 MG TABLET (FP) PO SCH (09:23)
[2023-07-18] MEDS: ISOSORBIDE MONONITRATE 30 MG TAB.SR.24H (FP) PO SCH (09:23)
[2023-07-18] MEDS: PANTOPRAZOLE 40 MG TABLET PO SCH (09:23)
[2023-07-18] MEDS: URSODIOL 300 MG CAPSULE PO SCH ×2 (09:23→21:22)
[2023-07-18] MEDS: APIXABAN 2.5 MG TABLET PO SCH ×2 (09:23→21:22)
[2023-07-18] MEDS: CYANOCOBALAMIN (VITAMIN B-12) 100 MCG TABLET PO SCH (09:24)
[2023-07-18] MEDS: DUTASTERIDE 0.5 MG CAP (FP) PO SCH (09:24)
[2023-07-18] MEDS ORDERED: methylPREDNISolone NA SUCC 1000 MG/8 ML VIAL IVPB SCH (10:30)
[2023-07-18] MEDS: CEFTRIAXONE 2 GM in DEXTROSE 5%-WATER 100 ML IVPB SCH (11:01)
[2023-07-18] MEDS: methylPREDNISolone NA SUCC 40 MG/1 ML VIAL IVPB SCH ×2 (11:01→17:55)
[2023-07-18] MEDS: AZITHROMYCIN IVPB 500 MG/250 ML BAG IVPB SCH (11:02)
[2023-07-18] MEDS ORDERED: ALBUTEROL SO4 0.083% IH SOL 2.5 MG/3 ML VIAL.NEB. NEB PRN (13:24)
[2023-07-18] MEDS ORDERED: FUROSEMIDE 40 MG/4 ML INJECTABLE VIAL IVPUSH ONE (13:30)
[2023-07-18] MEDS ORDERED: FUROSEMIDE 40 MG/4 ML INJECTABLE VIAL ONE (13:30)
[2023-07-18] MEDS: ALBUTEROL SO4 2.5/IPRATROPIUM 0.5 INH SOL 3 ML VIAL.NEB. NEB SCH ×2 (15:23→19:40)
[2023-07-18] MEDS ORDERED: DEXTROSE 5%-0.45% SALINE 1,000 ML IV SCH (18:55)
[2023-07-19] MEDS: methylPREDNISolone NA SUCC 40 MG/1 ML VIAL IVPB SCH ×3 (02:54→20:59)
[2023-07-19] MEDS: INSULIN SLIDING SCALE (NOVOLOG) 1 VIAL SQ SCH ×2 (06:07→18:51)
[2023-07-19] MEDS: LEVOTHYROXINE NA 25 MCG TABLET (FP) PO SCH (06:07)
[2023-07-19] MEDS: ALBUTEROL SO4 2.5/IPRATROPIUM 0.5 INH SOL 3 ML VIAL.NEB. NEB SCH ×4 (07:15→20:13)
[2023-07-19 07:25] LABS: HEMATOCRIT 31.7 % (35.4-49); MCH 31.8 pg (25.7-33.7); MCHC 31.6 g/dl (32.0-35.9); MEAN CELL VOLUME 100.8 fl (80-96); MEAN PLT VOLUME 9.2 fl (7.5-11.1); PLATELET COUNT 145 10^3/uL (134-434); RBC 3.14 M/mm3 (4.00-5.60); RDW 15.8 % (11.9-15.9); WHITE BLOOD COUNT 10.5 K/mm3 (4.0-10.0)
[2023-07-19 08:05] LABS: POTASSIUM 4.3 mmol/L (3.5-5.1)
[2023-07-19 08:06] LABS: BLOOD UREA NITROGEN 44.5 mg/dL (7-18); CALCIUM 8.9 mg/dL (8.5-10.1)
[2023-07-19 08:10] LABS: CREATININE 2.4 mg/dL (0.55-1.3)
[2023-07-19 09:11] LABS: ANISOCYTOSIS 1+; MACROCYTOSIS 0; OVALOCYTE 1+
[2023-07-19] MEDS ORDERED: FUROSEMIDE 40 MG/4 ML INJECTABLE VIAL IVPUSH ONE (09:15)
[2023-07-19] MEDS: CEFTRIAXONE 2 GM in DEXTROSE 5%-WATER 100 ML IVPB SCH (09:20)
[2023-07-19] MEDS: CHOLECALCIFEROL (VIT D3) 1,000 UNIT (25 MCG) TABLET PO SCH (09:24)
[2023-07-19] MEDS: AZITHROMYCIN IVPB 500 MG/250 ML BAG IVPB SCH (09:24)
[2023-07-19] MEDS: DUTASTERIDE 0.5 MG CAP (FP) PO SCH (09:25)
[2023-07-19] MEDS: FOLIC ACID 1 MG TABLET (FP) PO SCH (09:25)
[2023-07-19] MEDS: TAMSULOSIN HCL 0.4 MG CAP PO SCH (09:25)
[2023-07-19] MEDS: ISOSORBIDE MONONITRATE 30 MG TAB.SR.24H (FP) PO SCH (09:25)
[2023-07-19] MEDS: PANTOPRAZOLE 40 MG TABLET PO SCH (09:25)
[2023-07-19] MEDS: APIXABAN 2.5 MG TABLET PO SCH ×2 (09:25→20:59)
[2023-07-19] MEDS: URSODIOL 300 MG CAPSULE PO SCH ×2 (09:26→20:59)
[2023-07-19] MEDS: CYANOCOBALAMIN (VITAMIN B-12) 100 MCG TABLET PO SCH (09:26)
[2023-07-19] MEDS ORDERED: IRON SUCROSE INJECTION 300 MG in SODIUM CHLORIDE 250 ML IVPB ONE (10:00)
[2023-07-19] MEDS ORDERED: INSULIN (NOVOLOG) ASPART 100 UNITS/ML 10ML VIAL ONE (18:50)
[2023-07-20] MEDS ORDERED: INSULIN (NOVOLOG) ASPART 100 UNITS/ML 10ML VIAL ONE ×2 (06:44→17:17)
[2023-07-20] MEDS: INSULIN SLIDING SCALE (NOVOLOG) 1 VIAL SQ SCH ×2 (06:45→17:42)
[2023-07-20] MEDS: LEVOTHYROXINE NA 25 MCG TABLET (FP) PO SCH (06:45)
[2023-07-20 07:21] LABS: HEMATOCRIT 32.4 % (35.4-49); HEMOGLOBIN 10.4 GM/dL (11.7-16.9); MCH 31.9 pg (25.7-33.7); MEAN CELL VOLUME 99.4 fl (80-96); PLATELET COUNT 143 10^3/uL (134-434); RBC 3.26 M/mm3 (4.00-5.60); RDW 15.2 % (11.9-15.9); WHITE BLOOD COUNT 9.3 K/mm3 (4.0-10.0)
[2023-07-20] MEDS: ALBUTEROL SO4 2.5/IPRATROPIUM 0.5 INH SOL 3 ML VIAL.NEB. NEB SCH ×4 (07:30→20:46)
[2023-07-20] MEDS: methylPREDNISolone NA SUCC 40 MG/1 ML VIAL IVPB SCH ×2 (07:58→21:24)
[2023-07-20] MEDS: TAMSULOSIN HCL 0.4 MG CAP PO SCH (07:58)
[2023-07-20 08:00] LABS: POTASSIUM 4.4 mmol/L (3.5-5.1)
[2023-07-20 08:11] LABS: BLOOD UREA NITROGEN 55.9 mg/dL (7-18)
[2023-07-20 08:14] LABS: CREATININE 2.6 mg/dL (0.55-1.3)
[2023-07-20 09:10] LABS: ANISOCYTOSIS 1+; MACROCYTOSIS 0
[2023-07-20] MEDS ORDERED: IRON SUCROSE INJECTION 300 MG in SODIUM CHLORIDE 235 ML IVPB ONE (09:10)
[2023-07-20] MEDS: PANTOPRAZOLE 40 MG TABLET PO SCH (10:40)
[2023-07-20] MEDS: APIXABAN 2.5 MG TABLET PO SCH ×2 (10:40→21:25)
[2023-07-20] MEDS: ISOSORBIDE MONONITRATE 30 MG TAB.SR.24H (FP) PO SCH (10:40)
[2023-07-20] MEDS: CHOLECALCIFEROL (VIT D3) 1,000 UNIT (25 MCG) TABLET PO SCH (10:40)
[2023-07-20] MEDS: URSODIOL 300 MG CAPSULE PO SCH ×2 (10:40→21:30)
[2023-07-20] MEDS: DUTASTERIDE 0.5 MG CAP (FP) PO SCH (10:40)
[2023-07-20] MEDS: CEFTRIAXONE 2 GM in DEXTROSE 5%-WATER 100 ML IVPB SCH (10:40)
[2023-07-20] MEDS: CYANOCOBALAMIN (VITAMIN B-12) 100 MCG TABLET PO SCH (10:40)
[2023-07-20] MEDS: FOLIC ACID 1 MG TABLET (FP) PO SCH (10:40)
[2023-07-20] MEDS: AZITHROMYCIN IVPB 500 MG/250 ML BAG IVPB SCH (10:41)
[2023-07-21] MEDS ORDERED: INSULIN (NOVOLOG) ASPART 100 UNITS/ML 10ML VIAL ONE (05:58)
[2023-07-21] MEDS: LEVOTHYROXINE NA 25 MCG TABLET (FP) PO SCH (06:07)
[2023-07-21] MEDS ORDERED: INSULIN SLIDING SCALE (NOVOLOG) 1 VIAL SQ SCH (07:00)
[2023-07-21] MEDS: INSULIN SLIDING SCALE (NOVOLOG) 1 VIAL SQ SCH ×4 (07:07→21:24)
[2023-07-21 07:29] LABS: HEMATOCRIT 32.3 % (35.4-49); HEMOGLOBIN 10.2 GM/dL (11.7-16.9); MCH 31.4 pg (25.7-33.7); MCHC 31.5 g/dl (32.0-35.9); MEAN CELL VOLUME 99.7 fl (80-96); MEAN PLT VOLUME 8.9 fl (7.5-11.1); PLATELET COUNT 152 10^3/uL (134-434); RBC 3.24 M/mm3 (4.00-5.60); RDW 15.2 % (11.9-15.9)
[2023-07-21 07:59] LABS: POTASSIUM 4.6 mmol/L (3.5-5.1)
[2023-07-21 08:01] LABS: CALCIUM 8.6 mg/dL (8.5-10.1)
[2023-07-21 08:03] LABS: BLOOD UREA NITROGEN 61.6 mg/dL (7-18)
[2023-07-21 08:06] LABS: CREATININE 2.7 mg/dL (0.55-1.3)
[2023-07-21] MEDS: TAMSULOSIN HCL 0.4 MG CAP PO SCH (08:09)
[2023-07-21] MEDS: DUTASTERIDE 0.5 MG CAP (FP) PO SCH (09:32)
[2023-07-21] MEDS: CEFTRIAXONE 2 GM in DEXTROSE 5%-WATER 100 ML IVPB SCH (09:32)
[2023-07-21] MEDS: CYANOCOBALAMIN (VITAMIN B-12) 100 MCG TABLET PO SCH (09:32)
[2023-07-21] MEDS: APIXABAN 2.5 MG TABLET PO SCH ×2 (09:33→21:23)
[2023-07-21] MEDS: FOLIC ACID 1 MG TABLET (FP) PO SCH (09:33)
[2023-07-21] MEDS: CHOLECALCIFEROL (VIT D3) 1,000 UNIT (25 MCG) TABLET PO SCH (09:33)
[2023-07-21] MEDS: PANTOPRAZOLE 40 MG TABLET PO SCH (09:33)
[2023-07-21] MEDS: ISOSORBIDE MONONITRATE 30 MG TAB.SR.24H (FP) PO SCH (09:33)
[2023-07-21] MEDS: URSODIOL 300 MG CAPSULE PO SCH ×2 (09:33→21:23)
[2023-07-21] MEDS: AZITHROMYCIN IVPB 500 MG/250 ML BAG IVPB SCH (09:33)
[2023-07-21 09:45] LABS: ANISOCYTOSIS 0; HELMET CELLS 0; HOWELL-JOLLY BODIES 0; MACROCYTOSIS 0; OVALOCYTE 0; ROULEAU 0; SICKELED CELLS 0; TARGET CELLS 0; TEAR DROP CELLS 0; TOXIC GRANULATION 0
[2023-07-21] MEDS: ALBUTEROL SO4 2.5/IPRATROPIUM 0.5 INH SOL 3 ML VIAL.NEB. NEB SCH ×4 (09:47→20:46)
[2023-07-21] MEDS ORDERED: EPOETIN ALFA-EPBX 20,000 UNIT/ML VIAL SQ ONE (10:00)
[2023-07-21] MEDS ORDERED: methylPREDNISolone NA SUCC 40 MG/1 ML VIAL IVPB SCH (10:00)
[2023-07-21] MEDS: ACETAMINOPHEN 325 MG TABLET (FP) PO PRN (21:23)
[2023-07-22] MEDS ORDERED: methylPREDNISolone NA SUCC 40 MG/1 ML VIAL IVPB SCH (06:30)
[2023-07-22] MEDS: LEVOTHYROXINE NA 25 MCG TABLET (FP) PO SCH (06:45)
[2023-07-22] MEDS: INSULIN SLIDING SCALE (NOVOLOG) 1 VIAL SQ SCH ×4 (06:50→21:52)
[2023-07-22 07:38] LABS: HEMATOCRIT 33.1 % (35.4-49); HEMOGLOBIN 10.5 GM/dL (11.7-16.9); MCHC 31.8 g/dl (32.0-35.9); MEAN CELL VOLUME 100.7 fl (80-96); MEAN PLT VOLUME 8.9 fl (7.5-11.1); PLATELET COUNT 137 10^3/uL (134-434); RBC 3.29 M/mm3 (4.00-5.60); RDW 15.7 % (11.9-15.9); WHITE BLOOD COUNT 10.8 K/mm3 (4.0-10.0)
[2023-07-22 07:50] LABS: POTASSIUM 4.6 mmol/L (3.5-5.1)
[2023-07-22 07:54] LABS: CALCIUM 8.7 mg/dL (8.5-10.1)
[2023-07-22 07:55] LABS: BLOOD UREA NITROGEN 62.1 mg/dL (7-18)
[2023-07-22] MEDS: ALBUTEROL SO4 2.5/IPRATROPIUM 0.5 INH SOL 3 ML VIAL.NEB. NEB SCH ×4 (07:55→19:53)
[2023-07-22 07:57] LABS: CREATININE 2.4 mg/dL (0.55-1.3)
[2023-07-22 09:11] LABS: ANISOCYTOSIS 1+; MACROCYTOSIS 0; OVALOCYTE 1+
[2023-07-22] MEDS: PANTOPRAZOLE 40 MG TABLET PO SCH (10:04)
[2023-07-22] MEDS: CEFTRIAXONE 2 GM in DEXTROSE 5%-WATER 100 ML IVPB SCH (10:04)
[2023-07-22] MEDS: APIXABAN 2.5 MG TABLET PO SCH ×2 (10:04→21:52)
[2023-07-22] MEDS: FOLIC ACID 1 MG TABLET (FP) PO SCH (10:04)
[2023-07-22] MEDS: TAMSULOSIN HCL 0.4 MG CAP PO SCH (10:04)
[2023-07-22] MEDS: CHOLECALCIFEROL (VIT D3) 1,000 UNIT (25 MCG) TABLET PO SCH (10:04)
[2023-07-22] MEDS: ISOSORBIDE MONONITRATE 30 MG TAB.SR.24H (FP) PO SCH (10:04)
[2023-07-22] MEDS: AZITHROMYCIN 250 MG TABLET PO SCH (10:04)
[2023-07-22] MEDS: CYANOCOBALAMIN (VITAMIN B-12) 100 MCG TABLET PO SCH (10:06)
[2023-07-22] MEDS: URSODIOL 300 MG CAPSULE PO SCH ×2 (10:06→21:52)
[2023-07-22] MEDS: DUTASTERIDE 0.5 MG CAP (FP) PO SCH (10:07)
[2023-07-23] MEDS: INSULIN SLIDING SCALE (NOVOLOG) 1 VIAL SQ SCH ×4 (06:20→21:26)
[2023-07-23] MEDS: LEVOTHYROXINE NA 25 MCG TABLET (FP) PO SCH (06:20)
[2023-07-23] MEDS: ALBUTEROL SO4 2.5/IPRATROPIUM 0.5 INH SOL 3 ML VIAL.NEB. NEB SCH ×2 (07:46→12:06)
[2023-07-23 07:56] LABS: HEMATOCRIT 33.2 % (35.4-49); HEMOGLOBIN 10.6 GM/dL (11.7-16.9); MCH 31.9 pg (25.7-33.7); MCHC 31.8 g/dl (32.0-35.9); MEAN CELL VOLUME 100.1 fl (80-96); MEAN PLT VOLUME 8.9 fl (7.5-11.1); PLATELET COUNT 142 10^3/uL (134-434); RBC 3.32 M/mm3 (4.00-5.60); RDW 15.2 % (11.9-15.9); WHITE BLOOD COUNT 10.6 K/mm3 (4.0-10.0)
[2023-07-23 08:17] LABS: POTASSIUM 4.4 mmol/L (3.5-5.1)
[2023-07-23 08:20] LABS: BLOOD UREA NITROGEN 63.2 mg/dL (7-18); CALCIUM 8.3 mg/dL (8.5-10.1)
[2023-07-23 08:24] LABS: CREATININE 2.2 mg/dL (0.55-1.3)
[2023-07-23] MEDS: FOLIC ACID 1 MG TABLET (FP) PO SCH (10:10)
[2023-07-23] MEDS: TAMSULOSIN HCL 0.4 MG CAP PO SCH (10:10)
[2023-07-23] MEDS: ISOSORBIDE MONONITRATE 30 MG TAB.SR.24H (FP) PO SCH (10:10)
[2023-07-23] MEDS: PANTOPRAZOLE 40 MG TABLET PO SCH (10:10)
[2023-07-23] MEDS: APIXABAN 2.5 MG TABLET PO SCH ×2 (10:10→21:22)
[2023-07-23] MEDS: AZITHROMYCIN 250 MG TABLET PO SCH (10:10)
[2023-07-23] MEDS: CEFTRIAXONE 2 GM in DEXTROSE 5%-WATER 100 ML IVPB SCH (10:10)
[2023-07-23] MEDS: CHOLECALCIFEROL (VIT D3) 1,000 UNIT (25 MCG) TABLET PO SCH (10:10)
[2023-07-23] MEDS: URSODIOL 300 MG CAPSULE PO SCH ×2 (10:11→21:23)
[2023-07-23] MEDS: CYANOCOBALAMIN (VITAMIN B-12) 100 MCG TABLET PO SCH (10:12)
[2023-07-23] MEDS: DUTASTERIDE 0.5 MG CAP (FP) PO SCH (10:12)
[2023-07-23 12:04] LABS: ANISOCYTOSIS 0; MACROCYTOSIS 2+
[2023-07-23] MEDS: methylPREDNISolone NA SUCC 40 MG/1 ML VIAL IVPUSH SCH (14:06)
[2023-07-23] MEDS ORDERED: FUROSEMIDE 40 MG/4 ML INJECTABLE VIAL IVPUSH ONE (15:25)
[2023-07-24] MEDS: INSULIN SLIDING SCALE (NOVOLOG) 1 VIAL SQ SCH ×4 (06:29→21:28)
[2023-07-24] MEDS: LEVOTHYROXINE NA 25 MCG TABLET (FP) PO SCH (06:29)
[2023-07-24] MEDS: TAMSULOSIN HCL 0.4 MG CAP PO SCH (08:06)
[2023-07-24 09:20] LABS: BASO % 0.8 % (0-2.0); EOS % 0.2 % (0-4.5); LYMPH % 3.1 % (8-40); MCH 32.5 pg (25.7-33.7); MCHC 33.3 g/dl (32.0-35.9); MEAN CELL VOLUME 97.6 fl (80-96); NEUT % 87.9 % (42.8-82.8); PLATELET COUNT 137 10^3/uL (134-434); RBC 3.69 M/mm3 (4.00-5.60); RDW 15.5 % (11.9-15.9); WHITE BLOOD COUNT 10.9 K/mm3 (4.0-10.0)
[2023-07-24] MEDS: FOLIC ACID 1 MG TABLET (FP) PO SCH (09:39)
[2023-07-24] MEDS: AZITHROMYCIN 250 MG TABLET PO SCH (09:39)
[2023-07-24] MEDS: APIXABAN 2.5 MG TABLET PO SCH ×2 (09:39→21:09)
[2023-07-24] MEDS: ISOSORBIDE MONONITRATE 30 MG TAB.SR.24H (FP) PO SCH (09:39)
[2023-07-24] MEDS: PANTOPRAZOLE 40 MG TABLET PO SCH (09:39)
[2023-07-24] MEDS: methylPREDNISolone NA SUCC 40 MG/1 ML VIAL IVPUSH SCH (09:39)
[2023-07-24] MEDS: CHOLECALCIFEROL (VIT D3) 1,000 UNIT (25 MCG) TABLET PO SCH (09:39)
[2023-07-24] MEDS: DUTASTERIDE 0.5 MG CAP (FP) PO SCH (09:40)
[2023-07-24] MEDS: URSODIOL 300 MG CAPSULE PO SCH ×2 (09:40→21:09)
[2023-07-24 09:41] LABS: POTASSIUM 3.8 mmol/L (3.5-5.1)
[2023-07-24] MEDS: CYANOCOBALAMIN (VITAMIN B-12) 100 MCG TABLET PO SCH (09:41)
[2023-07-24] MEDS: CEFTRIAXONE 2 GM in DEXTROSE 5%-WATER 100 ML IVPB SCH (09:41)
[2023-07-24 09:47] LABS: CALCIUM 8.3 mg/dL (8.5-10.1)
[2023-07-24 09:48] LABS: BLOOD UREA NITROGEN 60.3 mg/dL (7-18)
[2023-07-24 09:51] LABS: CREATININE 2.2 mg/dL (0.55-1.3)
[2023-07-24] MEDS ORDERED: FUROSEMIDE 40 MG TABLET (FP) PO SCH (10:00)
[2023-07-24] MEDS ORDERED: INSULIN (NOVOLOG) ASPART 100 UNITS/ML 10ML VIAL ONE ×2 (12:09→21:19)
[2023-07-24 12:46] VITALS: BMI 32.1
[2023-07-25] MEDS ORDERED: INSULIN (NOVOLOG) ASPART 100 UNITS/ML 10ML VIAL ONE ×2 (06:04→21:46)
[2023-07-25] MEDS: INSULIN SLIDING SCALE (NOVOLOG) 1 VIAL SQ SCH ×4 (06:06→21:46)
[2023-07-25] MEDS: LEVOTHYROXINE NA 25 MCG TABLET (FP) PO SCH (06:06)
[2023-07-25] MEDS: TAMSULOSIN HCL 0.4 MG CAP PO SCH (07:57)
[2023-07-25 08:15] LABS: HEMATOCRIT 40.9 % (35.4-49); MCH 31.4 pg (25.7-33.7); MCHC 31.8 g/dl (32.0-35.9); MEAN CELL VOLUME 98.9 fl (80-96); MEAN PLT VOLUME 8.9 fl (7.5-11.1); PLATELET COUNT 143 10^3/uL (134-434); RBC 4.13 M/mm3 (4.00-5.60); RDW 15.4 % (11.9-15.9); WHITE BLOOD COUNT 15.3 K/mm3 (4.0-10.0)
[2023-07-25 08:24] LABS: POTASSIUM 4.6 mmol/L (3.5-5.1)
[2023-07-25 08:31] LABS: CALCIUM 8.7 mg/dL (8.5-10.1)
[2023-07-25 08:32] LABS: BLOOD UREA NITROGEN 55.9 mg/dL (7-18)
[2023-07-25 08:35] LABS: CREATININE 1.9 mg/dL (0.55-1.3)
[2023-07-25 08:54] LABS: ANISOCYTOSIS 1+; MACROCYTOSIS 0
[2023-07-25] MEDS: FOLIC ACID 1 MG TABLET (FP) PO SCH (09:13)
[2023-07-25] MEDS: ACETAMINOPHEN 325 MG TABLET (FP) PO PRN (09:13)
[2023-07-25] MEDS: APIXABAN 2.5 MG TABLET PO SCH ×2 (09:13→21:21)
[2023-07-25] MEDS: PANTOPRAZOLE 40 MG TABLET PO SCH (09:13)
[2023-07-25] MEDS: DUTASTERIDE 0.5 MG CAP (FP) PO SCH (09:14)
[2023-07-25] MEDS: CEFTRIAXONE 2 GM in DEXTROSE 5%-WATER 100 ML IVPB SCH (09:14)
[2023-07-25] MEDS: CYANOCOBALAMIN (VITAMIN B-12) 100 MCG TABLET PO SCH (09:14)
[2023-07-25] MEDS: URSODIOL 300 MG CAPSULE PO SCH ×2 (09:14→21:21)
[2023-07-25] MEDS: methylPREDNISolone NA SUCC 40 MG/1 ML VIAL IVPUSH SCH (09:14)
[2023-07-25] MEDS ORDERED: FUROSEMIDE 40 MG TABLET (FP) PO SCH (10:00)
[2023-07-25] MEDS: CHOLECALCIFEROL (VIT D3) 1,000 UNIT (25 MCG) TABLET PO SCH (10:50)
[2023-07-25] MEDS: ISOSORBIDE MONONITRATE 30 MG TAB.SR.24H (FP) PO SCH (10:50)
[2023-07-25] MEDS: FUROSEMIDE 40 MG TABLET (FP) PO SCH (17:16)
[2023-07-26 05:49] VITALS: RESP 20
[2023-07-26] MEDS ORDERED: INSULIN (NOVOLOG) ASPART 100 UNITS/ML 10ML VIAL ONE ×2 (06:01→21:04)
[2023-07-26] MEDS: LEVOTHYROXINE NA 25 MCG TABLET (FP) PO SCH (06:02)
[2023-07-26] MEDS: FUROSEMIDE 40 MG TABLET (FP) PO SCH ×2 (06:02→13:31)
[2023-07-26] MEDS: INSULIN SLIDING SCALE (NOVOLOG) 1 VIAL SQ SCH ×4 (06:03→21:10)
[2023-07-26] MEDS: TAMSULOSIN HCL 0.4 MG CAP PO SCH (08:05)
[2023-07-26 08:15] LABS: BASO % 0.6 % (0-2.0); EOS % 1.8 % (0-4.5); HEMATOCRIT 39.7 % (35.4-49); HEMOGLOBIN 13.3 GM/dL (11.7-16.9); MCH 32.3 pg (25.7-33.7); MCHC 33.5 g/dl (32.0-35.9); MEAN CELL VOLUME 96.4 fl (80-96); MEAN PLT VOLUME 9.3 fl (7.5-11.1); MONO % 6.3 % (3.8-10.2); NEUT % 88.3 % (42.8-82.8); PLATELET COUNT 123 10^3/uL (134-434); RBC 4.12 M/mm3 (4.00-5.60); RDW 15.2 % (11.9-15.9); WHITE BLOOD COUNT 13.9 K/mm3 (4.0-10.0)
[2023-07-26 08:22] LABS: POTASSIUM 3.3 mmol/L (3.5-5.1)
[2023-07-26 08:25] LABS: CALCIUM 8.2 mg/dL (8.5-10.1); MAGNESIUM 1.7 mg/dL (1.8-2.4)
[2023-07-26 08:26] LABS: BLOOD UREA NITROGEN 53.7 mg/dL (7-18)
[2023-07-26] MEDS ORDERED: MAGNESIUM 2GM/50ML STERILE WATER IVPB IVPB ONE (09:45)
[2023-07-26] MEDS ORDERED: POTASSIUM CHLORIDE TABS 20 MEQ TABLET.ER (FP) PO SCH (10:00)
[2023-07-26] MEDS: ISOSORBIDE MONONITRATE 30 MG TAB.SR.24H (FP) PO SCH (10:02)
[2023-07-26] MEDS: CYANOCOBALAMIN (VITAMIN B-12) 100 MCG TABLET PO SCH (10:02)
[2023-07-26] MEDS: PANTOPRAZOLE 40 MG TABLET PO SCH (10:02)
[2023-07-26] MEDS: FOLIC ACID 1 MG TABLET (FP) PO SCH (10:02)
[2023-07-26] MEDS: APIXABAN 2.5 MG TABLET PO SCH ×2 (10:03→21:10)
[2023-07-26] MEDS: DUTASTERIDE 0.5 MG CAP (FP) PO SCH (10:03)
[2023-07-26] MEDS: CHOLECALCIFEROL (VIT D3) 1,000 UNIT (25 MCG) TABLET PO SCH (10:03)
[2023-07-26] MEDS: URSODIOL 300 MG CAPSULE PO SCH ×2 (10:03→21:11)
[2023-07-26 22:41] VITALS: BP 118/59; PULSE 95; TEMP 98.5
== END 2023-07-26 22:45 | DRG 193 ==
LOC: JER 12:02 → JERBED 14:16 → J4W 21:57
PROVIDERS: ADMIT Internal Medicine; ATTEND Internal Medicine
DX: J18.9 Pneumonia, unspecified organism (principal); I50.33 Acute on chronic diastolic (congestive) heart failure; N17.0 Acute kidney failure with tubular necrosis; I13.0 Hypertensive heart and chronic kidney disease with heart failure and stage 1 through stage 4 chronic kidney disease, or unspecified chronic kidney disease; J44.1 Chronic obstructive pulmonary disease with (acute) exacerbation; I48.19 Other persistent atrial fibrillation; E87.20 Acidosis, unspecified; N39.0 Urinary tract infection, site not specified; N18.9 Chronic kidney disease, unspecified; K21.9 Gastro-esophageal reflux disease without esophagitis; E86.0 Dehydration; E03.9 Hypothyroidism, unspecified; E78.5 Hyperlipidemia, unspecified; E11.9 Type 2 diabetes mellitus without complications; E66.9 Obesity, unspecified; Z68.31 Body mass index [BMI] 31.0-31.9, adult; D50.9 Iron deficiency anemia, unspecified
CPT/HCPCS: 0241U-QW; 36415; 70450-TC; 71045-TC-FY; 71250-TC; 73502-TC-LT-FY; 73552-TC-LT-FY; 74176-TC; 80048; 80053; 81003; 82728; 82803; 82962; 83540; 83550; 83605; 83735; 83880; 84484; 85025; 85610; 85730; 87040; 87086; 87635; 87899; 93005; 93010; 93306-TC; 94640; 94761; 97116-GP; 97162-GP; 99285-25; J1756

== ENCOUNTER 2023-12-13 13:57 | Inpatient (IN) | payer OTHER, BC ==
[2023-12-13 15:51] LABS: BASO % 0.8 % (0-2.0); EOS % 2.8 % (0-4.5); HEMATOCRIT 33.3 % (35.4-49); HEMOGLOBIN 11.1 GM/dL (11.7-16.9); MCHC 33.3 g/dl (32.0-35.9); MEAN CELL VOLUME 96.1 fl (80-96); MEAN PLT VOLUME 8.1 fl (7.5-11.1); MONO % 15.7 % (3.8-10.2); NEUT % 66.7 % (42.8-82.8); PLATELET COUNT 172 10^3/uL (134-434); RBC 3.46 M/mm3 (4.00-5.60); RDW 13.4 % (11.9-15.9); WHITE BLOOD COUNT 6.9 K/mm3 (4.0-10.0)
[2023-12-13 15:55] LABS: INR 1.5 (0.83-1.09); PROTHROMBIN TIME (PATIENT) 17.3 SEC (9.7-13.0)
[2023-12-13 15:58] LABS: ACTIVATED PTT 36.8 SECONDS (25.2-36.5)
[2023-12-13] MEDS ORDERED: ACETAMINOPHEN INJECTION 100 ML IVPB ONE (16:02)
[2023-12-13] MEDS: ACETAMINOPHEN 1000 MG/100 ML BAG IVPB ONE (16:07)
[2023-12-13 16:16] LABS: POTASSIUM 4.5 mmol/L (3.5-5.1)
[2023-12-13 16:19] LABS: ALBUMIN 3.2 g/dl (3.4-5.0); BLOOD UREA NITROGEN 39.3 mg/dL (7-18)
[2023-12-13 16:22] LABS: CREATININE 1.8 mg/dL (0.55-1.3)
[2023-12-13 16:23] LABS: BILIRUBIN,TOTAL 1.3 mg/dL (0.2-1)
[2023-12-13] MEDS ORDERED: ALBUTEROL SO4 2.5/IPRATROPIUM 0.5 INH SOL 3 ML VIAL.NEB. NEB PRN (18:10)
[2023-12-13] MEDS: DEXTROSE 5%-0.45% SALINE 1,000 ML IV SCH (22:22)
[2023-12-13] MEDS: APIXABAN 2.5 MG TABLET PO SCH (22:22)
[2023-12-14] MEDS: LEVOTHYROXINE NA 25 MCG TABLET (FP) PO SCH (05:46)
[2023-12-14] MEDS: CHOLECALCIFEROL (VIT D3) 1,000 UNIT (25 MCG) TABLET PO SCH (09:45)
[2023-12-14] MEDS: ISOSORBIDE MONONITRATE 30 MG TAB.SR.24H (FP) PO SCH (09:45)
[2023-12-14] MEDS: PANTOPRAZOLE 40 MG TABLET PO SCH (09:46)
[2023-12-14] MEDS: FOLIC ACID 1 MG TABLET (FP) PO SCH (09:46)
[2023-12-14] MEDS: CYANOCOBALAMIN (VITAMIN B-12) 100 MCG TABLET PO SCH (09:46)
[2023-12-14] MEDS: DUTASTERIDE 0.5 MG CAP (FP) PO SCH (09:51)
[2023-12-14 11:22] LABS: BASO % 0.9 % (0-2.0); EOS % 4.2 % (0-4.5); HEMATOCRIT 31.9 % (35.4-49); HEMOGLOBIN 10.7 GM/dL (11.7-16.9); LYMPH % 17.6 % (8-40); MCHC 33.4 g/dl (32.0-35.9); MEAN CELL VOLUME 95.8 fl (80-96); MEAN PLT VOLUME 8.3 fl (7.5-11.1); MONO % 16.2 % (3.8-10.2); NEUT % 61.1 % (42.8-82.8); PLATELET COUNT 168 10^3/uL (134-434); RBC 3.33 M/mm3 (4.00-5.60); RDW 13.6 % (11.9-15.9); WHITE BLOOD COUNT 5.7 K/mm3 (4.0-10.0)
[2023-12-14 11:37] LABS: POTASSIUM 4.3 mmol/L (3.5-5.1)
[2023-12-14 11:39] LABS: BLOOD UREA NITROGEN 35.1 mg/dL (7-18); CALCIUM 8.9 mg/dL (8.5-10.1)
[2023-12-14 11:43] LABS: CREATININE 1.8 mg/dL (0.55-1.3)
[2023-12-14] MEDS: ACETAMINOPHEN 325 MG TABLET (FP) PO PRN (12:33)
[2023-12-14] MEDS ORDERED: CEFAZOLIN 2 GM in DEXTROSE 5%-WATER - 50 ML IVPB ONE ×2 (14:28→14:45)
[2023-12-14] MEDS: DEXTROSE 5%-0.45% SALINE 1,000 ML IV SCH (16:04)
[2023-12-14] MEDS: IRON SUCROSE INJECTION 300 MG in SODIUM CHLORIDE 250 ML IVPB ONE (17:28)
[2023-12-14] MEDS: SIMETHICONE 80 MG TAB.CHEW (FP) PO ONE (22:06)
[2023-12-15] MEDS ORDERED: DEXTROSE 5%-0.45% SALINE 1,000 ML IV SCH ×3 (06:04→12:35)
[2023-12-15 07:57] LABS: BASO % 1.1 % (0-2.0); EOS % 4.8 % (0-4.5); HEMATOCRIT 32.7 % (35.4-49); HEMOGLOBIN 10.7 GM/dL (11.7-16.9); LYMPH % 16.7 % (8-40); MCH 31.7 pg (25.7-33.7); MCHC 32.8 g/dl (32.0-35.9); MEAN CELL VOLUME 96.6 fl (80-96); MEAN PLT VOLUME 8.6 fl (7.5-11.1); MONO % 17.5 % (3.8-10.2); NEUT % 59.9 % (42.8-82.8); PLATELET COUNT 172 10^3/uL (134-434); RBC 3.39 M/mm3 (4.00-5.60); RDW 13.2 % (11.9-15.9)
[2023-12-15 08:20] LABS: POTASSIUM 4.1 mmol/L (3.5-5.1)
[2023-12-15 08:21] LABS: BLOOD UREA NITROGEN 35.2 mg/dL (7-18)
[2023-12-15 08:22] LABS: CALCIUM 9.2 mg/dL (8.5-10.1)
[2023-12-15 08:25] LABS: CREATININE 1.8 mg/dL (0.55-1.3)
[2023-12-15] MEDS: DEXTROSE 5%-0.45% SALINE 1,000 ML IV SCH ×2 (10:06→17:00)
[2023-12-15] MEDS ORDERED: LACTATED RINGERS SOLUTION 1,000 ML IV SCH ×2 (13:00→15:15)
[2023-12-15] MEDS ORDERED: MIDAZOLAM HCL 2 MG/2 ML SINGLE DOSE VIAL ONE (13:43)
[2023-12-15] MEDS ORDERED: PROPOFOL 20 ML ONE (13:43)
[2023-12-15] MEDS ORDERED: FENTANYL CITRATE/PF 50 MCG/ML VIAL ONE ×4 (13:43→15:28)
[2023-12-15] MEDS: ceFAZolin SODIUM 1 GM VIAL IVPB ONE (14:07)
[2023-12-15] MEDS ORDERED: ONDANSETRON 4 MG/2 ML VIAL ONE (14:19)
[2023-12-15] MEDS ORDERED: ETOMIDATE 20 MG/10 ML VIAL IVPUSH ONE (14:19)
[2023-12-15] MEDS ORDERED: PHENYLEPHRINE HCL 10 MG/1 ML SINGLE DOSE VIAL ONE (14:19)
[2023-12-15] MEDS ORDERED: ceFAZolin SODIUM 1 GM VIAL ONE (14:19)
[2023-12-15] MEDS ORDERED: ONDANSETRON 4 MG/2 ML VIAL IVPUSH PRN (15:15)
[2023-12-15] MEDS ORDERED: ACETAMINOPHEN INJECTION 100 ML IVPB ONE (15:27)
[2023-12-15] MEDS ORDERED: ALBUTEROL SO4 2.5/IPRATROPIUM 0.5 INH SOL 3 ML VIAL.NEB. NEB PRN (15:29)
[2023-12-15] MEDS: ACETAMINOPHEN 1000 MG/100 ML BAG IVPB ONE (15:35)
[2023-12-15] MEDS: ACETAMINOPHEN 325 MG TABLET (FP) PO PRN (18:28)
[2023-12-15] MEDS ORDERED: CEFAZOLIN SODIUM 2 GM in DEXTROSE 5%-WATER 100 ML IVPB SCH (21:00)
[2023-12-15] MEDS: CEFAZOLIN SODIUM 2 GM in DEXTROSE 5%-WATER 100 ML IVPB SCH (21:21)
[2023-12-16] MEDS: LEVOTHYROXINE NA 25 MCG TABLET (FP) PO SCH (05:45)
[2023-12-16] MEDS: PANTOPRAZOLE 40 MG TABLET PO SCH (09:22)
[2023-12-16] MEDS: FOLIC ACID 1 MG TABLET (FP) PO SCH (09:22)
[2023-12-16] MEDS: APIXABAN 2.5 MG TABLET PO SCH (09:22)
[2023-12-16] MEDS: ISOSORBIDE MONONITRATE 30 MG TAB.SR.24H (FP) PO SCH (09:22)
[2023-12-16] MEDS: DUTASTERIDE 0.5 MG CAP (FP) PO SCH (09:22)
[2023-12-16] MEDS: CYANOCOBALAMIN (VITAMIN B-12) 100 MCG TABLET PO SCH (09:22)
[2023-12-16] MEDS: CHOLECALCIFEROL (VIT D3) 1,000 UNIT (25 MCG) TABLET PO SCH (09:22)
[2023-12-16] MEDS: DEXTROSE 5%-0.45% SALINE 1,000 ML IV SCH (09:33)
[2023-12-16 10:01] LABS: BASO % 0.2 % (0-2.0); HEMATOCRIT 30.5 % (35.4-49); HEMOGLOBIN 9.8 GM/dL (11.7-16.9); HEMOGLOBIN 9.9 GM/dL (11.7-16.9); MCH 31.6 pg (25.7-33.7); MCHC 32.3 g/dl (32.0-35.9); MEAN CELL VOLUME 97.8 fl (80-96); MEAN CELL VOLUME 97.9 fl (80-96); MEAN PLT VOLUME 8.7 fl (7.5-11.1); MONO % 13.6 % (3.8-10.2); NEUT % 77.2 % (42.8-82.8); PLATELET COUNT 141 10^3/uL (134-434); PLATELET COUNT 150 10^3/uL (134-434); RBC 3.12 M/mm3 (4.00-5.60); RDW 13.4 % (11.9-15.9); WHITE BLOOD COUNT 6.7 K/mm3 (4.0-10.0); WHITE BLOOD COUNT 6.8 K/mm3 (4.0-10.0)
[2023-12-16 10:24] LABS: POTASSIUM 4.8 mmol/L (3.5-5.1)
[2023-12-16 10:33] LABS: CALCIUM 8.3 mg/dL (8.5-10.1)
[2023-12-16 10:34] LABS: BLOOD UREA NITROGEN 36.2 mg/dL (7-18)
[2023-12-16 10:37] LABS: CREATININE 1.9 mg/dL (0.55-1.3)
[2023-12-16] MEDS: INSULIN (NOVOLOG) ASPART 100 UNITS/ML 10ML VIAL SQ ONE (12:52)
[2023-12-16] MEDS: INSULIN ASPART SLIDING SCALE (NOVOLOG) 1 VIAL SQ SCH (16:50)
[2023-12-17 08:32] LABS: BASO % 0.8 % (0-2.0); EOS % 5.4 % (0-4.5); HEMATOCRIT 27.3 % (35.4-49); HEMOGLOBIN 8.9 GM/dL (11.7-16.9); LYMPH % 13.3 % (8-40); MCH 31.5 pg (25.7-33.7); MCHC 32.4 g/dl (32.0-35.9); MEAN CELL VOLUME 97.3 fl (80-96); MEAN PLT VOLUME 8.7 fl (7.5-11.1); MONO % 14.5 % (3.8-10.2); PLATELET COUNT 147 10^3/uL (134-434); RBC 2.81 M/mm3 (4.00-5.60); RDW 13.3 % (11.9-15.9); WHITE BLOOD COUNT 7.4 K/mm3 (4.0-10.0)
[2023-12-17 08:49] LABS: POTASSIUM 4.4 mmol/L (3.5-5.1)
[2023-12-17 09:02] LABS: BLOOD UREA NITROGEN 39.6 mg/dL (7-18)
[2023-12-17] MEDS: IRON SUCROSE INJECTION 300 MG in SODIUM CHLORIDE 235 ML IVPB ONE (09:59)
[2023-12-17] MEDS: DEXTROSE 5%-0.45% SALINE 1,000 ML IV SCH (09:59)
[2023-12-18 09:06] LABS: BASO % 0.8 % (0-2.0); EOS % 5.5 % (0-4.5); HEMATOCRIT 26.2 % (35.4-49); HEMOGLOBIN 8.7 GM/dL (11.7-16.9); LYMPH % 13.2 % (8-40); MCH 32.2 pg (25.7-33.7); MCHC 33.4 g/dl (32.0-35.9); MEAN CELL VOLUME 96.4 fl (80-96); MEAN PLT VOLUME 8.6 fl (7.5-11.1); MONO % 16.8 % (3.8-10.2); NEUT % 63.7 % (42.8-82.8); PLATELET COUNT 152 10^3/uL (134-434); RBC 2.71 M/mm3 (4.00-5.60); RDW 13.5 % (11.9-15.9); WHITE BLOOD COUNT 7.2 K/mm3 (4.0-10.0)
[2023-12-18 09:11] LABS: POTASSIUM 4.4 mmol/L (3.5-5.1)
[2023-12-18 09:22] LABS: BLOOD UREA NITROGEN 42.2 mg/dL (7-18)
[2023-12-18 09:25] LABS: CREATININE 1.8 mg/dL (0.55-1.3)
[2023-12-18] MEDS: POLYETHYLENE GLYCOL (HEALTHYLAX) 3350 17 GM PACKET PO SCH (09:29)
[2023-12-18] MEDS: METHYLNALTREXONE BROMIDE 8 MG/0.4 ML SYRINGE SQ ONE (09:32)
[2023-12-18] MEDS: DEXTROSE 5%-0.45% SALINE 1,000 ML IV SCH ×2 (11:14→14:54)
[2023-12-18] MEDS: DOCUSATE SODIUM 100 MG CAPSULE (FP) PO SCH (13:31)
[2023-12-18 17:01] LABS: EPI CELLS 16 /uL (0-25.1); HYALINE CASTS 1 /uL (0-3.1); URINE APPEARANCE CLEAR; URINE BACTERIA 79 /uL (0-1359); URINE BILIRUBIN NEGATIVE (NEGATIVE); URINE COLOR YELLOW; URINE GLUCOSE (UA) TRACE (NEGATIVE); URINE KETONE NEGATIVE (NEGATIVE); URINE LEUK ESTERASE 1+ (NEGATIVE); URINE NITRITE NEGATIVE (NEGATIVE); URINE PROTEIN TRACE (NEGATIVE); URINE UROBILINOGEN 0.2 mg/dL (0.2-1.0); URINE WBC 30 /uL (0-25.8)
[2023-12-18 17:12] LABS: URINE RBC 35.8 /uL (0-23.9)
[2023-12-19 09:44] LABS: BASO % 0.9 % (0-2.0); EOS % 4.4 % (0-4.5); HEMATOCRIT 27.5 % (35.4-49); LYMPH % 12.7 % (8-40); MCH 31.9 pg (25.7-33.7); MCHC 32.6 g/dl (32.0-35.9); MEAN PLT VOLUME 8.7 fl (7.5-11.1); MONO % 15.3 % (3.8-10.2); NEUT % 66.7 % (42.8-82.8); PLATELET COUNT 164 10^3/uL (134-434); RDW 13.5 % (11.9-15.9)
[2023-12-19 10:08] LABS: POTASSIUM 4.5 mmol/L (3.5-5.1)
[2023-12-19 10:12] LABS: CALCIUM 8.4 mg/dL (8.5-10.1)
[2023-12-19 10:16] LABS: CREATININE 1.8 mg/dL (0.55-1.3)
[2023-12-20 10:10] LABS: BASO % 0.9 % (0-2.0); EOS % 3.3 % (0-4.5); HEMOGLOBIN 8.7 GM/dL (11.7-16.9); LYMPH % 11.4 % (8-40); MCH 32.2 pg (25.7-33.7); MCHC 33.3 g/dl (32.0-35.9); MEAN CELL VOLUME 96.7 fl (80-96); MEAN PLT VOLUME 8.2 fl (7.5-11.1); MONO % 15.6 % (3.8-10.2); NEUT % 68.8 % (42.8-82.8); PLATELET COUNT 180 10^3/uL (134-434); RBC 2.69 M/mm3 (4.00-5.60); RDW 13.7 % (11.9-15.9); WHITE BLOOD COUNT 6.7 K/mm3 (4.0-10.0)
[2023-12-20 10:22] LABS: POTASSIUM 4.4 mmol/L (3.5-5.1)
[2023-12-20 10:37] LABS: BLOOD UREA NITROGEN 33.9 mg/dL (7-18); CALCIUM 8.5 mg/dL (8.5-10.1)
[2023-12-20 10:40] LABS: CREATININE 1.6 mg/dL (0.55-1.3)
[2023-12-20] MEDS: METHYLNALTREXONE BROMIDE 8 MG/0.4 ML SYRINGE SQ SCH (12:25)
[2023-12-21 09:57] LABS: BASO % 0.8 % (0-2.0); EOS % 4.5 % (0-4.5); HEMATOCRIT 25.8 % (35.4-49); HEMOGLOBIN 8.5 GM/dL (11.7-16.9); LYMPH % 16.2 % (8-40); MCH 31.9 pg (25.7-33.7); MEAN CELL VOLUME 96.6 fl (80-96); MEAN PLT VOLUME 8.1 fl (7.5-11.1); MONO % 16.6 % (3.8-10.2); NEUT % 61.9 % (42.8-82.8); PLATELET COUNT 192 10^3/uL (134-434); RBC 2.67 M/mm3 (4.00-5.60); WHITE BLOOD COUNT 6.4 K/mm3 (4.0-10.0)
[2023-12-21 10:20] LABS: POTASSIUM 4.5 mmol/L (3.5-5.1)
[2023-12-21 10:26] LABS: BLOOD UREA NITROGEN 32.7 mg/dL (7-18); CALCIUM 8.3 mg/dL (8.5-10.1)
[2023-12-21 10:29] LABS: CREATININE 1.7 mg/dL (0.55-1.3)
[2023-12-22 09:58] LABS: BASO % 1.1 % (0-2.0); HEMATOCRIT 27.1 % (35.4-49); HEMOGLOBIN 8.7 GM/dL (11.7-16.9); LYMPH % 11.2 % (8-40); MCH 31.6 pg (25.7-33.7); MCHC 32.2 g/dl (32.0-35.9); MEAN CELL VOLUME 97.9 fl (80-96); MONO % 13.8 % (3.8-10.2); NEUT % 68.9 % (42.8-82.8); PLATELET COUNT 207 10^3/uL (134-434); RBC 2.77 M/mm3 (4.00-5.60); RDW 13.9 % (11.9-15.9); WHITE BLOOD COUNT 6.8 K/mm3 (4.0-10.0)
[2023-12-22 10:15] LABS: POTASSIUM 4.2 mmol/L (3.5-5.1)
[2023-12-22 10:18] LABS: BLOOD UREA NITROGEN 30.6 mg/dL (7-18); CALCIUM 8.2 mg/dL (8.5-10.1)
[2023-12-22 10:22] LABS: CREATININE 1.6 mg/dL (0.55-1.3)
[2023-12-22 14:16] LABS: BF WBC & OTHER NUCLEATED CELLS 1093 /mm3; BODY FLUID MESOTHELIAL 2 %; BODY FLUID MONOCYTE 17 %; BODYL FLD EOSINOPHIL 2 %
[2023-12-23 08:06] LABS: BASO % 1.2 % (0-2.0); EOS % 4.4 % (0-4.5); HEMATOCRIT 28.9 % (35.4-49); HEMOGLOBIN 9.3 GM/dL (11.7-16.9); LYMPH % 15.5 % (8-40); MCH 31.9 pg (25.7-33.7); MCHC 32.2 g/dl (32.0-35.9); MEAN PLT VOLUME 7.9 fl (7.5-11.1); MONO % 14.8 % (3.8-10.2); NEUT % 64.1 % (42.8-82.8); PLATELET COUNT 219 10^3/uL (134-434); RBC 2.92 M/mm3 (4.00-5.60); RDW 13.7 % (11.9-15.9); WHITE BLOOD COUNT 5.9 K/mm3 (4.0-10.0)
[2023-12-23 08:24] LABS: CALCIUM 8.4 mg/dL (8.5-10.1)
[2023-12-23 08:25] LABS: BLOOD UREA NITROGEN 28.9 mg/dL (7-18)
[2023-12-23 08:28] LABS: CREATININE 1.5 mg/dL (0.55-1.3)
[2023-12-24 09:53] LABS: BASO % 1.3 % (0-2.0); HEMATOCRIT 28.2 % (35.4-49); HEMOGLOBIN 9.3 GM/dL (11.7-16.9); LYMPH % 12.9 % (8-40); MCH 31.9 pg (25.7-33.7); MCHC 32.7 g/dl (32.0-35.9); MEAN CELL VOLUME 97.3 fl (80-96); MONO % 14.5 % (3.8-10.2); NEUT % 66.3 % (42.8-82.8); PLATELET COUNT 231 10^3/uL (134-434); RDW 14.3 % (11.9-15.9); WHITE BLOOD COUNT 6.4 K/mm3 (4.0-10.0)
[2023-12-24 10:16] LABS: POTASSIUM 4.5 mmol/L (3.5-5.1)
[2023-12-24 10:54] LABS: CALCIUM 8.7 mg/dL (8.5-10.1)
[2023-12-24 10:55] LABS: BLOOD UREA NITROGEN 27.5 mg/dL (7-18)
[2023-12-24 10:57] LABS: CREATININE 1.5 mg/dL (0.55-1.3)
[2023-12-24 10:59] LABS: TOT PROT 5.8 g/dl (6.4-8.2)
[2023-12-24 11:09] LABS: ALBUMIN 2.4 g/dl (3.4-5.0)
[2023-12-24] MEDS: fentaNYL 12mcg/hr PATCH.TD72 TD SCH (15:25)
[2023-12-25 09:05] LABS: BASO % 1.1 % (0-2.0); EOS % 4.7 % (0-4.5); HEMATOCRIT 27.5 % (35.4-49); HEMOGLOBIN 9.1 GM/dL (11.7-16.9); LYMPH % 13.8 % (8-40); MCH 32.2 pg (25.7-33.7); MCHC 32.9 g/dl (32.0-35.9); MEAN CELL VOLUME 97.8 fl (80-96); MONO % 15.1 % (3.8-10.2); NEUT % 65.3 % (42.8-82.8); PLATELET COUNT 264 10^3/uL (134-434); RBC 2.82 M/mm3 (4.00-5.60); RDW 14.2 % (11.9-15.9); WHITE BLOOD COUNT 6.8 K/mm3 (4.0-10.0)
[2023-12-25 09:26] LABS: POTASSIUM 4.2 mmol/L (3.5-5.1)
[2023-12-25 09:28] LABS: BLOOD UREA NITROGEN 30.6 mg/dL (7-18); CALCIUM 8.7 mg/dL (8.5-10.1)
[2023-12-25 09:32] LABS: CREATININE 1.5 mg/dL (0.55-1.3)
[2023-12-25] MEDS: IRON SUCROSE INJECTION 300 MG in SODIUM CHLORIDE 235 ML IVPB ONE (11:28)
[2023-12-26 08:19] LABS: BASO % 1.2 % (0-2.0); EOS % 4.3 % (0-4.5); HEMATOCRIT 28.9 % (35.4-49); HEMOGLOBIN 9.4 GM/dL (11.7-16.9); LYMPH % 12.9 % (8-40); MCH 31.7 pg (25.7-33.7); MCHC 32.4 g/dl (32.0-35.9); MEAN CELL VOLUME 97.7 fl (80-96); MEAN PLT VOLUME 7.8 fl (7.5-11.1); MONO % 14.9 % (3.8-10.2); NEUT % 66.7 % (42.8-82.8); PLATELET COUNT 265 10^3/uL (134-434); RBC 2.96 M/mm3 (4.00-5.60); RDW 14.5 % (11.9-15.9); WHITE BLOOD COUNT 7.6 K/mm3 (4.0-10.0)
[2023-12-26 08:35] LABS: POTASSIUM 4.3 mmol/L (3.5-5.1)
[2023-12-26 08:37] LABS: BLOOD UREA NITROGEN 28.9 mg/dL (7-18); CALCIUM 8.9 mg/dL (8.5-10.1)
[2023-12-26 08:41] LABS: CREATININE 1.4 mg/dL (0.55-1.3)
[2023-12-27 09:09] LABS: BASO % 1.2 % (0-2.0); EOS % 5.7 % (0-4.5); HEMATOCRIT 28.8 % (35.4-49); HEMOGLOBIN 9.3 GM/dL (11.7-16.9); LYMPH % 12.4 % (8-40); MCH 31.5 pg (25.7-33.7); MCHC 32.3 g/dl (32.0-35.9); MEAN CELL VOLUME 97.5 fl (80-96); MEAN PLT VOLUME 7.8 fl (7.5-11.1); MONO % 14.2 % (3.8-10.2); NEUT % 66.5 % (42.8-82.8); PLATELET COUNT 294 10^3/uL (134-434); RBC 2.95 M/mm3 (4.00-5.60); RDW 14.2 % (11.9-15.9); WHITE BLOOD COUNT 7.7 K/mm3 (4.0-10.0)
[2023-12-27 09:21] LABS: POTASSIUM 4.3 mmol/L (3.5-5.1)
[2023-12-27 09:31] LABS: CREATININE 1.5 mg/dL (0.55-1.3)
[2023-12-27] MEDS: FENTANYL PATCH WASTE TD PRN (15:20)
[2023-12-28 23:51] VITALS: BMI 30.4
[2023-12-31 10:21] LABS: BASO % 0.3 % (0-2.0); EOS % 2.4 % (0-4.5); HEMOGLOBIN 9.9 GM/dL (11.7-16.9); LYMPH % 8.1 % (8-40); MCH 31.6 pg (25.7-33.7); MCHC 32.8 g/dl (32.0-35.9); MEAN CELL VOLUME 96.2 fl (80-96); MEAN PLT VOLUME 7.2 fl (7.5-11.1); MONO % 14.7 % (3.8-10.2); NEUT % 74.5 % (42.8-82.8); PLATELET COUNT 286 10^3/uL (134-434); RBC 3.12 M/mm3 (4.00-5.60); RDW 14.6 % (11.9-15.9); WHITE BLOOD COUNT 8.3 K/mm3 (4.0-10.0)
[2023-12-31 11:05] LABS: ALBUMIN 2.2 g/dl (3.4-5.0); BILIRUBIN,TOTAL 1.5 mg/dL (0.2-1); BLOOD UREA NITROGEN 27.3 mg/dL (7-18); CALCIUM 8.7 mg/dL (8.5-10.1); CREATININE 1.6 mg/dL (0.55-1.3); POTASSIUM 4.1 mmol/L (3.5-5.1); TOT PROT 5.4 g/dl (6.4-8.2)
[2023-12-31] MEDS ORDERED: FUROSEMIDE 40 MG/4 ML INJECTABLE VIAL IVPUSH ONE (19:02)
[2023-12-31] MEDS: FUROSEMIDE 40 MG/4 ML INJECTABLE VIAL IVPUSH ONE (21:57)
[2023-12-31] MEDS: PIPERACILLIN/TAZOB 3.375 GM 3.375 GM in DEXTROSE 5%-WATER - 50 ML IVPB ONE (21:58)
[2024-01-01 08:17] LABS: BASO % 1.4 % (0-2.0); EOS % 6.4 % (0-4.5); HEMATOCRIT 30.2 % (35.4-49); HEMOGLOBIN 9.7 GM/dL (11.7-16.9); MCH 31.4 pg (25.7-33.7); MCHC 32.2 g/dl (32.0-35.9); MEAN CELL VOLUME 97.5 fl (80-96); MEAN PLT VOLUME 7.7 fl (7.5-11.1); MONO % 15.4 % (3.8-10.2); NEUT % 63.8 % (42.8-82.8); PLATELET COUNT 303 10^3/uL (134-434); RDW 15.1 % (11.9-15.9); WHITE BLOOD COUNT 7.4 K/mm3 (4.0-10.0)
[2024-01-01 08:52] LABS: POTASSIUM 4.2 mmol/L (3.5-5.1)
[2024-01-01 08:53] LABS: CALCIUM 8.7 mg/dL (8.5-10.1)
[2024-01-01 08:54] LABS: BLOOD UREA NITROGEN 27.3 mg/dL (7-18)
[2024-01-01 08:57] LABS: CREATININE 1.6 mg/dL (0.55-1.3)
[2024-01-01] MEDS: ASCORBIC ACID 250 MG TABLET (FP) PO SCH (09:40)
[2024-01-01] MEDS: MULTIVITAMINS (DAILY MVI) TABLET (FP) PO SCH (09:40)
[2024-01-01] MEDS: FUROSEMIDE 40 MG/4 ML INJECTABLE VIAL IVPUSH SCH (11:26)
[2024-01-02 09:19] LABS: BASO % 1.4 % (0-2.0); EOS % 5.4 % (0-4.5); HEMATOCRIT 31.7 % (35.4-49); HEMOGLOBIN 10.4 GM/dL (11.7-16.9); LYMPH % 12.1 % (8-40); MCH 31.8 pg (25.7-33.7); MCHC 32.8 g/dl (32.0-35.9); MEAN CELL VOLUME 97.1 fl (80-96); MEAN PLT VOLUME 7.7 fl (7.5-11.1); MONO % 12.8 % (3.8-10.2); NEUT % 68.3 % (42.8-82.8); PLATELET COUNT 313 10^3/uL (134-434); RBC 3.26 M/mm3 (4.00-5.60); RDW 14.7 % (11.9-15.9); WHITE BLOOD COUNT 6.1 K/mm3 (4.0-10.0)
[2024-01-02 09:57] LABS: POTASSIUM 4.1 mmol/L (3.5-5.1)
[2024-01-02 10:00] LABS: CALCIUM 8.8 mg/dL (8.5-10.1)
[2024-01-02] MEDS ORDERED: FUROSEMIDE 40 MG/4 ML INJECTABLE VIAL IVPUSH ONE (10:00)
[2024-01-02 10:01] LABS: BLOOD UREA NITROGEN 27.6 mg/dL (7-18)
[2024-01-02 10:04] LABS: CREATININE 1.7 mg/dL (0.55-1.3)
[2024-01-02 19:38] VITALS: RESP 19
[2024-01-03 05:12] VITALS: BP 102/55; PULSE 74; TEMP 99
[2024-01-03 08:03] LABS: BASO % 1.1 % (0-2.0); EOS % 5.4 % (0-4.5); HEMATOCRIT 29.9 % (35.4-49); HEMOGLOBIN 9.8 GM/dL (11.7-16.9); LYMPH % 14.9 % (8-40); MCH 31.5 pg (25.7-33.7); MCHC 32.7 g/dl (32.0-35.9); MEAN CELL VOLUME 96.6 fl (80-96); MONO % 13.1 % (3.8-10.2); NEUT % 65.5 % (42.8-82.8); PLATELET COUNT 302 10^3/uL (134-434); RBC 3.09 M/mm3 (4.00-5.60); RDW 14.4 % (11.9-15.9)
[2024-01-03 08:48] LABS: POTASSIUM 4.3 mmol/L (3.5-5.1)
[2024-01-03 09:08] LABS: CALCIUM 8.5 mg/dL (8.5-10.1)
[2024-01-03 09:09] LABS: BLOOD UREA NITROGEN 34.5 mg/dL (7-18)
[2024-01-03 09:12] LABS: CREATININE 1.7 mg/dL (0.55-1.3)
== END 2024-01-03 12:43 | disposition home or self-care (01) | DRG 481 ==
LOC: JER 13:57 → JERBED 18:08 → J6S 20:23
PROVIDERS: ADMIT Internal Medicine; ATTEND Internal Medicine
PROC: 0QS604Z Reposition Right Upper Femur with Internal Fixation Device, Open Approach (ICD-10-PCS; principal; 2023-12-15 13:30)
PROC: 0W9B3ZX Drainage of Left Pleural Cavity, Percutaneous Approach, Diagnostic (ICD-10-PCS; 2023-12-22)
DX: M84.551A Pathological fracture in neoplastic disease, right femur, initial encounter for fracture (principal); C34.90 Malignant neoplasm of unspecified part of unspecified bronchus or lung; C79.51 Secondary malignant neoplasm of bone; I13.0 Hypertensive heart and chronic kidney disease with heart failure and stage 1 through stage 4 chronic kidney disease, or unspecified chronic kidney disease; I50.32 Chronic diastolic (congestive) heart failure; I48.11 Longstanding persistent atrial fibrillation; J90 Pleural effusion, not elsewhere classified; E11.9 Type 2 diabetes mellitus without complications; J44.9 Chronic obstructive pulmonary disease, unspecified; K21.9 Gastro-esophageal reflux disease without esophagitis; I25.10 Atherosclerotic heart disease of native coronary artery without angina pectoris; E03.9 Hypothyroidism, unspecified; E53.8 Deficiency of other specified B group vitamins; N40.0 Benign prostatic hyperplasia without lower urinary tract symptoms; D50.9 Iron deficiency anemia, unspecified; N18.30 Chronic kidney disease, stage 3 unspecified; E66.9 Obesity, unspecified; Z68.30 Body mass index [BMI] 30.0-30.9, adult
CPT/HCPCS: 0241U-QW; 36415; 70551-TC; 71045-TC-FY; 71250-TC; 73552-TC-RT-FY; 74176-TC; 76000-TC-FY; 76942; 78306-TC; 80048; 80053; 81003; 82042; 82105; 82150; 82378; 82465; 82550; 82728; 82945; 82962; 83540; 83550; 83615; 83986; 84157; 84478; 84484; 85025; 85027; 85610; 85730; 86301; 86304; 87040; 87070; 87075; 87086; 87102; 87116; 87205; 87206; 87210; 88108; 88305-TC; 88307-TC; 88311-TC; 88341-TC; 93005; 93010; 93306-TC; 94010; 94760; 97116-GP; 97162-GP; 99285-25; A9503; C1713; E0186; J0131; J1756